=== PATIENT | male | born 1955 | race Caucasian/White ===

== ENCOUNTER → 2018-07-03 14:23 | Outpatient (REF) | payer BC, MEDICARE, SELFPAY | LOC: LAB 14:23 | PROVIDERS: Visit Provider Urology | DX: R39.89 Other symptoms and signs involving the genitourinary system (principal); R31.0 Gross hematuria | CPT/HCPCS: 87086; 87088; 87186 ==

== ENCOUNTER → 2018-08-22 08:28 | Outpatient (CLI) | payer BC, MEDICARE, SELFPAY ==
--- NOTE | 2018-08-22 08:30 | US_ITS ---
US kidney retroperitoneal comp HISTORY: Pain and burning with urination ITS.REASON: URINARY RETENTION, recent latter tumor removal ORDERING PHYSICIAN: Angelita Lugo PATIENT AGE: 63 years Comparison: None FINDINGS: The right kidney is 10 x 4 x 5 cm. No hydronephrosis. The cortex is well-preserved. There is increased echogenicity along the lower pole the right kidney which may represent a stone at approximately 8 mm. The left kidney is 10 x 5 x 6 cm. No hydronephrosis. Cortex is well-preserved. IMPRESSION: 1. Suspect right nephrolithiasis. 2. Otherwise negative renal ultrasound. No hydronephrosis evident
--- NOTE | 2018-08-22 08:30 | US_ITS ---
US urinary bladder CLINICAL INDICATION: Pain and burning with urination ITS.REASON: URINARY RETENTION, recent bladder tumor removal ORDERING PHYSICIAN: Angelita Lugo PATIENT AGE: 63 years Comparison: None FINDINGS: The prevoid volume of the urinary bladder is 148 mL's. The post void volume of the urinary bladder is 94 mL's. The prostate is markedly enlarged with heterogeneous echogenicity. The prostate measures approximately 7 x 6 x 6 cm. There appears to be bilateral cystoceles which contain small stones. There is some debris within the urinary bladder with some irregular increased echogenicity along the posterior aspect of the urinary bladder. Cannot exclude tumor involvement of the bladder based on these images. IMPRESSION: 1. There is moderate postvoid residual urine within the urinary bladder 2. Enlarged prostate. 3. Debris along the posterior aspect of the urinary bladder with bilateral cystoceles which contains stones. Posterior wall urinary bladder is not well delineated with some heterogeneous echogenicity. Tumor involvement is an additional consideration. Consider CT with contrast with delayed images for further evaluation
== END ==
PROVIDERS: Family Provider Family Medicine; PCP Family Medicine; Visit Provider Nurse Practitioner Family
DX: R33.9 Retention of urine, unspecified (principal)
CPT/HCPCS: 76770; 76857

== ENCOUNTER → 2018-11-06 13:34 | Outpatient (CLI) | payer BC, MEDICARE, SELFPAY | LOC: LAB 13:34 → LAB.DROPOF 13:36 | PROVIDERS: Visit Provider Urology | DX: N39.0 Urinary tract infection, site not specified (principal) | CPT/HCPCS: 87086; 87088; 87186 ==

== ENCOUNTER → 2019-02-05 14:39 | Outpatient (CLI) | payer BC, MEDICARE, SELFPAY | LOC: LAB 14:39 → LAB.DROPOF 02-06 09:41 | PROVIDERS: Visit Provider Urology | DX: N39.0 Urinary tract infection, site not specified (principal) | CPT/HCPCS: 87086; 87088; 87186 ==

== ENCOUNTER → 2019-08-06 14:25 | Outpatient (CLI) | payer BC, MEDICARE, SELFPAY | PROVIDERS: Visit Provider Urology | DX: N39.0 Urinary tract infection, site not specified (principal) | CPT/HCPCS: 87086 ==

== ENCOUNTER 2019-10-31 05:43 | Observation (INO) ==
--- NOTE | 2019-10-31 05:52 | Emergency Department Note ---
ED Disposition Clinical Impression: Unstable angina Disposition: Admitted as Observation Condition on Discharge: Fair Referrals: Provider,Referral, [Primary Care Provider] - - Critical Care Critical Care Time: No Attestation: On , the high probability of a clinically significant, sudden or life thr eatening deterioration of the following system(s) required my full and direct attention, intervention and personal management. The time I documented below is in addition to time spent performing reported procedures but includes the following listed in this critical care notation. Medical Decision Making - [place] Inquiry Pt receiving controlled substance: No Vital Signs: 10/31/19 05:45 10/31/19 06:15 10/31/19 06:30 Temperature 98.0 F Temperature Source Oral Pulse Rate [Right Brachial] 71 62 56 L Respiratory Rate 18 18 18 Blood Pressure [Right Arm] 138/89 133/77 128/69 Blood Pressure Mean [Right Arm] 105 95 88 Blood Pressure Source [Right Arm] Automatic Cuff Automatic Cuff Blood Pressure Position [Right Arm] Sitting Supine 02 Sat by Pulse Oximetry 96 96 96 Oxygen Delivery Method Room Air Room Air Room Air - Lab Data Lab Results 10/31/19 06:10: WBC 8.1, RBC 5.27, Hgb 15.9, Hct 49.6, MCV 94.0, MCH 30.2, MCHC 32.2, RDW 13.6, Plt Count 204, MPV 8.2, Neut % (Auto) 75.6, Lymph % (Auto) 14.3, [place] % (Auto) 6.1, Eos % (Auto) 3.2, Baso % (Auto) 0.7, Neut # (Auto) 6.2, Lymph # (Auto) 1.2, [place] # (Auto) 0.5, Eos # (Auto) 0.3, Baso # (Auto) 0.1 10/31/19 06:10: Sodium 140, Potassium 3.4 L, Chloride 100, Carbon Dioxide 31, Anion Gap 12.4, BUN 21 H, Creatinine 1.54 H, Estimated Creat Clear 44, Estimated GFR 45 L, Est GFR ( Amer) 55 L, Glucose 137 H, Calcium 9.7, Total Bilirubin 0.8, AST 24, ALT 29, Alkaline Phosphatase 75, Troponin I < 0.02, Total Protein 8.0, Albumin 3.4, Globulin 4.6 H, Albumin/Globulin Ratio 0.7 L Result diagrams: 12/07/19 06:10 10/31/19 06:10 Orders (Tests/Meds): ED MEDICATIONS Generic Name Dose Route Start Last Admin Trade Name Freq PRN Reason Stop Dose Admin Nitroglycerin 1 gm 10/31/19 06:15 10/31/19 06:19 Nitroglycerin 1 Inch Oint Udp TD 11/30/19 06:14 1 gm Q6H NOA Administration Discontinued Medications Generic Name Dose Route Start Last Admin Trade Name Freq PRN Reason Stop Dose Admin Aspirin 324 mg 10/31/19 06:09 10/31/19 06:10 Aspirin 81mg Chewable Tablet PO 10/31/19 06:10 324 mg ONCE ONE Administration Nitroglycerin 1 gm 10/31/19 06:11 10/31/19 06:12 Nitroglycerin 1 Inch Oint Udp TD 10/31/19 06:12 Not Given ONCE ONE ORDERS Category Date Time Status Chest XR 2 view (NOT portable) [XR chest 2V] Stat Exams 10/31/19 06:47 Ordered Troponin I Q3H Lab 10/31/19 09:15 Ordered Troponin I Q3H Lab 10/31/19 12:15 Ordered - Radiology Data #1 Image(s): Chest Image Reviewed: Yes I have reviewed radiologist's interpretation FINDINGS: The cardiomediastinal silhouette and pulmonary vascularity are within normal limits. Prior CABG COPD with chronic interstitial changes. Prominent left hilum is noted but may be related to the lordotic positioning and pulmonary artery. PA and lateral chest may confirm. No acute bony abnormalities. IMPRESSION: COPD. Prominent left hilum which may be related to positioning and pulmonary artery. Non lordotic film may confirm. Dictated by: Hao Scales MD 10/31/2019 06:29 Electronically signed by Hao Scales MD in [place] 10/31/2019 06:29 - ECG Data Tracing #1 EKG interpreted by Jose Moore MD: Rhythm: sinus Rate: 65 [place]: normal Ectopy: none Conduction: normal ST Segment Changes: none T Wave Changes: none Q Waves: none No evidence of acute ischemia or injury Normal electrocardiogram - Physician Consults Physician Consulted: Kassi Time: 06:57 Reason -: Admission Comment/Response: Agrees to admit the patient to the hospital. We discussed the patient's clinical information, including history, exam, laboratory and radiology results and ED course. Per hospital procedure, I will write temporary bridge inpatient orders on the patient. Specific orders requested by the adm itting physician: Serial cardiac enzymes. Continue Nitropaste. Morphine for pain. - Reevaluation(s) Time: 06:57 Reevaluation #1: Patient states that now he "feels great". General Adult HPI - General Stated complaint: CHEST PAIN Time Seen by Provider: 10/31/19 05:53 - History of Present Illness HPI narrative: Complains of intermittent chest pain since 11 PM. Numerous episodes lasting 2 to 3 minutes each that feel like a concrete truck sitting on his chest in the precordial and right parasternal area. Associated with shortness of breath and diaphoresis as well as an episode of nausea but no vomiting. Currently states he is not having chest pain. Chest pains feel like what he had before he had to have bypass surgery in 2012 at [facility]. He does not currently see a safety belt installer regularly. He is a former smoker. He does not have diabetes. He is treated for hypertension. He says he does not have hyperlipidemia. - Related Data Home Medications Medication Instructions Recorded Confirmed hydrochlorothiazide 25 mg tablet 25 mg PO DAILY 90 Days tab 07/03/18 10/31/19 metoprolol tartrate 25 mg tablet 25 mg PO BID 90 Days tab 07/03/18 10/31/19 tamsulosin 0.4 mg capsule 0.4 mg PO DAILY 30 Days #30 07/03/18 10/31/19 oxybutynin chloride 5 mg tablet 5 mg PO ONCE tab 07/24/18 10/31/19 Umeclidinium Brm/Vilanterol Tr 1 puff IH NEEDED PRN 01/19/19 10/31/19 [Anoro Ellipta 62.5-25 Mcg INH] Allergies Allergy/AdvReac Type Severity Reaction Status Date / Time penicillin G [PENICILLIN G] Allergy Intermediate Verified 10/31/19 05:52 iodine [IODINE] Allergy Unknown Verified 10/31/19 05:52 [facility] [place] History - Hepatitis A Screen Attestation statement:: This patient has been screened for Hepatitis A risk factors. I have reviewed the patient's past medical history: Yes Medical History: Reports:: Diabetes Mellitus Type 1, Hyperlipidemia, Hypertension, Myocardial Infarction Denies:: Diabetes Mellitus Type 2 Other Surgeries: Yes: No Previous Surgery, Cancer Surgery (bladder tumor), Other Amputation: No Fractures: No Comment: BLADDER TUMOR REMOVED - Social History Smoking Status: Former smoker Alcohol Intake: never Alcohol Intake Frequency:: other Substance Use Type: denies use Occupational Status: retired Housing: house Household Members: spouse Family Hx:: Cancer ROS Obtained: Yes All systems reviewed & no additional complaints - Cardiovascular Cardiovascular: Reports chest pain, Reports diaphoresis - Respiratory Respiratory: Yes dyspnea - Gastrointestinal Gastrointestingal: Reports: nausea. Denies: abdominal pain, vomiting Physical Exam - General General appearance: alert - Head Head exam: atraumatic, normocephalic - Eye Eye exam: Present: normal appearance, EOMI - ENT ENT exam: Present: mucous membranes moist - Neck Neck exam: Present: normal inspection, trachea midline - Chest Chest inspection: Present: normal inspection, symmetric chest wall rise, other (Sternotomy scar) - Respiratory Respiratory exam: Present: normal lung sounds bilaterally - Cardiovascular Cardiovascular exam: Present: regular rate, normal rhythm, normal heart sounds - Abdominal Exam Abdominal exam: Present: soft, normal bowel sounds. Absent: distention, tenderness - Extremities Exam Extremities exam: Present: pedal edema (Trace to 1+) - Neurological Exam Neurological exam: Present: alert, oriented X3 - Psychiatric Psychiatric exam: Present: anxious - Skin Skin exam: Present: warm, dry
[2019-10-31 06:19] LABS: Basophils # 0.1 K/mm3 (0-0.2); Basophils % 0.7 % (0.1-2.0); Eosinophils # 0.3 K/mm3 (0.0-0.4); Eosinophils % 3.2 % (0.1-12.0); Hematocrit 49.6 % (42.0-52.0); Hemoglobin 15.9 g/dL (14.1-18.0); Lymphocytes # 1.2 K/mm3 (0.7-4.5); Lymphocytes % 14.3 % (10-50); Mean Corpuscular HGB Conc 32.2 g/dL (31.8-35.4); Mean Platelet Volume 8.2 fl (7.4-10.4); Monocytes # 0.5 K/mm3 (0.1-1.0); Monocytes % 6.1 % (1.7-9.3); Neutrophils # 6.2 K/mm3 (1.8-7.8); Neutrophils % 75.6 % (37.0-80.0); Platelet Count 204 K/mm3 (142-424); Red Blood Count 5.27 M/mm3 (4.60-6.20); Red Cell Distribution Width 13.6 % (11.5-17.5); White Blood Count 8.1 K/mm3 (4.8-10.8)
[2019-10-31 06:33] LABS: Alanine Aminotransferase 29 U/L (12-78); Albumin Level 3.4 gm/dL (3.4-5.0); Albumin/Globulin Ratio 0.7 (1.1-1.8); Alkaline Phosphatase 75 U/L (46-116); Anion Gap 12.4 mEq/L (5-15); Aspartate Amino Transferase 24 U/L (15-37); Bilirubin,Total 0.8 mg/dL (0.2-1.0); Blood Urea Nitrogen 21 mg/dL (7-18); Calcium 9.7 mg/dL (8.5-10.1); Carbon Dioxide 31 mmol/L (21.0-32.0); Chloride 100 mmol/L (98-107); Globulin 4.6 gm/dl (1.3-3.2); Glucose 137 mg/dL (74-106); Sodium 140 mmol/L (136-145)
--- NOTE | 2019-10-31 09:04 | History & Physical Report ---
*Admission Date: 10/31/19 [facility] History Medical History: Reports:: Diabetes Mellitus Type 1, Hyperlipidemia, Hypertension, Myocardial Infarction Denies:: Diabetes Mellitus Type 2 *Have you ever received a pneumonia vaccine?: Yes *Have you received a flu vaccine this season?: No Other Surgeries: Yes: No Previous Surgery, Cancer Surgery (bladder tumor), Other Amputation: No Fractures: No - *Social History Educational Level: Completed High School Smoking Status: Former smoker Tobacco Type: cigarettes Smoking End Date: 6 years ago Alcohol Intake: never Alcohol Intake Frequency:: other Substance Use Type: denies use *Occupational Status:: retired Housing: house Household Members: spouse *Travel in the last 8 weeks: None Family Hx:: Cancer Meds Home Medications Medication Instructions Recorded Confirmed Type hydrochlorothiazide 25 mg tablet 25 mg PO DAILY 90 Days tab 07/03/18 10/31/19 History metoprolol tartrate 25 mg tablet 25 mg PO BID 90 Days tab 07/03/18 10/31/19 History tamsulosin 0.4 mg capsule 0.4 mg PO DAILY 30 Days #30 07/03/18 10/31/19 History oxybutynin chloride 5 mg tablet 10 mg PO ONCE tab 07/24/18 10/31/19 History Umeclidinium Brm/Vilanterol Tr 1 puff IH DAILY 01/19/19 10/31/19 History [Anoro Ellipta 62.5-25 Mcg INH] Allergies Allergy/AdvReac Type Severity Reaction Status Date / Time penicillin G [PENICILLIN G] Allergy Intermediate Verified 10/31/19 05:52 iodine [IODINE] Allergy Unknown Verified 10/31/19 05:52 Exam Vital signs and Labs for Last 24 Hours: Temp Pulse Resp BP Pulse Ox 97.6 F 56 L 18 144/53 H 93 L 10/31/19 07:45 10/31/19 07:45 10/31/19 07:45 10/31/19 07:45 10/31/19 07:45 Laboratory Results - last 24 hr 10/31/19 06:10: WBC 8.1, RBC 5.27, Hgb 15.9, Hct 49.6, MCV 94.0, MCH 30.2, MCHC 32.2, RDW 13.6, Plt Count 204, MPV 8.2, Neut % (Auto) 75.6, Lymph % (Auto) 14.3, [place] % (Auto) 6.1, Eos % (Auto) 3.2, Baso % (Auto) 0.7, Neut # (Auto) 6.2, Lymph # (Auto) 1.2, [place] # (Auto) 0.5, Eos # (Auto) 0.3, Baso # (Auto) 0.1 10/31/19 06:10: Sodium 140, Potassium 3.4 L, Chloride 100, Carbon Dioxide 31, Anion Gap 12.4, BUN 21 H, Creatinine 1.54 H, Estimated Creat Clear 44, Estimated GFR 45 L, Est GFR ( Amer) 55 L, Glucose 137 H, Calcium 9.7, Total Bilirubin 0.8, AST 24, ALT 29, Alkaline Phosphatase 75, Troponin I < 0.02, Total Protein 8.0, Albumin 3.4, Globulin 4.6 H, Albumin/Globulin Ratio 0.7 L I & O for Last 24 hours: Intake & Output 10/28/19 10/29/19 10/30/19 10/31/19 11:59 11:59 11:59 11:59 Weight 246 lb
--- NOTE | 2019-10-31 11:32 | Pharmacy Consult Notes ---
[facility] Pharmacy VTE Monitoring - Patient Demographics Admission date: 10/31/19 Report Date: 10/31/19 Time: 11:31 Allergies/Adverse Reactions: Patient Allergies penicillin G [PENICILLIN G] Allergy (Intermediate, Verified 10/31/19 05:52) iodine [IODINE] Allergy (Unknown, Verified 10/31/19 05:52) Height: 1.7 m Weight: 111.584 kg Patient Problems: Current Active Problems Unstable angina (Acute) - VTE Risk Labs: VTE Related Lab Results Hgb 15.9 g/dL (14.1-18.0) 10/31/19 06:10 Hct 49.6 % (42.0-52.0) 10/31/19 06:10 Plt Count 204 K/mm3 (142-424) 10/31/19 06:10 BUN 21 mg/dL (7-18) H 10/31/19 06:10 Creatinine 1.54 mg/dL (0.70-1.30) H 10/31/19 06:10 Estimated Creat Clear 44 mL/min (50-200) 10/31/19 06:10 - Prophylaxis VTE Prophylaxis Ordered?: Yes Types of VTE Prophylaxis: TEDS Knee High Location of Applied Device: Bilateral Lower Extremeties
--- NOTE | 2019-10-31 11:35 | H&P/Discharge Summary ---
General - General Admission date:: 10/31/19 Discharge date: 10/31/19 *Admission Date: 10/31/19 *Chief complaint: Chest pain *History of present illness: 64-year-old male with coronary artery disease status post two[place]vessel [place] [address] Chester presented to the emergency department this morning after having about 5 to 6 hours of chest pain described as if a concrete truck was sitting on his chest. Symptoms began abruptly around 11 PM the night before. Patient initially thought he was having indigestion so took extra Pepcid which he uses frequently to begin with. He was diaphoretic but denies shortness of breath or radiation of chest discomfort. He has not had any cardiac evaluation since his follow-up appointment with cardiology in 2013. He takes his medicines as prescribed. In the emergency department his chest pain resolved as he was pulling into the emergency department. Work-up progressed and an EKG was normal and troponin was normal. Nitroglycerin paste was applied to the patient alth ough he admits his chest pain had nearly resolved before any interventions were performed. Decision was made to admit the patient for serial enzymes. [facility] History I have reviewed the patient's past medical history: Yes Medical History: Reports:: Hypertension, Myocardial Infarction Denies:: Diabetes Mellitus Type 2 *Have you ever received a pneumonia vaccine?: Yes *Have you received a flu vaccine this season?: No Other Surgeries: Yes: No Previous Surgery, Cancer Surgery (bladder tumor), Other Amputation: No Fractures: No - *Social History Educational Level: Completed High School Smoking Status: Former smoker Tobacco Type: cigarettes Smoking End Date: 6 years ago Alcohol Intake: never Alcohol Intake Frequency:: other Substance Use Type: denies use *Occupational Status:: retired Housing: house Household Members: spouse *Travel in the last 8 weeks: None Family Hx:: Cancer Review of Systems - Review of Systems Review of systems:: pertinent systems reviewed and negative unless documented below Exam Vital signs and Labs for Last 24 Hours: Temp Pulse Resp BP Pulse Ox 97.6 F 56 L 18 144/53 H 93 L 10/31/19 07:45 10/31/19 07:45 10/31/19 07:45 10/31/19 07:45 10/31/19 07:45 Laboratory Results - last 24 hr 10/31/19 06:10: WBC 8.1, RBC 5.27, Hgb 15.9, Hct 49.6, MCV 94.0, MCH 30.2, MCHC 32.2, RDW 13.6, Plt Count 204, MPV 8.2, Neut % (Auto) 75.6, Lymph % (Auto) 14.3, [place] % (Auto) 6.1, Eos % (Auto) 3.2, Baso % (Auto) 0.7, Neut # (Auto) 6.2, Lymph # (Auto) 1.2, [place] # (Auto) 0.5, Eos # (Auto) 0.3, Baso # (Auto) 0.1 10/31/19 06:10: Sodium 140, Potassium 3.4 L, Chloride 100, Carbon Dioxide 31, Anion Gap 12.4, BUN 21 H, Creatinine 1.54 H, Estimated Creat Clear 44, Estimated GFR 45 L, Est GFR ( Amer) 55 L, Glucose 137 H, Calcium 9.7, Total Bilirubin 0.8, AST 24, ALT 29, Alkaline Phosphatase 75, Troponin I < 0.02, Total Protein 8.0, Albumin 3.4, Globulin 4.6 H, Albumin/Globulin Ratio 0.7 L 10/31/19 10:15: Troponin I < 0.02 I & O for Last 24 hours: Intake & Output 10/28/19 10/29/19 10/30/19 10/31/19 11:59 11:59 11:59 11:59 Weight 246 lb Narrative: Patient is awake and alert sitting up in bed. He is in no distress. Oropharynx is moist. Neck has no carotid bruits. Neck has no jugular venous distention. Lungs are clear to auscultation. Heart has a regular rate and rhythm. Abdomen is soft and obese without palpable masses. Bowel sounds are present. Extremities are warm to the touch. He has palpable posterior tibialis pulses in both feet and trace edema around the ankles Hospital Course Hospital Course: Patient was admitted. He was chest pain-free upon admission. Nitroglycerin paste was applied and maintained. Follow-up troponin was negative. Vital sign monitoring showed a normal blood pressure. Once patient ruled out for NH he was discharged home and will follow-up in my office on Saturday to arrange further testing. He has been given a prescription for as needed nitroglycerin to use should he have recurrence of chest pain Results Labs on day of discharge: Labs from last 24 hours 10/31/19 10/31/19 10/31/19 10:15 06:10 06:10 WBC 8.1 RBC 5.27 Hgb 15.9 Hct 49.6 MCV 94.0 MCH 30.2 MCHC 32.2 RDW 13.6 Plt Count 204 MPV 8.2 Neut % (Auto) 75.6 Lymph % (Auto) 14.3 [place] % (Auto) 6.1 Eos % (Auto) 3.2 Baso % (Auto) 0.7 Neut # (Auto) 6.2 Lymph # (Auto) 1.2 [place] # (Auto) 0.5 Eos # (Auto) 0.3 Baso # (Auto) 0.1 Sodium 140 Potassium 3.4 L Chloride 100 Carbon Dioxide 31 Anion Gap 12.4 BUN 21 H Creatinine 1.54 H Estimated Creat Clear 44 Estimated GFR 45 L Est GFR ( Amer) 55 L Glucose 137 H Calcium 9.7 Total Bilirubin 0.8 AST 24 ALT 29 Alkaline Phosphatase 75 Troponin I < 0.02 < 0.02 Total Protein 8.0 Albumin 3.4 Globulin 4.6 H Albumin/Globulin Ratio 0.7 L Discharge Plan - Patient Discharge Instructions ACTIVITY: Continue current activity DIET: continue same diet - Follow up Plan Follow up with: Christiano Prado MD [Primary Care Provider] - 11/02/19 10:00 am Disposition: Home, Self-Group Home Medications: Home Medications Medication Instructions Recorded Confirmed Type hydrochlorothiazide 25 mg tablet 25 mg PO DAILY 90 Days tab 07/03/18 10/31/19 History metoprolol tartrate 25 mg tablet 25 mg PO BID 90 Days tab 07/03/18 10/31/19 History tamsulosin 0.4 mg capsule 0.4 mg PO DAILY 30 Days #30 07/03/18 10/31/19 History oxybutynin chloride 5 mg tablet 10 mg PO DAILY tab 07/24/18 10/31/19 History Umeclidinium Brm/Vilanterol Tr 1 puff IH DAILY 01/19/19 10/31/19 History [Anoro Ellipta 62.5-25 Mcg INH] Aspirin [Aspir 81] 81 mg PO DAILY #30 tablet.dr 10/31/19 Rx Nitroglycerin 0.4 mg SL Q5MINP PRN #30 tab.subl 10/31/19 Rx Prescriptions/Medication Reconciliation: New Nitroglycerin 0.4 mg SL Q5MINP PRN #30 tab.subl PRN Reason: Chest Pain Aspirin [Aspir 81] 81 mg PO DAILY #30 tablet.dr Continued metoprolol tartrate 25 mg tablet 25 mg PO BID 90 Days tab hydrochlorothiazide 25 mg tablet 25 mg PO DAILY 90 Days tab oxybutynin chloride 5 mg tablet 10 mg PO DAILY tab tamsulosin 0.4 mg capsule 0.4 mg PO DAILY 30 Days #30 Umeclidinium Brm/Vilanterol Tr [Anoro Ellipta 62.5-25 Mcg INH] 1 puff IH DAILY - Problem Reconciliation Problems Reviewed?: Yes
--- NOTE | 2019-11-01 16:56 | Electrocardiograph Report ---
APPROVED REPORT Exam: Resting ECG HR:65 bpm ECG Measurements Heart Rate 65 AXES WA 164 P -15 QRSd 84 QRS 50 QT 410 T47 QTc 426 <Conclusion> Normal sinus rhythm Incomplete RBBB Otherwise a Normal ECG Electronically signed by : Kemal Bower, 11/01/2019 16:55:35
== END 2019-10-31 13:35 | disposition home or self-care (01) ==
LOC: ER 05:43 → 2ND 05:43
PROVIDERS: ADMIT Emergency Medicine; ATTEND Family Medicine
CPT/HCPCS: 36415; 71010; 71020; 71045; 71046; 80053; 84484; 85025; 93005; 99285; G0378

== ENCOUNTER → 2019-11-13 07:20 | Outpatient (CLI) | payer BC, SELFPAY ==
--- NOTE | 2019-11-13 | CA_ITS ---
APPROVED REPORT Exam: Exercise Treadmill Technologist: odalis jean baptiste, Ht: 5 ft 7 in Wt: 250 lbs BSA: 2.22 m2 HR: 50 bpm BP: 148/80 mmHg Indications: CP Medical History Medications: Metoprolol,,,,, Asa,,,,, HCTZ,,,,, TAMSULOSIN,,,,, Albuterol,,,,, Nitro,,,,, OxYbutyIN,,,,, ANora,,,,, Allergies: PCN, Iodine Cardiac Risk Factors: HTN, Smoking Stress Test Details Test: Manual Treadmill HR Resting HR: 62 bpm Max Heart Rate (APMHR): 154 bpm Max HR Achieved: 140 bpm Target HR (85% APMHR): 130 bpm % of APMHR: 90 Recovery HR: 63 bpm BP Resting BP: 148/80 mmHg Max BP: 160/84 mmHg Recovery BP: 160.0/73.0 mmHg ECG Resting ECG: Sinus Bhavesh Clinical Reason for Termination: Dyspnea, Fatigue Exercise duration: 04:25 min Highest Stage Achieved: Exercise capacity: 5.1 METs Stress ECG Conclusion Test stopped due to SOA and Fatigue. No CP. Frequent PVC's with rare Couplet. Less than 1.5mm horizontal t upsloping ST segment depression inferiorlaterally that resolved slowly in recovery. Positive stress test ( symptoms, EKG). Test Summary REST . . . . . . . Standing REST . . . . . . . Sitting REST 05:22 0.0 0.0 62 . 148/ 80 . . Stage 1 01:00 10.0 1.7 82 . . . . Stage 1 02:00 10.0 1.7 102 . . . . Stage 1 03:00 10.0 1.7 115 . 160/ 84 . . Stage 2 . . . . . . . Protocol changed to Manual Treadmill Stage 2 01:00 12.0 1.7 120 . . . . Stage 2 01:25 0.0 1.7 123 . . . Stop exercise at 04:25 RECOVERY 01:00 0.0 0.0 101 . . . . RECOVERY 02:00 0.0 0.0 78 . . . . RECOVERY 03:00 0.0 0.0 63 . . . . RECOVERY 04:00 0.0 0.0 62 . 160/ 73 . . RECOVERY 05:00 0.0 0.0 65 . 160/ 73 . . RECOVERY 06:00 0.0 0.0 63 . 160/ 73 . . RECOVERY 07:00 0.0 0.0 64 . 160/ 73 . . RECOVERY 08:00 0.0 0.0 68 . 155/ 71 . . RECOVERY 08:56 0.0 0.0 0 . 155/ 71 . . Electronically signed by : John Mariscal, 11/13/2019 12:53:39
--- NOTE | 2019-11-13 07:22 | NM_ITS ---
APPROVED REPORT Exam: Nuclear Stress Test Indication: Chest pain, SOB, HTN, CAD, CABG Patient Location: Outpatient Stress Tech: Paige Moe [place] Tech:Abril Brewster, ARRT, RT (R)(N) Ht: 5 ft 7 in Wt: 250 lbs HR: 50 bpm BP: 148/80 mmHg BSA: 2.22 m2 BMI: 39.1 History: Chest pain, SOB, HTN, CAD, CABG Procedure: Patient exercised on Jasmeet protocol 4:25 minutes and sec, resting heart rate 50 bpm, resting blood pressure 148/80 mmHg, with exercise maximum heart rate achived was 120 bpm which is Less than 85 % of the maximum predicted heart rate and blood pressure was 160/84 mmHg. Test was stopped due to SOA and fatigue. Patient denied any complaint of chest pain. Patient has Poor exercise capacity, achieved 5.1 METs of workload on treadmill, the blood pressure response to exercise was Adequate. Electrocardiogram Sinus rhythm, with exercise there is [address] segment depression noted from the baseline EKG. The EKG portion of the exercise Myoview is positive for ischemia. Cardiac Stress and Resting SPECT Images: Cardiac Stress and Resting SPECT images were obtained using technetium 99m Myoview 31.3 mCi stress and 10.84 mCi at rest. Gated SPECT for analysis of segmental wall motion and calculation of the ejection fraction also done. Cardiac stress and resting SPECT images show a partially reversible defect involving the inferolateral wall consistent with mixed ischemia and scar, computer derived ejection fraction is 65% with mild inferior lateral wall hypokinesis. Right ventricle is mildly enlarged with normal contractility. Conclusion: 1. The EKG portion of the exercise Myoview is positive for ischemia, patient has poor exercise capacity 5.1 mets of workload on treadmill, test was stopped due to shortness of breath. Blood pressure response to exercise was adequate. 2. Scintigraphic evidence of ischemia and scar involving the inferolateral wall as described above, right ventricle is mildly enlarged with normal contractility. 3. Abnormal exercise Myoview study. Electronically signed by : John Mariscal, 11/13/2019 12:57:00
--- NOTE | 2019-11-13 07:39 | HMH.ITSHM ---
Current Home Medications as stated by this patient Lj Estevez or registration representative. []METOPROLOL TAMSULOSIN HYDROCHLOROTHIAZIDE OXYBUTYNIN ASA ANORO ALBUTEROL
--- NOTE | 2019-11-13 10:05 | XR_ITS ---
PROCEDURE: XR FOOT RT MIN 3V CLINICAL INDICATION: RT FOOT PAIN COMPARISON: No exams were available for comparison FINDINGS: There is mild flexion of the toes. Mild osteoarthritic change 1st metatarsophalangeal joint. No fracture or dislocation. . IMPRESSION: Mild degenerative changes Dictated by: Hao Scales MD 11/13/2019 18:14 Electronically signed by Hao Scales MD in [place] 11/13/2019 18:14
== END ==
PROVIDERS: PCP Family Medicine; Visit Provider Family Medicine
DX: I20.0 Unstable angina (principal); I25.10 Atherosclerotic heart disease of native coronary artery without angina pectoris; M79.671 Pain in right foot; Z95.1 Presence of aortocoronary bypass graft
CPT/HCPCS: 73630; 78452; 93017; A9502

== ENCOUNTER 2019-12-09 08:50 | Outpatient (CLI) | payer BC, SELFPAY ==
--- NOTE | 2019-12-09 13:38 | PC.NURSE ---
CBC DONE ON 12/04/19 AND WAS NORMAL. WEIGHT 254 LBS. VITALS FOLLOWS: TEMP 97.5, PULSE 58, RESP RATE 18, BP 132/68. PRE-MEDICATED WITH TYLENOL 650MG PO AND BENADRYL 25MG PO AT 904. AT 924, INSERTED 200MG LIDOCAINE VIA UROJET INTO TIP OF PENIS, HOWEVER MOST OF LIDOCAINE CAME BACK OUT DUE TO STRICTURE AT END OF PENIS. AT 929, ATTEMPTED TO INSERT 14 FR COUDE F/C BUT WAS UNABLE DUE TO STRICTURE. ATTEMPTED INSERTION WITH 16 FR F/C, AGAIN WITH NO LUCK. [address]5 MADE PH[address] CALL TO DR WORKMAN. SEE PROVIDER NOTIFICATION INTERVENTION FOR MORE DETAILS.
== END 2019-12-09 10:40 | disposition home or self-care (01) ==
LOC: INF 08:57
PROVIDERS: Visit Provider Urology
DX: C67.9 Malignant neoplasm of bladder, unspecified (principal)
CPT/HCPCS: G0463

== ENCOUNTER 2019-12-14 12:06 | Outpatient (CLI) | payer BC, SELFPAY ==
[2019-12-14 10:30] VITALS: BP 118/68; PULSE 68; RESP 20; TEMP 36.9; O2SAT 95
--- NOTE | 2019-12-14 12:24 | PC.NURSE ---
Addendum entered by Charmaine Paulino RN 12/14/19 12:57: Original Note: PT CAME IN LAST WEEK AND NURSING STAFF WAS UNABLE TO GET TRIVEDI INSERTED DUE TO STRICTURE IN PENIS. SPOKE WITH MD AND IT WAS AGREED THAT HE WOULD COME THIS AM AND HE WOULD INSERT THE CATH. THE MD WAS PRESENT AND ATTEMPTED NUMEROUS TIMES TO INSTERT CATH. PT HE ATTEMPTED USING COUDE AND IT WAS NOT SUCCESSFUL. ALSO ATTEMPTED TO DIFFERENT TOOLS TO OPEN THE AREA UP. STILL NO SUCCESS. AFTER TRYING MULTIPLE TIMES HE DECIDED THAT THE BEST OPTION FOR THE PATIENT IS TO REPEAT CYSTO AND REEVALUATE THE THE TUMOR GROWTH AND PLAN TO GIVE MITOMYCIN IN THE OR IF DEEMED NECESSARY. PATIENT IS OK WITH THAT.
--- NOTE | 2019-12-14 13:04 | P.OP_ITS ---
Date of procedure: 12/14/19 Pre-op Diagnosis:: Difficult Easton placement Post-op Diagnosis:: Pendulous urethral stricture Procedure performed:: Urethral dilation Surgeon:: Kervin Dillard MD Anesthesia: local Estimated blood loss (mL): 5 Clinical Note:: 64-year-old white male with history of bladder cancer. He presented to infusion today for [facility] infusion. He had presented last week but nursing staff unable to place a Easton catheter. Operative findings:: Pendulous urethral stricture Operative note:: Patient was prepped and draped in standard surgical fashion and 2% lidocaine placed into the urethral meatus and clamped. After few minutes and was urethra was dilated with a 1618 and 20 Hong Konger straight dilator. Then attempted to pass a 16 Hong Konger Easton and it was able to pass into the bulbar urethra but did not pass in the bladder. Then used a 16 Hong Konger coud? catheter and it too would not pass into the bladder. Patient is known to have previous urethral stricture and a high bladder neck. Discussed findings with the patient and his and we will set him up for cystoscopy under general anesthetic in the next 2 to 3 weeks and will administer mitomycin at that time. Condition: stable Disposition: no change Specimens:: None Complications:: None
== END 2019-12-14 12:30 | disposition home or self-care (01) ==
LOC: INF 12:06
PROVIDERS: Visit Provider Urology
DX: C67.9 Malignant neoplasm of bladder, unspecified (principal)

== ENCOUNTER → 2020-06-10 10:59 | Outpatient (CLI) | payer BC, SELFPAY ==
[2020-06-10 14:38] LABS: Coronavirus 19 IgG Antibody Negative (Negative); Coronavirus 19 IgM Antibody Negative (Negative)
== END ==
PROVIDERS: Visit Provider Urology
DX: Z01.818 Encounter for other preprocedural examination (principal); C67.9 Malignant neoplasm of bladder, unspecified
CPT/HCPCS: 36415; 86328

== ENCOUNTER 2020-06-13 08:40 | Day surgery (SDC) | payer BC, MEDICARE, SELFPAY ==
[2020-05-04 10:42] VITALS: BMI 42.4
[2020-06-13 09:01] VITALS: BP 137/81; PULSE 57; RESP 18; TEMP 36.3; O2SAT 96
--- NOTE | 2020-06-13 09:48 | HMH.ANESCL ---
[facility] Anesthesia Checklist - Patient Identification Patient Identification: Arm Band - Structural Data Admitted From: Home Planned Operative Procedure/s: cystoscopy Consent for Planned Operative Procedure(s) Verified: Yes Verified Documents: Surgical Consent, History and Physical - NPO Status Verified Time NPO: 00:00 - Additional verifications Anesthesia Reactions: No Hx Blood Transfusions: No Blood Transfusion Reaction: No - Airway Assessment C-Spine Mobility Assessed: Yes (mp2) TMJ Mobility Assessed: Yes Dentition: Edentulous - Neurological Assessment Level of Consciousness: Awake, Alert - Anesthesia Plan Anesthesia Risk discussed: Yes Anesthesia Plan: Verified ASA Class: III Anesthesia Type: MAC [facility] History I have reviewed the patient's past medical history: Yes Medical History: Reports:: Arrhythmia, Cancer (BLADDER 2018), Chronic Obstructive Pulmonary Disease (COPD), Coronary Artery Disease, Hyperlipidemia, Hypertension, Myocardial Infarction Denies:: Diabetes Mellitus Type 1, Diabetes Mellitus Type 2, Internal Pacemaker, MRSA, Seizures *Have you ever received a pneumonia vaccine?: Yes *Have you received a flu vaccine this season?: No Other Medical History: Denies: Blood Transfusion Reaction Anesthesia experience/problems:: nac Other Surgeries: Yes: CABG, Cancer Surgery (bladder tumor), Colonoscopy, Hernia Repair, Open Heart Surgery, Other (VERTEBRAE SURGERY IN NECK). No: Pacemaker Amputation: No Fractures: No - *Social History Smoking Status: Former smoker Tobacco Type: cigarettes #Yrs smoked (if former smoker): 50 Alcohol Intake: never Alcohol Intake Frequency:: other Substance Use Type: denies use *Occupational Status:: retired Housing: house Household Members: spouse *Travel in the last 8 weeks: None Family Hx:: Cancer, Hyperlipidemia, Hypertension
[2020-06-13 11:55] VITALS: BP 98/54; PULSE 57; RESP 18; TEMP 36.9; O2SAT 93
[2020-06-13 12:10] VITALS: BP 104/52; PULSE 55; RESP 16; O2SAT 93
[2020-06-13 12:25] VITALS: BP 104/51; PULSE 54; RESP 18; O2SAT 93
[2020-06-13 12:35] VITALS: BP 111/64; PULSE 54; RESP 18; O2SAT 92
--- NOTE | 2020-06-13 14:07 | P.OP_ITS ---
Date of procedure: 06/13/20 Pre-op Diagnosis:: History of bladder cancer/history of urethral stricture Post-op Diagnosis:: Small papillary lesion noted at the bladder neck/recurrence of urethral stricture disease Procedure performed:: Cystoscopy with fulguration of small papillary bladder neck lesion/urethral dilation Surgeon:: Kervin Dillard MD EDITOR CONTINUITY AND SCRIPT:: Reggie Phillip Anesthesia: GETA Estimated blood loss (mL): 0 Clinical Note:: 65-year-old white male with history of bladder cancer and urethral stricture disease presents for surveillance cystoscopy. He denies any recurrent hematuria. His is performing daily urethral dilation with a urethral sound. Operative findings:: Small papillary bladder lesion noted at 6 left position on the bladder neck. No other mucosal abnormalities noted. Recurrence of urethral stricture disease was noted. Operative note:: Patient taken to the operating room after informed consent was obtained. Placed on the operating table in the supine position and general anesthesia administered. Preoperative antibiotics and sequential compression devices placed. Patient then placed into the dorsal lithotomy position and prepped and draped in standard surgical fashion. The 22 Luxembourger scope was unable to navigate the fossa navicularis and the urethra was dilated with a 22, 24 and 26 Luxembourger Randall sound. After dilation the 22 Luxembourger scope passed into the urethra without difficulty and into the bladder. Bladder was examined in a systematic fashion. The only abnormality was a small less than 1 mm papillary finding at 6:00 of the bladder neck. Decided to go ahead and fulgurate this lesion. Cystoscope removed and the 24 Luxembourger sheath passed into the urethra and into the bladder. The resectoscope was used to fulgurate the papillary bladder lesion at the bladder neck. No specimen was sent. Scope then removed. Patient tolerated procedure well no complications. Urojet placed into the urethra patient transported to recovery in stable condition. Condition: stable Disposition: same day Specimens:: None Complications:: None
[2020-06-13 14:55] VITALS: TEMP 43
== END 2020-06-13 12:35 | disposition home or self-care (01) ==
LOC: OR 08:43
PROVIDERS: PCP Family Medicine; Visit Provider Urology
PROC: 0TJB8ZZ Inspection of Bladder, Via Natural or Artificial Opening Endoscopic (ICD-10-PCS; CPT 52000; principal; 2020-06-13 10:15)
DX: D41.4 Neoplasm of uncertain behavior of bladder (principal); Z85.51 Personal history of malignant neoplasm of bladder; Z87.448 Personal history of other diseases of urinary system; I49.9 Cardiac arrhythmia, unspecified; J44.9 Chronic obstructive pulmonary disease, unspecified; I25.10 Atherosclerotic heart disease of native coronary artery without angina pectoris; I10 Essential (primary) hypertension; E78.5 Hyperlipidemia, unspecified; I25.2 Old myocardial infarction; Z95.1 Presence of aortocoronary bypass graft; Z87.891 Personal history of nicotine dependence; Z88.0 Allergy status to penicillin
CPT/HCPCS: 52214; 52341; 96374

== ENCOUNTER → 2020-11-09 10:26 | Outpatient (CLI) | payer BC, MEDICARE, SELFPAY ==
[2020-11-09 11:06] LABS: Basophils # 0.1 K/mm3 (0-0.2); Basophils % 1.4 % (0.1-2.0); Eosinophils # 0.4 K/mm3 (0.0-0.4); Eosinophils % 6.4 % (0.1-12.0); Hematocrit 49.6 % (42.0-52.0); Hemoglobin 16.8 g/dL (14.1-18.0); Lymphocytes # 1.5 K/mm3 (0.7-4.5); Lymphocytes % 24.2 % (10-50); Mean Corpuscular HGB Conc 33.9 g/dL (31.8-35.4); Mean Corpuscular Hemoglobin 32.2 pg (27.0-31.2); Mean Corpuscular Volume 94.8 fl (80-94); Mean Platelet Volume 8.7 fl (7.4-10.4); Monocytes # 0.4 K/mm3 (0.1-1.0); Monocytes % 7.1 % (1.7-9.3); Neutrophils # 3.8 K/mm3 (1.8-7.8); Neutrophils % 60.9 % (37.0-80.0); Platelet Count 204 K/mm3 (142-424); Red Blood Count 5.23 M/mm3 (4.60-6.20); Red Cell Distribution Width 14.1 % (11.5-17.5); White Blood Count 6.3 K/mm3 (4.8-10.8)
[2020-11-09 11:29] LABS: Chloride 102 mmol/L (98-107); Sodium 139 mmol/L (136-145)
[2020-11-09 11:30] LABS: Potassium 3.3 mmoL/L (3.5-5.1)
[2020-11-09 11:32] LABS: Blood Urea Nitrogen 24 mg/dl (9-20); Estimated Glomerular Filt Rate 60 ml/min (>60); GFR (African American) 73 ML/MIN (>60)
[2020-11-09 11:33] LABS: Anion Gap 13.3 mEq/L (5-15); Calcium 10.1 mg/dl (8.4-10.2); Carbon Dioxide 27 mmol/L (22.0-30.0); Glucose 120 mg/dl (74-100)
[2020-11-09 12:25] LABS: Coronavirus 19 IgG Antibody Negative (Negative); Coronavirus 19 IgM Antibody Negative (Negative)
== END ==
PROVIDERS: Visit Provider Urology
DX: Z01.818 Encounter for other preprocedural examination (principal); Z03.818 Encounter for observation for suspected exposure to other biological agents ruled out; C67.9 Malignant neoplasm of bladder, unspecified
CPT/HCPCS: 36415; 80048; 85025; 86328

== ENCOUNTER 2020-11-11 09:19 | Day surgery (SDC) | payer BC, SELFPAY ==
[2020-11-08 13:00] VITALS: BMI 43.5
[2020-11-11] VITALS (18 sets, daily range): BP systolic 103–143; BP diastolic 57–91; PULSE 41–68; RESP 12–18; TEMP 36.1–43; O2SAT 91–99
--- NOTE | 2020-11-11 11:07 | HMH.ANESCL ---
[facility] Anesthesia Checklist - Structural Data Admitted From: Home Planned Operative Procedure/s: cysto Consent for Planned Operative Procedure(s) Verified: Yes - Additional verifications Anesthesia Reactions: No Hx Blood Transfusions: No Blood Transfusion Reaction: No - Airway Assessment C-Spine Mobility Assessed: Yes TMJ Mobility Assessed: Yes Dentition: Edentulous - Anesthesia Plan Anesthesia Risk discussed: Yes Anesthesia Plan: Verified ASA Class: III Anesthesia Type: General [facility] History I have reviewed the patient's past medical history: Yes Medical History: Reports:: Arrhythmia, Cancer (bladder), Chronic Obstructive Pulmonary Disease (COPD), Coronary Artery Disease, Hyperlipidemia, Hypertension, Myocardial Infarction Denies:: Diabetes Mellitus Type 1, Diabetes Mellitus Type 2, Internal Pacemaker, MRSA, Seizures *Have you ever received a pneumonia vaccine?: Yes *Have you received a flu vaccine this season?: No Other Medical History: Denies: Blood Transfusion Reaction Anesthesia experience/problems:: none Other Surgeries: Yes: No Previous Surgery, CABG, Cancer Surgery (bladder tumor), Colonoscopy, Hernia Repair, Open Heart Surgery, Other (VERTEBRAE SURGERY IN NECK). No: Pacemaker Amputation: No Fractures: No - *Social History Last grade of school completed: High school graduate Smoking Status: Never smoker Tobacco Type: cigarettes #Yrs smoked (if former smoker): 50 Alcohol Intake: never Alcohol Intake Frequency:: other Substance Use Type: denies use *Occupational Status:: retired Housing: house Household Members: spouse *Travel in the last 8 weeks: None Family Hx:: Cancer, Hyperlipidemia, Hypertension
--- NOTE | 2020-11-11 11:52 | HMH.ANESI ---
[facility] Anesthesia Record Part I Intake, IV Amount: 1,000 Estimated blood loss (mL): 0 Urine output (mL): 0 Blood Pressure: 141/91 SaO2: 94 Pulse Rate: 55 Respiratory Rate: 12 Temperature: 97.5 F Patient is:: Awake, Stable Stable to PACU at:: 11:50
--- NOTE | 2020-11-11 12:25 | PC.NURSE ---
pt refuses any kind of pain medication, says he hates pain meds.
--- NOTE | 2020-11-11 12:29 | HMH.OPNOTE ---
Date of procedure: 11/11/20 Pre-op Diagnosis:: History of bladder cancer/history of urethral stricture Post-op Diagnosis:: Recurrent bladder cancer/recurrent urethral stricture disease Procedure performed:: Cystoscopy with urethral dilation, attempted TURBT but that tumor was too far from the resectoscope, fulguration of some prostate bleeding Surgeon:: Kervin Dillard MD ROLL EDGE STITCHER HAND:: Tomás Chase Anesthesia: GETA Estimated blood loss (mL): 0 Clinical Note:: 65-year-old white male with history of bladder cancer and urethral stricture disease presents for his 4-month cystoscopy today. He requires general anesthesia for cystoscopy. He has continued to catheterize on a daily basis for his distal urethral stricture disease. States his stream is good. Operative findings:: Patient with high bladder neck and a recurrent bladder tumor in the anterior portion of the bladder that could not reach with the cystoscope today. Operative note:: Patient taken to the operating room after informed consent was obtained. General anesthesia was administered and preoperative antibiotics administered. Compression devices placed and turned on. He was then placed into the dorsolithotomy position and prepped and draped in the standard surgical fashion. The urethra was dilated from 20-24 Greenlandic with some mild resistance. A 22 Greenlandic cystoscope then passed into the urethra and to the prostatic urethra which showed some moderate hyperplasia. Patient has a high bladder neck and the scope was manipulated into the bladder. The bladder was emptied and the bladder then examined in a systematic fashion with a 30 and 70 degree lenses. Patient's high bladder neck and urethral stricture make it difficult to observe the bladder. The scope passed to be torqued downwards to get a good vision of the anterior portion of the bladder. The bladder also has to be almost completely empty to reviewed the portions of the bladder. There was a recurrent bladder tumor that was about 2 cm in size in the upper aspect of the bladder near the dome. Lesion is too big to biopsy in the cystoscope removed and our 24 Greenlandic resectoscope sheath passed into the urethra and into the bladder. The resectoscope would not reach the bladder tumor very easily and upward pressure on the scope and downwards pressure on the bladder resulted in just getting to the tumor and it was felt little to risky to try to resect the tumor in case there was significant bleeding that occurred and cannot be reached. No other tumors were noted although there was a little cystitis cystica in the right side of the bladder and anteriorly on the right side. I have fulgurated the bladder neck and prostate were some bleeding was noted from the instrumentation. Scope then removed and a 20 Greenlandic two-way catheter passed into the bladder without difficulty. Clear urine was obtained. 10 cc placed in the balloon and will leave it indwelling in having him remove it tomorrow. We will need to see if we can locate some longer instruments to more safely resect this tumor. Condition: stable Disposition: PACU Specimens:: None Complications:: None
--- NOTE | 2020-11-11 13:54 | P.PN_ITS ---
[facility] Anesthesia Record Part II Discharge Time: 12:20 [facility] nurse assessment reviewed?: Yes Patient Condition:: Good Anesthesia Complications:: None Swallowing reflex intact?: Yes Cyanosis?: No Blood Pressure: 116/57 Pulse Rate: 45 Temperature: 97.0 F Mental Status: Alert & Oriented Pain level:: 7 Nausea and/or vomitting:: None Intake, IV Amount: 1,000
--- NOTE | 2020-11-11 14:04 | SUR.PHASEII ---
PT IS GETTING DRESSED, IV IS OUT. PT HAS EXPERIENCED EPISODES OF NAUSEA WITH DRY HEAVES AFTER RECEIVING DILAUDID AND MILD ITCHING. PT REFUSED B AND O SUPPOSITORY. CALLED DR. WORKMAN TO UPDATE ON STATUS, SAID HE WOULD COME OVER TO SEE PT BEFORE DISCHARGE.
--- NOTE | 2020-11-11 14:35 | SUR.PHASEII ---
DR WORKMAN IN TO SEE PT, ADVISED PT TO TAKE B AND O SUPPOSITORY AND GAVE PT SCRIPT FOR PHENERGAN 25MG FOR HOME. PT DOING BETTER, NO ITCHING, VSS, NAUSEA IMPROVING. AGREED TO SUPPOSITORY AND GAVE ORDERED. ABLE TO TAKE PT OUT TO CAR WITHOUT DIFFICULTY, PT APPRECIATIVE OF CARE RECEIVED BY ALL STAFF, PT CONTINUED TO TALK AND JOKE ON THE WAY OUT TO THE CAR.
== END 2020-11-11 14:45 | disposition home or self-care (01) ==
LOC: OR 09:20
PROVIDERS: PCP Family Medicine; Visit Provider Urology
PROC: (CPT 52000; principal; 2020-11-11 11:00)
DX: D49.4 Neoplasm of unspecified behavior of bladder (principal); Z85.51 Personal history of malignant neoplasm of bladder; Z87.448 Personal history of other diseases of urinary system; J44.9 Chronic obstructive pulmonary disease, unspecified; I25.10 Atherosclerotic heart disease of native coronary artery without angina pectoris; E78.5 Hyperlipidemia, unspecified; I10 Essential (primary) hypertension; I25.2 Old myocardial infarction; Z88.0 Allergy status to penicillin; Z79.899 Other long term (current) drug therapy
CPT/HCPCS: 52000; 96374; J2405

== ENCOUNTER → 2020-12-17 08:30 | Outpatient (CLI) | payer BC, SELFPAY ==
[2020-12-17 08:55] LABS: Basophils # 0.1 K/mm3 (0-0.2); Basophils % 1.1 % (0.1-2.0); Eosinophils # 0.2 K/mm3 (0.0-0.4); Eosinophils % 3.4 % (0.1-12.0); Hematocrit 53.4 % (42.0-52.0); Hemoglobin 17.7 g/dL (14.1-18.0); Lymphocytes # 1.5 K/mm3 (0.7-4.5); Lymphocytes % 23.8 % (10-50); Mean Corpuscular HGB Conc 33.1 g/dL (31.8-35.4); Mean Corpuscular Hemoglobin 31.5 pg (27.0-31.2); Mean Corpuscular Volume 95.1 fl (80-94); Mean Platelet Volume 8.8 fl (7.4-10.4); Monocytes # 0.5 K/mm3 (0.1-1.0); Monocytes % 8.9 % (1.7-9.3); Neutrophils # 3.8 K/mm3 (1.8-7.8); Neutrophils % 62.7 % (37.0-80.0); Platelet Count 175 K/mm3 (142-424); Red Blood Count 5.62 M/mm3 (4.60-6.20); Red Cell Distribution Width 14.4 % (11.5-17.5); White Blood Count 6.1 K/mm3 (4.8-10.8)
[2020-12-17 09:19] LABS: Anion Gap 14.2 mEq/L (5-15); Blood Urea Nitrogen 22 mg/dl (9-20); Calcium 9.7 mg/dl (8.4-10.2); Carbon Dioxide 23 mmol/L (22.0-30.0); Chloride 102 mmol/L (98-107); Estimated Glomerular Filt Rate 55 ml/min (>60); GFR (African American) 67 ML/MIN (>60); Glucose 123 mg/dl (74-100); Potassium 4.2 mmoL/L (3.5-5.1); Sodium 135 mmol/L (136-145)
[2020-12-17 09:40] LABS: Coronavirus 19 IgG Antibody Negative (Negative); Coronavirus 19 IgM Antibody Negative (Negative)
== END ==
PROVIDERS: Visit Provider Urology
DX: Z01.812 Encounter for preprocedural laboratory examination (principal); Z20.822 Contact with and (suspected) exposure to COVID-19; C67.9 Malignant neoplasm of bladder, unspecified
CPT/HCPCS: 36415; 80048; 85025; 86328

== ENCOUNTER 2020-12-19 08:23 | Day surgery (SDC) | payer BC, SELFPAY ==
[2020-12-13 11:52] VITALS: BMI 42.3
[2020-12-19] VITALS (15 sets, daily range): BP systolic 115–155; BP diastolic 51–81; PULSE 47–71; RESP 14–20; TEMP 36.1–36.3; O2SAT 92–97
--- NOTE | 2020-12-19 09:38 | HMH.ANESCL ---
[facility] Anesthesia Checklist - Patient Identification Patient Identification: Arm Band, Verbal (Name & ) - Structural Data Admitted From: Home Planned Operative Procedure/s: turbt Consent for Planned Operative Procedure(s) Verified: Yes Verified Documents: History and Physical - NPO Status Verified Time NPO: 00:00 - Chart Verification Results Verified: CBC, BMP - Additional verifications Patient : No Anesthesia Reactions: No Hx Blood Transfusions: No Blood Transfusion Reaction: No Cephalosporin Allergy: No Previous Colonoscopy: No - Cardiovascular Assessment Heart Sounds: S1 & S2 Pulse Strength: Baseline Pulse Rhythm: Regular Peripheral Edema: No - Airway Assessment C-Spine Mobility Assessed: Yes TMJ Mobility Assessed: Yes Dentition: Edentulous - Neurological Assessment Level of Consciousness: Awake, Alert, Appropriate Hx Seizures: No Numbness or tingling in extremities: No - Anesthesia Plan Anesthesia Risk discussed: Yes Anesthesia Plan: Verified ASA Class: III Anesthesia Type: MAC [facility] History I have reviewed the patient's past medical history: Yes Medical History: Reports:: Arrhythmia, Cancer (bladder), Chronic Obstructive Pulmonary Disease (COPD), Coronary Artery Disease, Hyperlipidemia, Hypertension, Myocardial Infarction Denies:: Diabetes Mellitus Type 1, Diabetes Mellitus Type 2, Internal Pacemaker, MRSA, Seizures *Have you ever received a pneumonia vaccine?: Yes *Have you received a flu vaccine this season?: No Other Medical History: Denies: Blood Transfusion Reaction Anesthesia experience/problems:: none Other Surgeries: Yes: No Previous Surgery, CABG, Cancer Surgery (bladder tumor), Colonoscopy, Hernia Repair, Open Heart Surgery, Other (VERTEBRAE SURGERY IN NECK). No: Pacemaker Amputation: No Fractures: No - *Social History Last grade of school completed: High school graduate Smoking Status: Never smoker Tobacco Type: cigarettes #Yrs smoked (if former smoker): 50 Alcohol Intake: never Alcohol Intake Frequency:: other Substance Use Type: denies use *Occupational Status:: retired Housing: house Household Members: spouse *Travel in the last 8 weeks: None Family Hx:: Cancer
--- NOTE | 2020-12-19 13:00 | P.OP_ITS ---
Date of procedure: 12/19/20 Pre-op Diagnosis:: Recurrent bladder tumor Post-op Diagnosis:: Bladder tumor recurrence and urethral stricture Procedure performed:: Dilation of distal urethral stricture with cystoscopy, transurethral resection of the 2 cm bladder tumor, Easton catheter placement with mitomycin instillation Surgeon:: Kervin Dillard MD HABILITATION TRAINING SPECIALIST:: Christiano Naranjo Anesthesia: GETA Estimated blood loss (mL): 0 Clinical Note:: 65-year-old white male with a history of bladder cancer noted to have a bladder tumor recurrence on recent cystoscopy. Patient was asleep for his previous cystoscopy and transurethral resection of the bladder tumor was attempted but the instruments were too short we could not reach the bladder tumor. Longer instruments are available today he presents for repeat attempt at resection. Operative findings:: 2 cm bladder tumor noted in the posterior anterior bladder at about the 2 o'clock position. There was also evidence of distal urethral stricture that was dilated. Operative note:: Patient taken to the operating room after informed consent was obtained. He was placed on the operating table in the supine position and general anesthesia administered. Preoperative antibiotics and sequential compression devices placed. He was then placed into the dorsal lithotomy position and prepped and draped in the standard surgical fashion. The urethral meatus was tight to the passage of the 22 scope so the urethra was dilated with the 22, 24, 26, 28 and 30 [place]ian [place] sounds. There was some bleeding evident from the distal portion of the urethra. The cystoscope then passed into the meatus and passed to the prostatic urethra which showed some coapting prostatic lobes. There was a very high bladder neck present and severe torquing of the scope has to be performed to get the scope into the bladder. The extra long instrument was helpful once we get into the bladder. The bladder was examined in a systematic fashion. Again of note was some trabeculation present in the 2 cm tumor noted anterior posterior wall. The cystoscope and removed and the 26 Cambodian resectoscope sheath with obturator passed into the urethral meatus and into the bladder without difficulty. The obturator removed and the resectoscope passed through the sheath. The tumor was still pretty far away and we had to compress the bladder downwards to bring it into our view. A 24 Cambodian loop was used to resect the bladder tumor in its entirety. It had a stalk at the base of it and it was not broad-based. Base of the tumor was fulgurated. No other tumor was present. The tumor fragments were then irrigated out with the Urovac. Hemostasis was achieved of some bladder mucosa, bladder neck and prostate lobes as they were traumatized a bit with the procedure. All tumor fragments were evacuated and the scope removed. A 22 Cambodian three-way catheter with coud? tip then passed into the bladder without difficulty. 10 cc were placed into the balloon and 40 mg of mitomycin were placed into the bladder and the catheter plugged. Patient tolerated the procedure well and there were no complications. He was discharged to the recovery room where he will remain for 2 hours so that the mitomycin can achieve its effect. I will plan on seeing him home with his Easton to make sure there is no bleeding from the prostatic or distal urethra due to the instrumentation. Condition: stable Disposition: PACU Specimens:: Bladder tumor Complications:: None
--- NOTE | 2020-12-19 13:06 | SUR.PHASEI ---
[id number] Tobias at bedside during PACU recovery r/t pt receiving Mytomycin Injection during procedure.
--- NOTE | 2020-12-19 13:27 | PC.NURSE ---
1145-pt taking sips of ice water w/out difficulty, denies nausea 1155-detailed report called to RajwinderRN 1159-pt transported to post op via stretcher w/june rails up per MANJIT Gandhi and AdolfoRN, pt remains in care of Manjit Mata and RajwinderRN with bed locked in lowest position, vss, pt stable
--- NOTE | 2020-12-21 08:19 | P.PN_ITS ---
[facility] Anesthesia Record Part II Discharge Time: 11:55 Destination: Surgical Day Care (OP Surgery) PACU nurse assessment reviewed?: Yes Patient Condition:: Good Anesthesia Complications:: None Swallowing reflex intact?: Yes Cyanosis?: No Blood Pressure: 136/81 Pulse Rate: 55 Temperature: 97.2 F Mental Status: Alert & Oriented Pain level:: 5 Nausea and/or vomitting:: None Intake, IV Amount: 0
[2020-12-21 08:20] VITALS: BP 136/81; PULSE 55; TEMP 36.2
== END 2020-12-19 13:30 | disposition home or self-care (01) ==
PROVIDERS: PCP Family Medicine; Visit Provider Urology
PROC: 0TBB8ZZ Excision of Bladder, Via Natural or Artificial Opening Endoscopic (ICD-10-PCS; CPT 52235; principal; 2020-12-19 09:45)
DX: C67.9 Malignant neoplasm of bladder, unspecified (principal); Z85.51 Personal history of malignant neoplasm of bladder; J44.9 Chronic obstructive pulmonary disease, unspecified; I25.10 Atherosclerotic heart disease of native coronary artery without angina pectoris; E78.5 Hyperlipidemia, unspecified; I10 Essential (primary) hypertension; I25.2 Old myocardial infarction; I49.9 Cardiac arrhythmia, unspecified; Z88.0 Allergy status to penicillin; Z88.6 Allergy status to analgesic agent; Z91.013 Allergy to seafood; Z79.899 Other long term (current) drug therapy
CPT/HCPCS: 52235; 96374; J1956; J2710; J9280

== ENCOUNTER → 2021-03-10 10:02 | Outpatient (CLI) | payer BC, SELFPAY | PROVIDERS: Visit Provider Urology | DX: R31.0 Gross hematuria (principal) | CPT/HCPCS: 87086 ==

== ENCOUNTER 2021-09-04 06:20 | Inpatient (IN) | payer BC, MEDICARE, SELFPAY ==
[2021-09-04] VITALS (18 sets, daily range): BP systolic 91–158; BP diastolic 51–91; PULSE 60–111; RESP 16–38; TEMP 36.6–38.4; O2SAT 85–94; BMI 39.1; BMI 33.7; BMI 33.9
--- NOTE | 2021-09-04 06:18 | ECG_ITS ---
APPROVED REPORT Exam: Resting ECG HR:112 bpm ECG Measurements Heart Rate 112 AXES MA 164 P 62 QRSd 72 QRS 69 QT 364 T 61 QTc 496 Conclusion Sinus tachycardia with premature atrial complexes with aberrant conduction Nonspecific ST and T wave abnormality Abnormal ECG Electronically signed by : Christiano Cruz MD 09/04/2021 21:19:53
--- NOTE | 2021-09-04 06:25 | XR_ITS ---
PROCEDURE: XR CHEST PORTABLE CLINICAL HISTORY: SOA Covid19 positive COMPARISON: CR CXR CHEST(2 VIEWS-NOT PORTABLE) from 02/28/2015 CR XR CHEST 2V from 10/31/2019 CR XR CHEST PORTABLE from 10/31/2019 FINDINGS: There has been a prior CABG. Normal heart size. Multifocal ground-glass opacities in the right upper and right lower lobe and left mid and lower lung zone suspicious for Covid19 pneumonia. No acute bony abnormalities. IMPRESSION: Bilateral ground-glass infiltrates in keeping with Covid19 pneumonia. Dictated by: Hao Scales MD 09/04/2021 09:14 Hao Scales MD in OV 09/04/2021 09:14
[2021-09-04 06:28] LABS: ABG Base Excess -4.6 mmol/L (-2.4-2.3); ABG HCO3 19.9 mmhg (22.0-26.0); ABG Oxygen Saturation 79 % (90-100); ABG PCO2 31.3 mmhg (35.0-45.0); ABG PH 7.42 mmol/L (7.35-7.45); ABG TCO2 20.9 mmhg (23-27)
[2021-09-04 06:29] LABS: Allen's Test Acceptable; Oxygen NRB %; Source Right Radial
[2021-09-04 06:31] LABS: ABG PO2 41.8 mmhg (80-100)
[2021-09-04 06:35] LABS: Influenza A, PCR Not Detected (NotDetected); Influenza B, PCR Not Detected (NotDetected)
--- NOTE | 2021-09-04 06:39 | HMH.EDSOB ---
ED Disposition Clinical Impression: Acute respiratory failure due to COVID-19, COVID-19 with pulmonary comorbidity, Hx of CABG, Obesity (BMI 30-39.9), Thrombocytopenia associated with COVID-19 COPD (chronic obstructive pulmonary disease) Qualifiers: COPD type: unspecified COPD Qualified Code(s): J44.9 - Chronic obstructive pulmonary disease, unspecified Disposition: Admitted As Inpatient Condition on Discharge: Serious Referrals: Christiano Prado MD [Primary Care Provider] - - Critical Care Critical Care Time: No Attestation: On 09/04/21, the high probability of a clinically significant, sudden or life threatening deterioration of the following system(s) required my full and direct attention, intervention and personal management. The time I documented below is in addition to time spent performing reported procedures but includes the following listed in this critical care notation. Medical Decision Making - Medical Records Medical records reviewed: Yes: I reviewed the patient's medical records. - [place] Inquiry Pt receiving controlled substance: No Vital Signs: 09/04/21 06:00 09/04/21 06:30 09/04/21 07:10 Temperature 101.2 F H Temperature Source Oral Pulse Rate 111 H Pulse Rate [Apical] 110 H Respiratory Rate 34 H 38 H Blood Pressure 110/65 Blood Pressure [Right Arm] 91/52 L Blood Pressure Mean [Right Arm] 65 Blood Pressure Source Automatic Cuff Blood Pressure Source [Right Arm] Automatic Cuff Blood Pressure Position Sitting Blood Pressure Position [Right Arm] Supine 02 Sat by Pulse Oximetry 86 L 85 L 85 L Oxygen Delivery Method Non-Rebreather Non-Rebreather Vapotherm Oxygen Flow Rate (LPM) 40 - Lab Data Lab results reviewed: Yes: I reviewed the patient's lab results. Lab Results 09/04/21 06:25: Specimen Source Right radial, O2 % Nrb, ABG pH 7.42, ABG pCO2 31.3 L, ABG pO2 41.8 L, ABG HCO3 19.9 L, ABG Total CO2 20.9 L, ABG O2 Saturation 79 L*, ABG Base Excess -4.6 L, Hao Test Acceptable 09/04/21 06:26: SARS-CoV-2 (PCR) Detected A, Influenza A Untype (PCR) Not detected, Influenza Type B (PCR) Not detected 09/04/21 06:37: WBC 4.2 L, RBC 5.26, Hgb 16.9, Hct 51.5, MCV 97.8 H, MCH 32.2 H, MCHC 32.9, RDW 14.7, Plt Count 127 L, MPV 10.2, Neut % (Auto) 81.3 H, Lymph % (Auto) 12.7, [place] % (Auto) 5.3, Eos % (Auto) 0.1, Baso % (Auto) 0.7, Neut # (Auto) 3.4, Lymph # (Auto) 0.5 L, [place] # (Auto) 0.2, Eos # (Auto) 0.0, Baso # (Auto) 0.0, ESR 12 09/04/21 06:37: Lactate 4.7 H Result diagrams: 09/04/21 06:37 Orders (Tests/Meds): ED MEDICATIONS Discontinued Medications Generic Name Dose Route Start Last Admin Trade Name Freq PRN Reason Stop Dose Admin Acetaminophen 1,000 mg 09/04/21 06:27 09/04/21 06:36 Acetaminophen 500mg Tab PO 09/04/21 06:28 1,000 mg ONCE ONE Administration Dexamethasone Sodium Phosphate 10 mg 09/04/21 06:44 09/04/21 06:44 Dexamethasone 4mg/Ml 5ml Mdv IV 09/04/21 06:45 10 mg ONCE ONE Administration Sodium Chloride 1,000 mls @ 999 mls/hr 09/04/21 06:30 09/04/21 06:44 Sod Chlor 0.9% 1000ml Bag IV 09/04/21 07:30 999 mls/hr .Q1H1M NOA Administration ORDERS Category Date Time Status XR chest portable Stat Exams 09/04/21 06:25 Taken BNP [Brain Natriuretic Peptide] Stat Lab 09/04/21 06:36 Received Basic Metabolic Panel Stat Lab 09/04/21 06:37 Received C-Reactive Protein Stat Lab 09/04/21 06:37 Received Liver Panel Stat Lab 09/04/21 06:37 Received Procalcitonin Stat Lab 09/04/21 06:37 Received Troponin I Q3H Lab 09/04/21 09:30 Ordered Troponin I Q3H Lab 09/04/21 12:30 Ordered Troponin I Stat Lab 09/04/21 06:37 Received Blood Culture Stat Micro 09/04/21 06:37 Received - Radiology Data #1 Image(s): Chest Image Reviewed: Yes I discussed the image results w/the radiologist Preliminary Findings: Abnormal - ECG Data Tracing #1 Arrhythmias present: sinus tach Ischemic changes: non-specific ST-T wa
[2021-09-04 06:53] LABS: Basophils % 0.7 % (0.1-2.0); Eosinophils % 0.1 % (0.1-12.0); Hematocrit 51.5 % (42.0-52.0); Hemoglobin 16.9 g/dL (14.1-18.0); Lymphocytes # 0.5 K/mm3 (0.7-4.5); Lymphocytes % 12.7 % (10-50); Mean Corpuscular HGB Conc 32.9 g/dL (31.8-35.4); Mean Corpuscular Hemoglobin 32.2 pg (27.0-31.2); Mean Corpuscular Volume 97.8 fl (80-94); Mean Platelet Volume 10.2 fl (7.4-10.4); Monocytes # 0.2 K/mm3 (0.1-1.0); Monocytes % 5.3 % (1.7-9.3); Neutrophils # 3.4 K/mm3 (1.8-7.8); Neutrophils % 81.3 % (37.0-80.0); Platelet Count 127 K/mm3 (142-424); Red Blood Count 5.26 M/mm3 (4.60-6.20); Red Cell Distribution Width 14.7 % (11.5-17.5); White Blood Count 4.2 K/mm3 (4.8-10.8)
[2021-09-04 07:01] LABS: Coronavirus 19, PCR Detected (NotDetected)
--- NOTE | 2021-09-04 07:10 | PC.NURSE ---
pt alert and oriented x 4 pt currently on non-rebreather. pt denies any c/o at present
[2021-09-04 07:14] LABS: Alanine Aminotransferase 78 U/L (12-78); Albumin Level 3.6 g/dl (3.5-5.0); Alkaline Phosphatase 90 U/L (38-126); Anion Gap 19.4 mEq/L (5-15); Aspartate Amino Transferase 150 U/L (17-59); Bilirubin,Direct 0.8 mg/dl (0.0-0.4); Bilirubin,Total 0.8 mg/dl (0.2-1.3); Blood Urea Nitrogen 46 mg/dl (9-20); Calcium 8.4 mg/dl (8.4-10.2); Carbon Dioxide 24 mmol/L (22.0-30.0); Chloride 97 mmol/L (98-107); Creatinine Clearance Estimated 39 mL/min (50-200); Estimated Glomerular Filt Rate 22 ml/min (>60); GFR (African American) 26 ML/MIN (>60); Glucose 173 mg/dl (74-100); Potassium 3.4 mmoL/L (3.5-5.1); Sodium 137 mmol/L (136-145); Total Protein,Serum 7.2 g/dl (6.3-8.2)
--- NOTE | 2021-09-04 07:15 | PC.NURSE ---
pt placed on vapotherm
[2021-09-04 07:24] LABS: Erythrocyte Sedimentation Rate 12 mm/hr (0-20)
[2021-09-04 07:25] LABS: C-Reactive Protein 98.8 mg/L (0-4)
[2021-09-04 07:33] LABS: Lactic Acid 4.7 mmol/L (0.7-2.1)
[2021-09-04 07:38] LABS: Procalcitonin 4.63 ng/mL (0.0-2.0)
[2021-09-04 07:39] LABS: NT Pro Brain Natriuretic Pep. 3250 pg/mL (0-125)
--- NOTE | 2021-09-04 08:05 | PC.NURSE ---
called lab regarding bmp results. stated that the qc's had to be ran on the analyzer and were unable to give time frame of when they would start running the bmp
--- NOTE | 2021-09-04 08:40 | HMH.ITSTN ---
waiting on labs
[2021-09-04 08:51] LABS: Troponin I 0.22 ng/ml (0.00-0.034)
--- NOTE | 2021-09-04 09:40 | PC.NURSE ---
resp placed pt on bi-pap
--- NOTE | 2021-09-04 09:45 | HMH.PHAINT ---
MEDICATION RECONCILIATION COMPLETE USING SURESCRIPTS AND PREVIOUS DISCHARGE PAPERWORK
[2021-09-04 10:43] LABS: Reflex Lactic Add Lactic Reflex
[2021-09-04 10:44] LABS: Troponin I 0.35 ng/ml (0.00-0.034)
--- NOTE | 2021-09-04 11:00 | PC.NURSE ---
dr carrillo office called and informed of trop. labs
[2021-09-04 11:18] LABS: ABG Base Excess -3.4 mmol/L (-2.4-2.3); ABG HCO3 21.8 mmhg (22.0-26.0); ABG Oxygen Saturation 93 % (90-100); ABG PCO2 37.7 mmhg (35.0-45.0); ABG PH 7.38 mmol/L (7.35-7.45); ABG PO2 66.9 mmhg (80-100); ABG TCO2 22.9 mmhg (23-27)
[2021-09-04 11:20] LABS: Allen's Test ACCEPTABLE; Oxygen 100 %; Source Right Radial; Vent Rate 18
[2021-09-04 11:48] LABS: Lactate Arterial 2.7 mmol/L (0.4-2.0)
--- NOTE | 2021-09-04 11:59 | CA_ITS ---
APPROVED REPORT EXAM: Comprehensive 2D, Doppler, and color-flow Echocardiogram Industrial Automation Engineer: Dorita Graham CRT Ht: 5 ft 7 in Wt: 250lbs BSA: 2.22 BP: 110/65 mmHg Indications: Covid,Murmur, Shortness of Breath, CAD, cabg pt flat on back and up in bed due to SOB from Covid and on bipap 2D Dimensions LVOT 1.72 cm (M/F) 1.5-2.5 M-Mode Dimensions RVDd 2.83 cm (0.9-2.6) LA Diam 2.91 cm (1.9-4.0) LVDd 5.31 cm (3.5-5.7) Ao Diam 4.92 cm (2.0-3.7) LVDs 3.41 cm (3.5-5.7) IVSd 1.08 cm (0.6-1.1) PWd 0.65 cm (0.6-1.1) EF (Teich) 64.80% FS 35.80% EDV (Teich) 135.90 mL ESV (Teich) 47.80 mL LV Diastology E Decel Time 110.00 (160-240 msec) E/A Ratio 0.91 MED E' 5.80 (< 7 cm/sec) MED A' 8.90 cm/s E'/MED E' Ratio 12.66 (>14) LAT E' 8.30 (<10 cm/sec) LAT A' 12.10 cm/s E/LAT E' Ratio 8.84 (>14) Aortic Valve AO Peak GR. 5.20 mmHg Mitral Valve MV E Max Torito. 73.00 (40-130 cm/s) MV A Velocity 81.00 (40-130 cm/s) E/A Ratio 0.91 MV Decel. Time 110.00 (160-240 ms) MV PHT 32.00 ms Pulmonary Valve PV Peak Velocity 92.00 (50-150 cm/s) Tricuspid Valve TR P. Velocity 248.00 cm/s RAP Estimate 10.00 mmHg RVSP 34.60 mmHg Left Ventricle Technically very difficult and poor study because of the patient and poor acoustic windows. Endocardial surfaces are poorly visualized. Left atrium is mildly enlarged, left ventricle is normal size, mild concentric left ventricular hypertrophy, visually estimated ejection fraction is probably 50%, no obvious regional wall motion abnormality in the visualized segments. Doppler evidence of impaired LV relaxation seen. Right Ventricle Right atrium and right ventricle mildly enlarged with normal contractility. Aortic Valve Aortic valve is minimally thickened and fibrosed, there is no aortic stenosis or aortic insufficiency. Mitral Valve Mitral valve grossly normal, there is mild mitral regurgitation. Tricuspid Valve Tricuspid valve is grossly normal, there is mild tricuspid regurgitation. Tricuspid regurgitation jet velocity is inadequate for calculation of the right ventricular systolic pressure. Pulmonic Valve Pulmonic valve is poorly visualized. Great Vessels Aortic root is normal size. Inferior vena cava is not visualized. Pericardium No significant pericardial effusion noted, there is anterior echo-free space seen. Conclusion 1. Technically difficult study because of the patient factors and poor acoustic windows. Endocardial surface a very poorly visualized. Normal left ventricular size, visually estimated ejection fraction 50% with no obvious regional wall motion abnormality in the obtained views, Doppler evidence of impaired LV relaxation seen. 2. Mildly enlarged right ventricle with normal contractility. 3. Mild mitral and tricuspid regurgitation. 4. No significant pericardial effusion noted, anterior echo-free space seen. Electronically signed by : John Mariscal MD 09/04/2021 21:42:39
--- NOTE | 2021-09-04 12:05 | PC.NURSE ---
received report from karie fregoso at [id number]
[2021-09-04 13:16] LABS: Troponin I 0.36 ng/ml (0.00-0.034)
--- NOTE | 2021-09-04 13:17 | PC.NURSE ---
received critical lab value from lab at 1316. Troponin of 0.36. pt name and lab result repeated back and verified. Dr carrillo notified at 1318, no new orders at this time.
--- NOTE | 2021-09-04 14:00 | PC.NURSE ---
upon arrival to unit, pt was asked for permission to speak to his about his care being received and his condition. pt agreed to allow information to be given to his during this admission.
--- NOTE | 2021-09-04 15:33 | PC.NURSE ---
Dr Prado was notified at 1440 that the pt triggered for sepsis. pt has documented covid pneumonia, RR of 30, temp of 101.2 and a new need for bipap r/t respiratory failure. order was given for sepsis bolus. md also notified that antibiotics were not ordered at this time. no orders other than the sepsis bolus.
--- NOTE | 2021-09-04 16:24 | HMH.PULMCON ---
*Admission Date: 09/04/21 *Reason for consult:: Acute hypoxic respiratory failure *History of present illness: Mr. Estevez a 66-year-old male greater than [id number] smoking prior smoker history of CAD presented to the hospital with progressively worsening respiratory distress and found to be COVID-19 positive and pulmonary was called for further management. [facility] History Medical History: Reports:: Arrhythmia, Cancer (bladder), Chronic Obstructive Pulmonary Disease (COPD), Coronary Artery Disease, Hyperlipidemia, Hypertension, Myocardial Infarction Denies:: Diabetes Mellitus Type 1, Diabetes Mellitus Type 2, Internal Pacemaker, MRSA, Seizures *Have you ever received a pneumonia vaccine?: No *Have you received a flu vaccine this season?: No Other Medical History: Denies: Blood Transfusion Reaction Other Surgeries: Yes: No Previous Surgery, CABG, Cancer Surgery, Cardiac Catheterization, Cardiac Surgery, Colonoscopy, Hernia Repair, Open Heart Surgery, Other (VERTEBRAE SURGERY IN NECK). No: Pacemaker Amputation: No Fractures: No - *Social History Smoking Status: Former smoker Tobacco Type: cigarettes # Packs/Day (cigarettes): 1 #Yrs smoked (if former smoker): 50 Alcohol Intake: never Alcohol Intake Frequency:: other Substance Use Type: denies use *Occupational Status:: retired Housing: house Household Members: spouse *Travel in the last 8 weeks: None Family Hx:: Cancer ROS - Cons Reports body ache(s), Reports chills - ENT Denies bleeding gums - Card Reports chest pain, Reports shortness of breath with activity - Resp Respiratory: Reports chest congestion, Reports non-productive cough, Reports dyspnea on exertion - GI Gastrointestingal: Denies: abdominal pain - Psych Reports abnormal sleep pattern Meds Home Medications Medication Instructions Recorded Confirmed Type hydrochlorothiazide 25 mg tablet 25 mg PO DAILY 90 Days tab 07/03/18 09/04/21 History metoprolol tartrate 25 mg tablet 25 mg PO BID 90 Days tab 07/03/18 09/04/21 History tamsulosin 0.4 mg capsule 0.4 mg PO DAILY 30 Days #30 07/03/18 09/04/21 History Umeclidinium Brm/Vilanterol Tr 1 puff IH DAILY 01/19/19 09/04/21 History [Anoro Ellipta 62.5-25 Mcg INH] cetirizine 10 mg tablet 5 mg PO DAILY PRN 11/30/19 09/04/21 History Albuterol Sulfate [Albuterol 8.5 gm IH Q4HP PRN 12/13/20 09/04/21 History Sulfate Hfa] Potassium Chloride [Klor-Con 10mEq 10 meq PO DAILY 12/13/20 09/04/21 History tab] Meloxicam 15 mg PO DAILY 09/04/21 09/04/21 History Oxybutynin Chloride [Oxybutynin 10 mg PO DAILY 09/04/21 09/04/21 History Chloride ER] Allergies Allergy/AdvReac Type Severity Reaction Status Date / Time penicillin G [PENICILLIN G] Allergy Intermediate Verified 12/19/20 08:39 shellfish derived Allergy Mild Nausea Verified 12/19/20 08:39 hydromorphone [From Dilaudid] Allergy Vomiting Verified 12/19/20 08:39 Exam - Constitutional Constitutional:: Absent: no acute distress, comfortable - HENMT Exam HENMT: Present: normocephalic, atraumatic - Eye Exam Eyes:: Present: normal appearance both eyes and related structures - Neck Exam Neck:: Present: normal visual inspection - Respiratory Exam Respiratory:: Present: respiratory distress, crackles. Absent: accessory muscle use, wheezing - Cardiovascular Exam Cardiac:: Present: S1, S2 - GI Exam GI:: Present: soft, obese - Skin Exam Skin: Present: warm - Neurological Exam Neurological: Present: alert, awake, normal cognition - Extremities Exam Extremities: Present: no cyanosis, no clubbing, edema Internal Medicine - CN: Reslt - Labs CBC & Chem 7: 09/04/21 06:37 09/04/21 06:37 Labs: Short CBC 09/04/21 Range/Units 06:37 WBC 4.2 L (4.8-10.8) K/mm3 Hgb 16.9 (14.1-18.0) g/dL Hct 51.5 (42.0-52.0) % Plt Count 127 L (142-424) K/mm3 [facility] 09/04/21 06:37 Sodium 137 Potassium 3.4 L Chloride 97 L Carbon Dioxide 24 BUN 46 H Creatinine 2
--- NOTE | 2021-09-04 16:28 | CA_ITS ---
APPROVED REPORT Bilateral Lower Extremity Venous Study for DVT. Electromagnet Crane Operator: MELANIE Indications Lower Extremity Pain: Bilateral Shortness of breath CAD Hypoxia, COVID pneumonia Risk Factors Obesity Current Smoker CAD Vein Imaging CFV (R): compressive, spontaneous, phasic, augmentation FEM (R): compressive, spontaneous, phasic, augmentation POP (R): compressive, spontaneous, phasic, augmentation PTV (R): Compressible GSV (R): compressive, spontaneous, phasic, augmentation Peroneals (R):Not Visualized GAS (R): Compressible CFV (L): compressive, spontaneous, phasic, augmentation FEM (L): compressive, spontaneous, phasic, augmentation POP (L): compressive, spontaneous, phasic, augmentation PTV (L): Compressible GSV (L): compressive, spontaneous, phasic, augmentation Peroneals (L):Not Visualized GAS (L): Compressible Findings No evidence of DVT or superficial thrombophlebitis in the veins scanned of the right lower extremity. No evidence of DVT or superficial thrombophlebitis in the veins scanned of the left lower extremity. Conclusion No evidence of DVT or superficial thrombophlebitis in the veins scanned of the right lower extremity. No evidence of DVT or superficial thrombophlebitis in the veins scanned of the left lower extremity. Critical Notification Critical Value: No Date: 09/04/2021 Time: 17:26 Physician Name: Nichole Montejo RN Electronically signed by : Hao Scales MD 09/05/2021 09:32:21
--- NOTE | 2021-09-04 16:44 | PC.NURSE ---
Addendum entered by Nichole Montejo RN 09/04/21 17:28: 3rd give at 1700 (910) Original Note: First liter of sepsis bolus started at 1440 (1000) 2nd at 1550 (1000)
--- NOTE | 2021-09-04 17:16 | HMH.HP ---
*Admission Date: 09/04/21 *Chief complaint: Shortness of breath *History of present illness: 66-year-old male presented to the emergency department with at least 2 weeks of illness and known Covid exposure. Patient has had some mild cough at home but progressively felt worse over the last 2 days. Work-up in the emergency department revealed bilateral pneumonia and positive SARS-CoV-2 testing. Patient had significant respiratory failure. Patient initially presented on nonrebreather but was transitioned to maximum settings high flow nasal cannula which kept his O2 sats in the high 80s and low 90s. Since admission patient has had pulmonology consultation with transition to BiPAP. Patient denies any chest heaviness or tightness. He has a history of coronary artery disease and elevated troponins on admission. [facility] History I have reviewed the patient's past medical history: Yes Medical History: Reports:: Arrhythmia, Cancer (bladder), Chronic Obstructive Pulmonary Disease (COPD), Coronary Artery Disease, Hyperlipidemia, Hypertension, Myocardial Infarction Denies:: Diabetes Mellitus Type 1, Diabetes Mellitus Type 2, Internal Pacemaker, MRSA, Seizures *Have you ever received a pneumonia vaccine?: No *Have you received a flu vaccine this season?: No Other Medical History: Denies: Blood Transfusion Reaction Other Surgeries: Yes: No Previous Surgery, CABG, Cancer Surgery, Cardiac Catheterization, Cardiac Surgery, Colonoscopy, Hernia Repair, Open Heart Surgery, Other (VERTEBRAE SURGERY IN NECK). No: Pacemaker Amputation: No Fractures: No - *Social History Smoking Status: Former smoker Tobacco Type: cigarettes # Packs/Day (cigarettes): 1 #Yrs smoked (if former smoker): 50 Alcohol Intake: never Alcohol Intake Frequency:: other Substance Use Type: denies use *Occupational Status:: retired Housing: house Household Members: spouse *Travel in the last 8 weeks: None Family Hx:: Cancer Review of Systems - Constitutional Reports lack of energy, Denies body ache(s), Denies chills - Eyes Denies blind spots, Denies change in vision - ENT Denies abnormal hearing, Denies difficulty swallowing - *Cardiovascular Denies chest pain, Denies chest pain at rest - *Respiratory Reports chest congestion, Reports cough, Reports shortness of breath, Reports shortness of breath with activity - *Gastrointestinal Denies abdominal pain, Denies belching - *Genitourinary Denies difficulty urinating, Denies painful urination, Denies blood in urine - *Musculoskeletal Denies joint pain - *Neurologic Denies abnormal hearing, Denies seizure-like activity Meds Home Medications Medication Instructions Recorded Confirmed Type hydrochlorothiazide 25 mg tablet 25 mg PO DAILY 90 Days tab 07/03/18 09/04/21 History metoprolol tartrate 25 mg tablet 25 mg PO BID 90 Days tab 07/03/18 09/04/21 History tamsulosin 0.4 mg capsule 0.4 mg PO DAILY 30 Days #30 07/03/18 09/04/21 History Umeclidinium Brm/Vilanterol Tr 1 puff IH DAILY 01/19/19 09/04/21 History [Anoro Ellipta 62.5-25 Mcg INH] cetirizine 10 mg tablet 5 mg PO DAILY PRN 11/30/19 09/04/21 History Albuterol Sulfate [Albuterol 8.5 gm IH Q4HP PRN 12/13/20 09/04/21 History Sulfate Hfa] Potassium Chloride [Klor-Con 10mEq 10 meq PO DAILY 12/13/20 09/04/21 History tab] Meloxicam 15 mg PO DAILY 09/04/21 09/04/21 History Oxybutynin Chloride [Oxybutynin 10 mg PO DAILY 09/04/21 09/04/21 History Chloride ER] Allergies Allergy/AdvReac Type Severity Reaction Status Date / Time penicillin G [PENICILLIN G] Allergy Intermediate Verified 12/19/20 08:39 shellfish derived Allergy Mild Nausea Verified 12/19/20 08:39 hydromorphone [From Dilaudid] Allergy Vomiting Verified 12/19/20 08:39 Exam Vital signs and Labs for Last 24 Hours: Temp Pulse Resp BP Pulse Ox 98.2 F 70 24 139/80 91 L 09/04/21 16:00 09/04/21 16:00 09/04/21 16:00 09/04/21 16:00 09/04/21 16:00 Laboratory Results - l
[2021-09-05] VITALS (12 sets, daily range): BP systolic 113–146; BP diastolic 59–81; PULSE 50–92; RESP 16–28; TEMP 36.2–37.2; O2SAT 85–92; BMI 43.5
[2021-09-05 00:43] LABS: Ferritin > 1000 ng/ml (17.9-464)
--- NOTE | 2021-09-05 04:45 | PC.NURSE ---
Patient has had an uneventful night this shift; has moved to sitting up in the chair and states he sleeps in a chair at home. He has been able to rest and sleep some this shift. No s/s of acute distress noted, call light within reach; will continue to monitor.
--- NOTE | 2021-09-05 06:52 | HMH.ACPN2 ---
Internal Medicine - PN: Subj *Date: 09/05/21 *Time: 06:52 Interval history: Patient has no complaints. He is remained stable on BiPAP. Patient was moved from his bed to a chair due to orthopnea which is chronic. Exam Vital signs and Labs for Last 24 Hours: Temp Pulse Resp BP Pulse Ox 98.2 F 63 20 114/74 91 L 09/05/21 04:00 09/05/21 04:00 09/05/21 04:00 09/05/21 04:00 09/05/21 04:00 Laboratory Results - last 24 hr 09/04/21 06:26: SARS-CoV-2 (PCR) Detected A, Influenza A Untype (PCR) Not detected, Influenza Type B (PCR) Not detected 09/04/21 06:36: NT-Pro-B Natriuret Pep 3250 H 09/04/21 06:37: WBC 4.2 L, RBC 5.26, Hgb 16.9, Hct 51.5, MCV 97.8 H, MCH 32.2 H, MCHC 32.9, RDW 14.7, Plt Count 127 L, MPV 10.2, Neut % (Auto) 81.3 H, Lymph % (Auto) 12.7, [place] % (Auto) 5.3, Eos % (Auto) 0.1, Baso % (Auto) 0.7, Neut # (Auto) 3.4, Lymph # (Auto) 0.5 L, Charles # (Auto) 0.2, Eos # (Auto) 0.0, Baso # (Auto) 0.0, ESR 12 09/04/21 06:37: Sodium 137, Potassium 3.4 L, Chloride 97 L, Carbon Dioxide 24, Anion Gap 19.4 H, BUN 46 H, Creatinine 2.90 H, Estimated Creat Clear 39, Estimated GFR 22 L, Est GFR ( Amer) 26 L, Glucose 173 H, Calcium 8.4, Total Bilirubin 0.8, Direct Bilirubin 0.8 H, Conjugated Bilirubin 0.0, Indirect Bilirubin 0.0, Unconjugated Bilirubin 0.0, AST 150 H, ALT 78, Alkaline Phosphatase 90, Troponin I 0.22 H, C-Reactive Protein 98.8 H, Total Protein 7.2, Albumin 3.6, Procalcitonin 4.63 H 09/04/21 06:37: Lactate 4.7 H 09/04/21 09:35: Troponin I 0.35 H 09/04/21 10:27: Specimen Source Right radial, O2 % 100, ABG pH 7.38, ABG pCO2 37.7, ABG pO2 66.9 L, ABG HCO3 21.8 L, ABG Total CO2 22.9 L, ABG O2 Saturation 93, ABG Base Excess -3.4 L, Hao Test Acceptable, Vent Rate 18, Tidal Volume Bipap 10/3009/04/21 10:47: ABG Lactate 2.7 H 09/04/21 12:10: Troponin I 0.36 H 09/04/21 16:50: D-Dimer 0.80 H 09/04/21 16:50: Ferritin > 1000 H I & O for Last 24 hours: Intake & Output 09/02/21 09/03/21 09/04/21 09/05/21 11:59 11:59 11:59 11:59 Intake Total 4266 / 4266 Output Total 1700 / 1700 Balance 2566 / 2566 Weight 215 lb 277 lb 9.6 oz Narrative: Patient is awake and alert. BiPAP is in place. Patient is able to communicate. Breath sounds are distant with scattered rales and rhonchi bilaterally both anteriorly and posteriorly. Heart has a regular rate and rhythm. Abdomen is obese. Lower extremities have 2+ edema. Echocardiogram showed EF of 50% Assessment and Plan (1) Acute respiratory failure due to COVID-19 Status: Acute Category: Medical Code(s): U07.1 - COVID-19; J96.00 - Acute respiratory failure, unspecified whether with hypoxia or hypercapnia (2) Acute kidney injury Status: Acute Category: Medical Code(s): N17.9 - Acute kidney failure, unspecified (3) COPD (chronic obstructive pulmonary disease) Status: Acute Qualifiers: COPD type: unspecified COPD Qualified Code(s): J44.9 - Chronic obstructive pulmonary disease, unspecified Category: Medical Code(s): J44.9 - Chronic obstructive pulmonary disease, unspecified (4) COVID-19 with pulmonary comorbidity Status: Acute Category: Medical Code(s): U07.1 - COVID-19; J98.4 - Other disorders of lung (5) Obesity (BMI 30-39.9) Status: Acute Category: Medical Code(s): E66.9 - Obesity, unspecified (6) Thrombocytopenia associated with COVID-19 Status: Acute Category: Medical Code(s): U07.1 - COVID-19; D69.59 - Other secondary thrombocytopenia (7) Hx of CABG Status: Chronic Category: Surgical Code(s): Z95.1 - Presence of aortocoronary bypass graft (8) CAD (coronary artery disease) Status: Chronic Qualifiers: Coronary Disease-Associated Artery/Lesion type: bypass graft [place] vs. transplanted heart: [place] heart Associated angina: with other forms of angina Qualified Code(s): I25.708 - Atherosclerosis of coronary artery bypass graft(s), unspecified, with other forms of angina pectoris
--- NOTE | 2021-09-05 07:00 | XR_ITS ---
PROCEDURE INFORMATION: Exam: XR Chest Exam date and time: 09/05/2021 7:00 AM Age: 66 years old Clinical indication: Shortness of breath; Patient HX: Covid; Additional info: SOB TECHNIQUE: Imaging protocol: XR of the chest. Views: 1 view. COMPARISON: CR XR CHEST PORTABLE 09/04/2021 6:39 AM FINDINGS: Lungs: COPD, interstitial disease, and basilar airspace disease. Pleural spaces: Questionable small pleural effusions. Heart/Mediastinum: Borderline cardiomegaly and prominent epicardial fat. Bones/joints: Osteopenia and degenerative change. Median sternotomy. IMPRESSION: COPD, interstitial disease, and basilar airspace disease.
--- NOTE | 2021-09-05 07:07 | HMH.PHAVTE ---
[facility] VTE Monitoring - Patient Demographics Admission date: 09/04/21 Report Date: 09/05/21 Time: 07:07 Allergies/Adverse Reactions: Patient Allergies penicillin G [PENICILLIN G] Allergy (Intermediate, Verified 12/19/20 08:39) shellfish derived Allergy (Mild, Verified 12/19/20 08:39) Nausea hydromorphone [From Dilaudid] Allergy (Verified 12/19/20 08:39) Vomiting Height: 1.7 m Weight: 125.917 kg Patient Problems: Current Active Problems Acute respiratory failure due to COVID-19 (Acute) COVID-19 with pulmonary comorbidity (Acute) Obesity (BMI 30-39.9) (Acute) Thrombocytopenia associated with COVID-19 (Acute) Acute kidney injury (Acute) COPD (chronic obstructive pulmonary disease) (Acute) CAD (coronary artery disease) (Chronic) Hx of CABG (Chronic) - VTE Risk Labs: VTE Related Lab Results Hgb 16.9 g/dL (14.1-18.0) 09/04/21 06:37 Hct 51.5 % (42.0-52.0) 09/04/21 06:37 Plt Count 127 K/mm3 (142-424) L 09/04/21 06:37 BUN 46 mg/dl (9-20) H 09/04/21 06:37 Creatinine 2.90 mg/dl (0.66-1.25) H 09/04/21 06:37 Estimated Creat Clear 39 mL/min (50-200) 09/04/21 06:37 Was VTE Risk Assessment Performed: Yes VTE Score: 4 VTE Risk Level: Low Risk Clinical Trial Participant: No - Prophylaxis VTE Prophylaxis Ordered?: Yes Types of VTE Prophylaxis: TEDS Knee High, Pharmacological Pharmacologic Type: Enoxaparin
[2021-09-05 07:08] LABS: Basophils % 0.3 % (0.1-2.0); Hematocrit 48.3 % (42.0-52.0); Hemoglobin 15.9 g/dL (14.1-18.0); Lymphocytes # 0.7 K/mm3 (0.7-4.5); Lymphocytes % 10.9 % (10-50); Mean Corpuscular HGB Conc 32.9 g/dL (31.8-35.4); Mean Corpuscular Hemoglobin 32.4 pg (27.0-31.2); Mean Corpuscular Volume 98.4 fl (80-94); Mean Platelet Volume 10.4 fl (7.4-10.4); Monocytes # 0.3 K/mm3 (0.1-1.0); Neutrophils # 5.3 K/mm3 (1.8-7.8); Neutrophils % 83.8 % (37.0-80.0); Platelet Count 117 K/mm3 (142-424); Red Blood Count 4.91 M/mm3 (4.60-6.20); Red Cell Distribution Width 14.8 % (11.5-17.5); White Blood Count 6.3 K/mm3 (4.8-10.8)
[2021-09-05 07:11] LABS: Alanine Aminotransferase 50 U/L (12-78); Albumin Level 3.1 g/dl (3.5-5.0); Alkaline Phosphatase 74 U/L (38-126); Aspartate Amino Transferase 107 U/L (17-59); Bilirubin,Total 0.5 mg/dl (0.2-1.3); Total Protein,Serum 6.5 g/dl (6.3-8.2)
[2021-09-05 07:13] LABS: Anion Gap 12.6 mEq/L (5-15); Blood Urea Nitrogen 46 mg/dl (9-20); Calcium 7.4 mg/dl (8.4-10.2); Carbon Dioxide 23 mmol/L (22.0-30.0); Chloride 107 mmol/L (98-107); Creatinine Clearance Estimated 32 mL/min (50-200); Estimated Glomerular Filt Rate 33 ml/min (>60); GFR (African American) 40 ML/MIN (>60); Glucose 146 mg/dl (74-100); Magnesium 1.8 mg/dl (1.6-2.3); Potassium 3.6 mmoL/L (3.5-5.1); Sodium 139 mmol/L (136-145)
[2021-09-05 07:27] LABS: Bilirubin,Direct 0.1 mg/dl (0.0-0.4); Bilirubin,Indirect 0.4 mg/dL (0.0-0.9); Bilirubin,Unconjugated 0.3 mg/dL (0.0-1.1)
--- NOTE | 2021-09-05 09:32 | HMH.PULMPN ---
Internal Medicine - PN: Subj *Date: 09/05/21 *Time: 14:21 Interval history: No acute respiratory events overnight. Exam - Constitutional Constitutional:: Present: comfortable - HENMT Exam HENMT: Present: normocephalic - Eye Exam Eyes:: Present: normal appearance both eyes and related structures - Neck Exam Neck:: Present: normal visual inspection - Respiratory Exam Respiratory:: Present: respiratory distress, crackles, rales - Cardiovascular Exam Cardiac:: Present: S1, S2 - GI Exam GI:: Present: soft, obese - Skin Exam Skin: Present: warm - Neurological Exam Neurological: Present: alert, awake, normal cognition - Extremities Exam Extremities: Present: no cyanosis, no clubbing, edema Assessment and Plan (1) Acute respiratory failure due to COVID-19 Status: Acute Category: Medical Code(s): U07.1 - COVID-19; J96.00 - Acute respiratory failure, unspecified whether with hypoxia or hypercapnia (2) Acute kidney injury Status: Acute Category: Medical Code(s): N17.9 - Acute kidney failure, unspecified (3) COPD (chronic obstructive pulmonary disease) Status: Acute Qualifiers: COPD type: unspecified COPD Qualified Code(s): J44.9 - Chronic obstructive pulmonary disease, unspecified Category: Medical Code(s): J44.9 - Chronic obstructive pulmonary disease, unspecified (4) COVID-19 with pulmonary comorbidity Status: Acute Category: Medical Code(s): U07.1 - COVID-19; J98.4 - Other disorders of lung (5) Obesity (BMI 30-39.9) Status: Acute Category: Medical Code(s): E66.9 - Obesity, unspecified (6) Thrombocytopenia associated with COVID-19 Status: Acute Category: Medical Code(s): U07.1 - COVID-19; D69.59 - Other secondary thrombocytopenia (7) Hx of CABG Status: Chronic Category: Surgical Code(s): Z95.1 - Presence of aortocoronary bypass graft (8) CAD (coronary artery disease) Status: Chronic Qualifiers: Coronary Disease-Associated Artery/Lesion type: bypass graft [place] vs. transplanted heart: [place] heart Associated angina: with other forms of angina Qualified Code(s): I25.708 - Atherosclerosis of coronary artery bypass graft(s), unspecified, with other forms of angina pectoris Category: Medical Code(s): I25.10 - Atherosclerotic heart disease of [place] coronary artery without angina pectoris - Assessment and plan all Dx Assessment and Plan for all problems:: #Acute chronic hypoxic respiratory failure: #COVID-19 pneumonia: Mr. Estevez is 66-year-old male greater than [id number] smoking history, last smoked 16 years ago used to smoke 3 to 4 packs a day, history of CAD, COPD presented to the hospital with worsening respiratory failure not associated with any productive phlegm. Patient on admission found to be COVID-19 positive and pulmonary was called for further management. Patient had a prior history of recurrent UTIs with Enterococcus faecalis levofloxacin sensitive on staph.epi. Chest x-ray showed bilateral pulmonary infiltrates left greater than right. ABG reviewed, improving oxygenation after BiPAP therapy Leukopenia with lymphopenia noted. Patient also noted to have MONA on CKD on this admission, improving creatinine on today's labs.. Also noted to have elevated troponin with significant delta rise and BNP. Bilateral lower extremity 2+ edema. I have extensively discussed with patient regarding CODE STATUS today, benefits and risks and associated morbidity and mortality and patient stresses complete understanding and would like his CODE STATUS to be DNR/DNI. Interval update: D-dimer elevated at 0.80. No evidence of DVT on bilateral lower extremity Doppler. No acute respiratory events overnight. Patient respiratory status remained relatively stable from yesterday. He this morning on high flow nasal and nonrebreather saturations maintained at 88% on above. We will transition to BiPAP. Overall patient respiratory status remained critical needin
[2021-09-06] VITALS (10 sets, daily range): BP systolic 135–162; BP diastolic 78–90; PULSE 50–89; RESP 16–32; TEMP 36.7–37.1; O2SAT 88–97; BMI 43.7
--- NOTE | 2021-09-06 04:38 | PC.NURSE ---
no acute changes overnight. Pt has been on bipap throughout the night, sats in the hgih 80s to low 90s for a majority of the night. Pt desats to the 70s upon exertion, takes approx 10 mins to recover. Pt has slept in the chair this shift. VSS, call light in reach.
--- NOTE | 2021-09-06 07:06 | HMH.ACPN2 ---
Internal Medicine - PN: Subj *Date: 09/06/21 *Time: 07:06 Interval history: Patient is remained stable over the last 24 hours without acute events. O2 sats will decrease into the 80s with minor movement. Patient was placed on a combination of high flow nasal cannula and a nonrebreather yesterday to allow for eating and drinking. Patient's O2 sats dropped to the mid 80s and he was placed back on BiPAP with FiO2 of 100%. Exam Vital signs and Labs for Last 24 Hours: Temp Pulse Resp BP Pulse Ox 98.4 F 57 L 32 H 149/84 H 93 L 09/06/21 04:00 09/06/21 04:00 09/06/21 04:00 09/06/21 04:00 09/06/21 04:00 Laboratory Results - last 24 hr 09/05/21 05:30: WBC 6.3 D, RBC 4.91, Hgb 15.9, Hct 48.3, MCV 98.4 H, MCH 32.4 H, MCHC 32.9, RDW 14.8, Plt Count 117 L, MPV 10.4, Neut % (Auto) 83.8 H, Lymph % (Auto) 10.9, [place] % (Auto) 5.0, Eos % (Auto) 0.0 L, Baso % (Auto) 0.3, Neut # (Auto) 5.3, Lymph # (Auto) 0.7, [place] # (Auto) 0.3, Eos # (Auto) 0.0, Baso # (Auto) 0.0 09/05/21 05:30: Sodium 139, Potassium 3.6, Chloride 107, Carbon Dioxide 23, Anion Gap 12.6, BUN 46 H, Creatinine 2.00 H D, Estimated Creat Clear 32, Estimated GFR 33 L, Est GFR ( Amer) 40 L D, Glucose 146 H, Calcium 7.4 L, Magnesium 1.8 09/05/21 05:30: Total Bilirubin 0.5, Direct Bilirubin 0.1, Conjugated Bilirubin 0.0, Indirect Bilirubin 0.4, Unconjugated Bilirubin 0.3, AST 107 H D, ALT 50 D, Alkaline Phosphatase 74, Total Protein 6.5, Albumin 3.1 L D I & O for Last 24 hours: Intake & Output 09/03/21 09/04/21 09/05/2121 11:59 11:59 11:59 11:59 Intake Total 4266 / 4266 480 / 480 Output Total 1700 / 1700 850 / 850 Balance 2566 / 2566 -370 / -370 Weight 215 lb 277 lb 9.6 oz 278 lb 7.101 oz Microbiology Reports for the Last 24 Hours: Microbiology 09/04/21 06:37 Blood Blood Culture - Preliminary NO GROWTH AFTER 48 HOURS 09/04/21 06:37 Blood Blood Culture - Preliminary NO GROWTH AFTER 48 HOURS Narrative: Patient is sitting up in recliner awake and alert. With conversation O2 sats dropped to 86 and 87%. Lungs have distant breath sounds with rales. Heart has a regular rate and rhythm Assessment and Plan (1) Acute respiratory failure due to COVID-19 Status: Acute Category: Medical Code(s): U07.1 - COVID-19; J96.00 - Acute respiratory failure, unspecified whether with hypoxia or hypercapnia (2) Acute kidney injury Status: Acute Category: Medical Code(s): N17.9 - Acute kidney failure, unspecified (3) COPD (chronic obstructive pulmonary disease) Status: Acute Qualifiers: COPD type: unspecified COPD Qualified Code(s): J44.9 - Chronic obstructive pulmonary disease, unspecified Category: Medical Code(s): J44.9 - Chronic obstructive pulmonary disease, unspecified (4) COVID-19 with pulmonary comorbidity Status: Acute Category: Medical Code(s): U07.1 - COVID-19; J98.4 - Other disorders of lung (5) Obesity (BMI 30-39.9) Status: Acute Category: Medical Code(s): E66.9 - Obesity, unspecified (6) Thrombocytopenia associated with COVID-19 Status: Acute Category: Medical Code(s): U07.1 - COVID-19; D69.59 - Other secondary thrombocytopenia (7) Hx of CABG Status: Chronic Category: Surgical Code(s): Z95.1 - Presence of aortocoronary bypass graft (8) CAD (coronary artery disease) Status: Chronic Qualifiers: Coronary Disease-Associated Artery/Lesion type: bypass graft [place] vs. transplanted heart: [place] heart Associated angina: with other forms of angina Qualified Code(s): I25.708 - Atherosclerosis of coronary artery bypass graft(s), unspecified, with other forms of angina pectoris Category: Medical Code(s): I25.10 - Atherosclerotic heart disease of [place] coronary artery without angina pectoris - Assessment and plan all Dx Assessment and Plan for all problems:: Patient remained stable. If renal function
[2021-09-06 07:30] LABS: Chloride 108 mmol/L (98-107); Sodium 140 mmol/L (136-145)
[2021-09-06 07:31] LABS: Potassium 3.6 mmoL/L (3.5-5.1)
[2021-09-06 07:33] LABS: Alanine Aminotransferase 42 U/L (12-78); Albumin/Globulin Ratio 0.9 (1.1-1.8); Alkaline Phosphatase 85 U/L (38-126); Anion Gap 9.6 mEq/L (5-15); Aspartate Amino Transferase 80 U/L (17-59); Bilirubin,Total 0.6 mg/dl (0.2-1.3); Blood Urea Nitrogen 43 mg/dl (9-20); Carbon Dioxide 26 mmol/L (22.0-30.0); Creatinine Clearance Estimated 49 mL/min (50-200); Estimated Glomerular Filt Rate 55 ml/min (>60); GFR (African American) 66 ML/MIN (>60); Globulin 3.4 g/dL (1.3-3.2); Total Protein,Serum 6.4 g/dl (6.3-8.2)
[2021-09-06 07:34] LABS: Calcium 7.7 mg/dl (8.4-10.2); Glucose 188 mg/dl (74-100)
--- NOTE | 2021-09-06 14:57 | DIET.NUTRFU ---
Addendum entered by Kaylyn Jenkins RD, LD 10/12/21 14:08: PO intakes continue to be minimal, he is drinking glucerna TID. AST/ALT remain elevated but slightly improved. BG moderate-high avg. 182. Weight documented to up 12# past 48h. Addendum entered by Kaylyn Jenkins RD, LD 10/11/21 09:18: PO intakes 0-50%, refusing most meals. He did request glucerna all meals as this is easier for him to tolerate dt SOA with eating. TID protein supplements altered to glucerna from protein fortified foods. Pt with new fatty liver dx, elevated AST/ALT. Low fat added to diet order. Glucerna provides 9g fat per shake, appropriate as pt's intakes are minimal. Will monitor to alter as indicated. He continues without a BM, MD aware, recommend bowel regimen. Weight documented to be up 8# past 24h, he did receive a liter of fluids yesterday. BG moderate-high avg. 175. Addendum entered by Kaylyn Jenkins 10/09/21 10:08: PO intakes 25%, pt did refuse all meals yesterday but ate 50% of breakfast this morning. He is struggling with SOA while eating. BG moderate avg. 154- greatly improved lantus to be dc'd, weight stable, no BM since 09/27 Addendum entered by Kaylyn Jenkins 10/06/21 12:49: PO intakes 75%. Pt did have N/V yesterday and refused 2 meals but ate 50% of his breakfast this morning. he has diuresed 10#, BG moderate-high avg. 182. He has 2 stage II PA, protein fortification TID added to order. Addendum entered by Kaylyn Jenkins 10/04/21 10:33: PO intakes 75%, BG high avg. 288, weight up 2#- receiving lasix. Addendum entered by Kaylyn Jenkins 10/02/21 11:33: po intakes 75%, BG high avg. 278, no BM 5d, weight up 10#. Pt to receive lasix today. Addendum entered by Kaylyn Jenkins 09/29/21 10:27: PO intakes 75%, continues with severe hyperglycemia >300, weight stable. Supplements removed from diet order at this time, will monitor intakes/BG to alter as indicated. Addendum entered by Kaylyn Jenkins 09/27/21 13:38: PO intakes 75%, increase in hyperglycemia with avg. 308. Weight down 8#. BID diabetic supplements of pt's preference on order. Addendum entered by Kaylyn Jenkins 09/25/21 09:47: PO intakes 75%, weight down 2#. Continues with hyperglycemia avg. BG 179. Addendum entered by Kaylyn Jenkins 09/22/21 14:01: Continues to improve, PO intakes 75%. Weight stable. Bowels moving. Pt with steroid induced hyperglycemia, ADA diet given. Supplements decreased to once per day. Addendum entered by Kaylyn Jenkins 09/20/21 09:31: Pt continues to improve nutritionally, PO intakes 50% + TID supplements. Weight stable. Pt has first BM t/o stay yesterday. Addendum entered by Kaylyn Jenkins 09/18/21 13:25: Pt has had some minimal intake since yesterday and ate 50% of his breakfast this morning. Please continue efforts encouragement/cueing. Weight stable. Addendum entered by Kaylyn Jenkins 09/15/21 15:58: Pt has continued to refuse all nourishment other than steve mist and is now on continuous BiPAP further preventing PO intake. He is to be weaned to NC as tolerated to be able to eat. Please continue efforts to encourage/cue. Weight is documented to be unchanged, though suspect error. Addendum entered by Kaylyn Jenkins 09/13/21 17:20: Pt continues to refuse all meals. He is drinking multiple steve mists providing minimal calories. Please continue to encourage/cue, offer supplements/snacks t/o day. Weight not documented past 48h. Addendum entered by Kaylyn Jenkins 09/11/21 16:27: Pt with 1 week minimal intakes, continuing to refuse most meals. Please continue to encourage/cue supplements, pt may have any additional snacks/supplements desired t/o the day. Weight stable. Addendum entered by Kaylyn Jenkins 09/08/21 15:37: Pt continues to refuse most nourishment. TID supplements on order, please encourage/cue at mealtimes prioritizing these. Weight down 4# Original Note: Pt unable to eat yesterday dt BiPAP, was switched to NC today
[2021-09-07] VITALS (18 sets, daily range): BP systolic 131–156; BP diastolic 78–92; PULSE 40–100; RESP 18–25; TEMP 36.4–37.1; O2SAT 87–93; BMI 43.9
--- NOTE | 2021-09-07 00:24 | PC.NURSE ---
He has slept in the chair per his request. He did not want to wear the bipap at night. He continues on the vapotherm @ 40LPM 100% FiO2 with the non-rebreather over it. Sinus wing-NSR on telemetry. Preliminary blood cultures positive PCR showing staphylococcus MECA gene not detected.
--- NOTE | 2021-09-07 01:57 | PC.NURSE ---
Respiratory removed his non-rebreather.
--- NOTE | 2021-09-07 02:40 | PC.NURSE ---
Non-rebreather placed back on pt by respiratory.
[2021-09-07 05:22] LABS: Chloride 108 mmol/L (98-107); Potassium 3.9 mmoL/L (3.5-5.1); Sodium 144 mmol/L (136-145)
[2021-09-07 05:25] LABS: Alanine Aminotransferase 41 U/L (12-78); Albumin Level 3.2 g/dl (3.5-5.0); Alkaline Phosphatase 85 U/L (38-126); Anion Gap 12.9 mEq/L (5-15); Aspartate Amino Transferase 64 U/L (17-59); Bilirubin,Total 0.8 mg/dl (0.2-1.3); Blood Urea Nitrogen 40 mg/dl (9-20); Carbon Dioxide 27 mmol/L (22.0-30.0); Creatinine Clearance Estimated 49 mL/min (50-200); Estimated Glomerular Filt Rate 55 ml/min (>60); GFR (African American) 66 ML/MIN (>60); Globulin 3.3 g/dL (1.3-3.2); Total Protein,Serum 6.5 g/dl (6.3-8.2)
[2021-09-07 05:26] LABS: Calcium 7.9 mg/dl (8.4-10.2); Glucose 170 mg/dl (74-100)
--- NOTE | 2021-09-07 07:33 | HMH.ACPN2 ---
Internal Medicine - PN: Subj *Date: 09/07/21 *Time: 07:33 Interval history: Patient was transitioned to combination of high flow nasal cannula and nonrebreather yesterday. O2 sats have remained in the low to mid 90s. Patient is eager to be discharged. Exam Vital signs and Labs for Last 24 Hours: Temp Pulse Resp BP Pulse Ox 97.8 F 60 20 131/86 88 L 09/07/21 03:54 09/07/21 07:06 09/07/21 00:00 09/07/21 03:54 09/07/21 07:06 Laboratory Results - last 24 hr 09/06/21 06:15: Sodium 140, Potassium 3.6, Chloride 108 H, Carbon Dioxide 26, Anion Gap 9.6, BUN 43 H, Creatinine 1.30 H D, Estimated Creat Clear 49, Estimated GFR 55 L, Est GFR ( Amer) 66 D, Glucose 188 H, Calcium 7.7 L, Total Bilirubin 0.6, AST 80 H D, ALT 42, Alkaline Phosphatase 85, Total Protein 6.4, Albumin 3.0 L, Globulin 3.4 H, Albumin/Globulin Ratio 0.9 L 09/07/21 04:53: Sodium 144, Potassium 3.9, Chloride 108 H, Carbon Dioxide 27, Anion Gap 12.9, BUN 40 H, Creatinine 1.30 H, Estimated Creat Clear 49, Estimated GFR 55 L, Est GFR ( Amer) 66, Glucose 170 H, Calcium 7.9 L, Total Bilirubin 0.8, AST 64 H, ALT 41, Alkaline Phosphatase 85, Total Protein 6.5, Albumin 3.2 L, Globulin 3.3 H, Albumin/Globulin Ratio 1.0 L I & O for Last 24 hours: Intake & Output 09/04/21 09/05/21 09/06/21 09/07/21 11:59 11:59 11:59 11:59 Intake Total 4266 / 4266 600 / 600 380 / 380 Output Total 1700 / 1700 850 / 850 500 / 500 Balance 2566 / 2566 -250 / -250 -120 / -120 Weight 215 lb 277 lb 9.6 oz 278 lb 7.101 oz 280 lb Microbiology Reports for the Last 24 Hours: Microbiology 09/04/21 06:37 Blood Blood Culture - Preliminary 09/04/21 06:37 Blood Blood Culture - Preliminary NO GROWTH AFTER 48 HOURS - Constitutional no acute distress - *Routine Respiratory Exam Present: rales, rhonchi - *Routine Cardiovascular Exam Present: RRR - *Routine Abdominal Exam Present: soft, normoactive bowel sounds. Absent: tenderness Assessment and Plan (1) Acute respiratory failure due to COVID-19 Status: Acute Category: Medical Code(s): U07.1 - COVID-19; J96.00 - Acute respiratory failure, unspecified whether with hypoxia or hypercapnia (2) Acute kidney injury Status: Acute Category: Medical Code(s): N17.9 - Acute kidney failure, unspecified (3) COPD (chronic obstructive pulmonary disease) Status: Acute Qualifiers: COPD type: unspecified COPD Qualified Code(s): J44.9 - Chronic obstructive pulmonary disease, unspecified Category: Medical Code(s): J44.9 - Chronic obstructive pulmonary disease, unspecified (4) COVID-19 with pulmonary comorbidity Status: Acute Category: Medical Code(s): U07.1 - COVID-19; J98.4 - Other disorders of lung (5) Obesity (BMI 30-39.9) Status: Acute Category: Medical Code(s): E66.9 - Obesity, unspecified (6) Thrombocytopenia associated with COVID-19 Status: Acute Category: Medical Code(s): U07.1 - COVID-19; D69.59 - Other secondary thrombocytopenia (7) Hx of CABG Status: Chronic Category: Surgical Code(s): Z95.1 - Presence of aortocoronary bypass graft (8) CAD (coronary artery disease) Status: Chronic Qualifiers: Coronary Disease-Associated Artery/Lesion type: bypass graft [place] vs. transplanted heart: [place] heart Associated angina: with other forms of angina Qualified Code(s): I25.708 - Atherosclerosis of coronary artery bypass graft(s), unspecified, with other forms of angina pectoris Category: Medical Code(s): I25.10 - Atherosclerotic heart disease of [place] coronary artery without angina pectoris - Assessment and plan all Dx Assessment and Plan for all problems:: 1. Continue Remdesivir, dexamethasone, baricitinib and high flow nasal cannula for patient's respiratory failure from COVID-19 pneumonia 2. Patient remained stable and I have explained to him that his hospitalization will be quite long due to the edward
--- NOTE | 2021-09-07 08:49 | HMH.ACPN ---
Internal Medicine - PN: Subj *Date: 09/07/21 *Time: 08:49 Exam Vital signs and Labs for Last 24 Hours: Temp Pulse Resp BP Pulse Ox 98.0 F 61 25 H 146/80 H 90 L 09/07/21 07:47 09/07/21 07:47 09/07/21 07:47 09/07/21 07:47 09/07/21 07:47 Laboratory Results - last 24 hr 09/07/21 04:53: Sodium 144, Potassium 3.9, Chloride 108 H, Carbon Dioxide 27, Anion Gap 12.9, BUN 40 H, Creatinine 1.30 H, Estimated Creat Clear 49, Estimated GFR 55 L, Est GFR ( Amer) 66, Glucose 170 H, Calcium 7.9 L, Total Bilirubin 0.8, AST 64 H, ALT 41, Alkaline Phosphatase 85, Total Protein 6.5, Albumin 3.2 L, Globulin 3.3 H, Albumin/Globulin Ratio 1.0 L I & O for Last 24 hours: Intake & Output 09/04/21 09/05/21 09/06/21 09/07/21 23:59 23:59 23:59 23:59 Intake Total 2086 / 3666 2540 / 2540 600 / 600 140 / 140 Output Total 300 / 1200 1950 / 1950 300 / 300 500 / 500 Balance 1786 / 2466 590 / 590 300 / 300 -360 / -360 Weight 98 kg 125.917 kg 126.3 kg 127.006 kg Microbiology Reports for the Last 24 Hours: Microbiology 09/04/21 06:37 Blood Blood Culture - Preliminary 09/04/21 06:37 Blood Blood Culture - Preliminary NO GROWTH AFTER 48 HOURS Assessment and Plan (1) Acute respiratory failure due to COVID-19 Status: Acute Category: Medical Code(s): U07.1 - COVID-19; J96.00 - Acute respiratory failure, unspecified whether with hypoxia or hypercapnia (2) Acute kidney injury Status: Acute Category: Medical Code(s): N17.9 - Acute kidney failure, unspecified (3) COPD (chronic obstructive pulmonary disease) Status: Acute Qualifiers: COPD type: unspecified COPD Qualified Code(s): J44.9 - Chronic obstructive pulmonary disease, unspecified Category: Medical Code(s): J44.9 - Chronic obstructive pulmonary disease, unspecified (4) COVID-19 with pulmonary comorbidity Status: Acute Category: Medical Code(s): U07.1 - COVID-19; J98.4 - Other disorders of lung (5) Obesity (BMI 30-39.9) Status: Acute Category: Medical Code(s): E66.9 - Obesity, unspecified (6) Thrombocytopenia associated with COVID-19 Status: Acute Category: Medical Code(s): U07.1 - COVID-19; D69.59 - Other secondary thrombocytopenia (7) Hx of CABG Status: Chronic Category: Surgical Code(s): Z95.1 - Presence of aortocoronary bypass graft (8) CAD (coronary artery disease) Status: Chronic Qualifiers: Coronary Disease-Associated Artery/Lesion type: bypass graft [place] vs. transplanted heart: [place] heart Associated angina: with other forms of angina Qualified Code(s): I25.708 - Atherosclerosis of coronary artery bypass graft(s), unspecified, with other forms of angina pectoris Category: Medical Code(s): I25.10 - Atherosclerotic heart disease of [place] coronary artery without angina pectoris The patient's infection will respond to the chosen ABx?: Yes Is the patient receiving the right drug, dose, and route?: Yes Could a more targeted ABx be ordered?: No
--- NOTE | 2021-09-07 13:47 | PC.NURSE ---
Pt is alert and oriented x4. Lungs are diminished throughout. He remains on vapotherm 40L/100% with a NRB over top of it. His O2 sats have been around 88-92%. It drops into the low 80's when he removes the NRB but he recovers quickly. He has +2 edema to BLE. Phenergan administered x1 (as of yet) for nausea with relief noted on reassessment. Appetite has been very poor with pt eating very little of meals. He has utilized a urinal at bed.
[2021-09-08] VITALS (14 sets, daily range): BP systolic 131–145; BP diastolic 71–83; PULSE 55–94; RESP 13–22; TEMP 36.6–37.1; O2SAT 89–97; BMI 43.1
--- NOTE | 2021-09-08 03:16 | PC.NURSE ---
He continues to sit in the chair. He wore the bipap at night. Received PRN medication for nausea. No vomiting. He has been voiding per the urinal. Previous shift reported that he refused all meals. He requested watermelon tonight but it is not available.
[2021-09-08 05:33] LABS: Chloride 107 mmol/L (98-107); Potassium 3.8 mmoL/L (3.5-5.1); Sodium 147 mmol/L (136-145)
[2021-09-08 05:35] LABS: Blood Urea Nitrogen 41 mg/dl (9-20); Creatinine Clearance Estimated 49 mL/min (50-200); Estimated Glomerular Filt Rate 55 ml/min (>60); GFR (African American) 66 ML/MIN (>60)
[2021-09-08 05:36] LABS: Alanine Aminotransferase 46 U/L (12-78); Albumin Level 3.4 g/dl (3.5-5.0); Alkaline Phosphatase 92 U/L (38-126); Anion Gap 14.8 mEq/L (5-15); Aspartate Amino Transferase 64 U/L (17-59); Calcium 8.4 mg/dl (8.4-10.2); Carbon Dioxide 29 mmol/L (22.0-30.0); Globulin 3.5 g/dL (1.3-3.2); Glucose 180 mg/dl (74-100); Total Protein,Serum 6.9 g/dl (6.3-8.2)
--- NOTE | 2021-09-08 07:36 | HMH.ACPN2 ---
Internal Medicine - PN: Subj *Date: 09/08/21 *Time: 07:36 Interval history: No acute events over the last 24 hours. Patient used BiPAP overnight. O2 sats remained in the low to mid 90s. Patient's only complaint is a dry mouth Exam Vital signs and Labs for Last 24 Hours: Temp Pulse Resp BP Pulse Ox 97.8 F 79 22 145/78 H 92 L 09/08/21 03:56 09/08/21 06:55 09/08/21 03:56 09/08/21 03:56 09/08/21 06:55 Laboratory Results - last 24 hr 09/08/21 04:15: Sodium 147 H, Potassium 3.8, Chloride 107, Carbon Dioxide 29, Anion Gap 14.8, BUN 41 H, Creatinine 1.30 H, Estimated Creat Clear 49, Estimated GFR 55 L, Est GFR ( Amer) 66, Glucose 180 H, Calcium 8.4, Total Bilirubin 1.0, AST 64 H, ALT 46, Alkaline Phosphatase 92, Total Protein 6.9, Albumin 3.4 L, Globulin 3.5 H, Albumin/Globulin Ratio 1.0 L I & O for Last 24 hours: Intake & Output 09/05/21 09/06/21 09/07/21 09/08/21 11:59 11:59 11:59 11:59 Intake Total 4266 / 4266 600 / 600 500 / 500 370 / 370 Output Total 1700 / 1700 850 / 850 750 / 750 800 / 800 Balance 2566 / 2566 -250 / -250 -250 / -250 -430 / -430 Weight 277 lb 9.6 oz 278 lb 7.101 oz 280 lb 275 lb Microbiology Reports for the Last 24 Hours: Microbiology 09/04/21 06:37 Blood Blood Culture - Preliminary Gram Positive Cocci Narrative: Patient looks comfortable with no increased work of breathing. He has rales posteriorly in the mid lungs and at the bases. Heart has a regular rate and rhythm. Assessment and Plan (1) Acute respiratory failure due to COVID-19 Status: Acute Category: Medical Code(s): U07.1 - COVID-19; J96.00 - Acute respiratory failure, unspecified whether with hypoxia or hypercapnia (2) Acute kidney injury Status: Acute Category: Medical Code(s): N17.9 - Acute kidney failure, unspecified (3) COPD (chronic obstructive pulmonary disease) Status: Acute Qualifiers: COPD type: unspecified COPD Qualified Code(s): J44.9 - Chronic obstructive pulmonary disease, unspecified Category: Medical Code(s): J44.9 - Chronic obstructive pulmonary disease, unspecified (4) COVID-19 with pulmonary comorbidity Status: Acute Category: Medical Code(s): U07.1 - COVID-19; J98.4 - Other disorders of lung (5) Obesity (BMI 30-39.9) Status: Acute Category: Medical Code(s): E66.9 - Obesity, unspecified (6) Thrombocytopenia associated with COVID-19 Status: Acute Category: Medical Code(s): U07.1 - COVID-19; D69.59 - Other secondary thrombocytopenia (7) Hx of CABG Status: Chronic Category: Surgical Code(s): Z95.1 - Presence of aortocoronary bypass graft (8) CAD (coronary artery disease) Status: Chronic Qualifiers: Coronary Disease-Associated Artery/Lesion type: bypass graft [place] vs. transplanted heart: [place] heart Associated angina: with other forms of angina Qualified Code(s): I25.708 - Atherosclerosis of coronary artery bypass graft(s), unspecified, with other forms of angina pectoris Category: Medical Code(s): I25.10 - Atherosclerotic heart disease of [place] coronary artery without angina pectoris - Assessment and plan all Dx Assessment and Plan for all problems:: No change in plan of care. Continue Remdesivir, baricitinib, dexamethasone for COVID-19 pneumonia with respiratory failure. Patient will use BiPAP at night due to his home use of CPAP. He can be transition to HFNC plus or minus nonrebreather during the day to keep sats above 90%
--- NOTE | 2021-09-08 18:09 | PC.NURSE ---
Pt is alert and oriented x4. His lungs are diminished throughout. He remains on vapotherm 40L/100% with O2 sats running 86-92%. He has been NSR/SB on telemetry. Appetite has been poor. He ate a few bites of a rice Krispy treat and a few bites of watermelon that he was able to keep down. He has had several Lili Mists as well. No complaints of nausea. has called and been updated on plan of care and pt's condition.
[2021-09-09] VITALS (12 sets, daily range): BP systolic 146–157; BP diastolic 80–92; PULSE 50–80; RESP 16–28; TEMP 36.7–36.9; O2SAT 87–95; BMI 43.1
--- NOTE | 2021-09-09 05:04 | PC.NURSE ---
pt is a&ox4. he has been awake in his recliner throughout the night. pts O2 has been stable in the mid 90s on bipap. drops to low 80s when removed but recovers quickly when replaced. lung sounds diminished throughout. NSR on tele. c/o nausea earlier this shift. Zofran given per order. noted to be effective. pt continues to void using urinal.
[2021-09-09 05:47] LABS: Microscopic, Urine URINE MICROSCOPIC (MICROSCOPIC)
[2021-09-09 05:49] LABS: Appearance,Urine SL CLOUDY (Clear); Bilirubin,Urine Negative (Negative); Blood, Urine 3+ (Negative); Color,Urine DK YELLOW (Yellow); Glucose,Urine (UA) Negative (Negative); Ketones,Urine Negative (Negative); Leukocyte Esterase,Urine Negative (Negative); Nitrate,Urine Negative (Negative); PH,Urine 6.5 (5.0-8.5); Protein,Urine 1+ (Negative); Specific Gravity, Urine 1.025 (1.005-1.030)
[2021-09-09 06:14] LABS: Amorphous Sediment,Urine 1+ /lpf; RBC,Urine 50-100 #/hpf (0-3); Squamous Epithelial Cell,Urine Occasional #/hpf (0-5)
[2021-09-09 06:16] LABS: Chloride 105 mmol/L (98-107); Potassium 3.6 mmoL/L (3.5-5.1); Sodium 143 mmol/L (136-145)
[2021-09-09 06:19] LABS: Alanine Aminotransferase 47 U/L (12-78); Albumin Level 3.4 g/dl (3.5-5.0); Albumin/Globulin Ratio 1.1 (1.1-1.8); Alkaline Phosphatase 104 U/L (38-126); Anion Gap 12.6 mEq/L (5-15); Aspartate Amino Transferase 61 U/L (17-59); Bilirubin,Total 0.9 mg/dl (0.2-1.3); Blood Urea Nitrogen 32 mg/dl (9-20); Calcium 8.4 mg/dl (8.4-10.2); Carbon Dioxide 29 mmol/L (22.0-30.0); Creatinine Clearance Estimated 58 mL/min (50-200); Estimated Glomerular Filt Rate 67 ml/min (>60); GFR (African American) 81 ML/MIN (>60); Globulin 3.2 g/dL (1.3-3.2); Glucose 181 mg/dl (74-100); Total Protein,Serum 6.6 g/dl (6.3-8.2)
--- NOTE | 2021-09-09 08:47 | HMH.ACPN2 ---
Internal Medicine - PN: Subj *Date: 09/09/21 *Time: 08:47 Interval history: This morning patient is dealing with nausea that he claims is from the water. He has been able to drink soft drinks without incident. He remains frustrated from his inability to move due to need for high flow nasal cannula. The HFNC also makes it difficult to hear Exam Vital signs and Labs for Last 24 Hours: Temp Pulse Resp BP Pulse Ox 98.0 F 71 25 H 153/81 H 95 09/09/21 04:00 09/09/21 07:31 09/09/21 07:31 09/09/21 07:31 09/09/21 08:00 Laboratory Results - last 24 hr 09/09/21 05:16: Urine Color Dk yellow, Urine Appearance Sl cloudy, Urine pH 6.5, Ur Specific [place] 1.025, Urine Protein 1+, Urine Glucose (UA) Negative, Urine Ketones Negative, Urine Blood 3+, Urine Nitrate Negative, Urine Bilirubin Negative, Urine Urobilinogen 1.0, Ur Leukocyte Esterase Negative, Urine RBC 50-100, Urine WBC None, Ur Squamous Epith Cells Occasional, Amorphous Sediment 1+, Urine Bacteria None 09/09/21 05:25: Sodium 143, Potassium 3.6, Chloride 105, Carbon Dioxide 29, Anion Gap 12.6, BUN 32 H, Creatinine 1.10, Estimated Creat Clear 58, Estimated GFR 67, Est GFR ( Amer) 81 D, Glucose 181 H, Calcium 8.4, Total Bilirubin 0.9, AST 61 H, ALT 47, Alkaline Phosphatase 104, Total Protein 6.6, Albumin 3.4 L, Globulin 3.2, Albumin/Globulin Ratio 1.1 I & O for Last 24 hours: Intake & Output 09/06/21 09/07/21 09/08/21 09/09/21 11:59 11:59 11:59 11:59 Intake Total 600 / 600 500 / 500 490 / 490 1603 / 1603 Output Total 850 / 850 750 / 750 800 / 800 830 / 830 Balance -250 / -250 -250 / -250 -310 / -310 773 / 773 Weight 278 lb 7.101 oz 280 lb 275 lb 275 lb Microbiology Reports for the Last 24 Hours: Microbiology 09/04/21 06:37 Blood Blood Culture - Preliminary Staphylococcus epidermidis 09/04/21 06:37 Blood Blood Culture - Final NO GROWTH AFTER 5 DAYS Narrative: Patient shows no increased work of breathing. Lungs have rhonchi and rales bilaterally. Heart has a regular rate and rhythm. Abdomen is obese. Assessment and Plan (1) Acute respiratory failure due to COVID-19 Status: Acute Category: Medical Code(s): U07.1 - COVID-19; J96.00 - Acute respiratory failure, unspecified whether with hypoxia or hypercapnia (2) Acute kidney injury Status: Acute Category: Medical Code(s): N17.9 - Acute kidney failure, unspecified (3) COPD (chronic obstructive pulmonary disease) Status: Acute Qualifiers: COPD type: unspecified COPD Qualified Code(s): J44.9 - Chronic obstructive pulmonary disease, unspecified Category: Medical Code(s): J44.9 - Chronic obstructive pulmonary disease, unspecified (4) COVID-19 with pulmonary comorbidity Status: Acute Category: Medical Code(s): U07.1 - COVID-19; J98.4 - Other disorders of lung (5) Obesity (BMI 30-39.9) Status: Acute Category: Medical Code(s): E66.9 - Obesity, unspecified (6) Thrombocytopenia associated with COVID-19 Status: Acute Category: Medical Code(s): U07.1 - COVID-19; D69.59 - Other secondary thrombocytopenia (7) Hx of CABG Status: Chronic Category: Surgical Code(s): Z95.1 - Presence of aortocoronary bypass graft (8) CAD (coronary artery disease) Status: Chronic Qualifiers: Coronary Disease-Associated Artery/Lesion type: bypass graft [place] vs. transplanted heart: [place] heart Associated angina: with other forms of angina Qualified Code(s): I25.708 - Atherosclerosis of coronary artery bypass graft(s), unspecified, with other forms of angina pectoris Category: Medical Code(s): I25.10 - Atherosclerotic heart disease of [place] coronary artery without angina pectoris - Assessment and plan all Dx Assessment and Plan for all problems:: 1. Continue BiPAP at night and HFNC with a nonrebreather during the day. 2. Continue Remdesivir, baricitinib, dexamethasone 3. P
[2021-09-09 09:31] LABS: Platelet Count 192 K/mm3 (142-424)
--- NOTE | 2021-09-09 16:41 | PC.NURSE ---
Addendum entered by Melissa Dailey RN 09/09/21 17:41: He did attempt to eat some watermelon on his dinner tray this afternoon, but soon after began dry heaving. PRN hayesfran admin per JAN. Original Note: No acute changes. Pt did have episode of nausea this AM, zofran given w/ voiced relief. Pt contributes his nausea to drinking water, steve mist brought up for pt to drink, no more c/o nausea. Appetite extremely poor, have offered to get pt something that he may like, but he states he does not feel like eating. Remains on vapotherm w/ non-rebreather, sat when he is resting mid 90's. When he awake and fidgeting w/ mask sat typically 89-90%. Encouraged pt to lie in bed in prone position, refuses @ this time. He has been up in chair since receiving report this AM. He does requires assistance when using urinal, has had about 1500 cc out this shift. No BM this shift, pt states he has not had one since being admitted. Pt's has called twice today, updated on plan of care.
[2021-09-10] VITALS (12 sets, daily range): BP systolic 121–158; BP diastolic 73–87; PULSE 60–90; RESP 14–24; TEMP 36.7–37.4; O2SAT 88–98; BMI 43.9
--- NOTE | 2021-09-10 04:40 | PC.NURSE ---
no acute changes this shift. a&ox4. pt was awake in his chair most of the night frequently requesting steve mist r/t c/o dry mouth. pt c/o nausea and headache. PRN Zofran and Tylenol given per order. Noted to be effective. Lung sounds diminished. O2 stable in the mid 90s on bipap. pt does not tolerate exacerbation well. uses urinal with assistance. pt reports no bm since admission.
[2021-09-10 05:54] LABS: Platelet Count 235 K/mm3 (142-424)
[2021-09-10 06:03] LABS: Alanine Aminotransferase 51 U/L (12-78); Albumin Level 3.4 g/dl (3.5-5.0); Alkaline Phosphatase 103 U/L (38-126); Anion Gap 13.5 mEq/L (5-15); Aspartate Amino Transferase 67 U/L (17-59); Bilirubin,Total 1.1 mg/dl (0.2-1.3); Blood Urea Nitrogen 30 mg/dl (9-20); Calcium 8.5 mg/dl (8.4-10.2); Carbon Dioxide 30 mmol/L (22.0-30.0); Chloride 101 mmol/L (98-107); Creatinine Clearance Estimated 53 mL/min (50-200); Estimated Glomerular Filt Rate 60 ml/min (>60); GFR (African American) 73 ML/MIN (>60); Globulin 3.3 g/dL (1.3-3.2); Glucose 170 mg/dl (74-100); Potassium 3.5 mmoL/L (3.5-5.1); Sodium 141 mmol/L (136-145); Total Protein,Serum 6.7 g/dl (6.3-8.2)
--- NOTE | 2021-09-10 09:05 | HMH.ACPN2 ---
Internal Medicine - PN: Subj *Date: 09/10/21 *Time: 09:05 Interval history: Patient remained stable. Nausea persists. He denies change in shortness of breath Exam Vital signs and Labs for Last 24 Hours: Temp Pulse Resp BP Pulse Ox 98.2 F 62 14 121/74 95 09/10/21 08:00 09/10/21 08:00 09/10/21 08:00 09/10/21 08:00 09/10/21 08:00 Laboratory Results - last 24 hr 09/09/21 09:20: Plt Count 192 09/10/21 05:25: Sodium 141, Potassium 3.5, Chloride 101, Carbon Dioxide 30, Anion Gap 13.5, BUN 30 H, Creatinine 1.20, Estimated Creat Clear 53, Estimated GFR 60, Est GFR ( Amer) 73, Glucose 170 H, Calcium 8.5, Total Bilirubin 1.1, AST 67 H, ALT 51, Alkaline Phosphatase 103, Total Protein 6.7, Albumin 3.4 L, Globulin 3.3 H, Albumin/Globulin Ratio 1.0 L 09/10/21 05:25: Plt Count 235 I & O for Last 24 hours: Intake & Output 09/07/21 09/08/21 09/09/21 09/10/21 11:59 11:59 11:59 11:59 Intake Total 500 / 500 490 / 490 1603 / 1603 820 / 820 Output Total 750 / 750 800 / 800 830 / 830 2024 Balance -250 / -250 -310 / -310 773 / 773 -1205 / -1205 Weight 280 lb 275 lb 275 lb 280 lb Microbiology Reports for the Last 24 Hours: Microbiology 09/04/21 06:37 Blood Blood Culture - Preliminary Staphylococcus epidermidis 09/04/21 06:37 Blood Blood Culture - Final NO GROWTH AFTER 5 DAYS Narrative: Patient shows no increased work of breathing. He has basilar rales. Heart has a regular rate and rhythm. Abdomen is obese. Assessment and Plan (1) Acute respiratory failure due to COVID-19 Status: Acute Category: Medical Code(s): U07.1 - COVID-19; J96.00 - Acute respiratory failure, unspecified whether with hypoxia or hypercapnia (2) Acute kidney injury Status: Acute Category: Medical Code(s): N17.9 - Acute kidney failure, unspecified (3) COPD (chronic obstructive pulmonary disease) Status: Acute Qualifiers: COPD type: unspecified COPD Qualified Code(s): J44.9 - Chronic obstructive pulmonary disease, unspecified Category: Medical Code(s): J44.9 - Chronic obstructive pulmonary disease, unspecified (4) COVID-19 with pulmonary comorbidity Status: Acute Category: Medical Code(s): U07.1 - COVID-19; J98.4 - Other disorders of lung (5) Obesity (BMI 30-39.9) Status: Acute Category: Medical Code(s): E66.9 - Obesity, unspecified (6) Thrombocytopenia associated with COVID-19 Status: Acute Category: Medical Code(s): U07.1 - COVID-19; D69.59 - Other secondary thrombocytopenia (7) Hx of CABG Status: Chronic Category: Surgical Code(s): Z95.1 - Presence of aortocoronary bypass graft (8) CAD (coronary artery disease) Status: Chronic Qualifiers: Coronary Disease-Associated Artery/Lesion type: bypass graft [place] vs. transplanted heart: [place] heart Associated angina: with other forms of angina Qualified Code(s): I25.708 - Atherosclerosis of coronary artery bypass graft(s), unspecified, with other forms of angina pectoris Category: Medical Code(s): I25.10 - Atherosclerotic heart disease of [place] coronary artery without angina pectoris - Assessment and plan all Dx Assessment and Plan for all problems:: 1. Continue Remdesivir, baricitinib, dexamethasone 2. Liberalize diet 3. Patient be given 500 mL NS bolus due to slight increase in his creatinine along with darkening of his urine
--- NOTE | 2021-09-10 10:05 | PC.NURSE ---
Pt has been on vapotherm only for about an hour, SPO2 88-93% while resting in chair.
--- NOTE | 2021-09-10 17:14 | PC.NURSE ---
Around 1500 pt had to have Non-rebreather placed back on over vapotherm d/t desatting after coughing spell . SPO2 89-92%. He continues to refuse to lie in bed and unable to reposition to offset weight to bottom. Pt educated on risk of breakdown from continued pressure of sitting up in chair. He is A&Ox4. Treated this AM w/ phenergan IV for nausea, no complaints since that time. Appetite remains poor, he has drank a few cans of steve miss, but refuses to attempt to eat any meals. Requires assistance when urinating. Urine is tea colored, aware. No BM this shift. has called twice thus far, updated on plan of care.
[2021-09-11] VITALS (15 sets, daily range): BP systolic 117–155; BP diastolic 62–88; PULSE 70–96; RESP 16–24; TEMP 36.1–37.8; O2SAT 87–96; BMI 43.5
--- NOTE | 2021-09-11 04:32 | PC.NURSE ---
pt has had an uneventful night with no acute changes. remains a&ox4. rested on & off in his recliner. O2 in the low to mid 90s on bipap. NSR on telemetry. c/o nausea & headache earlier this shift. PRN phenergan and tylenol given as ordered. frequently requests steve mist. voids using urinal. urine noted to be tea colored.
[2021-09-11 06:04] LABS: Basophils % 0.1 % (0.1-2.0); Eosinophils % 0.4 % (0.1-12.0); Hematocrit 50.5 % (42.0-52.0); Hemoglobin 16.2 g/dL (14.1-18.0); Lymphocytes # 0.5 K/mm3 (0.7-4.5); Lymphocytes % 4.3 % (10-50); Mean Corpuscular HGB Conc 32.1 g/dL (31.8-35.4); Mean Corpuscular Hemoglobin 31.7 pg (27.0-31.2); Mean Corpuscular Volume 98.9 fl (80-94); Mean Platelet Volume 9.9 fl (7.4-10.4); Monocytes # 0.7 K/mm3 (0.1-1.0); Monocytes % 6.2 % (1.7-9.3); Neutrophils # 9.3 K/mm3 (1.8-7.8); Platelet Count 211 K/mm3 (142-424); Red Blood Count 5.11 M/mm3 (4.60-6.20); Red Cell Distribution Width 14.4 % (11.5-17.5); White Blood Count 10.4 K/mm3 (4.8-10.8)
[2021-09-11 06:22] LABS: MANUAL DIFFERENTIAL MANUAL DIFFERENTIAL (MANUAL DIFF)
[2021-09-11 06:43] LABS: Lymphocytes % 7 % (10-50); Neutrophils % 88 % (42-76); Platelet Estimate Normal; RBC Morphology Normal; Total Cells Counted 100
--- NOTE | 2021-09-11 07:08 | HMH.ACPN2 ---
Internal Medicine - PN: Subj *Date: 09/11/21 *Time: 07:08 Interval history: No acute events over the last 24 hours. Patient continues to gomez nausea. Nurse reports patient had increased sputum production overnight and a new sputum sample has been collected. Patient is adamant he cannot prone but is willing to try laying on his sides today Exam Vital signs and Labs for Last 24 Hours: Temp Pulse Resp BP Pulse Ox 98.8 F 74 20 117/62 94 L 09/11/21 03:56 09/11/21 06:20 09/11/21 03:56 09/11/21 03:56 09/11/21 03:56 Laboratory Results - last 24 hr 09/11/21 05:48: WBC 10.4, RBC 5.11, Hgb 16.2, Hct 50.5, MCV 98.9 H, MCH 31.7 H, MCHC 32.1, RDW 14.4, Plt Count 211, MPV 9.9, Neut % (Auto) 89.0 H, Lymph % (Auto) 4.3 L, [place] % (Auto) 6.2, Eos % (Auto) 0.4, Baso % (Auto) 0.1, Neut # (Auto) 9.3 H, Lymph # (Auto) 0.5 L, [place] # (Auto) 0.7, Eos # (Auto) 0.0, Baso # (Auto) 0.0, Total Counted 100, Neutrophils % (Manual) 88 H, Band Neutrophils % 5.0, Lymphocytes % (Manual) 7 L, Platelet Estimate Normal, RBC Morphology Normal I & O for Last 24 hours: Intake & Output 09/08/21 09/09/21 09/10/21 09/11/21 11:59 11:59 11:59 11:59 Intake Total 490 / 490 1603 / 1603 820 / 820 1785 / 1785 Output Total 800 / 800 830 / 830 2024 / 2024 725 / 725 Balance -310 / -310 773 / 773 -1205 / -1205 1060 / 1060 Weight 275 lb 275 lb 280 lb Microbiology Reports for the Last 24 Hours: Microbiology 09/10/21 22:30 Sputum - Expectorated Sputum Gram Stain - Final Narrative: Patient is sitting up in chair with both HFNC and nonrebreather in place. Lungs have less rhonchi today but remain distant. Heart has a regular rate and rhythm. Abdomen is obese. Lower extremities are warm to the touch and tender Assessment and Plan (1) Acute respiratory failure due to COVID-19 Status: Acute Category: Medical Code(s): U07.1 - COVID-19; J96.00 - Acute respiratory failure, unspecified whether with hypoxia or hypercapnia (2) Acute kidney injury Status: Acute Category: Medical Code(s): N17.9 - Acute kidney failure, unspecified (3) COPD (chronic obstructive pulmonary disease) Status: Acute Qualifiers: COPD type: unspecified COPD Qualified Code(s): J44.9 - Chronic obstructive pulmonary disease, unspecified Category: Medical Code(s): J44.9 - Chronic obstructive pulmonary disease, unspecified (4) COVID-19 with pulmonary comorbidity Status: Acute Category: Medical Code(s): U07.1 - COVID-19; J98.4 - Other disorders of lung (5) Obesity (BMI 30-39.9) Status: Acute Category: Medical Code(s): E66.9 - Obesity, unspecified (6) Thrombocytopenia associated with COVID-19 Status: Acute Category: Medical Code(s): U07.1 - COVID-19; D69.59 - Other secondary thrombocytopenia (7) Hx of CABG Status: Chronic Category: Surgical Code(s): Z95.1 - Presence of aortocoronary bypass graft (8) CAD (coronary artery disease) Status: Chronic Qualifiers: Coronary Disease-Associated Artery/Lesion type: bypass graft [place] vs. transplanted heart: [place] heart Associated angina: with other forms of angina Qualified Code(s): I25.708 - Atherosclerosis of coronary artery bypass graft(s), unspecified, with other forms of angina pectoris Category: Medical Code(s): I25.10 - Atherosclerotic heart disease of [place] coronary artery without angina pectoris - Assessment and plan all Dx Assessment and Plan for all problems:: 1. Patient will try to lay on his sides today due to inability to prone 2. Continue HFNC and nonrebreather to maintain O2 sats above 90% 3. Continue Remdesivir, dexamethasone, baricitinib
[2021-09-11 07:14] LABS: Chloride 100 mmol/L (98-107); Potassium 3.7 mmoL/L (3.5-5.1); Sodium 139 mmol/L (136-145)
[2021-09-11 07:17] LABS: Alanine Aminotransferase 43 U/L (12-78); Albumin Level 2.9 g/dl (3.5-5.0); Albumin/Globulin Ratio 0.9 (1.1-1.8); Alkaline Phosphatase 117 U/L (38-126); Anion Gap 10.7 mEq/L (5-15); Aspartate Amino Transferase 60 U/L (17-59); Bilirubin,Total 1.7 mg/dl (0.2-1.3); Blood Urea Nitrogen 27 mg/dl (9-20); Carbon Dioxide 32 mmol/L (22.0-30.0); Creatinine Clearance Estimated 58 mL/min (50-200); Estimated Glomerular Filt Rate 67 ml/min (>60); GFR (African American) 81 ML/MIN (>60); Globulin 3.3 g/dL (1.3-3.2); Total Protein,Serum 6.2 g/dl (6.3-8.2)
[2021-09-11 07:18] LABS: Calcium 8.1 mg/dl (8.4-10.2); Glucose 129 mg/dl (74-100)
--- NOTE | 2021-09-11 09:42 | XR_ITS ---
PROCEDURE: XR CHEST PORTABLE CLINICAL HISTORY: PNM Shortness of air COMPARISON: CT [id number] CT abdomen pelvis w con from 01/19/2019 CR XR CHEST 2V from 10/31/2019 CR XR CHEST PORTABLE from 10/31/2019 CR XR CHEST PORTABLE from 09/04/2021 CR XR CHEST PORTABLE from 09/05/2021 FINDINGS: Prior CABG. There is cardiomegaly. There is diffuse bilateral interstitial thickening as well as bilateral airspace disease. Congestive heart failure with edema is a consideration. Pulmonary vessels are somewhat obscured. Diffuse interstitial lung disease once again noted with increasing density in both upper and lower lobes consistent with superimposed bilateral pneumonia. No acute bony abnormalities. IMPRESSION: Diffuse interstitial lung disease with superimposed bilateral pneumonia which appears worse. Congestive heart failure is considered as well. Dictated by: Hao Scales MD 09/11/2021 11:13 Hao Scales MD in [facility] 09/11/2021 11:13
--- NOTE | 2021-09-11 11:00 | HMH.ITSTN ---
xray not done within 30 min due to staffing, phlebotomy technologist did when she got a break in her schedule
--- NOTE | 2021-09-11 12:35 | PC.NURSE ---
RESP CARE NOTE: Pt placed on BIPAP and re positioned to the left side.
--- NOTE | 2021-09-11 14:13 | HMH.PULMPN ---
Internal Medicine - PN: Subj *Date: 09/11/21 *Time: 14:13 Interval history: No acute respirations overnight. Patient denies any improvement or worsening symptoms since prior Exam - Constitutional Constitutional:: Absent: no acute distress, comfortable - HENMT Exam HENMT: Present: normocephalic, atraumatic - Eye Exam Eyes:: Present: normal appearance both eyes and related structures - Neck Exam Neck:: Present: normal visual inspection - Respiratory Exam Respiratory:: Present: respiratory distress, crackles, rales - Cardiovascular Exam Cardiac:: Present: S1, S2 - GI Exam GI:: Present: soft - Skin Exam Skin: Present: warm, no rash - Neurological Exam Neurological: Present: alert, awake - Extremities Exam Extremities: Present: no cyanosis, no clubbing, edema - Psychiatric Exam Psychiatric: Present: agitated, anxious Assessment and Plan (1) Acute respiratory failure due to COVID-19 Status: Acute Category: Medical Code(s): U07.1 - COVID-19; J96.00 - Acute respiratory failure, unspecified whether with hypoxia or hypercapnia (2) Acute kidney injury Status: Acute Category: Medical Code(s): N17.9 - Acute kidney failure, unspecified (3) COPD (chronic obstructive pulmonary disease) Status: Acute Qualifiers: COPD type: unspecified COPD Qualified Code(s): J44.9 - Chronic obstructive pulmonary disease, unspecified Category: Medical Code(s): J44.9 - Chronic obstructive pulmonary disease, unspecified (4) COVID-19 with pulmonary comorbidity Status: Acute Category: Medical Code(s): U07.1 - COVID-19; J98.4 - Other disorders of lung (5) Obesity (BMI 30-39.9) Status: Acute Category: Medical Code(s): E66.9 - Obesity, unspecified (6) Thrombocytopenia associated with COVID-19 Status: Acute Category: Medical Code(s): U07.1 - COVID-19; D69.59 - Other secondary thrombocytopenia (7) Hx of CABG Status: Chronic Category: Surgical Code(s): Z95.1 - Presence of aortocoronary bypass graft (8) CAD (coronary artery disease) Status: Chronic Qualifiers: Coronary Disease-Associated Artery/Lesion type: bypass graft [place] vs. transplanted heart: [place] heart Associated angina: with other forms of angina Qualified Code(s): I25.708 - Atherosclerosis of coronary artery bypass graft(s), unspecified, with other forms of angina pectoris Category: Medical Code(s): I25.10 - Atherosclerotic heart disease of [place] coronary artery without angina pectoris - Assessment and plan all Dx Assessment and Plan for all problems:: #Acute chronic hypoxic respiratory failure: #COVID-19 pneumonia: Mr. Estevez is 66-year-old male greater than [id number] smoking history, last smoked 16 years ago used to smoke 3 to 4 packs a day, history of CAD, COPD presented to the hospital with worsening respiratory failure not associated with any productive phlegm.Patient on admission found to be COVID-19 positive and pulmonary was called for further management. Patient had a prior history of recurrent UTIs with Enterococcus faecalis levofloxacin sensitive on staph.epi. Patient chest x-ray admission bilateral pulmonary infiltrates left greater than right. Patient also noted to have MONA on CKD along with evidence of volume overload bilateral lower extremity edema and elevated BNP at admission troponins were also elevated on admission D-dimer elevated at 0.80. No evidence of DVT on bilateral lower extremity Doppler. Interval update: Patient respiratory status has been relatively stable with no improvement for the last 5 days. Remained on high flow nasal cannula with intermittent nonrebreather/BiPAP to maintain his saturations at desired level. Repeat chest x-ray today showed bilateral worsening lower lobe pulmonary infiltrates along with evidence of volume overload. He is not following awake proning protocol. Plan: -Incentive spirometry -Lasix 60 mg IV once. -Continue to encourage awake proning protocol
[2021-09-11 14:54] LABS: C-Reactive Protein 77.4 mg/L (0-4)
[2021-09-11 14:57] LABS: NT Pro Brain Natriuretic Pep. 246 pg/mL (0-125)
[2021-09-12] VITALS (15 sets, daily range): BP systolic 123–152; BP diastolic 51–92; PULSE 74–102; RESP 16–25; TEMP 37–37.3; O2SAT 86–94; BMI 43.6
--- NOTE | 2021-09-12 01:29 | PC.NURSE ---
No reports of nausea tonight. He has reported a headache that he described as pressure. He refused acetaminophen. He laid on his right side for a couple of hours tonight but later wanted to sit on the side of the bed. He has been on the bipap all night. NSR on telemetry with occasional PACs. Frequent urination at the beginning of the shift.
[2021-09-12 05:54] LABS: Chloride 100 mmol/L (98-107); Sodium 142 mmol/L (136-145)
[2021-09-12 05:55] LABS: Potassium 3.5 mmoL/L (3.5-5.1)
[2021-09-12 05:57] LABS: Alanine Aminotransferase 32 U/L (12-78); Alkaline Phosphatase 144 U/L (38-126); Aspartate Amino Transferase 49 U/L (17-59); Bilirubin,Total 1.6 mg/dl (0.2-1.3); Blood Urea Nitrogen 23 mg/dl (9-20); Creatinine Clearance Estimated 53 mL/min (50-200); Estimated Glomerular Filt Rate 60 ml/min (>60); GFR (African American) 73 ML/MIN (>60)
[2021-09-12 05:58] LABS: Albumin Level 2.8 g/dl (3.5-5.0); Albumin/Globulin Ratio 0.9 (1.1-1.8); Anion Gap 10.5 mEq/L (5-15); Calcium 7.9 mg/dl (8.4-10.2); Carbon Dioxide 35 mmol/L (22.0-30.0); Globulin 3.1 g/dL (1.3-3.2); Glucose 145 mg/dl (74-100); Total Protein,Serum 5.9 g/dl (6.3-8.2)
--- NOTE | 2021-09-12 07:03 | HMH.ACPN2 ---
Internal Medicine - PN: Subj *Date: 09/12/21 *Time: 07:03 Interval history: No acute events over the last 24 hours. Patient has been able to lay in bed on his side but remains unable to prone. O2 sats have been in the low 90s to high 80s overnight. Patient is currently on BiPAP Exam Vital signs and Labs for Last 24 Hours: Temp Pulse Resp BP Pulse Ox 99.1 F 86 20 150/80 H 94 L 09/12/21 03:54 09/12/21 05:50 09/12/21 03:54 09/12/21 03:54 09/12/21 03:54 Laboratory Results - last 24 hr 09/11/21 05:48: Sodium 139, Potassium 3.7, Chloride 100, Carbon Dioxide 32 H, Anion Gap 10.7, BUN 27 H, Creatinine 1.10, Estimated Creat Clear 58, Estimated GFR 67, Est GFR ( Amer) 81, Glucose 129 H, Calcium 8.1 L, Total Bilirubin 1.7 H, AST 60 H, ALT 43, Alkaline Phosphatase 117, Total Protein 6.2 L, Albumin 2.9 L D, Globulin 3.3 H, Albumin/Globulin Ratio 0.9 L 09/11/21 05:48: C-Reactive Protein 77.4 H, NT-Pro-B Natriuret Pep 246 H 09/12/21 04:50: Sodium 142, Potassium 3.5, Chloride 100, Carbon Dioxide 35 H, Anion Gap 10.5, BUN 23 H, Creatinine 1.20, Estimated Creat Clear 53, Estimated GFR 60, Est GFR ( Amer) 73, Glucose 145 H, Calcium 7.9 L, Total Bilirubin 1.6 H, AST 49, ALT 32 D, Alkaline Phosphatase 144 H, Total Protein 5.9 L, Albumin 2.8 L, Globulin 3.1, Albumin/Globulin Ratio 0.9 L I & O for Last 24 hours: Intake & Output 09/09/21 09/10/21 09/11/21 09/12/21 11:59 11:59 11:59 11:59 Intake Total 1603 / 1603 820 / 820 1785 / 1785 610 / 610 Output Total 830 / 830 2024 / 2024 725 / 725 1600 / 1600 Balance 773 / 773 -1205 / -1205 1060 / 1060 -990 / -990 Weight 275 lb 280 lb 278 lb 278 lb Narrative: He appears comfortable in bed. Lungs have distant breath sounds. Heart has a regular rate and rhythm. Abdomen is obese. Assessment and Plan (1) Acute respiratory failure due to COVID-19 Status: Acute Category: Medical Code(s): U07.1 - COVID-19; J96.00 - Acute respiratory failure, unspecified whether with hypoxia or hypercapnia (2) Acute kidney injury Status: Resolved Category: Medical Code(s): N17.9 - Acute kidney failure, unspecified (3) COPD (chronic obstructive pulmonary disease) Status: Acute Qualifiers: COPD type: unspecified COPD Qualified Code(s): J44.9 - Chronic obstructive pulmonary disease, unspecified Category: Medical Code(s): J44.9 - Chronic obstructive pulmonary disease, unspecified (4) COVID-19 with pulmonary comorbidity Status: Acute Category: Medical Code(s): U07.1 - COVID-19; J98.4 - Other disorders of lung (5) Obesity (BMI 30-39.9) Status: Acute Category: Medical Code(s): E66.9 - Obesity, unspecified (6) Thrombocytopenia associated with COVID-19 Status: Acute Category: Medical Code(s): U07.1 - COVID-19; D69.59 - Other secondary thrombocytopenia (7) Hx of CABG Status: Chronic Category: Surgical Code(s): Z95.1 - Presence of aortocoronary bypass graft (8) CAD (coronary artery disease) Status: Chronic Qualifiers: Coronary Disease-Associated Artery/Lesion type: bypass graft [place] vs. transplanted heart: [place] heart Associated angina: with other forms of angina Qualified Code(s): I25.708 - Atherosclerosis of coronary artery bypass graft(s), unspecified, with other forms of angina pectoris Category: Medical Code(s): I25.10 - Atherosclerotic heart disease of [place] coronary artery without angina pectoris - Assessment and plan all Dx Assessment and Plan for all problems:: Patient is stable. Continue current medical regimen along with BiPAP at night and HFNC plus or minus nonrebreather during the day. Patient will continue to transition between laying in his sides while in bed to sitting up in a chair.
--- NOTE | 2021-09-12 11:57 | PC.NURSE ---
pt not voiding in urinal. Has hx of urethral stricture and is a pt of Dr. Dillard. Bladder scan reveals >250mL urine in bladder. Called Dr. Dillard's office and updated Alia. She will update Dr. Dillard and call me back with new orders.
--- NOTE | 2021-09-12 12:15 | PC.NURSE ---
received call back from Alia in Dr. Dillard's office. She reports that Dr. Dillard wants a catheter inserted. Order read back and verbalized.
--- NOTE | 2021-09-12 12:34 | PC.NURSE ---
inserted 16fr ashton catheter. UOP 330mL concentrated. Carlos Eduardo hematuria noted. Specimen collected and sent to lab for UA.
[2021-09-12 12:50] LABS: Microscopic, Urine URINE MICROSCOPIC (MICROSCOPIC)
[2021-09-12 14:21] LABS: Appearance,Urine CLEAR (Clear); Blood, Urine 3+ (Negative); Color,Urine YELLOW (Yellow); Glucose,Urine (UA) Negative (Negative); Ketones,Urine 1+ (Negative); Leukocyte Esterase,Urine TRACE (Negative); Nitrate,Urine Negative (Negative); Protein,Urine 1+ (Negative); Specific Gravity, Urine 1.025 (1.005-1.030)
--- NOTE | 2021-09-12 14:22 | HMH.PULMPN ---
Internal Medicine - PN: Subj *Date: 09/12/21 *Time: 14:22 Interval history: No acute respiratory events overnight. Patient admits difficulty urination. He also admits history of ureteral strictures with self-catheterization Exam - Constitutional Constitutional:: Present: no acute distress, comfortable - HENMT Exam HENMT: Present: normocephalic, atraumatic - Eye Exam Eyes:: Present: normal appearance both eyes and related structures - Neck Exam Neck:: Present: normal visual inspection - Respiratory Exam Respiratory:: Present: able to speak in complete sentences, respiratory distress, crackles, rales - Cardiovascular Exam Cardiac:: Present: S1, S2 - GI Exam GI:: Present: soft - Skin Exam Skin: Present: warm, no rash - Neurological Exam Neurological: Present: alert, awake, normal cognition - Extremities Exam Extremities: Present: no cyanosis, no clubbing, edema Assessment and Plan (1) Acute respiratory failure due to COVID-19 Status: Acute Category: Medical Code(s): U07.1 - COVID-19; J96.00 - Acute respiratory failure, unspecified whether with hypoxia or hypercapnia (2) Acute kidney injury Status: Resolved Category: Medical Code(s): N17.9 - Acute kidney failure, unspecified (3) COPD (chronic obstructive pulmonary disease) Status: Acute Qualifiers: COPD type: unspecified COPD Qualified Code(s): J44.9 - Chronic obstructive pulmonary disease, unspecified Category: Medical Code(s): J44.9 - Chronic obstructive pulmonary disease, unspecified (4) COVID-19 with pulmonary comorbidity Status: Acute Category: Medical Code(s): U07.1 - COVID-19; J98.4 - Other disorders of lung (5) Obesity (BMI 30-39.9) Status: Acute Category: Medical Code(s): E66.9 - Obesity, unspecified (6) Thrombocytopenia associated with COVID-19 Status: Acute Category: Medical Code(s): U07.1 - COVID-19; D69.59 - Other secondary thrombocytopenia (7) Hx of CABG Status: Chronic Category: Surgical Code(s): Z95.1 - Presence of aortocoronary bypass graft (8) CAD (coronary artery disease) Status: Chronic Qualifiers: Coronary Disease-Associated Artery/Lesion type: bypass graft [place] vs. transplanted heart: [place] heart Associated angina: with other forms of angina Qualified Code(s): I25.708 - Atherosclerosis of coronary artery bypass graft(s), unspecified, with other forms of angina pectoris Category: Medical Code(s): I25.10 - Atherosclerotic heart disease of [place] coronary artery without angina pectoris - Assessment and plan all Dx Assessment and Plan for all problems:: #Acute chronic hypoxic respiratory failure: #COVID-19 pneumonia: Mr. Estevez is 66-year-old male greater than 70-qfxg-vrbg smoking history, last smoked 16 years ago used to smoke 3 to 4 packs a day, history of CAD, COPD presented to the hospital with worsening respiratory failure not associated with any productive phlegm.Patient on admission found to be COVID-19 positive and pulmonary was called for further management. Patient had a prior history of recurrent UTIs with Enterococcus faecalis levofloxacin sensitive on staph.epi. Patient chest x-ray admission bilateral pulmonary infiltrates left greater than right. Patient also noted to have MONA on CKD along with evidence of volume overload bilateral lower extremity edema and elevated BNP at admission troponins were also elevated on admission D-dimer elevated at 0.80. No evidence of DVT on bilateral lower extremity Doppler. Interval update: Patient respiratory status has been relatively stable with no improvement for the last 5 days. Remained on high flow nasal cannula with intermittent nonrebreather/BiPAP to maintain his saturations at desired level. Repeat chest x-ray today showed bilateral worsening lower lobe pulmonary infiltrates along with evidence of volume overload. He is not following awake proning protocol. Plan: -CT PE -Bladder scan and Easton catheter if n
--- NOTE | 2021-09-12 14:23 | CT_ITS ---
PROCEDURE: CT ANGIO CHEST PE PROTOCOL CLINCIAL INDICATION: Hypoxia Covid19 pneumonia COMPARISON: CR CXR CHEST(2 VIEWS-NOT PORTABLE) from 02/28/2015 CR XR CHEST PORTABLE from 09/11/2021 TECHNIQUE: IV Contrast: 70ML Isovue 370 Axial images obtained with sagittal and coronal reformats. All CT scans at the facility use one or more dose reduction, viz: automated exposure control, ma/kV adjustment per patient size (including targeted exams where dose is matched to indication, i.e. head), or iterative reconstruction technique. FINDINGS: There is extensive respiratory motion artifact especially obscuring fine detail in the lower lobes. No large pulmonary embolus is evident. No proximal branch embolus apparent. However, the mid and distal main branches of the pulmonary arteries are not adequately evaluated secondary to the motion artifact. Consider repeating exam on the [address] if clinically desired. There is a questionable small filling defect in the distal aspect of the descending branch of the right pulmonary artery and in the posterior basilar segmental branch of the left lower lobe. This however is inconclusive. There are few small mediastinal lymph nodes. Fibrocalcific plaque is present within the aortic arch laterally. Mosaic attenuation involves the upper lobes with consolidation in the right lower lobe posteriorly and laterally and within the left lower lobe posteriorly. No significant effusion. No evidence of pneumothorax. Paraseptal emphysematous changes are present in the lung apices. Upper abdominal images show cholelithiasis and fatty liver. There is straightening of the thoracic kyphosis. No acute bony anomalies. There has been a prior CABG. IMPRESSION: Excessive motion artifact obscures fine detail of the mid distal pulmonary arteries. Questionable filling defects present in the descending branch of the right lower lobe and the posterior basilar branch of the left lower lobe. This however is not conclusive. No central pulmonary embolus or proximal main branch embolus evident. Diffuse mosaic attenuation in the upper and lower lobes consistent with Covid19 pneumonia superimposed upon COPD changes. There is consolidation in the lung bases consistent with Covid19 pneumonia. Dictated by: Hao Scales MD 09/12/2021 16:24 Hao Scales MD in [facility] 09/12/2021 16:24
[2021-09-12 14:25] LABS: Bilirubin,Urine 1+ (Negative)
[2021-09-12 15:13] LABS: Bacteria,Urine 1+ /lpf; RBC,Urine TNTC #/hpf (0-3); Squamous Epithelial Cell,Urine Occasional #/hpf (0-5)
--- NOTE | 2021-09-12 16:47 | PC.NURSE ---
O2 sats mid 70s on Vapotherm 40L/100% and NRB mask. He is sitting up in the chair and refuses to get back in bed. Is agreeable to Bipap. Called RT (Paige) and updated her. Pt now on Bipap with O2 sat 88%.
--- NOTE | 2021-09-12 18:42 | PC.NURSE ---
shift summary: Pt refuses to prone. Has been sitting in chair for last several hours. Continues on 100% Bipap. O2 sats have remained in the mid to upper 80s the entire shift. NSR with PACs and PVCs on tele. Normotensive. BLE reddened, warm, edematous, and tender (L>R). Pt and (by phone) reports that this is normal/baseline for him. Had CTA per Dr. Rod. Refuses to eat but will drink steve mist. Easton catheter in place with hematuria. NO BM. Family updated by phone today.
[2021-09-13] VITALS (16 sets, daily range): BP systolic 132–149; BP diastolic 67–93; PULSE 88–121; RESP 17–36; TEMP 36.6–37.1; O2SAT 86–93; BMI 43.6
[2021-09-13 05:22] LABS: Basophils % 0.1 % (0.1-2.0); Eosinophils # 0.1 K/mm3 (0.0-0.4); Hematocrit 48.1 % (42.0-52.0); Hemoglobin 15.2 g/dL (14.1-18.0); Lymphocytes # 0.5 K/mm3 (0.7-4.5); Lymphocytes % 4.8 % (10-50); Mean Corpuscular HGB Conc 31.5 g/dL (31.8-35.4); Mean Corpuscular Hemoglobin 31.5 pg (27.0-31.2); Mean Corpuscular Volume 99.9 fl (80-94); Mean Platelet Volume 10.2 fl (7.4-10.4); Monocytes # 0.7 K/mm3 (0.1-1.0); Monocytes % 6.8 % (1.7-9.3); Neutrophils # 8.9 K/mm3 (1.8-7.8); Neutrophils % 87.4 % (37.0-80.0); Platelet Count 213 K/mm3 (142-424); Red Blood Count 4.81 M/mm3 (4.60-6.20); Red Cell Distribution Width 14.4 % (11.5-17.5); White Blood Count 10.2 K/mm3 (4.8-10.8)
--- NOTE | 2021-09-13 05:23 | PC.NURSE ---
pt has been pleasant and cooperative this shift. Bipap worn through the night, sats in the mid 90s. No c/o pain. still no BM this shift, pt reports no BM since admission. ashton is in place, urine is dark and bloody, UOP 650ml this shfit. LE are reddened and warm to the touch. pt has had good PO intake of fluids but has no appetite. VSS, call light in reach, no concerns at this time.
[2021-09-13 05:32] LABS: Alanine Aminotransferase 32 U/L (12-78); Albumin/Globulin Ratio 0.9 (1.1-1.8); Alkaline Phosphatase 190 U/L (38-126); Anion Gap 9.4 mEq/L (5-15); Aspartate Amino Transferase 48 U/L (17-59); Bilirubin,Total 1.6 mg/dl (0.2-1.3); Blood Urea Nitrogen 21 mg/dl (9-20); Calcium 8.5 mg/dl (8.4-10.2); Carbon Dioxide 34 mmol/L (22.0-30.0); Chloride 99 mmol/L (98-107); Creatinine Clearance Estimated 64 mL/min (50-200); Estimated Glomerular Filt Rate 84 ml/min (>60); GFR (African American) 102 ML/MIN (>60); Globulin 3.3 g/dL (1.3-3.2); Glucose 159 mg/dl (74-100); Potassium 3.4 mmoL/L (3.5-5.1); Sodium 139 mmol/L (136-145); Total Protein,Serum 6.3 g/dl (6.3-8.2)
[2021-09-13 05:35] LABS: MANUAL DIFFERENTIAL MANUAL DIFFERENTIAL (MANUAL DIFF)
[2021-09-13 06:41] LABS: Lymphocytes % 5 % (10-50); Neutrophils % 95 % (42-76); Platelet Estimate Normal; RBC Morphology Normal; Total Cells Counted 100
--- NOTE | 2021-09-13 07:22 | HMH.ACPN2 ---
Internal Medicine - PN: Subj *Date: 09/13/21 *Time: 07:22 Interval history: No acute events over the last 24 hours. Patient has no complaints. He is remained on BiPAP overnight. O2 sats are in the high 80s and pulse rate is in the low 100s. Exam Vital signs and Labs for Last 24 Hours: Temp Pulse Resp BP Pulse Ox 98 F 112 H 24 139/92 H 90 L 09/13/21 06:00 09/13/21 06:15 09/13/21 06:00 09/13/21 06:00 09/13/21 06:00 Laboratory Results - last 24 hr 09/12/21 12:33: Urine Color Yellow, Urine Appearance Clear, Urine pH 6.0, Ur Specific [place] 1.025, Urine Protein 1+, Urine Glucose (UA) Negative, Urine Ketones 1+, Urine Blood 3+, Urine Nitrate Negative, Urine Bilirubin 1+ A, Urine Urobilinogen 2.0, Ur Leukocyte Esterase Trace, Urine RBC Tntc, Urine WBC 3-5, Ur Squamous Epith Cells Occasional, Urine Bacteria 1+ 09/13/21 05:04: WBC 10.2, RBC 4.81, Hgb 15.2, Hct 48.1, MCV 99.9 H, MCH 31.5 H, MCHC 31.5 L, RDW 14.4, Plt Count 213, MPV 10.2, Neut % (Auto) 87.4 H, Lymph % (Auto) 4.8 L, [place] % (Auto) 6.8, Eos % (Auto) 1.0, Baso % (Auto) 0.1, Neut # (Auto) 8.9 H, Lymph # (Auto) 0.5 L, [place] # (Auto) 0.7, Eos # (Auto) 0.1, Baso # (Auto) 0.0, Total Counted 100, Neutrophils % (Manual) 95 H, Lymphocytes % (Manual) 5 L, Platelet Estimate Normal, RBC Morphology Normal 09/13/21 05:04: Sodium 139, Potassium 3.4 L, Chloride 99, Carbon Dioxide 34 H, Anion Gap 9.4, BUN 21 H, Creatinine 0.90 D, Estimated Creat Clear 64, Estimated GFR 84, Est GFR ( Amer) 102 D, Glucose 159 H, Calcium 8.5, Total Bilirubin 1.6 H, AST 48, ALT 32, Alkaline Phosphatase 190 H, Total Protein 6.3, Albumin 3.0 L, Globulin 3.3 H, Albumin/Globulin Ratio 0.9 L I & O for Last 24 hours: Intake & Output 09/10/21 09/11/21 09/12/21 09/13/21 11:59 11:59 11:59 11:59 Intake Total 820 / 820 1785 / 1785 610 / 610 280 / 280 Output Total 2024 / 2024 725 / 725 1700 / 2030 980 / 980 Balance -1205 / -1205 1060 / 1060 -1090 / -1420 -700 / -700 Weight 280 lb 278 lb 278 lb 278 lb Microbiology Reports for the Last 24 Hours: Microbiology 09/10/21 22:30 Sputum - Expectorated Sputum Gram Stain - Final 09/10/21 22:30 Sputum - Expectorated Sputum Sputum Culture - Preliminary - Constitutional no acute distress - *Routine Respiratory Exam Present: rales - *Routine Cardiovascular Exam Present: tachycardia - *Routine Abdominal Exam Present: soft, normoactive bowel sounds, obese - *Routine Extremities Exam Present: edema Assessment and Plan (1) Acute respiratory failure due to COVID-19 Status: Acute Category: Medical Code(s): U07.1 - COVID-19; J96.00 - Acute respiratory failure, unspecified whether with hypoxia or hypercapnia (2) Acute kidney injury Status: Resolved Category: Medical Code(s): N17.9 - Acute kidney failure, unspecified (3) COPD (chronic obstructive pulmonary disease) Status: Acute Qualifiers: COPD type: unspecified COPD Qualified Code(s): J44.9 - Chronic obstructive pulmonary disease, unspecified Category: Medical Code(s): J44.9 - Chronic obstructive pulmonary disease, unspecified (4) COVID-19 with pulmonary comorbidity Status: Acute Category: Medical Code(s): U07.1 - COVID-19; J98.4 - Other disorders of lung (5) Obesity (BMI 30-39.9) Status: Acute Category: Medical Code(s): E66.9 - Obesity, unspecified (6) Thrombocytopenia associated with COVID-19 Status: Acute Category: Medical Code(s): U07.1 - COVID-19; D69.59 - Other secondary thrombocytopenia (7) Hx of CABG Status: Chronic Category: Surgical Code(s): Z95.1 - Presence of aortocoronary bypass graft (8) CAD (coronary artery disease) Status: Chronic Qualifiers: Coronary Disease-Associated Artery/Lesion type: bypass graft [place] vs. transplanted heart: [place] heart Associated angina: with other forms of angina Qualified Code(s): I25.708 - Atherosclerosis of coronary artery bypass graft(s), unspecified, with other
--- NOTE | 2021-09-13 10:37 | HMH.ACPN ---
Internal Medicine - PN: Subj *Date: 09/13/21 *Time: 10:37 Exam Vital signs and Labs for Last 24 Hours: Temp Pulse Resp BP Pulse Ox 98.7 F 105 H 26 H 139/80 89 L 09/13/21 08:00 09/13/21 08:00 09/13/21 08:00 09/13/21 08:00 09/13/21 08:00 Laboratory Results - last 24 hr 09/12/21 12:33: Urine Color Yellow, Urine Appearance Clear, Urine pH 6.0, Ur Specific [place] 1.025, Urine Protein 1+, Urine Glucose (UA) Negative, Urine Ketones 1+, Urine Blood 3+, Urine Nitrate Negative, Urine Bilirubin 1+ A, Urine Urobilinogen 2.0, Ur Leukocyte Esterase Trace, Urine RBC Tntc, Urine WBC 3-5, Ur Squamous Epith Cells Occasional, Urine Bacteria 1+ 09/13/21 05:04: WBC 10.2, RBC 4.81, Hgb 15.2, Hct 48.1, MCV 99.9 H, MCH 31.5 H, MCHC 31.5 L, RDW 14.4, Plt Count 213, MPV 10.2, Neut % (Auto) 87.4 H, Lymph % (Auto) 4.8 L, [place] % (Auto) 6.8, Eos % (Auto) 1.0, Baso % (Auto) 0.1, Neut # (Auto) 8.9 H, Lymph # (Auto) 0.5 L, [place] # (Auto) 0.7, Eos # (Auto) 0.1, Baso # (Auto) 0.0, Total Counted 100, Neutrophils % (Manual) 95 H, Lymphocytes % (Manual) 5 L, Platelet Estimate Normal, RBC Morphology Normal 09/13/21 05:04: Sodium 139, Potassium 3.4 L, Chloride 99, Carbon Dioxide 34 H, Anion Gap 9.4, BUN 21 H, Creatinine 0.90 D, Estimated Creat Clear 64, Estimated GFR 84, Est GFR ( Amer) 102 D, Glucose 159 H, Calcium 8.5, Total Bilirubin 1.6 H, AST 48, ALT 32, Alkaline Phosphatase 190 H, Total Protein 6.3, Albumin 3.0 L, Globulin 3.3 H, Albumin/Globulin Ratio 0.9 L I & O for Last 24 hours: Intake & Output 09/10/21 09/11/21 09/12/21 09/13/21 23:59 23:59 23:59 23:59 Intake Total 1560 / 2025 1065 / 1065 290 / 290 120 / 120 Output Total 800 / 1100 1750 / 1750 830 / 930 400 / 400 Balance 760 / 925 -685 / -685 -540 / -640 -280 / -280 Weight 127.006 kg 126.099 kg 126.099 kg 126.099 kg Microbiology Reports for the Last 24 Hours: Microbiology 09/10/21 22:30 Sputum - Expectorated Sputum Gram Stain - Final 09/10/21 22:30 Sputum - Expectorated Sputum Sputum Culture - Preliminary Assessment and Plan (1) Acute respiratory failure due to COVID-19 Status: Acute Category: Medical Code(s): U07.1 - COVID-19; J96.00 - Acute respiratory failure, unspecified whether with hypoxia or hypercapnia (2) Acute kidney injury Status: Resolved Category: Medical Code(s): N17.9 - Acute kidney failure, unspecified (3) COPD (chronic obstructive pulmonary disease) Status: Acute Qualifiers: COPD type: unspecified COPD Qualified Code(s): J44.9 - Chronic obstructive pulmonary disease, unspecified Category: Medical Code(s): J44.9 - Chronic obstructive pulmonary disease, unspecified (4) COVID-19 with pulmonary comorbidity Status: Acute Category: Medical Code(s): U07.1 - COVID-19; J98.4 - Other disorders of lung (5) Obesity (BMI 30-39.9) Status: Acute Category: Medical Code(s): E66.9 - Obesity, unspecified (6) Thrombocytopenia associated with COVID-19 Status: Acute Category: Medical Code(s): U07.1 - COVID-19; D69.59 - Other secondary thrombocytopenia (7) Hx of CABG Status: Chronic Category: Surgical Code(s): Z95.1 - Presence of aortocoronary bypass graft (8) CAD (coronary artery disease) Status: Chronic Qualifiers: Coronary Disease-Associated Artery/Lesion type: bypass graft [place] vs. transplanted heart: [place] heart Associated angina: with other forms of angina Qualified Code(s): I25.708 - Atherosclerosis of coronary artery bypass graft(s), unspecified, with other forms of angina pectoris Category: Medical Code(s): I25.10 - Atherosclerotic heart disease of [place] coronary artery without angina pectoris The patient's infection will respond to the chosen ABx?: Yes Is the patient receiving the right drug, dose, and route?: Yes Could a more targeted ABx be ordered?: No (WBC WNL, COVID PNA, AFEBRILE)
--- NOTE | 2021-09-13 10:38 | HMH.PULMPN ---
Internal Medicine - PN: Subj *Date: 09/13/21 *Time: 10:38 Interval history: No acute respite events overnight. Denies any new respiratory complaints. Exam - Constitutional Constitutional:: Present: no acute distress, comfortable - HENMT Exam HENMT: Present: normocephalic, atraumatic - Eye Exam Eyes:: Present: normal appearance both eyes and related structures - Neck Exam Neck:: Present: normal visual inspection - Respiratory Exam Respiratory:: Present: respiratory distress, decreased breath sounds, crackles, rales - Cardiovascular Exam Cardiac:: Present: S1, S2 - GI Exam GI:: Present: soft - Skin Exam Skin: Present: warm, rash - Neurological Exam Neurological: Present: alert, awake, normal cognition - Extremities Exam Extremities: Present: no cyanosis, no clubbing, edema Assessment and Plan (1) Acute respiratory failure due to COVID-19 Status: Acute Category: Medical Code(s): U07.1 - COVID-19; J96.00 - Acute respiratory failure, unspecified whether with hypoxia or hypercapnia (2) Acute kidney injury Status: Resolved Category: Medical Code(s): N17.9 - Acute kidney failure, unspecified (3) COPD (chronic obstructive pulmonary disease) Status: Acute Qualifiers: Qualified Code(s): J44.9 - Chronic obstructive pulmonary disease, unspecified Category: Medical Code(s): J44.9 - Chronic obstructive pulmonary disease, unspecified (4) COVID-19 with pulmonary comorbidity Status: Acute Category: Medical Code(s): U07.1 - COVID-19; J98.4 - Other disorders of lung (5) Obesity (BMI 30-39.9) Status: Acute Category: Medical Code(s): E66.9 - Obesity, unspecified (6) Thrombocytopenia associated with COVID-19 Status: Acute Category: Medical Code(s): U07.1 - COVID-19; D69.59 - Other secondary thrombocytopenia (7) Hx of CABG Status: Chronic Category: Surgical Code(s): Z95.1 - Presence of aortocoronary bypass graft (8) CAD (coronary artery disease) Status: Chronic Qualifiers: Qualified Code(s): I25.708 - Atherosclerosis of coronary artery bypass graft(s), unspecified, with other forms of angina pectoris Category: Medical Code(s): I25.10 - Atherosclerotic heart disease of [place] coronary artery without angina pectoris - Assessment and plan all Dx Assessment and Plan for all problems:: #Acute chronic hypoxic respiratory failure: #COVID-19 pneumonia: Mr. Estevez is 66-year-old male greater than 30-jtwx-pwps smoking history, last smoked 16 years ago used to smoke 3 to 4 packs a day, history of CAD, COPD presented to the hospital with worsening respiratory failure not associated with any productive phlegm.Patient on admission found to be COVID-19 positive and pulmonary was called for further management. Patient had a prior history of recurrent UTIs with Enterococcus faecalis levofloxacin sensitive on staph.epi. Patient chest x-ray admission bilateral pulmonary infiltrates left greater than right. Patient also noted to have MONA on CKD along with evidence of volume overload bilateral lower extremity edema and elevated BNP at admission troponins were also elevated on admission D-dimer elevated at 0.80. No evidence of DVT on bilateral lower extremity Doppler. Interval update: Respiratory status remained stable with no improvement. He was given 40 mg of IV Lasix by Dr. Prado this morning. Will give additional 60 mg of IV Lasix today. Creatinine remained stable. CTA performed, significant motion artifact noted with questionable right lower lobe pulmonary embolism. We will closely monitor. We will hold off on initiating anticoagulation at this point of time. We will continue diuresis. Plan: -Continue oxygen supplementation via high flow nasal cannula and BiPAP intermittent to maintain a saturation at 88% and above. -60 mg IV Lasix. -Incentive spirometry -Continue to encourage awake proning protocol, patient has not been compliant with proning protocol and have discussed wit
--- NOTE | 2021-09-13 15:43 | PC.NURSE ---
Pt placed on vapotherm and non-rebreather @ 1445, sat noted to be mid 80's after being placed on this. Gave patient about 10-15 minutes to recover, pt continued to desat to 80-81%. Pt placed back on BIPAP (FIO2 100%), SPO2 currently 90-93%. Pt resting in chair. Pt was offered to be assisted to the bed to rest, pt refused. Lungs diminished throughout. HR regular, pt was tachy this AM but rate bettere controlled 80-90's. Abdomen round, non-tender w/ hypoactive BS. NO BM this shift. [place] cath to drain @ bedside w/ demetrius urine. Urine less tea colored than this AM. UOP > 2 L since receiving IV Lasix. Continues to have poor-no appetite, refuses meals. Has drank multiple cans of steve mist. His has called twice this shift to check on pt, updated on current plan of care. No complaints voiced.
[2021-09-14] VITALS (16 sets, daily range): BP systolic 124–149; BP diastolic 64–94; PULSE 80–944; RESP 12–39; TEMP 36.1–38.3; O2SAT 88–94; BMI 43.8
--- NOTE | 2021-09-14 01:12 | PC.NURSE ---
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 Pt also had decreased saturations with the anxiety. Order given for Ativan 0.5mg IVP Q6H PRN for anxiety and/or air hunger. Order repeated, verified, and faxed to pharmacy.
--- NOTE | 2021-09-14 04:08 | PC.NURSE ---
pt spiked temp of 101, prn tylenol given, will continue to monitor
[2021-09-14 04:19] LABS: POC Glucose,Bedside 122 (70-110)
--- NOTE | 2021-09-14 05:33 | PC.NURSE ---
pt rested in bed this shift with bipap on at 100%FIO2, RT Omar adjusted bipap settings once this shift due to anxiety, pt with tachycardia most of shift once HR greatly increased and pt experienced extreme anxiety with sats decreasing to low 80's MD ordered prn ativan, pt tolerated well/anxiety manageable and HR decreased and oxygen saturations increased, pt thirsty but desats whenever removed bipap mask so had to quickly give drinks and meds throughout shift, updated pt's once this shift via telephone of pt's status, will continue to monitor
[2021-09-14 06:15] LABS: Basophils % 0.1 % (0.1-2.0); Chloride 93 mmol/L (98-107); Eosinophils # 0.1 K/mm3 (0.0-0.4); Eosinophils % 0.7 % (0.1-12.0); Hematocrit 47.3 % (42.0-52.0); Lymphocytes # 0.5 K/mm3 (0.7-4.5); Lymphocytes % 4.4 % (10-50); Mean Corpuscular HGB Conc 31.6 g/dL (31.8-35.4); Mean Corpuscular Hemoglobin 31.6 pg (27.0-31.2); Mean Corpuscular Volume 99.9 fl (80-94); Mean Platelet Volume 10.8 fl (7.4-10.4); Monocytes # 0.5 K/mm3 (0.1-1.0); Monocytes % 4.4 % (1.7-9.3); Neutrophils # 10.7 K/mm3 (1.8-7.8); Neutrophils % 90.4 % (37.0-80.0); Platelet Count 231 K/mm3 (142-424); Red Blood Count 4.74 M/mm3 (4.60-6.20); Red Cell Distribution Width 14.2 % (11.5-17.5); White Blood Count 11.8 K/mm3 (4.8-10.8)
[2021-09-14 06:16] LABS: Potassium 3.1 mmoL/L (3.5-5.1); Sodium 138 mmol/L (136-145)
[2021-09-14 06:18] LABS: Alanine Aminotransferase 29 U/L (12-78); Albumin/Globulin Ratio 0.9 (1.1-1.8); Alkaline Phosphatase 167 U/L (38-126); Anion Gap 11.1 mEq/L (5-15); Aspartate Amino Transferase 51 U/L (17-59); Bilirubin,Total 1.7 mg/dl (0.2-1.3); Blood Urea Nitrogen 22 mg/dl (9-20); Carbon Dioxide 37 mmol/L (22.0-30.0); Creatinine Clearance Estimated 64 mL/min (50-200); Estimated Glomerular Filt Rate 74 ml/min (>60); GFR (African American) 90 ML/MIN (>60); Globulin 3.3 g/dL (1.3-3.2); Total Protein,Serum 6.3 g/dl (6.3-8.2)
[2021-09-14 06:19] LABS: Calcium 8.4 mg/dl (8.4-10.2); Glucose 152 mg/dl (74-100)
[2021-09-14 06:23] LABS: MANUAL DIFFERENTIAL MANUAL DIFFERENTIAL (MANUAL DIFF)
[2021-09-14 07:41] LABS: Lymphocytes % 3 % (10-50); Monocytes % 5 % (2-9); Neutrophils % 92 % (42-76); Platelet Estimate Normal; Total Cells Counted 100
--- NOTE | 2021-09-14 07:41 | HMH.ACPN2 ---
Internal Medicine - PN: Subj *Date: 09/14/21 *Time: 07:41 Interval history: No new events. Patient remains on BiPAP. This morning after transitioning from bed to chair O2 sats are in the high 80s (86 to 89%). Patient is slowly becoming more tachycardic. Patient was in a negative fluid balance over the last 24 hours. Exam Vital signs and Labs for Last 24 Hours: Temp Pulse Resp BP Pulse Ox 101 F H 111 H 29 H 130/86 92 L 09/14/21 04:00 09/14/21 06:29 09/14/21 04:00 09/14/21 04:00 09/14/21 06:29 Laboratory Results - last 24 hr 09/13/21 11:01: POC Glucose 122 H 09/14/21 05:19: WBC 11.8 H, RBC 4.74, Hgb 15.0, Hct 47.3, MCV 99.9 H, MCH 31.6 H, MCHC 31.6 L, RDW 14.2, Plt Count 231, MPV 10.8 H, Neut % (Auto) 90.4 H, Lymph % (Auto) 4.4 L, [place] % (Auto) 4.4, Eos % (Auto) 0.7, Baso % (Auto) 0.1, Neut # (Auto) 10.7 H, Lymph # (Auto) 0.5 L, [place] # (Auto) 0.5, Eos # (Auto) 0.1, Baso # (Auto) 0.0 09/14/21 05:19: Sodium 138, Potassium 3.1 L, Chloride 93 L, Carbon Dioxide 37 H, Anion Gap 11.1, BUN 22 H, Creatinine 1.00, Estimated Creat Clear 64, Estimated GFR 74, Est GFR ( Amer) 90, Glucose 152 H, Calcium 8.4, Total Bilirubin 1.7 H, AST 51, ALT 29, Alkaline Phosphatase 167 H, Total Protein 6.3, Albumin 3.0 L, Globulin 3.3 H, Albumin/Globulin Ratio 0.9 L I & O for Last 24 hours: Intake & Output 09/11/21 09/12/21 09/13/21 09/14/21 11:59 11:59 11:59 11:59 Intake Total 1785 / 1785 610 / 610 400 / 400 1880 / 1880 Output Total 725 / 725 1700 / 2030 980 / 980 3500 / 3500 Balance 1060 / 1060 -1090 / -1420 -580 / -580 -1620 / -1620 Weight 278 lb 278 lb 278 lb 279 lb 12.266 oz Microbiology Reports for the Last 24 Hours: Microbiology 09/10/21 22:30 Sputum - Expectorated Sputum Gram Stain - Final 09/10/21 22:30 Sputum - Expectorated Sputum Sputum Culture - Preliminary Narrative: Patient appears comfortable sitting in the chair with BiPAP on. Breath sounds are diminished with some rales at the bases. Heart is tachycardic. Abdomen is obese and soft. Lower extremities have edema beginning above the ankle but seems improved from yesterday Assessment and Plan (1) Acute respiratory failure due to COVID-19 Status: Acute Category: Medical Code(s): U07.1 - COVID-19; J96.00 - Acute respiratory failure, unspecified whether with hypoxia or hypercapnia (2) Acute kidney injury Status: Resolved Category: Medical Code(s): N17.9 - Acute kidney failure, unspecified (3) COPD (chronic obstructive pulmonary disease) Status: Acute Qualifiers: COPD type: unspecified COPD Qualified Code(s): J44.9 - Chronic obstructive pulmonary disease, unspecified Category: Medical Code(s): J44.9 - Chronic obstructive pulmonary disease, unspecified (4) COVID-19 with pulmonary comorbidity Status: Acute Category: Medical Code(s): U07.1 - COVID-19; J98.4 - Other disorders of lung (5) Obesity (BMI 30-39.9) Status: Acute Category: Medical Code(s): E66.9 - Obesity, unspecified (6) Thrombocytopenia associated with COVID-19 Status: Acute Category: Medical Code(s): U07.1 - COVID-19; D69.59 - Other secondary thrombocytopenia (7) Hx of CABG Status: Chronic Category: Surgical Code(s): Z95.1 - Presence of aortocoronary bypass graft (8) CAD (coronary artery disease) Status: Chronic Qualifiers: Coronary Disease-Associated Artery/Lesion type: bypass graft [place] vs. transplanted heart: [place] heart Associated angina: with other forms of angina Qualified Code(s): I25.708 - Atherosclerosis of coronary artery bypass graft(s), unspecified, with other forms of angina pectoris Category: Medical Code(s): I25.10 - Atherosclerotic heart disease of [place] coronary artery without angina pectoris - Assessment and plan all Dx Assessment and Plan for all problems:: 1. Continue BiPAP for respiratory support. 2. Patient will complete a course of Remdesivir and dexamethasone as well as
[2021-09-14 07:42] LABS: Stomatocytes 1+
--- NOTE | 2021-09-14 09:26 | HMH.PULMPN ---
Internal Medicine - PN: Subj *Date: 09/14/21 *Time: 13:23 Interval history: Patient denies any new respiratory complaints. Exam - Constitutional Constitutional:: Present: no acute distress, comfortable - HENMT Exam HENMT: Present: normocephalic, moist mucous membranes - Eye Exam Eyes:: Present: normal appearance both eyes and related structures - Neck Exam Neck:: Present: normal visual inspection - Respiratory Exam Respiratory:: Present: able to speak in complete sentences, respiratory distress, crackles - Cardiovascular Exam Cardiac:: Present: S1, S2 - GI Exam GI:: Present: soft, no hepatosplenomegaly - Skin Exam Skin: Present: warm - Neurological Exam Neurological: Present: alert, awake, normal cognition - Extremities Exam Extremities: Present: no cyanosis, no clubbing, edema Assessment and Plan (1) Acute respiratory failure due to COVID-19 Status: Acute Category: Medical Code(s): U07.1 - COVID-19; J96.00 - Acute respiratory failure, unspecified whether with hypoxia or hypercapnia (2) Acute kidney injury Status: Resolved Category: Medical Code(s): N17.9 - Acute kidney failure, unspecified (3) COPD (chronic obstructive pulmonary disease) Status: Acute Qualifiers: COPD type: unspecified COPD Qualified Code(s): J44.9 - Chronic obstructive pulmonary disease, unspecified Category: Medical Code(s): J44.9 - Chronic obstructive pulmonary disease, unspecified (4) COVID-19 with pulmonary comorbidity Status: Acute Category: Medical Code(s): U07.1 - COVID-19; J98.4 - Other disorders of lung (5) Obesity (BMI 30-39.9) Status: Acute Category: Medical Code(s): E66.9 - Obesity, unspecified (6) Thrombocytopenia associated with COVID-19 Status: Acute Category: Medical Code(s): U07.1 - COVID-19; D69.59 - Other secondary thrombocytopenia (7) Hx of CABG Status: Chronic Category: Surgical Code(s): Z95.1 - Presence of aortocoronary bypass graft (8) CAD (coronary artery disease) Status: Chronic Qualifiers: Coronary Disease-Associated Artery/Lesion type: bypass graft [place] vs. transplanted heart: [place] heart Associated angina: with other forms of angina Qualified Code(s): I25.708 - Atherosclerosis of coronary artery bypass graft(s), unspecified, with other forms of angina pectoris Category: Medical Code(s): I25.10 - Atherosclerotic heart disease of [place] coronary artery without angina pectoris - Assessment and plan all Dx Assessment and Plan for all problems:: #Acute chronic hypoxic respiratory failure: #COVID-19 pneumonia: Mr. Estevez is 66-year-old male greater than [id number] smoking history, last smoked 16 years ago used to smoke 3 to 4 packs a day, history of CAD, COPD presented to the hospital with worsening respiratory failure not associated with any productive phlegm.Patient on admission found to be COVID-19 positive and pulmonary was called for further management. Patient had a prior history of recurrent UTIs with Enterococcus faecalis levofloxacin sensitive on staph.epi. Patient chest x-ray admission bilateral pulmonary infiltrates left greater than right. Patient also noted to have MONA on CKD along with evidence of volume overload bilateral lower extremity edema and elevated BNP at admission troponins were also elevated on admission D-dimer elevated at 0.80. No evidence of DVT on bilateral lower extremity Doppler. CTA performed, significant motion artifact noted with questionable right lower lobe pulmonary embolism. We will closely monitor. We will hold off on initiating anticoagulation at this point of time. Interval update: Noted to have low-grade fevers. Slight worsening leukocytosis. 100 mg IV Lasix yesterday net -2.3 L. Oxygen requirements improved, FiO2 decreased to 80% this morning. Plan: -Continue oxygen supplementation via high flow nasal cannula and BiPAP intermittent to maintain a saturation at 88% and above, continue to wea
--- NOTE | 2021-09-14 16:18 | PC.NURSE ---
pt is difficult to inspire activity in. he does not have the strength or stamina to walk in room. pt is unable to use IS. lungs are extremely diminished with minimal air mvmt noted. bowel sounds are hypo active. pt has had extremely poor appetite since admission. pt does not seem interested in talking on phone with familyh either.
[2021-09-15] VITALS (27 sets, daily range): BP systolic 109–132; BP diastolic 44–77; PULSE 66–160; RESP 12–35; TEMP 36.6–37.3; O2SAT 87–93
--- NOTE | 2021-09-15 00:39 | PC.NURSE ---
pt's HR spiked to 160 sustained for approximately 20minutes, other vss, pt in no discomfort or distress, when asked pt if anxious pt answered no ; notified MD Thony li and instructed to monitor HR for 90 minutes and if still elevated after 90 minutes give 5mg IV metoprolol once, will do so and continue to monitor
--- NOTE | 2021-09-15 01:30 | ECG_ITS ---
APPROVED REPORT Exam: Resting ECG HR:140 bpm ECG Measurements Heart Rate 140 AXES QRSd 70 QRS 84 QT 332 T 268 QTc 506 Conclusion Atrial fibrillation with rapid ventricular response Nonspecific ST and T wave abnormality, probably digitalis effect Abnormal ECG Electronically signed by : Christiano Cruz MD 09/16/2021 09:13:14
--- NOTE | 2021-09-15 01:52 | PC.NURSE ---
stat 12 lead ekg obtained due to HR sustained above 150's, rhythm changes noted on ekg, per stat ekg protocol ekg read by ER physician MD Kira verified uncontrolled afib with rvr, orders obtained at this time, 2 doses of 5mg IV metoprolol may be given if HR perists above 120, will send stat order to pharmacy and continue to monitor
--- NOTE | 2021-09-15 02:03 | PC.NURSE ---
pt's HR back within normal limits, HR 93 currently,cardiac rhythm on tele monitor back to NSR from afib with rvr, will continue to monitor
--- NOTE | 2021-09-15 07:09 | HMH.ACPN2 ---
Internal Medicine - PN: Subj *Date: 09/15/21 *Time: 07:09 Interval history: Patient feels good . Overnight he developed tachycardia to the 160s which was thought to be sinus originally. Patient was given IV metoprolol with reduction in heart rate to the 140s with EKG showing atrial fibrillation. Patient then converted back to sinus rhythm and pulse at rest has been in the 80s and 90s. O2 sats remain in the high 80s to low 90s. Exam Vital signs and Labs for Last 24 Hours: Temp Pulse Resp BP Pulse Ox 99.1 F 89 21 128/76 90 L 09/15/21 00:00 09/15/21 06:20 09/15/21 04:00 09/15/21 04:00 09/15/21 04:00 Laboratory Results - last 24 hr 09/14/21 05:19: Total Counted 100, Neutrophils % (Manual) 92 H, Lymphocytes % (Manual) 3 L, Monocytes % (Manual) 5, Platelet Estimate Normal, Stomatocytes 1+ I & O for Last 24 hours: Intake & Output 09/12/21 09/13/21 09/14/21 09/15/21 11:59 11:59 11:59 11:59 Intake Total 610 / 610 400 / 400 1880 / 1880 360 / 360 Output Total 1700 / 2030 980 / 980 3500 / 3500 2475 / 2475 Balance -1090 / -1420 -580 / -580 -1620 / -1620 -2115 / -2115 Weight 278 lb 278 lb 279 lb 12.266 oz Microbiology Reports for the Last 24 Hours: Microbiology 09/10/21 22:30 Sputum - Expectorated Sputum Gram Stain - Final 09/10/21 22:30 Sputum - Expectorated Sputum Sputum Culture - Preliminary Yeast Narrative: Patient appears comfortable. Heart has a regular rate and rhythm. Lungs are distant with some faint rales posteriorly. Lower extremity edema has continued to improve after additional Lasix yesterday Assessment and Plan (1) Acute respiratory failure due to COVID-19 Status: Acute Category: Medical Code(s): U07.1 - COVID-19; J96.00 - Acute respiratory failure, unspecified whether with hypoxia or hypercapnia (2) Acute kidney injury Status: Resolved Category: Medical Code(s): N17.9 - Acute kidney failure, unspecified (3) COPD (chronic obstructive pulmonary disease) Status: Acute Qualifiers: COPD type: unspecified COPD Qualified Code(s): J44.9 - Chronic obstructive pulmonary disease, unspecified Category: Medical Code(s): J44.9 - Chronic obstructive pulmonary disease, unspecified (4) COVID-19 with pulmonary comorbidity Status: Acute Category: Medical Code(s): U07.1 - COVID-19; J98.4 - Other disorders of lung (5) Obesity (BMI 30-39.9) Status: Acute Category: Medical Code(s): E66.9 - Obesity, unspecified (6) Thrombocytopenia associated with COVID-19 Status: Resolved Category: Medical Code(s): U07.1 - COVID-19; D69.59 - Other secondary thrombocytopenia (7) Hx of CABG Status: Chronic Category: Surgical Code(s): Z95.1 - Presence of aortocoronary bypass graft (8) CAD (coronary artery disease) Status: Chronic Qualifiers: Coronary Disease-Associated Artery/Lesion type: bypass graft [place] vs. transplanted heart: [place] heart Associated angina: with other forms of angina Qualified Code(s): I25.708 - Atherosclerosis of coronary artery bypass graft(s), unspecified, with other forms of angina pectoris Category: Medical Code(s): I25.10 - Atherosclerotic heart disease of [place] coronary artery without angina pectoris (9) Atrial fibrillation Status: Acute Qualifiers: Atrial fibrillation type: paroxysmal Qualified Code(s): I48.0 - Paroxysmal atrial fibrillation Category: Medical Code(s): I48.91 - Unspecified atrial fibrillation - Assessment and plan all Dx Assessment and Plan for all problems:: 1. Patient has completed a course of Remdesivir, dexamethasone, and Levaquin 2. Continue BiPAP with repeated attempts to transition to high flow nasal cannula to allow patient to eat 3. Continue prone positioning as tolerated 4. Begin Xarelto 20 mg daily for atrial fibrillation. Consult cardiology
[2021-09-15 09:34] LABS: Basophils % 0.1 % (0.1-2.0); Eosinophils # 0.1 K/mm3 (0.0-0.4); Eosinophils % 0.9 % (0.1-12.0); Hematocrit 46.4 % (42.0-52.0); Lymphocytes # 0.8 K/mm3 (0.7-4.5); Lymphocytes % 6.3 % (10-50); Mean Corpuscular HGB Conc 32.4 g/dL (31.8-35.4); Mean Corpuscular Hemoglobin 32.2 pg (27.0-31.2); Mean Corpuscular Volume 99.5 fl (80-94); Mean Platelet Volume 10.4 fl (7.4-10.4); Monocytes # 0.7 K/mm3 (0.1-1.0); Monocytes % 5.9 % (1.7-9.3); Neutrophils # 10.9 K/mm3 (1.8-7.8); Neutrophils % 86.9 % (37.0-80.0); Platelet Count 226 K/mm3 (142-424); Red Blood Count 4.66 M/mm3 (4.60-6.20); Red Cell Distribution Width 13.9 % (11.5-17.5); White Blood Count 12.6 K/mm3 (4.8-10.8)
[2021-09-15 09:37] LABS: Chloride 85 mmol/L (98-107); Sodium 134 mmol/L (136-145)
[2021-09-15 09:38] LABS: MANUAL DIFFERENTIAL MANUAL DIFFERENTIAL (MANUAL DIFF); Potassium 3.1 mmoL/L (3.5-5.1)
[2021-09-15 09:40] LABS: Blood Urea Nitrogen 22 mg/dl (9-20); Creatinine Clearance Estimated 60 mL/min (50-200); Estimated Glomerular Filt Rate 67 ml/min (>60); GFR (African American) 81 ML/MIN (>60)
[2021-09-15 09:41] LABS: Calcium 8.4 mg/dl (8.4-10.2); Glucose 157 mg/dl (74-100)
[2021-09-15 09:48] LABS: Anion Gap 14.1 mEq/L (5-15); Carbon Dioxide 38 mmol/L (22.0-30.0)
[2021-09-15 10:47] LABS: Lymphocytes % 10 % (10-50); Monocytes % 2 % (2-9); Neutrophils % 88 % (42-76); Platelet Estimate Normal; RBC Morphology Normal; Total Cells Counted 100
--- NOTE | 2021-09-15 11:12 | HMH.PULMPN ---
Internal Medicine - PN: Subj *Date: 09/15/21 *Time: 11:12 Interval history: No acute respiratory vents overnight. He denies any new respiratory complaints. FiO2 increased 100%. Exam - Constitutional Constitutional:: Present: no acute distress, comfortable - HENMT Exam HENMT: Present: normocephalic, atraumatic - Eye Exam Eyes:: Present: normal appearance both eyes and related structures - Neck Exam Neck:: Present: normal visual inspection - Respiratory Exam Respiratory:: Present: able to speak in complete sentences, respiratory distress, crackles, rales - Cardiovascular Exam Cardiac:: Present: S1, S2 - GI Exam GI:: Present: soft - Skin Exam Skin: Present: warm, rash - Neurological Exam Neurological: Present: alert, awake, normal cognition - Extremities Exam Extremities: Present: no cyanosis, no clubbing, edema Assessment and Plan (1) Acute respiratory failure due to COVID-19 Status: Acute Category: Medical Code(s): U07.1 - COVID-19; J96.00 - Acute respiratory failure, unspecified whether with hypoxia or hypercapnia (2) Acute kidney injury Status: Resolved Category: Medical Code(s): N17.9 - Acute kidney failure, unspecified (3) COPD (chronic obstructive pulmonary disease) Status: Acute Qualifiers: COPD type: unspecified COPD Qualified Code(s): J44.9 - Chronic obstructive pulmonary disease, unspecified Category: Medical Code(s): J44.9 - Chronic obstructive pulmonary disease, unspecified (4) COVID-19 with pulmonary comorbidity Status: Acute Category: Medical Code(s): U07.1 - COVID-19; J98.4 - Other disorders of lung (5) Obesity (BMI 30-39.9) Status: Acute Category: Medical Code(s): E66.9 - Obesity, unspecified (6) Thrombocytopenia associated with COVID-19 Status: Resolved Category: Medical Code(s): U07.1 - COVID-19; D69.59 - Other secondary thrombocytopenia (7) Hx of CABG Status: Chronic Category: Surgical Code(s): Z95.1 - Presence of aortocoronary bypass graft (8) CAD (coronary artery disease) Status: Chronic Qualifiers: Coronary Disease-Associated Artery/Lesion type: bypass graft [place] vs. transplanted heart: [place] heart Associated angina: with other forms of angina Qualified Code(s): I25.708 - Atherosclerosis of coronary artery bypass graft(s), unspecified, with other forms of angina pectoris Category: Medical Code(s): I25.10 - Atherosclerotic heart disease of [place] coronary artery without angina pectoris (9) Atrial fibrillation Status: Acute Qualifiers: Atrial fibrillation type: paroxysmal Qualified Code(s): I48.0 - Paroxysmal atrial fibrillation Category: Medical Code(s): I48.91 - Unspecified atrial fibrillation - Assessment and plan all Dx Assessment and Plan for all problems:: #Acute chronic hypoxic respiratory failure: #COVID-19 pneumonia: Mr. Estevez is 66-year-old male greater than 46-vrmq-anmb smoking history, last smoked 16 years ago used to smoke 3 to 4 packs a day, history of CAD, COPD presented to the hospital with worsening respiratory failure not associated with any productive phlegm.Patient on admission found to be COVID-19 positive and pulmonary was called for further management. Patient had a prior history of recurrent UTIs with Enterococcus faecalis levofloxacin sensitive on staph.epi. Patient chest x-ray admission bilateral pulmonary infiltrates left greater than right. Patient also noted to have MONA on CKD along with evidence of volume overload bilateral lower extremity edema and elevated BNP at admission troponins were also elevated on admission D-dimer elevated at 0.80. No evidence of DVT on bilateral lower extremity Doppler. CTA performed, significant motion artifact noted with questionable right lower lobe pulmonary embolism. We will closely monitor. We will hold off on initiating anticoagulation at this point of time. Completed 7 days of levofloxacin. Completed 10-day course of remdes
--- NOTE | 2021-09-15 14:16 | PC.NURSE ---
Report given to Lj Gerardo RN
--- NOTE | 2021-09-15 18:24 | PC.NURSE ---
aox4, continues on bipap 100%. o2 sats wnl. vss. [place] in place.
[2021-09-16] VITALS (12 sets, daily range): BP systolic 109–130; BP diastolic 52–77; PULSE 64–97; RESP 6–22; TEMP 36.4–37.1; O2SAT 86–94; BMI 41.5
[2021-09-16 06:03] LABS: Chloride 88 mmol/L (98-107); Potassium 3.7 mmoL/L (3.5-5.1); Sodium 134 mmol/L (136-145)
[2021-09-16 06:06] LABS: Anion Gap 12.7 mEq/L (5-15); Blood Urea Nitrogen 28 mg/dl (9-20); Carbon Dioxide 37 mmol/L (22.0-30.0); Creatinine Clearance Estimated 64 mL/min (50-200); Estimated Glomerular Filt Rate 84 ml/min (>60); GFR (African American) 102 ML/MIN (>60)
[2021-09-16 06:07] LABS: Calcium 8.3 mg/dl (8.4-10.2); Glucose 171 mg/dl (74-100)
[2021-09-16 06:15] LABS: Basophils % 0.3 % (0.1-2.0); Eosinophils % 0.1 % (0.1-12.0); Hematocrit 45.2 % (42.0-52.0); Hemoglobin 14.6 g/dL (14.1-18.0); Lymphocytes # 0.5 K/mm3 (0.7-4.5); Mean Corpuscular HGB Conc 32.3 g/dL (31.8-35.4); Mean Corpuscular Hemoglobin 31.6 pg (27.0-31.2); Mean Corpuscular Volume 98.1 fl (80-94); Mean Platelet Volume 11.7 fl (7.4-10.4); Monocytes # 0.2 K/mm3 (0.1-1.0); Neutrophils # 6.7 K/mm3 (1.8-7.8); Neutrophils % 90.5 % (37.0-80.0); Platelet Count 220 K/mm3 (142-424); Red Blood Count 4.61 M/mm3 (4.60-6.20); Red Cell Distribution Width 14.7 % (11.5-17.5); White Blood Count 7.4 K/mm3 (4.8-10.8)
[2021-09-16 06:21] LABS: MANUAL DIFFERENTIAL MANUAL DIFFERENTIAL (MANUAL DIFF)
[2021-09-16 06:39] LABS: Lymphocytes % 5 % (10-50); Monocytes % 1 % (2-9); Neutrophils % 92 % (42-76); Platelet Estimate Normal; RBC Morphology Normal; Total Cells Counted 100
--- NOTE | 2021-09-16 08:54 | HMH.ACPN2 ---
Internal Medicine - PN: Subj *Date: 09/16/21 *Time: 08:54 Interval history: No acute events over the last 24 hours. Patient would really like to eat Exam Vital signs and Labs for Last 24 Hours: Temp Pulse Resp BP Pulse Ox 98.5 F 77 20 125/70 89 L 09/16/21 04:00 09/16/21 04:00 09/16/21 04:00 09/16/21 04:00 09/16/21 06:25 Laboratory Results - last 24 hr 09/15/21 09:17: WBC 12.6 H, RBC 4.66, Hgb 15.0, Hct 46.4, MCV 99.5 H, MCH 32.2 H, MCHC 32.4, RDW 13.9, Plt Count 226, MPV 10.4, Neut % (Auto) 86.9 H, Lymph % (Auto) 6.3 L, [place] % (Auto) 5.9, Eos % (Auto) 0.9, Baso % (Auto) 0.1, Neut # (Auto) 10.9 H, Lymph # (Auto) 0.8, [place] # (Auto) 0.7, Eos # (Auto) 0.1, Baso # (Auto) 0.0, Total Counted 100, Neutrophils % (Manual) 88 H, Lymphocytes % (Manual) 10, Monocytes % (Manual) 2, Platelet Estimate Normal, RBC Morphology Normal 09/15/21 09:17: Sodium 134 L, Potassium 3.1 L, Chloride 85 L, Carbon Dioxide 38 H, Anion Gap 14.1, BUN 22 H, Creatinine 1.10, Estimated Creat Clear 60, Estimated GFR 67, Est GFR ( Amer) 81, Glucose 157 H, Calcium 8.4 09/16/21 05:10: WBC 7.4 D, RBC 4.61, Hgb 14.6, Hct 45.2, MCV 98.1 H, MCH 31.6 H, MCHC 32.3, RDW 14.7, Plt Count 220, MPV 11.7 H, Neut % (Auto) 90.5 H, Lymph % (Auto) 6.0 L, [place] % (Auto) 3.0, Eos % (Auto) 0.1, Baso % (Auto) 0.3, Neut # (Auto) 6.7, Lymph # (Auto) 0.5 L, [place] # (Auto) 0.2, Eos # (Auto) 0.0, Baso # (Auto) 0.0, Total Counted 100, Neutrophils % (Manual) 92 H, Band Neutrophils % 2.0, Lymphocytes % (Manual) 5 L, Monocytes % (Manual) 1 L, Platelet Estimate Normal, RBC Morphology Normal 09/16/21 05:10: Sodium 134 L, Potassium 3.7, Chloride 88 L, Carbon Dioxide 37 H, Anion Gap 12.7, BUN 28 H D, Creatinine 0.90, Estimated Creat Clear 64, Estimated GFR 84, Est GFR ( Amer) 102 D, Glucose 171 H, Calcium 8.3 L I & O for Last 24 hours: Intake & Output 09/13/21 09/14/21 09/15/21 09/16/21 11:59 11:59 11:59 11:59 Intake Total 400 / 400 1880 / 1880 480 / 480 180 / 180 Output Total 980 / 980 3500 / 3500 3575 / 3575 925 / 925 Balance -580 / -580 -1620 / -1620 -3095 / -3095 -745 / -745 Weight 278 lb 279 lb 12.266 oz 265 lb Narrative: Patient appears comfortable on BiPAP with FiO2 of 100%. No increased work of breathing. Lungs have distant breath sounds throughout with rales posteriorly. Heart has a regular rate and rhythm. Abdomen is obese. Lower extremities have improved edema Assessment and Plan (1) Acute respiratory failure due to COVID-19 Status: Acute Category: Medical Code(s): U07.1 - COVID-19; J96.00 - Acute respiratory failure, unspecified whether with hypoxia or hypercapnia (2) Acute kidney injury Status: Resolved Category: Medical Code(s): N17.9 - Acute kidney failure, unspecified (3) COPD (chronic obstructive pulmonary disease) Status: Acute Qualifiers: COPD type: unspecified COPD Qualified Code(s): J44.9 - Chronic obstructive pulmonary disease, unspecified Category: Medical Code(s): J44.9 - Chronic obstructive pulmonary disease, unspecified (4) COVID-19 with pulmonary comorbidity Status: Acute Category: Medical Code(s): U07.1 - COVID-19; J98.4 - Other disorders of lung (5) Obesity (BMI 30-39.9) Status: Acute Category: Medical Code(s): E66.9 - Obesity, unspecified (6) Thrombocytopenia associated with COVID-19 Status: Resolved Category: Medical Code(s): U07.1 - COVID-19; D69.59 - Other secondary thrombocytopenia (7) Hx of CABG Status: Chronic Category: Surgical Code(s): Z95.1 - Presence of aortocoronary bypass graft (8) CAD (coronary artery disease) Status: Chronic Qualifiers: Coronary Disease-Associated Artery/Lesion type: bypass graft [place] vs. transplanted heart: [place] heart Associated angina: with other forms of angina Qualified Code(s): I25.708 - Atherosclerosis of coronary artery bypass graft(s), unspecified, with other forms of angina pectoris Category: Medical Code(s)
[2021-09-17] VITALS (7 sets, daily range): BP systolic 118–135; BP diastolic 68–90; PULSE 56–92; RESP 12–22; TEMP 36.3–37.1; O2SAT 85–93; BMI 41.5
[2021-09-17 06:30] LABS: Chloride 90 mmol/L (98-107); Sodium 136 mmol/L (136-145)
[2021-09-17 06:33] LABS: Basophils % 0.2 % (0.1-2.0); Hematocrit 49.3 % (42.0-52.0); Hemoglobin 15.2 g/dL (14.1-18.0); Lymphocytes # 0.6 K/mm3 (0.7-4.5); Lymphocytes % 4.1 % (10-50); Mean Corpuscular HGB Conc 30.8 g/dL (31.8-35.4); Mean Corpuscular Volume 100.8 fl (80-94); Mean Platelet Volume 11.3 fl (7.4-10.4); Monocytes # 0.6 K/mm3 (0.1-1.0); Monocytes % 4.6 % (1.7-9.3); Neutrophils # 12.4 K/mm3 (1.8-7.8); Neutrophils % 91.1 % (37.0-80.0); Platelet Count 285 K/mm3 (142-424); Red Cell Distribution Width 14.3 % (11.5-17.5); White Blood Count 13.7 K/mm3 (4.8-10.8)
[2021-09-17 06:34] LABS: Blood Urea Nitrogen 36 mg/dl (9-20); Calcium 9.2 mg/dl (8.4-10.2); Carbon Dioxide 36 mmol/L (22.0-30.0); Creatinine Clearance Estimated 64 mL/min (50-200); Estimated Glomerular Filt Rate 74 ml/min (>60); GFR (African American) 90 ML/MIN (>60); Glucose 188 mg/dl (74-100)
[2021-09-17 06:45] LABS: MANUAL DIFFERENTIAL MANUAL DIFFERENTIAL (MANUAL DIFF)
[2021-09-17 07:02] LABS: Lymphocytes % 6 % (10-50); Monocytes % 3 % (2-9); Neutrophils % 91 % (42-76); Platelet Estimate Normal; RBC Morphology Normal; Total Cells Counted 100
--- NOTE | 2021-09-17 07:55 | HMH.ACPN2 ---
Internal Medicine - PN: Subj *Date: 09/17/21 *Time: 07:55 Interval history: No acute events over the last 24 hours. Patient has been able to eat small amounts of food. During meals BiPAP is transition to HFNC temporarily with decline in O2 sats to approximately the low 80s with patient recovering after reapplication of BiPAP. Exam Vital signs and Labs for Last 24 Hours: Temp Pulse Resp BP Pulse Ox 97.8 F 75 18 130/68 90 L 09/17/21 04:00 09/17/21 04:00 09/17/21 04:00 09/17/21 04:00 09/17/21 04:00 Laboratory Results - last 24 hr 09/17/21 05:52: WBC 13.7 H D, RBC 4.90, Hgb 15.2, Hct 49.3, MCV 100.8 H, MCH 31.0, MCHC 30.8 L, RDW 14.3, Plt Count 285 D, MPV 11.3 H, Neut % (Auto) 91.1 H, Lymph % (Auto) 4.1 L, [place] % (Auto) 4.6, Eos % (Auto) 0.0 L, Baso % (Auto) 0.2, Neut # (Auto) 12.4 H, Lymph # (Auto) 0.6 L, [place] # (Auto) 0.6, Eos # (Auto) 0.0, Baso # (Auto) 0.0, Total Counted 100, Neutrophils % (Manual) 91 H, Lymphocytes % (Manual) 6 L, Monocytes % (Manual) 3, Platelet Estimate Normal, RBC Morphology Normal 09/17/21 05:52: Sodium 136, Potassium 4.0, Chloride 90 L, Carbon Dioxide 36 H, Anion Gap 14.0, BUN 36 H D, Creatinine 1.00, Estimated Creat Clear 64, Estimated GFR 74, Est GFR ( Amer) 90, Glucose 188 H, Calcium 9.2 I & O for Last 24 hours: Intake & Output 09/14/21 09/15/21 09/16/21 09/17/21 11:59 11:59 11:59 11:59 Intake Total 1880 / 1880 480 / 480 420 / 420 240 / 240 Output Total 3500 / 3500 3575 / 3575 925 / 925 700 / 700 Balance -1620 / -1620 -3095 / -3095 -505 / -505 -460 / -460 Weight 279 lb 12.266 oz 265 lb 265 lb Narrative: Patient is sleeping when I enter the room but awakened easily. BiPAP is in place. Heart has a regular rate and rhythm. Lungs have distant breath sounds throughout. Abdomen is obese. Lower extremities have 1+ edema from mid [place] to ankle. Assessment and Plan (1) Acute respiratory failure due to COVID-19 Status: Acute Category: Medical Code(s): U07.1 - COVID-19; J96.00 - Acute respiratory failure, unspecified whether with hypoxia or hypercapnia (2) Acute kidney injury Status: Resolved Category: Medical Code(s): N17.9 - Acute kidney failure, unspecified (3) COPD (chronic obstructive pulmonary disease) Status: Acute Qualifiers: COPD type: unspecified COPD Qualified Code(s): J44.9 - Chronic obstructive pulmonary disease, unspecified Category: Medical Code(s): J44.9 - Chronic obstructive pulmonary disease, unspecified (4) COVID-19 with pulmonary comorbidity Status: Acute Category: Medical Code(s): U07.1 - COVID-19; J98.4 - Other disorders of lung (5) Obesity (BMI 30-39.9) Status: Acute Category: Medical Code(s): E66.9 - Obesity, unspecified (6) Thrombocytopenia associated with COVID-19 Status: Resolved Category: Medical Code(s): U07.1 - COVID-19; D69.59 - Other secondary thrombocytopenia (7) Hx of CABG Status: Chronic Category: Surgical Code(s): Z95.1 - Presence of aortocoronary bypass graft (8) CAD (coronary artery disease) Status: Chronic Qualifiers: Coronary Disease-Associated Artery/Lesion type: bypass graft [place] vs. transplanted heart: [place] heart Associated angina: with other forms of angina Qualified Code(s): I25.708 - Atherosclerosis of coronary artery bypass graft(s), unspecified, with other forms of angina pectoris Category: Medical Code(s): I25.10 - Atherosclerotic heart disease of [place] coronary artery without angina pectoris (9) Atrial fibrillation Status: Acute Qualifiers: Atrial fibrillation type: paroxysmal Qualified Code(s): I48.0 - Paroxysmal atrial fibrillation Category: Medical Code(s): I48.91 - Unspecified atrial fibrillation - Assessment and plan all Dx Assessment and Plan for all problems:: 1. Continue BiPAP with transitioning to HFNC for meals and attempts to wean 2. Continue baricitinib and Solu-Medrol 3. Patient be given a dose of Lasix tod
[2021-09-18] VITALS (10 sets, daily range): BP systolic 126–139; BP diastolic 61–88; PULSE 63–78; RESP 12–22; TEMP 36.2–36.9; O2SAT 83–97; BMI 41.5
[2021-09-18 06:38] LABS: Basophils % 0.3 % (0.1-2.0); Eosinophils % 0.1 % (0.1-12.0); Hematocrit 44.8 % (42.0-52.0); Hemoglobin 14.7 g/dL (14.1-18.0); Lymphocytes # 0.4 K/mm3 (0.7-4.5); Lymphocytes % 3.2 % (10-50); Mean Corpuscular HGB Conc 32.8 g/dL (31.8-35.4); Mean Corpuscular Hemoglobin 31.7 pg (27.0-31.2); Mean Corpuscular Volume 96.7 fl (80-94); Mean Platelet Volume 11.2 fl (7.4-10.4); Monocytes # 0.7 K/mm3 (0.1-1.0); Monocytes % 5.9 % (1.7-9.3); Neutrophils # 9.9 K/mm3 (1.8-7.8); Neutrophils % 90.5 % (37.0-80.0); Platelet Count 265 K/mm3 (142-424); Red Blood Count 4.63 M/mm3 (4.60-6.20); Red Cell Distribution Width 14.2 % (11.5-17.5)
[2021-09-18 06:46] LABS: MANUAL DIFFERENTIAL MANUAL DIFFERENTIAL (MANUAL DIFF)
[2021-09-18 06:47] LABS: Chloride 89 mmol/L (98-107); Potassium 3.8 mmoL/L (3.5-5.1); Sodium 134 mmol/L (136-145)
[2021-09-18 06:50] LABS: Anion Gap 12.8 mEq/L (5-15); Blood Urea Nitrogen 46 mg/dl (9-20); Calcium 8.9 mg/dl (8.4-10.2); Carbon Dioxide 36 mmol/L (22.0-30.0); Creatinine Clearance Estimated 58 mL/min (50-200); Estimated Glomerular Filt Rate 67 ml/min (>60); GFR (African American) 81 ML/MIN (>60); Glucose 206 mg/dl (74-100)
--- NOTE | 2021-09-18 07:02 | HMH.ACPN2 ---
Internal Medicine - PN: Subj *Date: 09/18/21 *Time: 07:02 Interval history: Patient has no complaints this morning and states he is feeling better and denies shortness of breath.. He remains on BiPAP with FiO2 of 100%. He spent time out of bed in the chair yesterday. Exam Vital signs and Labs for Last 24 Hours: Temp Pulse Resp BP Pulse Ox 97.8 F 78 20 136/82 93 L 09/18/21 04:00 09/18/21 06:28 09/18/21 04:00 09/18/21 04:00 09/18/21 04:00 Laboratory Results - last 24 hr 09/17/21 05:52: Total Counted 100, Neutrophils % (Manual) 91 H, Lymphocytes % (Manual) 6 L, Monocytes % (Manual) 3, Platelet Estimate Normal, RBC Morphology Normal 09/18/21 06:10: WBC 11.0 H, RBC 4.63, Hgb 14.7, Hct 44.8, MCV 96.7 H, MCH 31.7 H, MCHC 32.8, RDW 14.2, Plt Count 265, MPV 11.2 H, Neut % (Auto) 90.5 H, Lymph % (Auto) 3.2 L, [place] % (Auto) 5.9, Eos % (Auto) 0.1, Baso % (Auto) 0.3, Neut # (Auto) 9.9 H, Lymph # (Auto) 0.4 L, [place] # (Auto) 0.7, Eos # (Auto) 0.0, Baso # (Auto) 0.0 09/18/21 06:10: Sodium 134 L, Potassium 3.8, Chloride 89 L, Carbon Dioxide 36 H, Anion Gap 12.8, BUN 46 H D, Creatinine 1.10, Estimated Creat Clear 58, Estimated GFR 67, Est GFR ( Amer) 81, Glucose 206 H, Calcium 8.9 I & O for Last 24 hours: Intake & Output 09/15/21 09/16/21 09/17/21 09/18/21 11:59 11:59 11:59 11:59 Intake Total 480 / 480 420 / 420 480 / 480 120 / 120 Output Total 3575 / 3575 925 / 925 700 / 700 2140 / 2140 Balance -3095 / -3095 -505 / -505 -220 / -220 -2019 / -2019 Weight 265 lb 265 lb 264 lb 5 oz Narrative: Patient is in good spirits and appears comfortable. Lungs have distant breath sounds. Heart has a regular rate and rhythm. Abdomen is obese. Lower extremities are warm to the touch. He has trace lower extremity edema about the ankles. Patient has been in negative fluid balance over the last 24 hours after the administration of Lasix yesterday CBC is essentially unchanged BMP shows rising BUN Assessment and Plan (1) Acute respiratory failure due to COVID-19 Status: Acute Category: Medical Code(s): U07.1 - COVID-19; J96.00 - Acute respiratory failure, unspecified whether with hypoxia or hypercapnia (2) Acute kidney injury Status: Resolved Category: Medical Code(s): N17.9 - Acute kidney failure, unspecified (3) COPD (chronic obstructive pulmonary disease) Status: Acute Qualifiers: COPD type: unspecified COPD Qualified Code(s): J44.9 - Chronic obstructive pulmonary disease, unspecified Category: Medical Code(s): J44.9 - Chronic obstructive pulmonary disease, unspecified (4) COVID-19 with pulmonary comorbidity Status: Acute Category: Medical Code(s): U07.1 - COVID-19; J98.4 - Other disorders of lung (5) Obesity (BMI 30-39.9) Status: Acute Category: Medical Code(s): E66.9 - Obesity, unspecified (6) Thrombocytopenia associated with COVID-19 Status: Resolved Category: Medical Code(s): U07.1 - COVID-19; D69.59 - Other secondary thrombocytopenia (7) Hx of CABG Status: Chronic Category: Surgical Code(s): Z95.1 - Presence of aortocoronary bypass graft (8) CAD (coronary artery disease) Status: Chronic Qualifiers: Coronary Disease-Associated Artery/Lesion type: bypass graft [place] vs. transplanted heart: [place] heart Associated angina: with other forms of angina Qualified Code(s): I25.708 - Atherosclerosis of coronary artery bypass graft(s), unspecified, with other forms of angina pectoris Category: Medical Code(s): I25.10 - Atherosclerotic heart disease of [place] coronary artery without angina pectoris (9) Atrial fibrillation Status: Acute Qualifiers: Atrial fibrillation type: paroxysmal Qualified Code(s): I48.0 - Paroxysmal atrial fibrillation Category: Medical Code(s): I48.91 - Unspecified atrial fibrillation - Assessment and plan all Dx Assessment and Plan for all problems:: 1. Patient is completed a course of dexametha
[2021-09-18 07:35] LABS: Macrocytosis 1+; Monocytes % 4 % (2-9); Neutrophils % 96 % (42-76); Platelet Estimate Normal; Total Cells Counted 100
--- NOTE | 2021-09-18 09:22 | XR_ITS ---
PROCEDURE: XR CHEST PORTABLE CLINICAL HISTORY: pnm COMPARISON: CR XR CHEST PORTABLE from 09/04/2021 CR XR CHEST PORTABLE from 09/05/2021 CR XR CHEST PORTABLE from 09/11/[address] ANGIO CHEST PE PROTOCOL from 09/12/2021 FINDINGS: The cardiomediastinal silhouette and pulmonary vascularity are within normal limits. Sternal wire sutures are noted. There is opaque tubing overlying the right hemithorax but I doubt that this is a chest tube. There has been interval clearing of diffuse interstitial basilar opacities seen on most recent chest film 09/11/2001 suggesting resolving acute congestive failure. However mild diffuse bilateral basilar interstitial changes remain suggesting chronic interstitial fibrosis. A persistent viral type pneumonia is a possibility. No acute bony abnormalities. IMPRESSION: Interval clearing of findings of what was likely acute digestive heart failure, mild chronic basilar interstitial changes remaining Dictated by: Dr. Kyrie Luna MD 09/20/2021 13:13 Dr. Kyrie Luna MD in [facility] 09/20/2021 13:13
--- NOTE | 2021-09-18 11:28 | HMH.PULMPN ---
Internal Medicine - PN: Subj *Date: 09/18/21 *Time: 11:28 Interval history: No acute respiratory vents over the weekend. Patient denies any new respiratory complaints. Exam - Constitutional Constitutional:: Present: no acute distress, comfortable - HENMT Exam HENMT: Present: atraumatic - Neck Exam Neck:: Present: normal visual inspection - Respiratory Exam Respiratory:: Present: able to speak in complete sentences, respiratory distress, crackles, rales - Cardiovascular Exam Cardiac:: Present: S1, S2 - GI Exam GI:: Present: soft - Skin Exam Skin: Present: warm, no rash - Neurological Exam Neurological: Present: alert, awake, normal cognition - Extremities Exam Extremities: Present: no cyanosis, no clubbing, edema Assessment and Plan (1) Acute respiratory failure due to COVID-19 Status: Acute Category: Medical Code(s): U07.1 - COVID-19; J96.00 - Acute respiratory failure, unspecified whether with hypoxia or hypercapnia (2) Acute kidney injury Status: Resolved Category: Medical Code(s): N17.9 - Acute kidney failure, unspecified (3) COPD (chronic obstructive pulmonary disease) Status: Acute Qualifiers: COPD type: unspecified COPD Qualified Code(s): J44.9 - Chronic obstructive pulmonary disease, unspecified Category: Medical Code(s): J44.9 - Chronic obstructive pulmonary disease, unspecified (4) COVID-19 with pulmonary comorbidity Status: Acute Category: Medical Code(s): U07.1 - COVID-19; J98.4 - Other disorders of lung (5) Obesity (BMI 30-39.9) Status: Acute Category: Medical Code(s): E66.9 - Obesity, unspecified (6) Thrombocytopenia associated with COVID-19 Status: Resolved Category: Medical Code(s): U07.1 - COVID-19; D69.59 - Other secondary thrombocytopenia (7) Hx of CABG Status: Chronic Category: Surgical Code(s): Z95.1 - Presence of aortocoronary bypass graft (8) CAD (coronary artery disease) Status: Chronic Qualifiers: Coronary Disease-Associated Artery/Lesion type: bypass graft [place] vs. transplanted heart: [place] heart Associated angina: with other forms of angina Qualified Code(s): I25.708 - Atherosclerosis of coronary artery bypass graft(s), unspecified, with other forms of angina pectoris Category: Medical Code(s): I25.10 - Atherosclerotic heart disease of [place] coronary artery without angina pectoris (9) Atrial fibrillation Status: Acute Qualifiers: Atrial fibrillation type: paroxysmal Qualified Code(s): I48.0 - Paroxysmal atrial fibrillation Category: Medical Code(s): I48.91 - Unspecified atrial fibrillation - Assessment and plan all Dx Assessment and Plan for all problems:: #Acute chronic hypoxic respiratory failure: #COVID-19 pneumonia: Mr. Estevez is 66-year-old male greater than [id number] smoking history, last smoked 16 years ago used to smoke 3 to 4 packs a day, history of CAD, COPD presented to the hospital with worsening respiratory failure not associated with any productive phlegm.Patient on admission found to be COVID-19 positive and pulmonary was called for further management. Patient had a prior history of recurrent UTIs with Enterococcus faecalis levofloxacin sensitive on staph.epi. Patient chest x-ray admission bilateral pulmonary infiltrates left greater than right. Patient also noted to have MONA on CKD along with evidence of volume overload bilateral lower extremity edema and elevated BNP at admission troponins were also elevated on admission D-dimer elevated at 0.80. No evidence of DVT on bilateral lower extremity Doppler. CTA performed, significant motion artifact noted with questionable right lower lobe pulmonary embolism. We will closely monitor. We will hold off on initiating anticoagulation at this point of time. Completed 7 days of levofloxacin. Completed 10-day course of remdesivir and dexamethasone. Interval update: Patient respiratory status continued to improve over the wee
--- NOTE | 2021-09-18 14:31 | PC.NURSE ---
Pt was on vapotherm from 12:00-14:30 with saturations above 90%. Placed back on BiPAP due to pt sleeping and saturations dropping.
--- NOTE | 2021-09-18 18:12 | PC.NURSE ---
PT HAS BEEN UP TO CHAIR T/O SHIFT. BIPAP REMAINS IN PLACE. FI02 TITRATED TO 60 % PER DR KAN. DOES DESAT WITH EXERTION. OTHERWISE VSS THIS SHIFT.
[2021-09-19] VITALS (11 sets, daily range): BP systolic 118–146; BP diastolic 57–78; PULSE 64–89; RESP 12–33; TEMP 36.1–36.7; O2SAT 89–98; BMI 41.5
--- NOTE | 2021-09-19 06:20 | PC.NURSE ---
Pt on vapotherm since last night at dinner. Pt is refusing BiPAP this morning.
--- NOTE | 2021-09-19 06:25 | PC.NURSE ---
Patient a&ox4 has rested well t/o the shift, no acute changes noted. Patient has remained on vapotherm 40L and sats remained above 89%. VSS, call lion in reach, will continue to monitor.
[2021-09-19 06:59] LABS: Basophils # 0.1 K/mm3 (0-0.2); Basophils % 0.5 % (0.1-2.0); Eosinophils % 0.3 % (0.1-12.0); Hematocrit 48.9 % (42.0-52.0); Lymphocytes # 0.5 K/mm3 (0.7-4.5); Lymphocytes % 3.7 % (10-50); Mean Corpuscular HGB Conc 32.6 g/dL (31.8-35.4); Mean Corpuscular Volume 98.1 fl (80-94); Mean Platelet Volume 10.2 fl (7.4-10.4); Monocytes # 0.7 K/mm3 (0.1-1.0); Monocytes % 5.3 % (1.7-9.3); Neutrophils # 11.1 K/mm3 (1.8-7.8); Neutrophils % 90.1 % (37.0-80.0); Platelet Count 295 K/mm3 (142-424); Red Blood Count 4.99 M/mm3 (4.60-6.20); Red Cell Distribution Width 14.2 % (11.5-17.5); White Blood Count 12.3 K/mm3 (4.8-10.8)
[2021-09-19 07:15] LABS: MANUAL DIFFERENTIAL MANUAL DIFFERENTIAL (MANUAL DIFF)
[2021-09-19 07:18] LABS: Chloride 87 mmol/L (98-107); Potassium 3.7 mmoL/L (3.5-5.1); Sodium 134 mmol/L (136-145)
[2021-09-19 07:21] LABS: Blood Urea Nitrogen 51 mg/dl (9-20); Creatinine Clearance Estimated 58 mL/min (50-200); Estimated Glomerular Filt Rate 67 ml/min (>60); GFR (African American) 81 ML/MIN (>60)
--- NOTE | 2021-09-19 07:21 | HMH.ACPN2 ---
Internal Medicine - PN: Subj *Date: 09/19/21 *Time: 07:21 Interval history: Patient was transitioned to HFNC at max settings and has maintained O2 sats above 89%. Patient is feeling well. He denies shortness of breath. Exam Vital signs and Labs for Last 24 Hours: Temp Pulse Resp BP Pulse Ox 97.0 F L 84 20 118/57 L 93 L 09/19/21 04:00 09/19/21 04:00 09/19/21 04:00 09/19/21 04:00 09/19/21 06:19 Laboratory Results - last 24 hr 09/18/21 06:10: Total Counted 100, Neutrophils % (Manual) 96 H, Monocytes % (Manual) 4, Platelet Estimate Normal, Macrocytosis 1+ 09/19/21 06:50: WBC 12.3 H, RBC 4.99, Hgb 16.0, Hct 48.9, MCV 98.1 H, MCH 32.0 H, MCHC 32.6, RDW 14.2, Plt Count 295, MPV 10.2, Neut % (Auto) 90.1 H, Lymph % (Auto) 3.7 L, [place] % (Auto) 5.3, Eos % (Auto) 0.3, Baso % (Auto) 0.5, Neut # (Auto) 11.1 H, Lymph # (Auto) 0.5 L, [place] # (Auto) 0.7, Eos # (Auto) 0.0, Baso # (Auto) 0.1 I & O for Last 24 hours: Intake & Output 09/16/21 09/17/21 09/18/21 09/19/21 11:59 11:59 11:59 11:59 Intake Total 420 / 420 480 / 480 360 / 360 840 / 840 Output Total 925 / 925 700 / 700 2140 / 2140 2100 / 2100 Balance -505 / -505 -220 / -220 -1780 / -1780 -1260 / -1260 Weight 265 lb 265 lb 264 lb 5 oz 264 lb 4.995 oz - Constitutional no acute distress - *Routine Respiratory Exam Present: rhonchi - *Routine Cardiovascular Exam Present: RRR Assessment and Plan (1) Acute respiratory failure due to COVID-19 Status: Acute Category: Medical Code(s): U07.1 - COVID-19; J96.00 - Acute respiratory failure, unspecified whether with hypoxia or hypercapnia (2) Acute kidney injury Status: Resolved Category: Medical Code(s): N17.9 - Acute kidney failure, unspecified (3) COPD (chronic obstructive pulmonary disease) Status: Acute Qualifiers: COPD type: unspecified COPD Qualified Code(s): J44.9 - Chronic obstructive pulmonary disease, unspecified Category: Medical Code(s): J44.9 - Chronic obstructive pulmonary disease, unspecified (4) COVID-19 with pulmonary comorbidity Status: Acute Category: Medical Code(s): U07.1 - COVID-19; J98.4 - Other disorders of lung (5) Obesity (BMI 30-39.9) Status: Acute Category: Medical Code(s): E66.9 - Obesity, unspecified (6) Thrombocytopenia associated with COVID-19 Status: Resolved Category: Medical Code(s): U07.1 - COVID-19; D69.59 - Other secondary thrombocytopenia (7) Hx of CABG Status: Chronic Category: Surgical Code(s): Z95.1 - Presence of aortocoronary bypass graft (8) CAD (coronary artery disease) Status: Chronic Qualifiers: Coronary Disease-Associated Artery/Lesion type: bypass graft [place] vs. transplanted heart: [place] heart Associated angina: with other forms of angina Qualified Code(s): I25.708 - Atherosclerosis of coronary artery bypass graft(s), unspecified, with other forms of angina pectoris Category: Medical Code(s): I25.10 - Atherosclerotic heart disease of [place] coronary artery without angina pectoris (9) Atrial fibrillation Status: Acute Qualifiers: Atrial fibrillation type: paroxysmal Qualified Code(s): I48.0 - Paroxysmal atrial fibrillation Category: Medical Code(s): I48.91 - Unspecified atrial fibrillation - Assessment and plan all Dx Assessment and Plan for all problems:: 1. Add incentive spirometry to patient's regimen
[2021-09-19 07:22] LABS: Anion Gap 12.7 mEq/L (5-15); Carbon Dioxide 38 mmol/L (22.0-30.0); Glucose 176 mg/dl (74-100)
[2021-09-19 07:53] LABS: Lymphocytes % 3 % (10-50); Macrocytosis 1+; Monocytes % 3 % (2-9); Neutrophils % 94 % (42-76); Platelet Estimate Normal; Total Cells Counted 100
--- NOTE | 2021-09-19 13:06 | HMH.PULMPN ---
Internal Medicine - PN: Subj *Date: 09/19/21 *Time: 13:06 Interval history: Patient denies any new respiratory complaints. Exam - Constitutional Constitutional:: Present: no acute distress, comfortable - HENMT Exam HENMT: Present: normocephalic - Eye Exam Eyes:: Present: normal appearance both eyes and related structures - Neck Exam Neck:: Present: normal visual inspection - Respiratory Exam Respiratory:: Present: able to speak in complete sentences, rales - Cardiovascular Exam Cardiac:: Present: S1, S2 - GI Exam GI:: Present: soft - Skin Exam Skin: Present: warm - Neurological Exam Neurological: Present: alert, awake, normal cognition - Extremities Exam Extremities: Present: no cyanosis, no clubbing, edema Assessment and Plan (1) Acute respiratory failure due to COVID-19 Status: Acute Category: Medical Code(s): U07.1 - COVID-19; J96.00 - Acute respiratory failure, unspecified whether with hypoxia or hypercapnia (2) Acute kidney injury Status: Resolved Category: Medical Code(s): N17.9 - Acute kidney failure, unspecified (3) COPD (chronic obstructive pulmonary disease) Status: Acute Qualifiers: COPD type: unspecified COPD Qualified Code(s): J44.9 - Chronic obstructive pulmonary disease, unspecified Category: Medical Code(s): J44.9 - Chronic obstructive pulmonary disease, unspecified (4) COVID-19 with pulmonary comorbidity Status: Acute Category: Medical Code(s): U07.1 - COVID-19; J98.4 - Other disorders of lung (5) Obesity (BMI 30-39.9) Status: Acute Category: Medical Code(s): E66.9 - Obesity, unspecified (6) Thrombocytopenia associated with COVID-19 Status: Resolved Category: Medical Code(s): U07.1 - COVID-19; D69.59 - Other secondary thrombocytopenia (7) Hx of CABG Status: Chronic Category: Surgical Code(s): Z95.1 - Presence of aortocoronary bypass graft (8) CAD (coronary artery disease) Status: Chronic Qualifiers: Coronary Disease-Associated Artery/Lesion type: bypass graft [place] vs. transplanted heart: [place] heart Associated angina: with other forms of angina Qualified Code(s): I25.708 - Atherosclerosis of coronary artery bypass graft(s), unspecified, with other forms of angina pectoris Category: Medical Code(s): I25.10 - Atherosclerotic heart disease of [place] coronary artery without angina pectoris (9) Atrial fibrillation Status: Acute Qualifiers: Atrial fibrillation type: paroxysmal Qualified Code(s): I48.0 - Paroxysmal atrial fibrillation Category: Medical Code(s): I48.91 - Unspecified atrial fibrillation - Assessment and plan all Dx Assessment and Plan for all problems:: #Acute chronic hypoxic respiratory failure: #COVID-19 pneumonia: Mr. Estevez is 66-year-old male greater than [id number] smoking history, last smoked 16 years ago used to smoke 3 to 4 packs a day, history of CAD, COPD presented to the hospital with worsening respiratory failure not associated with any productive phlegm.Patient on admission found to be COVID-19 positive and pulmonary was called for further management. Patient had a prior history of recurrent UTIs with Enterococcus faecalis levofloxacin sensitive on staph.epi. Patient chest x-ray admission bilateral pulmonary infiltrates left greater than right. Patient also noted to have MONA on CKD along with evidence of volume overload bilateral lower extremity edema and elevated BNP at admission troponins were also elevated on admission D-dimer elevated at 0.80. No evidence of DVT on bilateral lower extremity Doppler. CTA performed, significant motion artifact noted with questionable right lower lobe pulmonary embolism. We will closely monitor. We will hold off on initiating anticoagulation at this point of time. Completed 7 days of levofloxacin. Completed 10-day course of remdesivir and dexamethasone. Interval update: Patient respiratory status continued to improve since yesterda
[2021-09-20] VITALS (10 sets, daily range): BP systolic 107–162; BP diastolic 59–74; PULSE 69–88; RESP 20–22; TEMP 36.1–37; O2SAT 86–97; BMI 41.4
--- NOTE | 2021-09-20 07:15 | HMH.ACPN2 ---
Internal Medicine - PN: Subj *Date: 09/20/21 *Time: 07:15 Interval history: Patient was placed on BiPAP during the day yesterday due to hypoxia. He was transitioned back to HFNC overnight. He denies cough or shortness of breath this morning. He admits he did not sleep well and is tired Exam Vital signs and Labs for Last 24 Hours: Temp Pulse Resp BP Pulse Ox 98.6 F 76 20 107/59 L 94 L 09/20/21 04:00 09/20/21 04:00 09/20/21 04:00 09/20/21 04:00 09/20/21 04:00 Laboratory Results - last 24 hr 09/19/21 06:50: Total Counted 100, Neutrophils % (Manual) 94 H, Lymphocytes % (Manual) 3 L, Monocytes % (Manual) 3, Platelet Estimate Normal, Macrocytosis 1+ 09/19/21 06:50: Sodium 134 L, Potassium 3.7, Chloride 87 L, Carbon Dioxide 38 H, Anion Gap 12.7, BUN 51 H, Creatinine 1.10, Estimated Creat Clear 58, Estimated GFR 67, Est GFR ( Amer) 81, Glucose 176 H, Calcium 9.0 I & O for Last 24 hours: Intake & Output 09/17/21 09/18/21 09/19/21 09/20/21 11:59 11:59 11:59 11:59 Intake Total 480 / 480 360 / 360 1120 / 1120 360 / 360 Output Total 700 / 700 2140 / 2140 2100 / 2100 3800 / 3800 Balance -220 / -220 -1780 / -1780 -980 / -980 -3440 / -3440 Weight 265 lb 264 lb 5 oz 264 lb 4.995 oz 264 lb 4 oz Narrative: Patient looks sleepy. HFNC is in place. Breath sounds are distant. Heart has a regular rate and rhythm. Abdomen is obese. Assessment and Plan (1) Acute respiratory failure due to COVID-19 Status: Acute Category: Medical Code(s): U07.1 - COVID-19; J96.00 - Acute respiratory failure, unspecified whether with hypoxia or hypercapnia (2) Acute kidney injury Status: Resolved Category: Medical Code(s): N17.9 - Acute kidney failure, unspecified (3) COPD (chronic obstructive pulmonary disease) Status: Acute Qualifiers: COPD type: unspecified COPD Qualified Code(s): J44.9 - Chronic obstructive pulmonary disease, unspecified Category: Medical Code(s): J44.9 - Chronic obstructive pulmonary disease, unspecified (4) COVID-19 with pulmonary comorbidity Status: Acute Category: Medical Code(s): U07.1 - COVID-19; J98.4 - Other disorders of lung (5) Obesity (BMI 30-39.9) Status: Acute Category: Medical Code(s): E66.9 - Obesity, unspecified (6) Thrombocytopenia associated with COVID-19 Status: Resolved Category: Medical Code(s): U07.1 - COVID-19; D69.59 - Other secondary thrombocytopenia (7) Hx of CABG Status: Chronic Category: Surgical Code(s): Z95.1 - Presence of aortocoronary bypass graft (8) CAD (coronary artery disease) Status: Chronic Qualifiers: Coronary Disease-Associated Artery/Lesion type: bypass graft [place] vs. transplanted heart: [place] heart Associated angina: with other forms of angina Qualified Code(s): I25.708 - Atherosclerosis of coronary artery bypass graft(s), unspecified, with other forms of angina pectoris Category: Medical Code(s): I25.10 - Atherosclerotic heart disease of [place] coronary artery without angina pectoris (9) Atrial fibrillation Status: Acute Qualifiers: Atrial fibrillation type: paroxysmal Qualified Code(s): I48.0 - Paroxysmal atrial fibrillation Category: Medical Code(s): I48.91 - Unspecified atrial fibrillation - Assessment and plan all Dx Assessment and Plan for all problems:: 1. Continue attempts to wean HFNC 2. Incentive spirometry 3. Continue aerosols and steroids ordered by Dr. Rod
[2021-09-20 08:23] LABS: Basophils # 0.1 K/mm3 (0-0.2); Basophils % 0.6 % (0.1-2.0); Eosinophils % 0.2 % (0.1-12.0); Hematocrit 50.3 % (42.0-52.0); Hemoglobin 16.2 g/dL (14.1-18.0); Lymphocytes # 0.3 K/mm3 (0.7-4.5); Lymphocytes % 2.1 % (10-50); Mean Corpuscular HGB Conc 32.1 g/dL (31.8-35.4); Mean Corpuscular Hemoglobin 31.9 pg (27.0-31.2); Mean Corpuscular Volume 99.4 fl (80-94); Mean Platelet Volume 10.5 fl (7.4-10.4); Monocytes # 0.7 K/mm3 (0.1-1.0); Monocytes % 4.9 % (1.7-9.3); Neutrophils # 12.7 K/mm3 (1.8-7.8); Neutrophils % 92.2 % (37.0-80.0); Platelet Count 255 K/mm3 (142-424); Red Blood Count 5.07 M/mm3 (4.60-6.20); Red Cell Distribution Width 14.1 % (11.5-17.5); White Blood Count 13.8 K/mm3 (4.8-10.8)
[2021-09-20 08:29] LABS: MANUAL DIFFERENTIAL MANUAL DIFFERENTIAL (MANUAL DIFF)
[2021-09-20 08:36] LABS: Chloride 86 mmol/L (98-107); Sodium 134 mmol/L (136-145)
[2021-09-20 08:39] LABS: Blood Urea Nitrogen 52 mg/dl (9-20); Calcium 9.1 mg/dl (8.4-10.2); Carbon Dioxide 36 mmol/L (22.0-30.0); Creatinine Clearance Estimated 58 mL/min (50-200); Estimated Glomerular Filt Rate 67 ml/min (>60); GFR (African American) 81 ML/MIN (>60); Glucose 294 mg/dl (74-100)
[2021-09-20 08:45] LABS: Hypochromasia 2+; Lymphocytes % 2 % (10-50); Macrocytosis 1+; Neutrophils % 98 % (42-76); Platelet Estimate Normal; Total Cells Counted 100
--- NOTE | 2021-09-20 11:24 | HMH.PULMPN ---
Internal Medicine - PN: Subj *Date: 09/20/21 *Time: 11:24 Interval history: No acute respiratory events overnight. Exam - Constitutional Constitutional:: Present: no acute distress, comfortable - HENMT Exam HENMT: Present: normocephalic, atraumatic - Eye Exam Eyes:: Present: normal appearance both eyes and related structures - Neck Exam Neck:: Present: normal visual inspection - Respiratory Exam Respiratory:: Present: able to speak in complete sentences, respiratory distress, rales - Cardiovascular Exam Cardiac:: Present: S1, S2 - GI Exam GI:: Present: soft, no hepatosplenomegaly - Skin Exam Skin: Present: warm, no rash - Neurological Exam Neurological: Present: alert, awake, normal cognition - Extremities Exam Extremities: Present: no cyanosis, no clubbing, edema Assessment and Plan (1) Acute respiratory failure due to COVID-19 Status: Acute Category: Medical Code(s): U07.1 - COVID-19; J96.00 - Acute respiratory failure, unspecified whether with hypoxia or hypercapnia (2) Acute kidney injury Status: Resolved Category: Medical Code(s): N17.9 - Acute kidney failure, unspecified (3) COPD (chronic obstructive pulmonary disease) Status: Acute Qualifiers: COPD type: unspecified COPD Qualified Code(s): J44.9 - Chronic obstructive pulmonary disease, unspecified Category: Medical Code(s): J44.9 - Chronic obstructive pulmonary disease, unspecified (4) COVID-19 with pulmonary comorbidity Status: Acute Category: Medical Code(s): U07.1 - COVID-19; J98.4 - Other disorders of lung (5) Obesity (BMI 30-39.9) Status: Acute Category: Medical Code(s): E66.9 - Obesity, unspecified (6) Thrombocytopenia associated with COVID-19 Status: Resolved Category: Medical Code(s): U07.1 - COVID-19; D69.59 - Other secondary thrombocytopenia (7) Hx of CABG Status: Chronic Category: Surgical Code(s): Z95.1 - Presence of aortocoronary bypass graft (8) CAD (coronary artery disease) Status: Chronic Qualifiers: Coronary Disease-Associated Artery/Lesion type: bypass graft [place] vs. transplanted heart: [place] heart Associated angina: with other forms of angina Qualified Code(s): I25.708 - Atherosclerosis of coronary artery bypass graft(s), unspecified, with other forms of angina pectoris Category: Medical Code(s): I25.10 - Atherosclerotic heart disease of [place] coronary artery without angina pectoris (9) Atrial fibrillation Status: Acute Qualifiers: Atrial fibrillation type: paroxysmal Qualified Code(s): I48.0 - Paroxysmal atrial fibrillation Category: Medical Code(s): I48.91 - Unspecified atrial fibrillation - Assessment and plan all Dx Assessment and Plan for all problems:: #Acute chronic hypoxic respiratory failure: #COVID-19 pneumonia: Mr. Estevez is 66-year-old male greater than [id number] smoking history, last smoked 16 years ago used to smoke 3 to 4 packs a day, history of CAD, COPD presented to the hospital with worsening respiratory failure not associated with any productive phlegm.Patient on admission found to be COVID-19 positive and pulmonary was called for further management. Patient had a prior history of recurrent UTIs with Enterococcus faecalis levofloxacin sensitive on staph.epi. Patient chest x-ray admission bilateral pulmonary infiltrates left greater than right. Patient also noted to have MONA on CKD along with evidence of volume overload bilateral lower extremity edema and elevated BNP at admission troponins were also elevated on admission D-dimer elevated at 0.80. No evidence of DVT on bilateral lower extremity Doppler. CTA performed, significant motion artifact noted with questionable right lower lobe pulmonary embolism. We will closely monitor. We will hold off on initiating anticoagulation at this point of time. Completed 7 days of levofloxacin. Completed 10-day course of remdesivir and dexamethasone. Interval update: Divine
[2021-09-20 11:52] LABS: C-Reactive Protein 21.6 mg/L (0-4)
--- NOTE | 2021-09-20 17:33 | PC.NURSE ---
Pt alert and oriented and able to make needs known. Pt is on 40 L and 100 % vapotherm. 02 sat varies from 80-87% on vapotherm. Pt has non rebreather in addition, to vapotherm prn. This RN encouraged use of bipap this afternoon r/t desats (pt did stand uo to be wiped after small bm and desat to 78%.) Pt is refusing to wear bipap. RT also encouraged bipap and pt refused. He is eating at this time and is up in chair. Meds given per mar. CB in reach. Remains safe. Mx continues. [place] remains in place and is draining dark yellow urine.
[2021-09-21] VITALS (7 sets, daily range): BP systolic 118–156; BP diastolic 58–93; PULSE 56–88; RESP 20–26; TEMP 36.3–36.7; O2SAT 89–95; BMI 41.4
--- NOTE | 2021-09-21 04:01 | PC.NURSE ---
Patient is A&O x4. Patient has maintained oxygen saturation >90% on vapotherm at 40L-100% and non-rebreather. Patient has episodes of his oxygen dropping below 88% at times. No acute respiratory events have happened. Patient has remained wanting to sleep in the chair. Patient has had no complaints voiced to this RN. VSS, call light within reach, will continue to monitor.
[2021-09-21 06:36] LABS: Chloride 89 mmol/L (98-107); Potassium 4.6 mmoL/L (3.5-5.1); Sodium 132 mmol/L (136-145)
[2021-09-21 06:39] LABS: Blood Urea Nitrogen 49 mg/dl (9-20); Creatinine Clearance Estimated 64 mL/min (50-200); Estimated Glomerular Filt Rate 84 ml/min (>60); GFR (African American) 102 ML/MIN (>60)
[2021-09-21 06:40] LABS: Anion Gap 12.6 mEq/L (5-15); Calcium 8.6 mg/dl (8.4-10.2); Carbon Dioxide 35 mmol/L (22.0-30.0); Glucose 305 mg/dl (74-100)
--- NOTE | 2021-09-21 07:04 | HMH.ACPN2 ---
Internal Medicine - PN: Subj *Date: 09/21/21 *Time: 07:04 Interval history: No acute events. Patient continues to desat periodically. He is refused to use BiPAP and has now been maintained on high flow nasal cannula with the addition of nonrebreather. He denies shortness of breath or significant cough. Exam Vital signs and Labs for Last 24 Hours: Temp Pulse Resp BP Pulse Ox 98.1 F 59 L 20 118/68 95 09/21/21 04:00 09/21/21 04:00 09/21/21 04:00 09/21/21 04:00 09/21/21 04:00 Laboratory Results - last 24 hr 09/20/21 08:03: WBC 13.8 H, RBC 5.07, Hgb 16.2, Hct 50.3, MCV 99.4 H, MCH 31.9 H, MCHC 32.1, RDW 14.1, Plt Count 255, MPV 10.5 H, Neut % (Auto) 92.2 H, Lymph % (Auto) 2.1 L, [place] % (Auto) 4.9, Eos % (Auto) 0.2, Baso % (Auto) 0.6, Neut # (Auto) 12.7 H, Lymph # (Auto) 0.3 L, [place] # (Auto) 0.7, Eos # (Auto) 0.0, Baso # (Auto) 0.1, Total Counted 100, Neutrophils % (Manual) 98 H, Lymphocytes % (Manual) 2 L, Platelet Estimate Normal, Hypochromasia 2+, Macrocytosis 1+ 09/20/21 08:03: Sodium 134 L, Potassium 4.0, Chloride 86 L, Carbon Dioxide 36 H, Anion Gap 16.0 H, BUN 52 H, Creatinine 1.10, Estimated Creat Clear 58, Estimated GFR 67, Est GFR ( Amer) 81, Glucose 294 H, Calcium 9.1 09/20/21 08:03: C-Reactive Protein 21.6 H 09/21/21 06:12: Sodium 132 L, Potassium 4.6, Chloride 89 L, Carbon Dioxide 35 H, Anion Gap 12.6, BUN 49 H, Creatinine 0.90, Estimated Creat Clear 64, Estimated GFR 84, Est GFR ( Amer) 102 D, Glucose 305 H, Calcium 8.6 I & O for Last 24 hours: Intake & Output 10/25/21 10/26/21 10/27/21 10/28/21 11:59 11:59 11:59 11:59 Intake Total 360 / 360 1120 / 1120 1080 / 1080 600 / 600 Output Total 2140 / 2140 2100 / 2100 3800 / 3800 1750 / 1750 Balance -1780 / -1780 -980 / -980 -2720 / -2720 -1150 / -1150 Weight 264 lb 5 oz 264 lb 4.995 oz 264 lb 4 oz 264 lb - Constitutional no acute distress - *Routine Respiratory Exam Present: distant breath sounds - *Routine Cardiovascular Exam Present: RRR - *Routine Extremities Exam Present: edema (Trace) Assessment and Plan (1) Acute respiratory failure due to COVID-19 Status: Acute Category: Medical Code(s): U07.1 - COVID-19; J96.00 - Acute respiratory failure, unspecified whether with hypoxia or hypercapnia (2) Acute kidney injury Status: Resolved Category: Medical Code(s): N17.9 - Acute kidney failure, unspecified (3) COPD (chronic obstructive pulmonary disease) Status: Acute Qualifiers: COPD type: unspecified COPD Qualified Code(s): J44.9 - Chronic obstructive pulmonary disease, unspecified Category: Medical Code(s): J44.9 - Chronic obstructive pulmonary disease, unspecified (4) COVID-19 with pulmonary comorbidity Status: Acute Category: Medical Code(s): U07.1 - COVID-19; J98.4 - Other disorders of lung (5) Obesity (BMI 30-39.9) Status: Acute Category: Medical Code(s): E66.9 - Obesity, unspecified (6) Thrombocytopenia associated with COVID-19 Status: Resolved Category: Medical Code(s): U07.1 - COVID-19; D69.59 - Other secondary thrombocytopenia (7) Hx of CABG Status: Chronic Category: Surgical Code(s): Z95.1 - Presence of aortocoronary bypass graft (8) CAD (coronary artery disease) Status: Chronic Qualifiers: Coronary Disease-Associated Artery/Lesion type: bypass graft [place] vs. transplanted heart: [place] heart Associated angina: with other forms of angina Qualified Code(s): I25.708 - Atherosclerosis of coronary artery bypass graft(s), unspecified, with other forms of angina pectoris Category: Medical Code(s): I25.10 - Atherosclerotic heart disease of [place] coronary artery without angina pectoris (9) Atrial fibrillation Status: Acute Qualifiers: Atrial fibrillation type: paroxysmal Qualified Code(s): I48.0 - Paroxysmal atrial fibrillation Category: Medical Code(s): I48.91 - Unspecified atrial fibrillation (10) Steroid-induced hyperg
[2021-09-21 07:07] LABS: Basophils % 0.2 % (0.1-2.0); Eosinophils % 0.1 % (0.1-12.0); Hematocrit 44.1 % (42.0-52.0); Lymphocytes # 0.3 K/mm3 (0.7-4.5); Lymphocytes % 2.5 % (10-50); Mean Corpuscular HGB Conc 32.6 g/dL (31.8-35.4); Mean Corpuscular Hemoglobin 31.9 pg (27.0-31.2); Mean Corpuscular Volume 98.1 fl (80-94); Mean Platelet Volume 10.9 fl (7.4-10.4); Monocytes # 0.6 K/mm3 (0.1-1.0); Monocytes % 4.3 % (1.7-9.3); Neutrophils # 11.8 K/mm3 (1.8-7.8); Neutrophils % 92.9 % (37.0-80.0); Platelet Count 266 K/mm3 (142-424); Red Blood Count 4.49 M/mm3 (4.60-6.20); Red Cell Distribution Width 14.3 % (11.5-17.5); White Blood Count 12.7 K/mm3 (4.8-10.8)
[2021-09-21 07:08] LABS: Hemoglobin 14.3 g/dL (14.1-18.0)
[2021-09-21 07:10] LABS: MANUAL DIFFERENTIAL MANUAL DIFFERENTIAL (MANUAL DIFF)
[2021-09-21 07:58] LABS: Lymphocytes % 2 % (10-50); Monocytes % 4 % (2-9); Neutrophils % 94 % (42-76); Platelet Estimate Normal; RBC Morphology Normal; Total Cells Counted 100
--- NOTE | 2021-09-21 09:13 | XR_ITS ---
PROCEDURE: XR CHEST PORTABLE CLINICAL HISTORY: pnm, Covid19 positive COMPARISON: CR XR CHEST PORTABLE from 09/05/2021 CR XR CHEST PORTABLE from 09/11/[address] ANGIO CHEST PE PROTOCOL from 09/12/2021 CR XR CHEST PORTABLE from 09/18/2021 FINDINGS: The cardiomediastinal silhouette and pulmonary vascularity are within normal limits. Sternal wire sutures are noted. There are mild diffuse bilateral perihilar and lower lobe interstitial opacities but showing slight interval improvement from the most recent study 09/18/2021 There is no definite pleural fluid. IMPRESSION: Mild interval improvement in the bilateral perihilar and lower lobe ill-defined opacities consistent with Covid19 type pneumonia still slightly more prominent right lower lung field and left Dictated by: Dr. Kyrie Luna MD 09/22/2021 15:08 Dr. Kyrie Luna MD in [facility] 09/22/2021 15:08
[2021-09-21 11:17] LABS: POC Glucose,Bedside 487 (70-110)
--- NOTE | 2021-09-21 12:15 | HMH.PULMPN ---
Internal Medicine - PN: Subj *Date: 09/21/21 *Time: 12:15 Interval history: No acute respiratory vents overnight. Patient continues remain on high flow nasal cannula. Exam - Constitutional Constitutional:: Present: no acute distress, comfortable - HENMT Exam HENMT: Present: normocephalic, atraumatic - Eye Exam Eyes:: Present: normal appearance both eyes and related structures - Neck Exam Neck:: Present: normal visual inspection - Respiratory Exam Respiratory:: Present: able to speak in complete sentences, respiratory distress, rales - Cardiovascular Exam Cardiac:: Present: S1, S2 - GI Exam GI:: Present: soft - Skin Exam Skin: Present: warm - Neurological Exam Neurological: Present: alert, awake, normal cognition - Extremities Exam Extremities: Present: no cyanosis, no clubbing, edema Assessment and Plan (1) Acute respiratory failure due to COVID-19 Status: Acute Category: Medical Code(s): U07.1 - COVID-19; J96.00 - Acute respiratory failure, unspecified whether with hypoxia or hypercapnia (2) Acute kidney injury Status: Resolved Category: Medical Code(s): N17.9 - Acute kidney failure, unspecified (3) COPD (chronic obstructive pulmonary disease) Status: Acute Qualifiers: COPD type: unspecified COPD Qualified Code(s): J44.9 - Chronic obstructive pulmonary disease, unspecified Category: Medical Code(s): J44.9 - Chronic obstructive pulmonary disease, unspecified (4) COVID-19 with pulmonary comorbidity Status: Acute Category: Medical Code(s): U07.1 - COVID-19; J98.4 - Other disorders of lung (5) Obesity (BMI 30-39.9) Status: Acute Category: Medical Code(s): E66.9 - Obesity, unspecified (6) Thrombocytopenia associated with COVID-19 Status: Resolved Category: Medical Code(s): U07.1 - COVID-19; D69.59 - Other secondary thrombocytopenia (7) Hx of CABG Status: Chronic Category: Surgical Code(s): Z95.1 - Presence of aortocoronary bypass graft (8) CAD (coronary artery disease) Status: Chronic Qualifiers: Coronary Disease-Associated Artery/Lesion type: bypass graft [place] vs. transplanted heart: [place] heart Associated angina: with other forms of angina Qualified Code(s): I25.708 - Atherosclerosis of coronary artery bypass graft(s), unspecified, with other forms of angina pectoris Category: Medical Code(s): I25.10 - Atherosclerotic heart disease of [place] coronary artery without angina pectoris (9) Atrial fibrillation Status: Acute Qualifiers: Atrial fibrillation type: paroxysmal Qualified Code(s): I48.0 - Paroxysmal atrial fibrillation Category: Medical Code(s): I48.91 - Unspecified atrial fibrillation (10) Steroid-induced hyperglycemia Status: Acute Category: Medical Code(s): R73.9 - Hyperglycemia, unspecified; T38.0X5A - Adverse effect of glucocorticoids and synthetic analogues, initial encounter - Assessment and plan all Dx Assessment and Plan for all problems:: #Acute chronic hypoxic respiratory failure: #COVID-19 pneumonia: Mr. Estevez is 66-year-old male greater than [id number] smoking history, last smoked 16 years ago used to smoke 3 to 4 packs a day, history of CAD, COPD presented to the hospital with worsening respiratory failure not associated with any productive phlegm.Patient on admission found to be COVID-19 positive and pulmonary was called for further management. Patient had a prior history of recurrent UTIs with Enterococcus faecalis levofloxacin sensitive on staph.epi. Patient chest x-ray admission bilateral pulmonary infiltrates left greater than right. Patient also noted to have MONA on CKD along with evidence of volume overload bilateral lower extremity edema and elevated BNP at admission troponins were also elevated on admission D-dimer elevated at 0.80. No evidence of DVT on bilateral lower extremity Doppler. CTA performed, significant motion artifact noted with questionable right lower lobe pu
--- NOTE | 2021-09-21 15:27 | PC.NURSE ---
Addendum entered by Geovanni Muhammad RN 09/21/21 17:08: Lg dsg applied to buttocks, small area noted on L buttock, doesn't appear to be open. Pt unable to tolerate through assessment as he is not able to stand long r/t respiratory status. Pt has also refused to prone and / or get in bed. Original Note: Pt up to chair at this time with no c/o's. Pt cursed a bit this am, asking what his sugar wasa being checked for and a shot being given when he has covid. This RN educated pt that with steroid use, it can cause hyperglycemia. Pt understood. Pt remains on the vapotherm @ 40 L and 100 % and a non rebreather. CB in reach. Remains safe. Have updated x 2 of pt's status. Mx continues.
[2021-09-21 21:26] LABS: POC Glucose,Bedside 369 (70-110)
[2021-09-22] VITALS (9 sets, daily range): BP systolic 116–146; BP diastolic 50–83; PULSE 63–78; RESP 18–24; TEMP 36.4–36.6; O2SAT 90–96
--- NOTE | 2021-09-22 03:50 | PC.NURSE ---
Patient is A&Ox4. He has remained on vapotherm & a non-rebreather this shift. Patient lung sounds are diminished throughout. Patient FIO2 was increased to 75% due to repeated oxygen saturation dropping below 88%, will titrate back down as tolerated. Patient reports 2 BM on 09/21. Bowel sounds are active. [place] is anchored and draining clear, yellow urine at bedside. Patient refused BiPap this shift. Patient did get into the bed and has remained there this shift. He has turned himself with standby assistance. Patient does not tolerate ambulating very well respiratory arce, patient's oxygen saturation drops to the 70's. VSS, call light within reach, will continue to monitor.
[2021-09-22 06:02] LABS: POC Glucose,Bedside 198 (70-110)
[2021-09-22 06:09] LABS: Basophils % 0.1 % (0.1-2.0); Chloride 89 mmol/L (98-107); Eosinophils % 0.2 % (0.1-12.0); Hematocrit 45.2 % (42.0-52.0); Hemoglobin 14.7 g/dL (14.1-18.0); Lymphocytes # 0.3 K/mm3 (0.7-4.5); Mean Corpuscular HGB Conc 32.5 g/dL (31.8-35.4); Mean Corpuscular Hemoglobin 31.7 pg (27.0-31.2); Mean Corpuscular Volume 97.7 fl (80-94); Mean Platelet Volume 10.6 fl (7.4-10.4); Monocytes # 0.6 K/mm3 (0.1-1.0); Monocytes % 3.8 % (1.7-9.3); Neutrophils # 14.5 K/mm3 (1.8-7.8); Platelet Count 242 K/mm3 (142-424); Potassium 4.2 mmoL/L (3.5-5.1); Red Blood Count 4.63 M/mm3 (4.60-6.20); Red Cell Distribution Width 14.3 % (11.5-17.5); Sodium 133 mmol/L (136-145); White Blood Count 15.4 K/mm3 (4.8-10.8)
[2021-09-22 06:12] LABS: Anion Gap 12.2 mEq/L (5-15); Blood Urea Nitrogen 51 mg/dl (9-20); Carbon Dioxide 36 mmol/L (22.0-30.0); Creatinine Clearance Estimated 64 mL/min (50-200); Estimated Glomerular Filt Rate 74 ml/min (>60); GFR (African American) 90 ML/MIN (>60)
[2021-09-22 06:13] LABS: Calcium 8.5 mg/dl (8.4-10.2); Glucose 208 mg/dl (74-100); MANUAL DIFFERENTIAL MANUAL DIFFERENTIAL (MANUAL DIFF)
[2021-09-22 06:32] LABS: Lymphocytes % 2 % (10-50); Monocytes % 6 % (2-9); Neutrophils % 92 % (42-76); Platelet Estimate Normal; RBC Morphology Normal; Total Cells Counted 100
--- NOTE | 2021-09-22 07:10 | HMH.ACPN2 ---
Internal Medicine - PN: Subj *Date: 09/22/21 *Time: 07:10 Interval history: Patient claims to feel good. HFNC is at 30 L/min with FiO2 of 60%. HFNC plus nonrebreather is keeping patient in the high 80s and low 90s. Nursing staff reports patient did desaturate overnight which required temporary increase in FiO2 back to 75%. Patient does get short of breath with even light activity such as transferring from bed to chair. Patient was started on sliding scale insulin yesterday due to hyperglycemia caused by his steroids Exam Vital signs and Labs for Last 24 Hours: Temp Pulse Resp BP Pulse Ox 97.8 F 78 20 119/50 L 90 L 09/22/21 04:00 09/22/21 04:00 09/22/21 04:00 09/22/21 04:00 09/22/21 04:00 Laboratory Results - last 24 hr 09/21/21 06:12: Total Counted 100, Neutrophils % (Manual) 94 H, Lymphocytes % (Manual) 2 L, Monocytes % (Manual) 4, Platelet Estimate Normal, RBC Morphology Normal 09/21/21 11:01: POC Glucose 487 H* 09/21/21 20:56: POC Glucose 369 H* 09/22/21 05:35: WBC 15.4 H, RBC 4.63, Hgb 14.7, Hct 45.2, MCV 97.7 H, MCH 31.7 H, MCHC 32.5, RDW 14.3, Plt Count 242, MPV 10.6 H, Neut % (Auto) 94.0 H, Lymph % (Auto) 2.0 L, [place] % (Auto) 3.8, Eos % (Auto) 0.2, Baso % (Auto) 0.1, Neut # (Auto) 14.5 H, Lymph # (Auto) 0.3 L, [place] # (Auto) 0.6, Eos # (Auto) 0.0, Baso # (Auto) 0.0, Total Counted 100, Neutrophils % (Manual) 92 H, Lymphocytes % (Manual) 2 L, Monocytes % (Manual) 6, Platelet Estimate Normal, RBC Morphology Normal 09/22/21 05:35: Sodium 133 L, Potassium 4.2, Chloride 89 L, Carbon Dioxide 36 H, Anion Gap 12.2, BUN 51 H, Creatinine 1.00, Estimated Creat Clear 64, Estimated GFR 74, Est GFR ( Amer) 90, Glucose 208 H D, Calcium 8.5 09/22/21 05:35: POC Glucose 198 H I & O for Last 24 hours: Intake & Output 09/19/21 09/20/21 09/21/21 09/22/21 11:59 11:59 11:59 11:59 Intake Total 1120 / 1120 1080 / 1080 960 / 960 600 / 600 Output Total 2100 / 2100 3800 / 3800 1750 / 1750 2850 / 2850 Balance -980 / -980 -2720 / -2720 -790 / -790 -2250 / -2250 Weight 264 lb 4.995 oz 264 lb 4 oz 264 lb Narrative: When I entered the room patient was breathing heavily and had just finished moving from his bed to the chair. Breath sounds remain distant. Heart has a regular rate and rhythm. Patient has some trace edema on the posterior lower extremities. Assessment and Plan (1) Acute respiratory failure due to COVID-19 Status: Acute Category: Medical Code(s): U07.1 - COVID-19; J96.00 - Acute respiratory failure, unspecified whether with hypoxia or hypercapnia (2) Acute kidney injury Status: Resolved Category: Medical Code(s): N17.9 - Acute kidney failure, unspecified (3) COPD (chronic obstructive pulmonary disease) Status: Acute Qualifiers: COPD type: unspecified COPD Qualified Code(s): J44.9 - Chronic obstructive pulmonary disease, unspecified Category: Medical Code(s): J44.9 - Chronic obstructive pulmonary disease, unspecified (4) COVID-19 with pulmonary comorbidity Status: Acute Category: Medical Code(s): U07.1 - COVID-19; J98.4 - Other disorders of lung (5) Obesity (BMI 30-39.9) Status: Acute Category: Medical Code(s): E66.9 - Obesity, unspecified (6) Thrombocytopenia associated with COVID-19 Status: Resolved Category: Medical Code(s): U07.1 - COVID-19; D69.59 - Other secondary thrombocytopenia (7) Hx of CABG Status: Chronic Category: Surgical Code(s): Z95.1 - Presence of aortocoronary bypass graft (8) CAD (coronary artery disease) Status: Chronic Qualifiers: Coronary Disease-Associated Artery/Lesion type: bypass graft [place] vs. transplanted heart: [place] heart Associated angina: with other forms of angina Qualified Code(s): I25.708 - Atherosclerosis of coronary artery bypass graft(s), unspecified, with other forms of angina pectoris Category: Medical Code(s): I25.10 - Atherosclerotic heart disease of [place] coronary artery without angina
--- NOTE | 2021-09-22 09:21 | HMH.PULMPN ---
Internal Medicine - PN: Subj *Date: 09/22/21 *Time: 14:20 Interval history: No acute respiratory events overnight Exam - Constitutional Constitutional:: Present: no acute distress, comfortable - HENMT Exam HENMT: Present: normocephalic, atraumatic - Eye Exam Eyes:: Present: normal appearance both eyes and related structures - Neck Exam Neck:: Present: normal visual inspection - Respiratory Exam Respiratory:: Present: able to speak in complete sentences, respiratory distress, crackles, rales - Cardiovascular Exam Cardiac:: Present: S1, S2 - GI Exam GI:: Present: soft - Skin Exam Skin: Present: warm, no rash, dry - Neurological Exam Neurological: Present: alert, awake, normal cognition - Extremities Exam Extremities: Present: no cyanosis, no clubbing, edema Assessment and Plan (1) Acute respiratory failure due to COVID-19 Status: Acute Category: Medical Code(s): U07.1 - COVID-19; J96.00 - Acute respiratory failure, unspecified whether with hypoxia or hypercapnia (2) Acute kidney injury Status: Resolved Category: Medical Code(s): N17.9 - Acute kidney failure, unspecified (3) COPD (chronic obstructive pulmonary disease) Status: Acute Qualifiers: COPD type: unspecified COPD Qualified Code(s): J44.9 - Chronic obstructive pulmonary disease, unspecified Category: Medical Code(s): J44.9 - Chronic obstructive pulmonary disease, unspecified (4) COVID-19 with pulmonary comorbidity Status: Acute Category: Medical Code(s): U07.1 - COVID-19; J98.4 - Other disorders of lung (5) Obesity (BMI 30-39.9) Status: Acute Category: Medical Code(s): E66.9 - Obesity, unspecified (6) Thrombocytopenia associated with COVID-19 Status: Resolved Category: Medical Code(s): U07.1 - COVID-19; D69.59 - Other secondary thrombocytopenia (7) Hx of CABG Status: Chronic Category: Surgical Code(s): Z95.1 - Presence of aortocoronary bypass graft (8) CAD (coronary artery disease) Status: Chronic Qualifiers: Coronary Disease-Associated Artery/Lesion type: bypass graft [place] vs. transplanted heart: [place] heart Associated angina: with other forms of angina Qualified Code(s): I25.708 - Atherosclerosis of coronary artery bypass graft(s), unspecified, with other forms of angina pectoris Category: Medical Code(s): I25.10 - Atherosclerotic heart disease of [place] coronary artery without angina pectoris (9) Atrial fibrillation Status: Acute Qualifiers: Atrial fibrillation type: paroxysmal Qualified Code(s): I48.0 - Paroxysmal atrial fibrillation Category: Medical Code(s): I48.91 - Unspecified atrial fibrillation (10) Steroid-induced hyperglycemia Status: Acute Category: Medical Code(s): R73.9 - Hyperglycemia, unspecified; T38.0X5A - Adverse effect of glucocorticoids and synthetic analogues, initial encounter - Assessment and plan all Dx Assessment and Plan for all problems:: #Acute chronic hypoxic respiratory failure: #COVID-19 pneumonia: Mr. Estevez is 66-year-old male greater than [id number] smoking history, last smoked 16 years ago used to smoke 3 to 4 packs a day, history of CAD, COPD presented to the hospital with worsening respiratory failure not associated with any productive phlegm.Patient on admission found to be COVID-19 positive and pulmonary was called for further management. Patient had a prior history of recurrent UTIs with Enterococcus faecalis levofloxacin sensitive on staph.epi. Patient chest x-ray admission bilateral pulmonary infiltrates left greater than right. Patient also noted to have MONA on CKD along with evidence of volume overload bilateral lower extremity edema and elevated BNP at admission troponins were also elevated on admission D-dimer elevated at 0.80. No evidence of DVT on bilateral lower extremity Doppler. CTA performed, significant motion artifact noted with questionable right lower lobe pulmonary embolism. We will dangelo
[2021-09-22 11:25] LABS: POC Glucose,Bedside 204 (70-110)
[2021-09-22 11:28] LABS: POC Glucose,Bedside 352 (70-110)
--- NOTE | 2021-09-22 15:31 | PC.NURSE ---
NO ACUTE CHANGES NOTED DURING THIS SHIFT. PT REMAINS AOX4, ABLE TO MAKE NEEDS KNOWN TO STAFF, HE SPENT ALL OF THIS SHIFT UP TO THE CHAIR AND TOLERATED WELL. HE STILL REQUIRES VAPOTHERM FOR O2 SUPPORT WITH SETTING @ 30LPM/60% FIO2 WITH NON RE-BREATHER IN PLACE OVER TOP OF THE VAPOTHERM. O2 SAT AT TIME OF WRITING IN 93%. DURING MEALS THIS RN WITH ASSISTANCE FROM RESPIRATORY TITRATED FIO2 TO 70% R/T CONTINUED DESATURATIONS WITH NON-REBREATHER REMOVED. OTHERWISE OTHER VSS AND HE HAS REMAINED AFEBRILE. PT DID C/O NAUSEA BUT REPORTED NO VOMITING. HE WAS MEDICATED PER MAR WITH PRN ZOFRAN WITH GOOD EFFECTIVENESS AND EMESIS BAG WAS PLACED AT BEDSIDE. SOME BLOOD TINGED URINE WAS NOTICED IN TRIVEDI BAG AND MD WAS NOTIFIED VIA TELEPHONE. PT DID C/O PAIN TO HIS PENIS WHERE CATHETER WAS INSERTED. PT ABD WAS SOFT AND NON-TENDER, NO EVIDENCE OF BLADDER DISTENTION ON PALPATION. BOWEL SOUNDS ACTIVE X4.
[2021-09-22 19:56] LABS: POC Glucose,Bedside 209 (70-110)
[2021-09-22 20:54] LABS: POC Glucose,Bedside 208 (70-110)
[2021-09-23] VITALS (10 sets, daily range): BP systolic 91–145; BP diastolic 57–71; PULSE 56–77; RESP 20–22; TEMP 36.4–36.9; O2SAT 88–95; BMI 41.4
--- NOTE | 2021-09-23 04:18 | PC.NURSE ---
pt has rested in his recliner this shift. no acute changes. continues on vapotherm 30lpm 70%fio2 in addition to non rebreather. O2 has remained in the low 90s. pt refused his vit c and potassium earlier this shift despite encouragement. no c/o pain or discomfort voiced. resting in his recliner at this time. call light within reach.
[2021-09-23 05:56] LABS: POC Glucose,Bedside 170 (70-110)
[2021-09-23 06:33] LABS: Basophils # 0.2 K/mm3 (0-0.2); Basophils % 1.5 % (0.1-2.0); Eosinophils # 0.1 K/mm3 (0.0-0.4); Eosinophils % 0.5 % (0.1-12.0); Hematocrit 44.9 % (42.0-52.0); Hemoglobin 14.3 g/dL (14.1-18.0); Lymphocytes # 0.5 K/mm3 (0.7-4.5); Lymphocytes % 3.8 % (10-50); Mean Corpuscular HGB Conc 31.9 g/dL (31.8-35.4); Mean Corpuscular Hemoglobin 31.5 pg (27.0-31.2); Mean Corpuscular Volume 98.7 fl (80-94); Mean Platelet Volume 10.2 fl (7.4-10.4); Monocytes # 0.7 K/mm3 (0.1-1.0); Monocytes % 5.1 % (1.7-9.3); Neutrophils # 11.9 K/mm3 (1.8-7.8); Neutrophils % 89.2 % (37.0-80.0); Platelet Count 221 K/mm3 (142-424); Red Blood Count 4.55 M/mm3 (4.60-6.20); Red Cell Distribution Width 14.4 % (11.5-17.5); White Blood Count 13.3 K/mm3 (4.8-10.8)
[2021-09-23 06:36] LABS: MANUAL DIFFERENTIAL MANUAL DIFFERENTIAL (MANUAL DIFF)
[2021-09-23 06:43] LABS: Hypochromasia 1+; Lymphocytes % 9 % (10-50); Macrocytosis 1+; Monocytes % 1 % (2-9); Neutrophils % 83 % (42-76); Platelet Estimate Normal; Total Cells Counted 100
[2021-09-23 06:46] LABS: Chloride 86 mmol/L (98-107); Sodium 130 mmol/L (136-145)
[2021-09-23 06:47] LABS: Potassium 3.7 mmoL/L (3.5-5.1)
[2021-09-23 06:49] LABS: Blood Urea Nitrogen 60 mg/dl (9-20); Creatinine Clearance Estimated 58 mL/min (50-200); Estimated Glomerular Filt Rate 67 ml/min (>60); GFR (African American) 81 ML/MIN (>60)
[2021-09-23 06:50] LABS: Anion Gap 11.7 mEq/L (5-15); Calcium 8.5 mg/dl (8.4-10.2); Carbon Dioxide 36 mmol/L (22.0-30.0); Glucose 189 mg/dl (74-100)
--- NOTE | 2021-09-23 08:50 | HMH.ACPN2 ---
Internal Medicine - PN: Subj *Date: 09/23/21 *Time: 08:50 Interval history: Patient has no complaints. No acute events over the last 24 hours. Currently HFNC is set to 30 L/min at 70% FiO2 Exam Vital signs and Labs for Last 24 Hours: Temp Pulse Resp BP Pulse Ox 98.4 F 75 20 130/71 92 L 09/23/21 08:00 09/23/21 08:00 09/23/21 08:00 09/23/21 08:00 09/23/21 08:00 Laboratory Results - last 24 hr 09/21/21 16:03: POC Glucose 352 H* 09/22/21 11:10: POC Glucose 204 H 09/22/21 16:16: POC Glucose 209 H 09/22/21 20:45: POC Glucose 208 H 09/23/21 05:12: POC Glucose 170 H 09/23/21 06:13: WBC 13.3 H, RBC 4.55 L, Hgb 14.3, Hct 44.9, MCV 98.7 H, MCH 31.5 H, MCHC 31.9, RDW 14.4, Plt Count 221, MPV 10.2, Neut % (Auto) 89.2 H, Lymph % (Auto) 3.8 L, [place] % (Auto) 5.1, Eos % (Auto) 0.5, Baso % (Auto) 1.5, Neut # (Auto) 11.9 H, Lymph # (Auto) 0.5 L, [place] # (Auto) 0.7, Eos # (Auto) 0.1, Baso # (Auto) 0.2, Total Counted 100, Neutrophils % (Manual) 83 H, Band Neutrophils % 7.0, Lymphocytes % (Manual) 9 L, Monocytes % (Manual) 1 L, Platelet Estimate Normal, Hypochromasia 1+, Macrocytosis 1+ 09/23/21 06:13: Sodium 130 L, Potassium 3.7, Chloride 86 L, Carbon Dioxide 36 H, Anion Gap 11.7, BUN 60 H, Creatinine 1.10, Estimated Creat Clear 58, Estimated GFR 67, Est GFR ( Amer) 81, Glucose 189 H, Calcium 8.5 I & O for Last 24 hours: Intake & Output 09/20/21 09/21/21 09/22/21 09/23/21 11:59 11:59 11:59 11:59 Intake Total 1080 / 1080 960 / 960 840 / 840 240 / 240 Output Total 3800 / 3800 1750 / 1750 3800 / 3800 1500 / 1500 Balance -2720 / -2720 -790 / -790 -2960 / -2960 -1260 / -1260 Weight 264 lb 4 oz 264 lb 263 lb 15.986 oz Narrative: Patient looks well. Lungs are distant. Heart has a regular rate and rhythm. [place]on catheter has bloody urine. Assessment and Plan (1) Acute respiratory failure due to COVID-19 Status: Acute Category: Medical Code(s): U07.1 - COVID-19; J96.00 - Acute respiratory failure, unspecified whether with hypoxia or hypercapnia (2) Acute kidney injury Status: Resolved Category: Medical Code(s): N17.9 - Acute kidney failure, unspecified (3) COPD (chronic obstructive pulmonary disease) Status: Acute Qualifiers: COPD type: unspecified COPD Qualified Code(s): J44.9 - Chronic obstructive pulmonary disease, unspecified Category: Medical Code(s): J44.9 - Chronic obstructive pulmonary disease, unspecified (4) COVID-19 with pulmonary comorbidity Status: Acute Category: Medical Code(s): U07.1 - COVID-19; J98.4 - Other disorders of lung (5) Obesity (BMI 30-39.9) Status: Acute Category: Medical Code(s): E66.9 - Obesity, unspecified (6) Thrombocytopenia associated with COVID-19 Status: Resolved Category: Medical Code(s): U07.1 - COVID-19; D69.59 - Other secondary thrombocytopenia (7) Hx of CABG Status: Chronic Category: Surgical Code(s): Z95.1 - Presence of aortocoronary bypass graft (8) CAD (coronary artery disease) Status: Chronic Qualifiers: Coronary Disease-Associated Artery/Lesion type: bypass graft [place] vs. transplanted heart: [place] heart Associated angina: with other forms of angina Qualified Code(s): I25.708 - Atherosclerosis of coronary artery bypass graft(s), unspecified, with other forms of angina pectoris Category: Medical Code(s): I25.10 - Atherosclerotic heart disease of [place] coronary artery without angina pectoris (9) Atrial fibrillation Status: Acute Qualifiers: Atrial fibrillation type: paroxysmal Qualified Code(s): I48.0 - Paroxysmal atrial fibrillation Category: Medical Code(s): I48.91 - Unspecified atrial fibrillation (10) Steroid-induced hyperglycemia Status: Acute Category: Medical Code(s): R73.9 - Hyperglycemia, unspecified; T38.0X5A - Adverse effect of glucocorticoids and synthetic analogues, initial encounter - Assessment and plan all Dx Assessment and Plan for all problem
[2021-09-23 11:25] LABS: POC Glucose,Bedside 196 (70-110)
[2021-09-23 17:23] LABS: POC Glucose,Bedside 197 (70-110)
[2021-09-23 21:49] LABS: POC Glucose,Bedside 162 (70-110)
[2021-09-24] VITALS (7 sets, daily range): BP systolic 104–131; BP diastolic 56–70; PULSE 79–92; RESP 18–22; TEMP 36.4–36.9; O2SAT 90–96; BMI 41.1
[2021-09-24 06:00] LABS: POC Glucose,Bedside 141 (70-110)
--- NOTE | 2021-09-24 06:30 | PC.NURSE ---
This RN was notified of pt O2 sustaining 82-85%. RT titrated vapotherm up to 30 L, 100% tolerating well with sats above 88%. Pt continues to refuse PO Potassium and Vit. C. No complaints voiced to staff. Able to ambulate to bed from chair with 2x assist. Easton catheter in place draining dark red urine by gravity. Bed alarm in place for safety.
[2021-09-24 07:03] LABS: Basophils % 0.4 % (0.1-2.0); Eosinophils # 0.1 K/mm3 (0.0-0.4); Eosinophils % 0.9 % (0.1-12.0); Hematocrit 41.9 % (42.0-52.0); Hemoglobin 13.7 g/dL (14.1-18.0); Lymphocytes # 1.1 K/mm3 (0.7-4.5); Lymphocytes % 10.2 % (10-50); Mean Corpuscular HGB Conc 32.7 g/dL (31.8-35.4); Mean Corpuscular Hemoglobin 31.7 pg (27.0-31.2); Mean Corpuscular Volume 96.9 fl (80-94); Mean Platelet Volume 10.5 fl (7.4-10.4); Monocytes # 0.3 K/mm3 (0.1-1.0); Monocytes % 2.5 % (1.7-9.3); Neutrophils # 8.9 K/mm3 (1.8-7.8); Neutrophils % 86.1 % (37.0-80.0); Platelet Count 190 K/mm3 (142-424); Red Blood Count 4.32 M/mm3 (4.60-6.20); Red Cell Distribution Width 14.3 % (11.5-17.5); White Blood Count 10.3 K/mm3 (4.8-10.8)
[2021-09-24 07:04] LABS: MANUAL DIFFERENTIAL MANUAL DIFFERENTIAL (MANUAL DIFF)
[2021-09-24 07:30] LABS: Chloride 86 mmol/L (98-107); Potassium 3.5 mmoL/L (3.5-5.1); Sodium 131 mmol/L (136-145)
[2021-09-24 07:33] LABS: Anion Gap 10.5 mEq/L (5-15); Blood Urea Nitrogen 53 mg/dl (9-20); Calcium 8.5 mg/dl (8.4-10.2); Carbon Dioxide 38 mmol/L (22.0-30.0); Creatinine Clearance Estimated 64 mL/min (50-200); Estimated Glomerular Filt Rate 84 ml/min (>60); GFR (African American) 102 ML/MIN (>60); Glucose 145 mg/dl (74-100)
--- NOTE | 2021-09-24 08:38 | HMH.ACPN2 ---
Internal Medicine - PN: Subj *Date: 09/24/21 *Time: 08:38 Interval history: No acute events during the day. Yesterday evening patient's FiO2 was increased back to 100% when patient desatted to the high seventies and low eighties. He has been using incentive spirometry. Patient has remained stable since adjustment in HFWI Exam Vital signs and Labs for Last 24 Hours: Temp Pulse Resp BP Pulse Ox 97.6 F 79 18 104/59 L 92 L 09/24/21 03:47 09/24/21 03:47 09/24/21 03:47 09/24/21 03:47 09/24/21 03:47 Laboratory Results - last 24 hr 09/23/21 11:02: POC Glucose 196 H 09/23/21 16:44: POC Glucose 197 H 09/23/21 21:16: POC Glucose 162 H 09/24/21 05:51: POC Glucose 141 H 09/24/21 06:28: WBC 10.3, RBC 4.32 L, Hgb 13.7 L, Hct 41.9 L, MCV 96.9 H, MCH 31.7 H, MCHC 32.7, RDW 14.3, Plt Count 190, MPV 10.5 H, Neut % (Auto) 86.1 H, Lymph % (Auto) 10.2, [place] % (Auto) 2.5, Eos % (Auto) 0.9, Baso % (Auto) 0.4, Neut # (Auto) 8.9 H, Lymph # (Auto) 1.1, [place] # (Auto) 0.3, Eos # (Auto) 0.1, Baso # (Auto) 0.0 09/24/21 06:28: Sodium 131 L, Potassium 3.5, Chloride 86 L, Carbon Dioxide 38 H, Anion Gap 10.5, BUN 53 H, Creatinine 0.90, Estimated Creat Clear 64, Estimated GFR 84, Est GFR ( Amer) 102 D, Glucose 145 H, Calcium 8.5 I & O for Last 24 hours: Intake & Output 09/21/21 09/22/21 09/23/21 09/24/21 11:59 11:59 11:59 11:59 Intake Total 960 / 960 840 / 840 960 / 960 540 / 540 Output Total 1750 / 1750 3800 / 3800 2000 / 1999 1375 / 1375 Balance -790 / -790 -2960 / -2960 -1040 / -1040 -835 / -835 Weight 264 lb 263 lb 15.986 oz 262 lb 3 oz Narrative: Patient does not appear to be in any distress. Breath sounds are distant with some scattered rhonchi. Heart has a regular rate and rhythm. Abdomen is soft and nontender. Extremities have trace edema in the legs Assessment and Plan (1) Acute respiratory failure due to COVID-19 Status: Acute Category: Medical Code(s): U07.1 - COVID-19; J96.00 - Acute respiratory failure, unspecified whether with hypoxia or hypercapnia (2) Acute kidney injury Status: Resolved Category: Medical Code(s): N17.9 - Acute kidney failure, unspecified (3) COPD (chronic obstructive pulmonary disease) Status: Acute Qualifiers: COPD type: unspecified COPD Qualified Code(s): J44.9 - Chronic obstructive pulmonary disease, unspecified Category: Medical Code(s): J44.9 - Chronic obstructive pulmonary disease, unspecified (4) COVID-19 with pulmonary comorbidity Status: Acute Category: Medical Code(s): U07.1 - COVID-19; J98.4 - Other disorders of lung (5) Obesity (BMI 30-39.9) Status: Acute Category: Medical Code(s): E66.9 - Obesity, unspecified (6) Thrombocytopenia associated with COVID-19 Status: Resolved Category: Medical Code(s): U07.1 - COVID-19; D69.59 - Other secondary thrombocytopenia (7) Hx of CABG Status: Chronic Category: Surgical Code(s): Z95.1 - Presence of aortocoronary bypass graft (8) CAD (coronary artery disease) Status: Chronic Qualifiers: Coronary Disease-Associated Artery/Lesion type: bypass graft [place] vs. transplanted heart: [place] heart Associated angina: with other forms of angina Qualified Code(s): I25.708 - Atherosclerosis of coronary artery bypass graft(s), unspecified, with other forms of angina pectoris Category: Medical Code(s): I25.10 - Atherosclerotic heart disease of [place] coronary artery without angina pectoris (9) Atrial fibrillation Status: Acute Qualifiers: Atrial fibrillation type: paroxysmal Qualified Code(s): I48.0 - Paroxysmal atrial fibrillation Category: Medical Code(s): I48.91 - Unspecified atrial fibrillation (10) Steroid-induced hyperglycemia Status: Acute Category: Medical Code(s): R73.9 - Hyperglycemia, unspecified; T38.0X5A - Adverse effect of glucocorticoids and synthetic analogues, initial encounter - Assessment and plan all Dx Assessment and Plan f
[2021-09-24 09:09] LABS: Eosinophils % 2 % (0-3); Hypochromasia 1+; Lymphocytes % 8 % (10-50); Macrocytosis 1+; Monocytes % 1 % (2-9); Neutrophils % 88 % (42-76); Nucleated Red Blood Cells 1; Platelet Estimate Normal; Total Cells Counted 100
[2021-09-24 11:20] LABS: POC Glucose,Bedside 175 (70-110)
[2021-09-24 22:22] LABS: POC Glucose,Bedside 249 (70-110)
[2021-09-24 22:46] LABS: POC Glucose,Bedside 242 (70-110)
[2021-09-25] VITALS (9 sets, daily range): BP systolic 107–136; BP diastolic 60–91; PULSE 68–93; RESP 18–22; TEMP 36.2–36.7; O2SAT 87–95; BMI 41.1
[2021-09-25 05:58] LABS: Basophils # 0.1 K/mm3 (0-0.2); Basophils % 0.4 % (0.1-2.0); Eosinophils # 0.2 K/mm3 (0.0-0.4); Eosinophils % 1.5 % (0.1-12.0); Hematocrit 38.4 % (42.0-52.0); Hemoglobin 12.8 g/dL (14.1-18.0); Lymphocytes # 0.6 K/mm3 (0.7-4.5); Lymphocytes % 6.2 % (10-50); Mean Corpuscular HGB Conc 33.3 g/dL (31.8-35.4); Mean Corpuscular Hemoglobin 32.1 pg (27.0-31.2); Mean Corpuscular Volume 96.6 fl (80-94); Mean Platelet Volume 10.1 fl (7.4-10.4); Monocytes # 0.4 K/mm3 (0.1-1.0); Monocytes % 3.4 % (1.7-9.3); Neutrophils # 9.1 K/mm3 (1.8-7.8); Neutrophils % 88.6 % (37.0-80.0); Platelet Count 169 K/mm3 (142-424); Red Blood Count 3.98 M/mm3 (4.60-6.20); Red Cell Distribution Width 14.2 % (11.5-17.5); White Blood Count 10.3 K/mm3 (4.8-10.8)
[2021-09-25 06:01] LABS: MANUAL DIFFERENTIAL MANUAL DIFFERENTIAL (MANUAL DIFF)
[2021-09-25 06:27] LABS: POC Glucose,Bedside 133 (70-110)
[2021-09-25 06:55] LABS: Blood Urea Nitrogen 44 mg/dl (9-20); Calcium 8.4 mg/dl (8.4-10.2); Chloride 85 mmol/L (98-107); Creatinine Clearance Estimated 64 mL/min (50-200); Estimated Glomerular Filt Rate 96 ml/min (>60); GFR (African American) 116 ML/MIN (>60); Glucose 134 mg/dl (74-100); Potassium 3.1 mmoL/L (3.5-5.1); Sodium 131 mmol/L (136-145)
[2021-09-25 07:02] LABS: Anion Gap 10.1 mEq/L (5-15); Carbon Dioxide 39 mmol/L (22.0-30.0)
--- NOTE | 2021-09-25 07:05 | PC.NURSE ---
No acute changes. Pt tolerated vapotherm 30L, 70% with non rebreather with sat above 88%. Pt has stage 2 pressure ulcer on left gluteus. Dressing applied. Pt was encouraged to use IS while awake. Best 2500 ml. [place] catheter in place draining dark demetrius urine by gravity. Pt able to ambulate to chair from bed with 2x assist. Weakness and SOB noted with exertion.
--- NOTE | 2021-09-25 07:19 | HMH.ACPN2 ---
Internal Medicine - PN: Subj *Date: 09/25/21 *Time: 07:19 Interval history: Patient has remained on combination of high flow nasal cannula and nonrebreather throughout the weekend. FiO2 on nonrebreather has varied from a low of 60% to 100%. Exam Vital signs and Labs for Last 24 Hours: Temp Pulse Resp BP Pulse Ox 97.4 F L 73 20 136/69 93 L 09/25/21 03:56 09/25/21 03:56 09/25/21 03:56 09/25/21 03:56 09/25/21 03:56 Laboratory Results - last 24 hr 09/24/21 06:28: Total Counted 100, Neutrophils % (Manual) 88 H, Lymphocytes % (Manual) 8 L, Monocytes % (Manual) 1 L, Eosinophils % (Manual) 2, Blast Cells % 1.0, Nucleated RBCs 1, Platelet Estimate Normal, Hypochromasia 1+, Macrocytosis 1+ 09/24/21 06:28: Sodium 131 L, Potassium 3.5, Chloride 86 L, Carbon Dioxide 38 H, Anion Gap 10.5, BUN 53 H, Creatinine 0.90, Estimated Creat Clear 64, Estimated GFR 84, Est GFR ( Amer) 102 D, Glucose 145 H, Calcium 8.5 09/24/21 11:04: POC Glucose 175 H 09/24/21 17:03: POC Glucose 249 H 09/24/21 21:59: POC Glucose 242 H 09/25/21 05:40: WBC 10.3, RBC 3.98 L, Hgb 12.8 L, Hct 38.4 L, MCV 96.6 H, MCH 32.1 H, MCHC 33.3, RDW 14.2, Plt Count 169, MPV 10.1, Neut % (Auto) 88.6 H, Lymph % (Auto) 6.2 L, [place] % (Auto) 3.4, Eos % (Auto) 1.5, Baso % (Auto) 0.4, Neut # (Auto) 9.1 H, Lymph # (Auto) 0.6 L, [place] # (Auto) 0.4, Eos # (Auto) 0.2, Baso # (Auto) 0.1 09/25/21 05:40: Sodium 131 L, Potassium 3.1 L, Chloride 85 L, Carbon Dioxide 39 H, Anion Gap 10.1, BUN 44 H, Creatinine 0.80, Estimated Creat Clear 64, Estimated GFR 96, Est GFR ( Amer) 116, Glucose 134 H, Calcium 8.4 09/25/21 05:57: POC Glucose 133 H I & O for Last 24 hours: Intake & Output 09/22/21 09/23/21 09/24/21 09/25/21 11:59 11:59 11:59 11:59 Intake Total 840 / 840 960 / 960 780 / 780 1320 / 1320 Output Total 3800 / 3800 1999 1375 / 1375 2350 / 2350 Balance -2960 / -2960 -1040 / -1040 -595 / -595 -1030 / -1030 Weight 263 lb 15.986 oz 262 lb 3 oz 262 lb 2 oz - Constitutional no acute distress - *Routine Respiratory Exam Present: distant breath sounds - *Routine Cardiovascular Exam Present: RRR - *Routine Abdominal Exam Present: soft, normoactive bowel sounds. Absent: tenderness - *Routine Extremities Exam Absent: edema Assessment and Plan (1) Acute respiratory failure due to COVID-19 Status: Acute Category: Medical Code(s): U07.1 - COVID-19; J96.00 - Acute respiratory failure, unspecified whether with hypoxia or hypercapnia (2) Acute kidney injury Status: Resolved Category: Medical Code(s): N17.9 - Acute kidney failure, unspecified (3) COPD (chronic obstructive pulmonary disease) Status: Acute Qualifiers: COPD type: unspecified COPD Qualified Code(s): J44.9 - Chronic obstructive pulmonary disease, unspecified Category: Medical Code(s): J44.9 - Chronic obstructive pulmonary disease, unspecified (4) COVID-19 with pulmonary comorbidity Status: Acute Category: Medical Code(s): U07.1 - COVID-19; J98.4 - Other disorders of lung (5) Obesity (BMI 30-39.9) Status: Acute Category: Medical Code(s): E66.9 - Obesity, unspecified (6) Thrombocytopenia associated with COVID-19 Status: Resolved Category: Medical Code(s): U07.1 - COVID-19; D69.59 - Other secondary thrombocytopenia (7) Hx of CABG Status: Chronic Category: Surgical Code(s): Z95.1 - Presence of aortocoronary bypass graft (8) CAD (coronary artery disease) Status: Chronic Qualifiers: Coronary Disease-Associated Artery/Lesion type: bypass graft [place] vs. transplanted heart: [place] heart Associated angina: with other forms of angina Qualified Code(s): I25.708 - Atherosclerosis of coronary artery bypass graft(s), unspecified, with other forms of angina pectoris Category: Medical Code(s): I25.10 - Atherosclerotic heart disease of [place] coronary artery without angina pectoris (9) Atrial fibrillation Status: Acute Qualif
[2021-09-25 07:57] LABS: Eosinophils % 1 % (0-3); Lymphocytes % 7 % (10-50); Monocytes % 4 % (2-9); Neutrophils % 88 % (42-76); Platelet Estimate Normal; RBC Morphology Normal; Total Cells Counted 100
--- NOTE | 2021-09-25 09:52 | XR_ITS ---
PROCEDURE: XR CHEST PORTABLE CLINICAL HISTORY: PNMN COMPARISON: CR XR CHEST PORTABLE from 09/11/[address] ANGIO CHEST PE PROTOCOL from 09/12/2021 CR XR CHEST PORTABLE from 09/18/2021 CR XR CHEST PORTABLE from 09/21/2021 FINDINGS: There has been a prior median sternotomy. The heart size is normal. There remains mild diffuse bilateral airspace disease consistent with bilateral pneumonia which may have both an alveolar and interstitial component. No acute bony abnormalities. IMPRESSION: No change mild diffuse bilateral airspace disease suggesting bilateral Dictated by: Hao Scales MD 09/25/2021 14:08 Hao Scales MD in [place] 09/25/2021 14:08
--- NOTE | 2021-09-25 12:09 | HMH.PULMPN ---
Internal Medicine - PN: Subj *Date: 09/25/21 *Time: 12:09 Interval history: No acute respite events overnight. Patient denies any new complaints. Exam - Constitutional Constitutional:: Present: no acute distress, comfortable - HENMT Exam HENMT: Present: normocephalic, atraumatic - Eye Exam Eyes:: Present: normal appearance both eyes and related structures - Neck Exam Neck:: Present: normal visual inspection - Respiratory Exam Respiratory:: Present: able to speak in complete sentences, respiratory distress, rales - Cardiovascular Exam Cardiac:: Present: S1, S2 - GI Exam GI:: Present: soft - Skin Exam Skin: Present: warm, no rash - Neurological Exam Neurological: Present: alert, awake, normal cognition - Extremities Exam Extremities: Present: no cyanosis, no clubbing, edema Assessment and Plan (1) Acute respiratory failure due to COVID-19 Status: Acute Category: Medical Code(s): U07.1 - COVID-19; J96.00 - Acute respiratory failure, unspecified whether with hypoxia or hypercapnia (2) Acute kidney injury Status: Resolved Category: Medical Code(s): N17.9 - Acute kidney failure, unspecified (3) COPD (chronic obstructive pulmonary disease) Status: Acute Qualifiers: COPD type: unspecified COPD Qualified Code(s): J44.9 - Chronic obstructive pulmonary disease, unspecified Category: Medical Code(s): J44.9 - Chronic obstructive pulmonary disease, unspecified (4) COVID-19 with pulmonary comorbidity Status: Acute Category: Medical Code(s): U07.1 - COVID-19; J98.4 - Other disorders of lung (5) Obesity (BMI 30-39.9) Status: Acute Category: Medical Code(s): E66.9 - Obesity, unspecified (6) Thrombocytopenia associated with COVID-19 Status: Resolved Category: Medical Code(s): U07.1 - COVID-19; D69.59 - Other secondary thrombocytopenia (7) Hx of CABG Status: Chronic Category: Surgical Code(s): Z95.1 - Presence of aortocoronary bypass graft (8) CAD (coronary artery disease) Status: Chronic Qualifiers: Coronary Disease-Associated Artery/Lesion type: bypass graft [place] vs. transplanted heart: [place] heart Associated angina: with other forms of angina Qualified Code(s): I25.708 - Atherosclerosis of coronary artery bypass graft(s), unspecified, with other forms of angina pectoris Category: Medical Code(s): I25.10 - Atherosclerotic heart disease of [place] coronary artery without angina pectoris (9) Atrial fibrillation Status: Acute Qualifiers: Atrial fibrillation type: paroxysmal Qualified Code(s): I48.0 - Paroxysmal atrial fibrillation Category: Medical Code(s): I48.91 - Unspecified atrial fibrillation (10) Steroid-induced hyperglycemia Status: Acute Category: Medical Code(s): R73.9 - Hyperglycemia, unspecified; T38.0X5A - Adverse effect of glucocorticoids and synthetic analogues, initial encounter - Assessment and plan all Dx Assessment and Plan for all problems:: #Acute chronic hypoxic respiratory failure: #COVID-19 pneumonia: Mr. Estevez is 66-year-old male greater than [id number] smoking history, last smoked 16 years ago used to smoke 3 to 4 packs a day, history of CAD, COPD presented to the hospital with worsening respiratory failure not associated with any productive phlegm.Patient on admission found to be COVID-19 positive and pulmonary was called for further management. Patient had a prior history of recurrent UTIs with Enterococcus faecalis levofloxacin sensitive on staph.epi. Patient chest x-ray admission bilateral pulmonary infiltrates left greater than right. Patient also noted to have MONA on CKD along with evidence of volume overload bilateral lower extremity edema and elevated BNP at admission troponins were also elevated on admission D-dimer elevated at 0.80. No evidence of DVT on bilateral lower extremity Doppler. CTA performed, significant motion artifact noted with questionable right lower lobe pulmonary embo
[2021-09-25 13:30] LABS: C-Reactive Protein 147.1 mg/L (0-4); D-Dimer 2.32 ug/mL (0.0-0.5)
[2021-09-25 14:38] LABS: POC Glucose,Bedside 254 (70-110)
--- NOTE | 2021-09-25 16:26 | CA_ITS ---
APPROVED REPORT Bilateral Lower Extremity Venous Study for DVT. Senior Sharepoint Developer: Benjamin RVS Indications Hypoxia, COVID, elevated D-dimer Vein Imaging CFV (R): compressive, spontaneous, phasic, augmentation SFJ (R): compressive, spontaneous, phasic, augmentation FEM (R): compressive, spontaneous, phasic, augmentation POP (R): compressive, spontaneous, phasic, augmentation DFV (R): compressive, spontaneous, phasic, augmentation PTV (R): compressive, spontaneous, phasic, augmentation GSV (R): compressive, spontaneous, phasic, augmentation SSV (R): compressive, spontaneous, phasic, augmentation Peroneals (R):compressive, spontaneous, phasic, augmentation GAS (R): compressive, spontaneous, phasic, augmentation CFV (L): compressive, spontaneous, phasic, augmentation SFJ (L): compressive, spontaneous, phasic, augmentation FEM (L): compressive, spontaneous, phasic, augmentation POP (L): compressive, spontaneous, phasic, augmentation DFV (L): compressive, spontaneous, phasic, augmentation PTV (L): compressive, spontaneous, phasic, augmentation GSV (L): compressive, spontaneous, phasic, augmentation SSV (L): compressive, spontaneous, phasic, augmentation Peroneals (L):compressive, spontaneous, phasic, augmentation GAS (L): compressive, spontaneous, phasic, augmentation Findings Color flow duplex demonstrates slow flow in the right common femoral juction and Left profunda, with complete compression throughout exam. Doppler evidence demonstrates augmentation of flow with minimal effort. Negative for DVT at this time. Conclusion Color flow duplex demonstrates slow flow in the right common femoral juction and Left profunda, with complete compression throughout exam. Doppler evidence demonstrates augmentation of flow with minimal effort. Negative for DVT at this time. Electronically signed by : Hao Scales MD 09/26/2021 18:26:14
[2021-09-25 16:50] LABS: Lactate Dehydrogenase 578 U/L (313-618)
[2021-09-25 17:31] LABS: POC Glucose,Bedside 266 (70-110)
--- NOTE | 2021-09-25 19:51 | PC.NURSE ---
Have attempted to just use vapotherm w/o non rebreather this shift and pt will desat into 80's and 70's with talking and eating. Pt's vaptherm has been on 30 L and 65% most of shift. Vapotherm turned up at 1900 per RT to 30 L and 70%. CB in reach. VSS. have encouraged pt to continue with IS. Urine in [place] has had blood noted, in dark urine (demetrius color). meds per jan. Dsg remains intact to coccyx.
--- NOTE | 2021-09-25 19:56 | PC.NURSE ---
This RN did also notify Dr. Rod's office of elevated D Dimer and CRP.
[2021-09-25 22:19] LABS: POC Glucose,Bedside 298 (70-110)
[2021-09-26] VITALS (11 sets, daily range): BP systolic 104–140; BP diastolic 51–95; PULSE 71–94; RESP 19–26; TEMP 36.6–36.9; O2SAT 90–95; BMI 40.3
--- NOTE | 2021-09-26 03:36 | PC.NURSE ---
No acute changes this shift. Pt has rested well t/o shift. He has remained on Vapotherm 30/ and non-rebreather sats above 88%. No c/o pain or SOA. [place] at bedside draining dark urine with hematuria noted. VSS , CB in reach will continue to monitor.
[2021-09-26 05:34] LABS: POC Glucose,Bedside 141 (70-110)
[2021-09-26 07:07] LABS: Basophils # 0.1 K/mm3 (0-0.2); Basophils % 0.7 % (0.1-2.0); Eosinophils # 0.2 K/mm3 (0.0-0.4); Eosinophils % 1.6 % (0.1-12.0); Hematocrit 39.9 % (42.0-52.0); Hemoglobin 13.4 g/dL (14.1-18.0); Lymphocytes # 1.1 K/mm3 (0.7-4.5); Lymphocytes % 8.4 % (10-50); Mean Corpuscular HGB Conc 33.6 g/dL (31.8-35.4); Mean Corpuscular Hemoglobin 32.4 pg (27.0-31.2); Mean Corpuscular Volume 96.4 fl (80-94); Mean Platelet Volume 10.9 fl (7.4-10.4); Monocytes # 0.3 K/mm3 (0.1-1.0); Monocytes % 2.3 % (1.7-9.3); Neutrophils # 11.1 K/mm3 (1.8-7.8); Platelet Count 197 K/mm3 (142-424); Red Blood Count 4.14 M/mm3 (4.60-6.20); Red Cell Distribution Width 14.7 % (11.5-17.5); White Blood Count 12.8 K/mm3 (4.8-10.8)
[2021-09-26 07:16] LABS: Anion Gap 8.2 mEq/L (5-15); Blood Urea Nitrogen 40 mg/dl (9-20); Calcium 8.6 mg/dl (8.4-10.2); Carbon Dioxide 39 mmol/L (22.0-30.0); Chloride 88 mmol/L (98-107); Creatinine Clearance Estimated 64 mL/min (50-200); Estimated Glomerular Filt Rate 96 ml/min (>60); GFR (African American) 116 ML/MIN (>60); Glucose 152 mg/dl (74-100); Potassium 4.2 mmoL/L (3.5-5.1); Sodium 131 mmol/L (136-145)
--- NOTE | 2021-09-26 07:19 | HMH.ACPN2 ---
Internal Medicine - PN: Subj *Date: 09/26/21 *Time: 07:19 Interval history: Patient is had no acute events in the last 24 hours. He remains stable on combination of HFNC and nonrebreather. Currently HFNC is set to 70% FiO2 and 30 L/min and with this alone his O2 sats are 76% when I enter the room. Application of nonrebreather will bring patient's O2 sats to the mid 90s. Exam Vital signs and Labs for Last 24 Hours: Temp Pulse Resp BP Pulse Ox 97.9 F 81 19 116/58 L 95 09/26/21 04:00 09/26/21 06:07 09/26/21 04:00 09/26/21 04:00 09/26/21 04:00 Laboratory Results - last 24 hr 09/25/21 05:40: Total Counted 100, Neutrophils % (Manual) 88 H, Lymphocytes % (Manual) 7 L, Monocytes % (Manual) 4, Eosinophils % (Manual) 1, Platelet Estimate Normal, RBC Morphology Normal 09/25/21 12:52: POC Glucose 254 H 09/25/21 13:05: D-Dimer 2.32 H 09/25/21 13:05: C-Reactive Protein 147.1 H 09/25/21 13:05: Lactate Dehydrogenase 578 09/25/21 13:05: Procalcitonin 1.40 09/25/21 17:16: POC Glucose 266 H 09/25/21 20:41: POC Glucose 298 H 09/26/21 05:10: POC Glucose 141 H 09/26/21 06:50: Sodium 131 L, Potassium 4.2 D, Chloride 88 L, Carbon Dioxide 39 H, Anion Gap 8.2, BUN 40 H, Creatinine 0.80, Estimated Creat Clear 64, Estimated GFR 96, Est GFR ( Amer) 116, Glucose 152 H, Calcium 8.6 I & O for Last 24 hours: Intake & Output 09/23/21 09/24/21 09/25/21 09/26/21 11:59 11:59 11:59 11:59 Intake Total 960 / 960 780 / 780 1920 / 1920 600 / 600 Output Total 1999 / 1999 1375 / 1375 2350 / 2350 1000 / 1000 Balance -1040 / -1040 -595 / -595 -430 / -430 -400 / -400 Weight 263 lb 15.986 oz 262 lb 3 oz 262 lb 2 oz 257 lb Microbiology Reports for the Last 24 Hours: Microbiology 09/25/21 12:45 Sputum - Expectorated Sputum Gram Stain - Final - Constitutional no acute distress - *Routine HEENT Exam Head: Present: normocephalic Eye: Present: EOMI, PERRL ENT: Present: mucous membranes moist - *Routine Respiratory Exam Present: CTA bilaterally - *Routine Cardiovascular Exam Present: RRR Assessment and Plan (1) Acute respiratory failure due to COVID-19 Status: Acute Category: Medical Code(s): U07.1 - COVID-19; J96.00 - Acute respiratory failure, unspecified whether with hypoxia or hypercapnia (2) Acute kidney injury Status: Resolved Category: Medical Code(s): N17.9 - Acute kidney failure, unspecified (3) COPD (chronic obstructive pulmonary disease) Status: Acute Qualifiers: COPD type: unspecified COPD Qualified Code(s): J44.9 - Chronic obstructive pulmonary disease, unspecified Category: Medical Code(s): J44.9 - Chronic obstructive pulmonary disease, unspecified (4) COVID-19 with pulmonary comorbidity Status: Acute Category: Medical Code(s): U07.1 - COVID-19; J98.4 - Other disorders of lung (5) Obesity (BMI 30-39.9) Status: Acute Category: Medical Code(s): E66.9 - Obesity, unspecified (6) Thrombocytopenia associated with COVID-19 Status: Resolved Category: Medical Code(s): U07.1 - COVID-19; D69.59 - Other secondary thrombocytopenia (7) Hx of CABG Status: Chronic Category: Surgical Code(s): Z95.1 - Presence of aortocoronary bypass graft (8) CAD (coronary artery disease) Status: Chronic Qualifiers: Coronary Disease-Associated Artery/Lesion type: bypass graft [place] vs. transplanted heart: [place] heart Associated angina: with other forms of angina Qualified Code(s): I25.708 - Atherosclerosis of coronary artery bypass graft(s), unspecified, with other forms of angina pectoris Category: Medical Code(s): I25.10 - Atherosclerotic heart disease of [place] coronary artery without angina pectoris (9) Atrial fibrillation Status: Acute Qualifiers: Atrial fibrillation type: paroxysmal Qualified Code(s): I48.0 - Paroxysmal atrial fibrillation Category: Medical Code(s): I48.91 - Unspecified atrial fibrillation (10) Steroid-induc
[2021-09-26 07:20] LABS: MANUAL DIFFERENTIAL MANUAL DIFFERENTIAL (MANUAL DIFF)
[2021-09-26 08:09] LABS: Eosinophils % 1 % (0-3); Lymphocytes % 11 % (10-50); Monocytes % 1 % (2-9); Neutrophils % 87 % (42-76); Total Cells Counted 100
[2021-09-26 08:10] LABS: Platelet Estimate Normal; RBC Morphology Normal
--- NOTE | 2021-09-26 09:20 | HMH.PULMPN ---
Internal Medicine - PN: Subj *Date: 09/26/21 *Time: 11:26 Interval history: Patient denies any new respiratory complaints. Exam - Constitutional Constitutional:: Absent: no acute distress, comfortable - HENMT Exam HENMT: Present: normocephalic, atraumatic - Eye Exam Eyes:: Present: normal appearance both eyes and related structures - Neck Exam Neck:: Present: normal visual inspection - Respiratory Exam Respiratory:: Present: able to speak in complete sentences, respiratory distress, rales - Cardiovascular Exam Cardiac:: Present: S1, S2 - GI Exam GI:: Present: soft, no hepatosplenomegaly - Skin Exam Skin: Present: warm, no rash - Neurological Exam Neurological: Present: alert, awake, normal cognition - Extremities Exam Extremities: Present: no cyanosis, no clubbing, edema Assessment and Plan (1) Acute respiratory failure due to COVID-19 Status: Acute Category: Medical Code(s): U07.1 - COVID-19; J96.00 - Acute respiratory failure, unspecified whether with hypoxia or hypercapnia (2) Acute kidney injury Status: Resolved Category: Medical Code(s): N17.9 - Acute kidney failure, unspecified (3) COPD (chronic obstructive pulmonary disease) Status: Acute Qualifiers: COPD type: unspecified COPD Qualified Code(s): J44.9 - Chronic obstructive pulmonary disease, unspecified Category: Medical Code(s): J44.9 - Chronic obstructive pulmonary disease, unspecified (4) COVID-19 with pulmonary comorbidity Status: Acute Category: Medical Code(s): U07.1 - COVID-19; J98.4 - Other disorders of lung (5) Obesity (BMI 30-39.9) Status: Acute Category: Medical Code(s): E66.9 - Obesity, unspecified (6) Thrombocytopenia associated with COVID-19 Status: Resolved Category: Medical Code(s): U07.1 - COVID-19; D69.59 - Other secondary thrombocytopenia (7) Hx of CABG Status: Chronic Category: Surgical Code(s): Z95.1 - Presence of aortocoronary bypass graft (8) CAD (coronary artery disease) Status: Chronic Qualifiers: Coronary Disease-Associated Artery/Lesion type: bypass graft [place] vs. transplanted heart: [place] heart Associated angina: with other forms of angina Qualified Code(s): I25.708 - Atherosclerosis of coronary artery bypass graft(s), unspecified, with other forms of angina pectoris Category: Medical Code(s): I25.10 - Atherosclerotic heart disease of [place] coronary artery without angina pectoris (9) Atrial fibrillation Status: Acute Qualifiers: Atrial fibrillation type: paroxysmal Qualified Code(s): I48.0 - Paroxysmal atrial fibrillation Category: Medical Code(s): I48.91 - Unspecified atrial fibrillation (10) Steroid-induced hyperglycemia Status: Acute Category: Medical Code(s): R73.9 - Hyperglycemia, unspecified; T38.0X5A - Adverse effect of glucocorticoids and synthetic analogues, initial encounter - Assessment and plan all Dx Assessment and Plan for all problems:: #Acute chronic hypoxic respiratory failure: #COVID-19 pneumonia: Mr. Estevez is 66-year-old male greater than [id number] smoking history, last smoked 16 years ago used to smoke 3 to 4 packs a day, history of CAD, COPD presented to the hospital with worsening respiratory failure not associated with any productive phlegm.Patient on admission found to be COVID-19 positive and pulmonary was called for further management. Patient had a prior history of recurrent UTIs with Enterococcus faecalis levofloxacin sensitive on staph.epi. Patient chest x-ray admission bilateral pulmonary infiltrates left greater than right. Patient also noted to have MONA on CKD along with evidence of volume overload bilateral lower extremity edema and elevated BNP at admission troponins were also elevated on admission D-dimer elevated at 0.80. No evidence of DVT on bilateral lower extremity Doppler. CTA performed, significant motion artifact noted with questionable right lower lobe pulmonary emboli
--- NOTE | 2021-09-26 11:23 | CT_ITS ---
PROCEDURE: CT ANGIO CHEST PE PROTOCOL CLINCIAL INDICATION: Hypoxia COMPARISON: CT CT ANGIO CHEST PE PROTOCOL from 09/12/2021 TECHNIQUE: IV Contrast: 70ML Isovue 370 Axial images obtained with sagittal and coronal reformats. All CT scans at the facility use one or more dose reduction, viz: automated exposure control, ma/kV adjustment per patient size (including targeted exams where dose is matched to indication, i.e. head), or iterative reconstruction technique. FINDINGS: HEART AND MEDIASTINAL STRUCTURES: No evidence of aortic aneurysm or dissection. Mild mural thrombus is present in the aortic arch on the left. 40 percent stenosis involves the ostium of the left subclavian artery. No evidence of pulmonary embolus. Prior CABG LUNGS AND PLEURAL SPACES: There is diffuse cobblestone lung appearance involving both upper and lower lobes throughout with ground-glass attenuation as well as interlobular and intra lobular septal thickening similar to the previous exam with scattered areas of consolidation/atelectasis. The consolidation in the right lower lobe has shown some improvement compared to the previous study. Subpleural blebs are present in the upper lobes. No evidence of pneumothorax. No effusions apparent. BONY STRUCTURES: No acute bony abnormalities apparent. UPPER ABDOMEN: Gallbladder is distended with gallstones. Scarring is present involving the left kidney. ADDITIONAL FINDINGS: No other significant abnormalities. IMPRESSION: 1. No evidence of pulmonary embolus. 2. Diffuse cobblestone appearance of the lung which is nonspecific and could be seen with ARDS, pneumonia, acute interstitial pneumonia among other less common entities. 3. Cholelithiasis with distended gallbladder. Dictated by: Hao Scales MD 09/26/2021 14:56 Hao Scales MD in [facility] 09/26/2021 14:56
[2021-09-26 12:16] LABS: POC Glucose,Bedside 261 (70-110)
--- NOTE | 2021-09-26 18:33 | PC.NURSE ---
PT IS AOX4, ABLE TO MAKE NEEDS KNOWN TO STAFF, HE HAS BEEN UP TO CHAIR FOR MOST OF THIS SHIFT. CONTINUES TO REQUIRE VAPOTHERM 30/60 WITH NON-REBREATHER FOR O2 SUPPORT. IF MASK IS REMOVED PT WILL DESAT INTO LOW 80'S. PT STOOD MULTIPLE TIMES TODAY WITH ASSITX1 FROM THIS RN. TRIVEDI CATH REMAINS IN PLACE WITH DARK RED URINE NOTED IN TRIVEDI BAG. PT TOLERATING DIET WELL. HE DENIES N/V/D. NO ACUTE CHANGES
[2021-09-27] VITALS (12 sets, daily range): BP systolic 112–121; BP diastolic 59–71; PULSE 70–101; RESP 18–22; TEMP 36.3–36.8; O2SAT 79–100; BMI 39.6
[2021-09-27 00:57] LABS: POC Glucose,Bedside 271 (70-110)
[2021-09-27 00:57] LABS: POC Glucose,Bedside 454 (70-110)
--- NOTE | 2021-09-27 04:50 | PC.NURSE ---
pt rested well most of the night, pt continues on vapotherm with non rebreather, pts 02 sat continues to drop in low 80s when not using non rebreather, or with any activity. FSBS was 454 at 2100 and was covered with 20units regular insulin per physician telephone order.
[2021-09-27 05:55] LABS: POC Glucose,Bedside 282 (70-110)
--- NOTE | 2021-09-27 07:00 | CA_ITS ---
APPROVED REPORT EXAM: Comprehensive 2D, Doppler, and color-flow Echocardiogram Credit Risk Officer: Dorita Graham CRT Ht: 5 ft 5 in Wt: 253lbs BSA: 2.19 BP: 110/84 mmHg Indications: Covid +, limited echo b/s only. Poor images due to pt up in bed, SOB, and body habitus. Echo Enhancing Agent Indication: Rule out Shunt Agent(s) / Amount(s) Used: Agitated Saline 15 cc Comments: B/S appears negative Conclusion 1. Agitated saline contrast study fails to identify intracardiac shunt. Electronically signed by : John Mariscal MD 09/28/2021 14:19:17
[2021-09-27 07:06] LABS: Anion Gap 7.8 mEq/L (5-15); Blood Urea Nitrogen 34 mg/dl (9-20); Calcium 8.8 mg/dl (8.4-10.2); Carbon Dioxide 37 mmol/L (22.0-30.0); Chloride 88 mmol/L (98-107); Creatinine Clearance Estimated 115 mL/min (50-200); Estimated Glomerular Filt Rate 96 ml/min (>60); GFR (African American) 116 ML/MIN (>60); Glucose 274 mg/dl (74-100); Potassium 3.8 mmoL/L (3.5-5.1); Sodium 129 mmol/L (136-145)
--- NOTE | 2021-09-27 07:30 | HMH.ACPN2 ---
Internal Medicine - PN: Subj *Date: 09/27/21 *Time: 07:30 Interval history: No acute events in the last 24 hours. Patient is remained on a combination of HFNC and nonrebreather to maintain sats above 88%. Daughter is at bedside this morning. Patient was started on higher dose steroids yesterday due to elevated inflammatory markers raising suspicion for immune dysregulation. Patient's daughter is concerned about the appearance of patient's catheter Exam Vital signs and Labs for Last 24 Hours: Temp Pulse Resp BP Pulse Ox 98.1 F 101 H 18 121/69 79 L 09/27/21 07:25 09/27/21 07:25 09/27/21 07:25 09/27/21 07:25 09/27/21 07:25 Laboratory Results - last 24 hr 09/26/21 06:50: Total Counted 100, Neutrophils % (Manual) 87 H, Lymphocytes % (Manual) 11, Monocytes % (Manual) 1 L, Eosinophils % (Manual) 1, Platelet Estimate Normal, RBC Morphology Normal 09/26/21 11:57: POC Glucose 261 H 09/26/21 16:47: POC Glucose 271 H 09/26/21 21:39: POC Glucose 454 H* 09/27/21 05:22: POC Glucose 282 H 09/27/21 06:25: Sodium 129 L, Potassium 3.8, Chloride 88 L, Carbon Dioxide 37 H, Anion Gap 7.8, BUN 34 H, Creatinine 0.80, Estimated Creat Clear 115, Estimated GFR 96, Est GFR ( Amer) 116, Glucose 274 H D, Calcium 8.8 I & O for Last 24 hours: Intake & Output 09/24/21 09/25/21 09/26/21 09/27/21 11:59 11:59 11:59 11:59 Intake Total 780 / 780 1920 / 1920 840 / 840 1200 / 1200 Output Total 1375 / 1375 2350 / 2350 1000 / 1000 1625 / 1625 Balance -595 / -595 -430 / -430 -160 / -160 -425 / -425 Weight 262 lb 3 oz 262 lb 2 oz 257 lb 253 lb Microbiology Reports for the Last 24 Hours: Microbiology 09/25/21 12:45 Sputum - Expectorated Sputum Gram Stain - Final 09/25/21 12:45 Sputum - Expectorated Sputum Sputum Culture - Preliminary Narrative: Patient appears comfortable. Breath sounds are distant but clear. Heart has a regular rate and rhythm. Abdomen is obese. exam reveals lots of crusting and white thick discharge around the thomas with tenderness around the foreskin. Lower extremities have no edema Assessment and Plan (1) Acute respiratory failure due to COVID-19 Status: Acute Category: Medical Code(s): U07.1 - COVID-19; J96.00 - Acute respiratory failure, unspecified whether with hypoxia or hypercapnia (2) Acute kidney injury Status: Resolved Category: Medical Code(s): N17.9 - Acute kidney failure, unspecified (3) COPD (chronic obstructive pulmonary disease) Status: Acute Qualifiers: COPD type: unspecified COPD Qualified Code(s): J44.9 - Chronic obstructive pulmonary disease, unspecified Category: Medical Code(s): J44.9 - Chronic obstructive pulmonary disease, unspecified (4) COVID-19 with pulmonary comorbidity Status: Acute Category: Medical Code(s): U07.1 - COVID-19; J98.4 - Other disorders of lung (5) Obesity (BMI 30-39.9) Status: Acute Category: Medical Code(s): E66.9 - Obesity, unspecified (6) Thrombocytopenia associated with COVID-19 Status: Resolved Category: Medical Code(s): U07.1 - COVID-19; D69.59 - Other secondary thrombocytopenia (7) Hx of CABG Status: Chronic Category: Surgical Code(s): Z95.1 - Presence of aortocoronary bypass graft (8) CAD (coronary artery disease) Status: Chronic Qualifiers: Coronary Disease-Associated Artery/Lesion type: bypass graft [place] vs. transplanted heart: [place] heart Associated angina: with other forms of angina Qualified Code(s): I25.708 - Atherosclerosis of coronary artery bypass graft(s), unspecified, with other forms of angina pectoris Category: Medical Code(s): I25.10 - Atherosclerotic heart disease of [place] coronary artery without angina pectoris (9) Atrial fibrillation Status: Acute Qualifiers: Atrial fibrillation type: paroxysmal Qualified Code(s): I48.0 - Paroxysmal atrial fibrillation Category: Medical Code(s): I48.91 - Unspecified atrial fibrillation
[2021-09-27 07:33] LABS: Basophils % 0.3 % (0.1-2.0); Eosinophils % 0.2 % (0.1-12.0); Hematocrit 38.9 % (42.0-52.0); Hemoglobin 12.1 g/dL (14.1-18.0); Lymphocytes # 0.6 K/mm3 (0.7-4.5); Lymphocytes % 4.4 % (10-50); Mean Corpuscular HGB Conc 31.1 g/dL (31.8-35.4); Mean Corpuscular Hemoglobin 31.7 pg (27.0-31.2); Mean Corpuscular Volume 101.9 fl (80-94); Mean Platelet Volume 10.6 fl (7.4-10.4); Monocytes # 0.4 K/mm3 (0.1-1.0); Monocytes % 2.8 % (1.7-9.3); Neutrophils # 12.9 K/mm3 (1.8-7.8); Neutrophils % 92.4 % (37.0-80.0); Platelet Count 184 K/mm3 (142-424); Red Blood Count 3.82 M/mm3 (4.60-6.20); Red Cell Distribution Width 14.6 % (11.5-17.5); White Blood Count 13.9 K/mm3 (4.8-10.8)
[2021-09-27 07:34] LABS: MANUAL DIFFERENTIAL MANUAL DIFFERENTIAL (MANUAL DIFF)
[2021-09-27 08:25] LABS: Lymphocytes % 7 % (10-50); Macrocytosis 2+; Neutrophils % 93 % (42-76); Platelet Estimate Normal; Total Cells Counted 100
[2021-09-27 12:03] LABS: POC Glucose,Bedside 309 (70-110)
--- NOTE | 2021-09-27 13:26 | HMH.PULMPN ---
Internal Medicine - PN: Subj *Date: 09/27/21 *Time: 13:26 Interval history: No acute respiratory events overnight. Exam - Constitutional Constitutional:: Present: comfortable. Absent: no acute distress - HENMT Exam HENMT: Present: normocephalic, atraumatic - Eye Exam Eyes:: Present: normal appearance both eyes and related structures - Neck Exam Neck:: Present: normal visual inspection - Respiratory Exam Respiratory:: Present: able to speak in complete sentences, respiratory distress, rales - Cardiovascular Exam Cardiac:: Present: S1, S2 - GI Exam GI:: Present: soft - Skin Exam Skin: Present: warm, no rash - Neurological Exam Neurological: Present: alert, awake, normal cognition - Extremities Exam Extremities: Present: no cyanosis, no clubbing, no edema Assessment and Plan (1) Acute respiratory failure due to COVID-19 Status: Acute Category: Medical Code(s): U07.1 - COVID-19; J96.00 - Acute respiratory failure, unspecified whether with hypoxia or hypercapnia (2) Acute kidney injury Status: Resolved Category: Medical Code(s): N17.9 - Acute kidney failure, unspecified (3) COPD (chronic obstructive pulmonary disease) Status: Acute Qualifiers: COPD type: unspecified COPD Qualified Code(s): J44.9 - Chronic obstructive pulmonary disease, unspecified Category: Medical Code(s): J44.9 - Chronic obstructive pulmonary disease, unspecified (4) COVID-19 with pulmonary comorbidity Status: Acute Category: Medical Code(s): U07.1 - COVID-19; J98.4 - Other disorders of lung (5) Obesity (BMI 30-39.9) Status: Acute Category: Medical Code(s): E66.9 - Obesity, unspecified (6) Thrombocytopenia associated with COVID-19 Status: Resolved Category: Medical Code(s): U07.1 - COVID-19; D69.59 - Other secondary thrombocytopenia (7) Hx of CABG Status: Chronic Category: Surgical Code(s): Z95.1 - Presence of aortocoronary bypass graft (8) CAD (coronary artery disease) Status: Chronic Qualifiers: Coronary Disease-Associated Artery/Lesion type: bypass graft [place] vs. transplanted heart: [place] heart Associated angina: with other forms of angina Qualified Code(s): I25.708 - Atherosclerosis of coronary artery bypass graft(s), unspecified, with other forms of angina pectoris Category: Medical Code(s): I25.10 - Atherosclerotic heart disease of [place] coronary artery without angina pectoris (9) Atrial fibrillation Status: Acute Qualifiers: Atrial fibrillation type: paroxysmal Qualified Code(s): I48.0 - Paroxysmal atrial fibrillation Category: Medical Code(s): I48.91 - Unspecified atrial fibrillation (10) Steroid-induced hyperglycemia Status: Acute Category: Medical Code(s): R73.9 - Hyperglycemia, unspecified; T38.0X5A - Adverse effect of glucocorticoids and synthetic analogues, initial encounter (11) Balanitis Status: Acute Category: Medical Code(s): N48.1 - Balanitis - Assessment and plan all Dx Assessment and Plan for all problems:: #Acute chronic hypoxic respiratory failure: #COVID-19 pneumonia: Mr. Estevez is 66-year-old male greater than [id number] smoking history, last smoked 16 years ago used to smoke 3 to 4 packs a day, history of CAD, COPD presented to the hospital with worsening respiratory failure not associated with any productive phlegm.Patient on admission found to be COVID-19 positive and pulmonary was called for further management. Patient had a prior history of recurrent UTIs with Enterococcus faecalis levofloxacin sensitive on staph.epi. Patient chest x-ray admission bilateral pulmonary infiltrates left greater than right. Patient also noted to have MONA on CKD along with evidence of volume overload bilateral lower extremity edema and elevated BNP at admission troponins were also elevated on admission D-dimer elevated at 0.80. No evidence of DVT on bilateral lower extremity Doppler. CTA performed, significant motion
[2021-09-27 16:18] LABS: POC Glucose,Bedside 388 (70-110)
--- NOTE | 2021-09-27 17:04 | PC.NURSE ---
PT IS SITTING UP IN THE CHAIR. ALERT AND ORIENTED X4. PT WAS ABLE TO GET UP TO THE CHAIR WITH 2 ASSIST. O2 SATURATION HAS MAINTAINED 90% ON VAPOTHERM 30L 80% FIO2. PT HAS REQUIRED THE NON REBREATHER T/O MOST OF THE SHIFT. PT WILL DESAT TO THE 70'S WITH ANY KIND OF EXERTION. LUNG SOUNDS DIMINISHED. ABDOMEN SOFT/ROUND WITH HYPOACTIVE BOWEL SOUNDS. SCATTERED BRUISING NOTED TO ABDOMEN AND BUE. PT HAS BEEN ENCOURAGED TO TURN AND REPOSITION WHILE IN THE BED. MULTIPLE OPEN AREAS NOTED TO BUTTOCKS WITH DRESSING C/D/I. 1+ EDEMA NOTED TO BLE. WILL CONTINUE TO MONITOR.
[2021-09-27 22:11] LABS: POC Glucose,Bedside 421 (70-110)
[2021-09-28] VITALS (12 sets, daily range): BP systolic 112–147; BP diastolic 60–75; PULSE 67–93; RESP 20–24; TEMP 36.4–37; O2SAT 85–98; BMI 39.6
--- NOTE | 2021-09-28 04:48 | PC.NURSE ---
uneventful night as pt remained up in chair and refused to get back in the bed. pt continues on vapotherm at 30/80 with intermittent non rebreather mask. noted o2 sats in the upper 90's this evening. pt in good spirits, fsbs still elevated and treated with insulin. pt up to bedside comode with +bm.
--- NOTE | 2021-09-28 07:16 | HMH.ACPN2 ---
Internal Medicine - PN: Subj *Date: 09/28/21 *Time: 07:16 Interval history: Patient has no complaints this morning. No acute events over the last 24 hours. Currently patient is resting in the chair, eating breakfast, with high flow nasal cannula at 30 L/min with FiO2 of 80% and his O2 sat is 89% Exam Vital signs and Labs for Last 24 Hours: Temp Pulse Resp BP Pulse Ox 98.1 F 67 20 112/64 88 L 09/28/21 04:00 09/28/21 06:35 09/28/21 04:00 09/28/21 04:00 09/28/21 06:35 Laboratory Results - last 24 hr 09/27/21 06:25: WBC 13.9 H, RBC 3.82 L, Hgb 12.1 L, Hct 38.9 L, MCV 101.9 H, MCH 31.7 H, MCHC 31.1 L, RDW 14.6, Plt Count 184, MPV 10.6 H, Neut % (Auto) 92.4 H, Lymph % (Auto) 4.4 L, [place] % (Auto) 2.8, Eos % (Auto) 0.2, Baso % (Auto) 0.3, Neut # (Auto) 12.9 H, Lymph # (Auto) 0.6 L, [place] # (Auto) 0.4, Eos # (Auto) 0.0, Baso # (Auto) 0.0, Total Counted 100, Neutrophils % (Manual) 93 H, Lymphocytes % (Manual) 7 L, Platelet Estimate Normal, Macrocytosis 2+ 09/27/21 11:56: POC Glucose 309 H* 09/27/21 16:11: POC Glucose 388 H* 09/27/21 21:49: POC Glucose 421 H* I & O for Last 24 hours: Intake & Output 09/25/21 09/26/21 09/27/21 09/28/21 11:59 11:59 11:59 11:59 Intake Total 1920 / 1920 840 / 840 1200 / 1200 600 / 600 Output Total 2350 / 2350 1000 / 1000 1625 / 1625 800 / 800 Balance -430 / -430 -160 / -160 -425 / -425 -200 / -200 Weight 262 lb 2 oz 257 lb 253 lb 252 lb 15.687 oz - Constitutional no acute distress - *Routine Respiratory Exam Present: CTA bilaterally, distant breath sounds - *Routine Cardiovascular Exam Present: RRR Assessment and Plan (1) Acute respiratory failure due to COVID-19 Status: Acute Category: Medical Code(s): U07.1 - COVID-19; J96.00 - Acute respiratory failure, unspecified whether with hypoxia or hypercapnia (2) Acute kidney injury Status: Resolved Category: Medical Code(s): N17.9 - Acute kidney failure, unspecified (3) COPD (chronic obstructive pulmonary disease) Status: Acute Qualifiers: COPD type: unspecified COPD Qualified Code(s): J44.9 - Chronic obstructive pulmonary disease, unspecified Category: Medical Code(s): J44.9 - Chronic obstructive pulmonary disease, unspecified (4) COVID-19 with pulmonary comorbidity Status: Acute Category: Medical Code(s): U07.1 - COVID-19; J98.4 - Other disorders of lung (5) Obesity (BMI 30-39.9) Status: Chronic Category: Medical Code(s): E66.9 - Obesity, unspecified (6) Thrombocytopenia associated with COVID-19 Status: Resolved Category: Medical Code(s): U07.1 - COVID-19; D69.59 - Other secondary thrombocytopenia (7) Hx of CABG Status: Chronic Category: Surgical Code(s): Z95.1 - Presence of aortocoronary bypass graft (8) CAD (coronary artery disease) Status: Chronic Qualifiers: Coronary Disease-Associated Artery/Lesion type: bypass graft [place] vs. transplanted heart: [place] heart Associated angina: with other forms of angina Qualified Code(s): I25.708 - Atherosclerosis of coronary artery bypass graft(s), unspecified, with other forms of angina pectoris Category: Medical Code(s): I25.10 - Atherosclerotic heart disease of [place] coronary artery without angina pectoris (9) Atrial fibrillation Status: Acute Qualifiers: Atrial fibrillation type: paroxysmal Qualified Code(s): I48.0 - Paroxysmal atrial fibrillation Category: Medical Code(s): I48.91 - Unspecified atrial fibrillation (10) Steroid-induced hyperglycemia Status: Acute Category: Medical Code(s): R73.9 - Hyperglycemia, unspecified; T38.0X5A - Adverse effect of glucocorticoids and synthetic analogues, initial encounter (11) Balanitis Status: Acute Category: Medical Code(s): N48.1 - Balanitis - Assessment and plan all Dx Assessment and Plan for all problems:: 1. Continue high-dose steroids 2. Adjust insulin for better control of hyperglycemia. 3. Temporary diabet
[2021-09-28 08:05] LABS: Basophils # 0.1 K/mm3 (0-0.2); Basophils % 0.5 % (0.1-2.0); Eosinophils # 0.1 K/mm3 (0.0-0.4); Eosinophils % 0.2 % (0.1-12.0); Hematocrit 41.2 % (42.0-52.0); Lymphocytes # 0.6 K/mm3 (0.7-4.5); Mean Corpuscular HGB Conc 31.7 g/dL (31.8-35.4); Mean Corpuscular Hemoglobin 31.8 pg (27.0-31.2); Mean Corpuscular Volume 100.5 fl (80-94); Mean Platelet Volume 10.2 fl (7.4-10.4); Monocytes # 0.6 K/mm3 (0.1-1.0); Neutrophils # 19.1 K/mm3 (1.8-7.8); Neutrophils % 93.2 % (37.0-80.0); Platelet Count 193 K/mm3 (142-424); Red Cell Distribution Width 14.8 % (11.5-17.5); White Blood Count 20.5 K/mm3 (4.8-10.8)
[2021-09-28 08:12] LABS: Anion Gap 10.3 mEq/L (5-15); Blood Urea Nitrogen 39 mg/dl (9-20); Calcium 9.2 mg/dl (8.4-10.2); Carbon Dioxide 34 mmol/L (22.0-30.0); Chloride 89 mmol/L (98-107); Creatinine Clearance Estimated 115 mL/min (50-200); Estimated Glomerular Filt Rate 74 ml/min (>60); GFR (African American) 90 ML/MIN (>60); Glucose 356 mg/dl (74-100); Potassium 4.3 mmoL/L (3.5-5.1); Sodium 129 mmol/L (136-145)
[2021-09-28 08:33] LABS: MANUAL DIFFERENTIAL MANUAL DIFFERENTIAL (MANUAL DIFF)
[2021-09-28 09:05] LABS: Hypochromasia 2+; Lymphocytes % 2 % (10-50); Microcytosis 2+; Monocytes % 6 % (2-9); Neutrophils % 92 % (42-76); Platelet Estimate Normal; Total Cells Counted 100
[2021-09-28 09:19] LABS: Ferritin 976 ng/ml (17.9-464)
[2021-09-28 09:28] LABS: C-Reactive Protein 45.1 mg/L (0-4)
[2021-09-28 11:41] LABS: POC Glucose,Bedside 414 (70-110)
[2021-09-28 11:46] LABS: POC Glucose,Bedside 338 (70-110)
--- NOTE | 2021-09-28 15:17 | HMH.PULMPN ---
Internal Medicine - PN: Subj *Date: 09/28/21 *Time: 15:17 Interval history: Patient denies any new respiratory complaints. Exam - Constitutional Constitutional:: Absent: no acute distress, comfortable - HENMT Exam HENMT: Present: normocephalic, atraumatic - Eye Exam Eyes:: Present: normal appearance both eyes and related structures - Neck Exam Neck:: Present: normal visual inspection - Respiratory Exam Respiratory:: Present: able to speak in complete sentences, respiratory distress, crackles, rales - Cardiovascular Exam Cardiac:: Present: S1, S2 - GI Exam GI:: Present: soft - Skin Exam Skin: Present: warm, no rash - Neurological Exam Neurological: Present: alert, awake, normal cognition - Extremities Exam Extremities: Present: no cyanosis, no clubbing, edema - Psychiatric Exam Psychiatric: Present: normal affect Assessment and Plan (1) Acute respiratory failure due to COVID-19 Status: Acute Category: Medical Code(s): U07.1 - COVID-19; J96.00 - Acute respiratory failure, unspecified whether with hypoxia or hypercapnia (2) Acute kidney injury Status: Resolved Category: Medical Code(s): N17.9 - Acute kidney failure, unspecified (3) COPD (chronic obstructive pulmonary disease) Status: Acute Qualifiers: COPD type: unspecified COPD Qualified Code(s): J44.9 - Chronic obstructive pulmonary disease, unspecified Category: Medical Code(s): J44.9 - Chronic obstructive pulmonary disease, unspecified (4) COVID-19 with pulmonary comorbidity Status: Acute Category: Medical Code(s): U07.1 - COVID-19; J98.4 - Other disorders of lung (5) Obesity (BMI 30-39.9) Status: Chronic Category: Medical Code(s): E66.9 - Obesity, unspecified (6) Thrombocytopenia associated with COVID-19 Status: Resolved Category: Medical Code(s): U07.1 - COVID-19; D69.59 - Other secondary thrombocytopenia (7) Hx of CABG Status: Chronic Category: Surgical Code(s): Z95.1 - Presence of aortocoronary bypass graft (8) CAD (coronary artery disease) Status: Chronic Qualifiers: Coronary Disease-Associated Artery/Lesion type: bypass graft [place] vs. transplanted heart: [place] heart Associated angina: with other forms of angina Qualified Code(s): I25.708 - Atherosclerosis of coronary artery bypass graft(s), unspecified, with other forms of angina pectoris Category: Medical Code(s): I25.10 - Atherosclerotic heart disease of [place] coronary artery without angina pectoris (9) Atrial fibrillation Status: Acute Qualifiers: Atrial fibrillation type: paroxysmal Qualified Code(s): I48.0 - Paroxysmal atrial fibrillation Category: Medical Code(s): I48.91 - Unspecified atrial fibrillation (10) Steroid-induced hyperglycemia Status: Acute Category: Medical Code(s): R73.9 - Hyperglycemia, unspecified; T38.0X5A - Adverse effect of glucocorticoids and synthetic analogues, initial encounter (11) Balanitis Status: Acute Category: Medical Code(s): N48.1 - Balanitis - Assessment and plan all Dx Assessment and Plan for all problems:: #Acute chronic hypoxic respiratory failure: #COVID-19 pneumonia: Mr. Estevez is 66-year-old male greater than [id number] smoking history, last smoked 16 years ago used to smoke 3 to 4 packs a day, history of CAD, COPD presented to the hospital with worsening respiratory failure not associated with any productive phlegm.Patient on admission found to be COVID-19 positive and pulmonary was called for further management. Patient had a prior history of recurrent UTIs with Enterococcus faecalis levofloxacin sensitive on staph.epi. Patient chest x-ray admission bilateral pulmonary infiltrates left greater than right. Patient also noted to have MONA on CKD along with evidence of volume overload bilateral lower extremity edema and elevated BNP at admission troponins were also elevated on admission D-dimer elevated at 0.80. No evidence of DVT on june
--- NOTE | 2021-09-28 16:55 | PC.NURSE ---
Addendum entered by Fabiola Lora RN 09/28/21 17:56: NOTIFIED PHYSICIAN FISHERIES MANAGER ABOUT PT'S CRITICAL GLUCOSE. PHYSICIAN ORDERED TO HOLD THE 1730 SOLUMEDROL DOSE AND TO SWITCH PT TO HIGH INTENSITY SLIDING SCALE. Original Note: PT IS SITTING UP IN THE CHAIR. PT HAS BEEN UP IN THE CHAIR ALL SHIFT. PT STATES HE IS NOT COMFORTABLE IN THE BED AND WOULD RATHER STAY IN THE CHAIR. PT HAS BEEN ENCOURAGED TO REPOSITION FREQUENTLY TO PREVENT FROM FURTHER BREAKDOWN. OPEN AREAS NOTED TO THE BUTTOCKS WITH POLYMEM DRESSING C/D/I. SCATTERED BRUISING NOTED TO ABDOMEN/BUE. PT CONTINUES TO HAVE ELEVATED BLOOD SUGARS. 1630 FINGERSTICK WAS 575. LAB NOTIFIED OF STAT RANDOM GLUCOSE (RESULTS PENDING). LUNG SOUNDS DIMINISHED. ABDOMEN SOFT/NON TENDER WITH ACTIVE BOWEL SOUNDS. ATTEMPTED TO WEAN VAPOTHERM FROM 80% FIO2 TO 65% HOWEVER PT WAS UNABLE TO MAINTAIN O2 SATURATION >84%. VAPOTHERM IS AT 30 L 75% FIO2 MAINTAINING AN O2 SATURATION AT 90%. PT WILL DESAT TO THE 70'S WITH VERY MINIMAL EXERTION HOWEVER STATES HE DOES NOT FEEL SOA AND IS HOPING HE CAN GET HOME VERY SOON. WILL CONTINUE TO MONITOR.
[2021-09-28 17:11] LABS: Glucose,Random 606 mg/dL (74-100)
[2021-09-28 18:22] LABS: POC Glucose,Bedside 575 (70-110)
--- NOTE | 2021-09-28 22:24 | PC.NURSE ---
2 Pt 2100 blood sugar reading 528. Pt refusing to have lab draw blood for protocol glucose 2117 Charge and boilerhouse mechanic notified. 2126 honey grader and blender notified. orders to give his 20 u Humalog. NNO. 2137 Orders carried out.
[2021-09-29] VITALS (11 sets, daily range): BP systolic 122–159; BP diastolic 63–82; PULSE 67–90; RESP 16–24; TEMP 36.4–36.6; O2SAT 86–94
[2021-09-29 01:30] LABS: POC Glucose,Bedside 483 (70-110)
[2021-09-29 05:27] LABS: POC Glucose,Bedside 393 (70-110)
--- NOTE | 2021-09-29 06:11 | PC.NURSE ---
Pt has remained a+o x4 and pleasant t/o shift. Continues to receive O2 via vapotherm @ 30L,75%. Pt will desat to low 80s while talking but recovers quickly. Pt sats >88% while at rest. Pt has not had to use non rebreather t/o shift. Pt has been encouraged to use IS, Best 2500. Pt has refused to transfer to bed t/o night and has remained up in chair despite encouragement. Bed alarm in place for safety.
--- NOTE | 2021-09-29 07:11 | HMH.ACPN2 ---
Internal Medicine - PN: Subj *Date: 09/29/21 *Time: 07:11 Interval history: Patient has had no acute events over the last 24 hours. He has no complaints this morning. O2 sats are remaining in the high 80s to low 90s. Current FiO2 is 75% on HFNC at 30 L/min. Exam Vital signs and Labs for Last 24 Hours: Temp Pulse Resp BP Pulse Ox 97.8 F 67 20 140/78 91 L 09/29/21 04:00 09/29/21 06:00 09/29/21 04:00 09/29/21 04:00 09/29/21 06:00 Laboratory Results - last 24 hr 09/28/21 05:32: POC Glucose 338 H* 09/28/21 07:48: WBC 20.5 H* D, RBC 4.10 L, Hgb 13.0 L, Hct 41.2 L, MCV 100.5 H, MCH 31.8 H, MCHC 31.7 L, RDW 14.8, Plt Count 193, MPV 10.2, Neut % (Auto) 93.2 H, Lymph % (Auto) 3.0 L, [place] % (Auto) 3.0, Eos % (Auto) 0.2, Baso % (Auto) 0.5, Neut # (Auto) 19.1 H, Lymph # (Auto) 0.6 L, [place] # (Auto) 0.6, Eos # (Auto) 0.1, Baso # (Auto) 0.1, Total Counted 100, Neutrophils % (Manual) 92 H, Lymphocytes % (Manual) 2 L, Monocytes % (Manual) 6, Platelet Estimate Normal, Hypochromasia 2+, Microcytosis 2+ 09/28/21 07:48: Sodium 129 L, Potassium 4.3, Chloride 89 L, Carbon Dioxide 34 H, Anion Gap 10.3, BUN 39 H, Creatinine 1.00 D, Estimated Creat Clear 115, Estimated GFR 74, Est GFR ( Amer) 90 D, Glucose 356 H, Calcium 9.2 09/28/21 07:48: C-Reactive Protein 45.1 H D 09/28/21 07:48: Ferritin 976 H 09/28/21 10:52: POC Glucose 414 H* 09/28/21 16:28: POC Glucose 575 H* 09/28/21 16:45: Random Glucose 606 H* 09/28/21 23:09: POC Glucose 483 H* 09/29/21 05:19: POC Glucose 393 H* I & O for Last 24 hours: Intake & Output 09/26/21 09/27/21 09/28/21 09/29/21 11:59 11:59 11:59 11:59 Intake Total 840 / 840 1200 / 1200 840 / 840 360 / 360 Output Total 1000 / 1000 1625 / 1625 800 / 800 1650 / 1650 Balance -160 / -160 -425 / -425 40 / 40 -1290 / -1290 Weight 257 lb 253 lb 252 lb 15.687 oz Microbiology Reports for the Last 24 Hours: Microbiology 09/25/21 12:45 Sputum - Expectorated Sputum Gram Stain - Final 09/25/21 12:45 Sputum - Expectorated Sputum Sputum Culture - Final Normal Respiratory Mariella - Constitutional no acute distress - *Routine Respiratory Exam Present: CTA bilaterally - *Routine Cardiovascular Exam Present: RRR Assessment and Plan (1) Acute respiratory failure due to COVID-19 Status: Acute Category: Medical Code(s): U07.1 - COVID-19; J96.00 - Acute respiratory failure, unspecified whether with hypoxia or hypercapnia (2) Acute kidney injury Status: Resolved Category: Medical Code(s): N17.9 - Acute kidney failure, unspecified (3) COPD (chronic obstructive pulmonary disease) Status: Acute Qualifiers: COPD type: unspecified COPD Qualified Code(s): J44.9 - Chronic obstructive pulmonary disease, unspecified Category: Medical Code(s): J44.9 - Chronic obstructive pulmonary disease, unspecified (4) COVID-19 with pulmonary comorbidity Status: Acute Category: Medical Code(s): U07.1 - COVID-19; J98.4 - Other disorders of lung (5) Obesity (BMI 30-39.9) Status: Chronic Category: Medical Code(s): E66.9 - Obesity, unspecified (6) Thrombocytopenia associated with COVID-19 Status: Resolved Category: Medical Code(s): U07.1 - COVID-19; D69.59 - Other secondary thrombocytopenia (7) Hx of CABG Status: Chronic Category: Surgical Code(s): Z95.1 - Presence of aortocoronary bypass graft (8) CAD (coronary artery disease) Status: Chronic Qualifiers: Coronary Disease-Associated Artery/Lesion type: bypass graft [place] vs. transplanted heart: [place] heart Associated angina: with other forms of angina Qualified Code(s): I25.708 - Atherosclerosis of coronary artery bypass graft(s), unspecified, with other forms of angina pectoris Category: Medical Code(s): I25.10 - Atherosclerotic heart disease of [place] coronary artery without angina pectoris (9) Atrial fibrillation Status: Acute Qualifiers: Atrial
[2021-09-29 07:55] LABS: Basophils # 0.3 K/mm3 (0-0.2); Basophils % 1.3 % (0.1-2.0); Eosinophils # 0.1 K/mm3 (0.0-0.4); Eosinophils % 0.4 % (0.1-12.0); Hematocrit 39.3 % (42.0-52.0); Hemoglobin 12.7 g/dL (14.1-18.0); Lymphocytes # 0.5 K/mm3 (0.7-4.5); Lymphocytes % 2.1 % (10-50); Mean Corpuscular HGB Conc 32.2 g/dL (31.8-35.4); Mean Corpuscular Hemoglobin 31.8 pg (27.0-31.2); Mean Corpuscular Volume 98.6 fl (80-94); Mean Platelet Volume 10.5 fl (7.4-10.4); Monocytes # 0.6 K/mm3 (0.1-1.0); Monocytes % 2.5 % (1.7-9.3); Neutrophils # 22.5 K/mm3 (1.8-7.8); Neutrophils % 93.7 % (37.0-80.0); Platelet Count 176 K/mm3 (142-424); Red Blood Count 3.99 M/mm3 (4.60-6.20); Red Cell Distribution Width 15.5 % (11.5-17.5); White Blood Count 24.1 K/mm3 (4.8-10.8)
[2021-09-29 08:09] LABS: MANUAL DIFFERENTIAL MANUAL DIFFERENTIAL (MANUAL DIFF)
[2021-09-29 08:12] LABS: Blood Urea Nitrogen 40 mg/dl (9-20); Calcium 9.1 mg/dl (8.4-10.2); Carbon Dioxide 30 mmol/L (22.0-30.0); Chloride 91 mmol/L (98-107); Creatinine Clearance Estimated 115 mL/min (50-200); Estimated Glomerular Filt Rate 96 ml/min (>60); GFR (African American) 116 ML/MIN (>60); Glucose 319 mg/dl (74-100); Sodium 128 mmol/L (136-145)
--- NOTE | 2021-09-29 09:03 | HMH.ACPN2 ---
Internal Medicine - PN: Subj *Date: 09/29/21 *Time: 09:03 Exam Vital signs and Labs for Last 24 Hours: Temp Pulse Resp BP Pulse Ox 97.5 F L 90 24 159/78 H 89 L 09/29/21 07:16 09/29/21 07:16 09/29/21 07:16 09/29/21 07:16 09/29/21 07:16 Laboratory Results - last 24 hr 09/28/21 05:32: POC Glucose 338 H* 09/28/21 07:48: Total Counted 100, Neutrophils % (Manual) 92 H, Lymphocytes % (Manual) 2 L, Monocytes % (Manual) 6, Platelet Estimate Normal, Hypochromasia 2+, Microcytosis 2+ 09/28/21 07:48: C-Reactive Protein 45.1 H D 09/28/21 07:48: Ferritin 976 H 09/28/21 10:52: POC Glucose 414 H* 09/28/21 16:28: POC Glucose 575 H* 09/28/21 16:45: Random Glucose 606 H* 09/28/21 23:09: POC Glucose 483 H* 09/29/21 05:19: POC Glucose 393 H* 09/29/21 07:48: WBC 24.1 H*, RBC 3.99 L, Hgb 12.7 L, Hct 39.3 L, MCV 98.6 H, MCH 31.8 H, MCHC 32.2, RDW 15.5, Plt Count 176, MPV 10.5 H, Neut % (Auto) 93.7 H, Lymph % (Auto) 2.1 L, [place] % (Auto) 2.5, Eos % (Auto) 0.4, Baso % (Auto) 1.3, Neut # (Auto) 22.5 H, Lymph # (Auto) 0.5 L, [place] # (Auto) 0.6, Eos # (Auto) 0.1, Baso # (Auto) 0.3 H 09/29/21 07:48: Sodium 128 L, Potassium 5.0, Chloride 91 L, Carbon Dioxide 30, Anion Gap 12.0, BUN 40 H, Creatinine 0.80, Estimated Creat Clear 115, Estimated GFR 96, Est GFR ( Amer) 116 D, Glucose 319 H, Calcium 9.1 I & O for Last 24 hours: Intake & Output 09/26/21 09/27/21 09/28/21 09/29/21 23:59 23:59 23:59 23:59 Intake Total 960 / 960 1080 / 1080 600 / 600 240 / 240 Output Total 1625 / 1625 400 / 800 1150 / 2050 900 / 900 Balance -665 / -665 680 / 280 -550 / -1450 -660 / -660 Weight 116.573 kg 114.759 kg 114.75 kg Microbiology Reports for the Last 24 Hours: Microbiology 09/25/21 12:45 Sputum - Expectorated Sputum Gram Stain - Final 09/25/21 12:45 Sputum - Expectorated Sputum Sputum Culture - Final Normal Respiratory Mariella Assessment and Plan (1) Acute respiratory failure due to COVID-19 Status: Acute Category: Medical Code(s): U07.1 - COVID-19; J96.00 - Acute respiratory failure, unspecified whether with hypoxia or hypercapnia (2) Acute kidney injury Status: Resolved Category: Medical Code(s): N17.9 - Acute kidney failure, unspecified (3) COPD (chronic obstructive pulmonary disease) Status: Acute Qualifiers: COPD type: unspecified COPD Qualified Code(s): J44.9 - Chronic obstructive pulmonary disease, unspecified Category: Medical Code(s): J44.9 - Chronic obstructive pulmonary disease, unspecified (4) COVID-19 with pulmonary comorbidity Status: Acute Category: Medical Code(s): U07.1 - COVID-19; J98.4 - Other disorders of lung (5) Obesity (BMI 30-39.9) Status: Chronic Category: Medical Code(s): E66.9 - Obesity, unspecified (6) Thrombocytopenia associated with COVID-19 Status: Resolved Category: Medical Code(s): U07.1 - COVID-19; D69.59 - Other secondary thrombocytopenia (7) Hx of CABG Status: Chronic Category: Surgical Code(s): Z95.1 - Presence of aortocoronary bypass graft (8) CAD (coronary artery disease) Status: Chronic Qualifiers: Coronary Disease-Associated Artery/Lesion type: bypass graft [place] vs. transplanted heart: [place] heart Associated angina: with other forms of angina Qualified Code(s): I25.708 - Atherosclerosis of coronary artery bypass graft(s), unspecified, with other forms of angina pectoris Category: Medical Code(s): I25.10 - Atherosclerotic heart disease of [place] coronary artery without angina pectoris (9) Atrial fibrillation Status: Acute Qualifiers: Atrial fibrillation type: paroxysmal Qualified Code(s): I48.0 - Paroxysmal atrial fibrillation Category: Medical Code(s): I48.91 - Unspecified atrial fibrillation (10) Steroid-induced hyperglycemia Status: Acute Category: Medical Code(s): R73.9 - Hyperglycemia, unspecified; T38.0X5A - Adverse effect of glucocorticoids and synth
[2021-09-29 09:19] LABS: Lymphocytes % 4 % (10-50); Macrocytosis 1+; Monocytes % 1 % (2-9); Neutrophils % 95 % (42-76); Platelet Estimate Normal; Total Cells Counted 100
--- NOTE | 2021-09-29 11:39 | HMH.PULMPN ---
Internal Medicine - PN: Subj *Date: 09/29/21 *Time: 11:39 Interval history: No acute respiratory vents overnight. Patient denies any new respiratory complaints. Exam - Constitutional Constitutional:: Present: no acute distress, comfortable - HENMT Exam HENMT: Present: normocephalic, atraumatic - Eye Exam Eyes:: Present: normal appearance both eyes and related structures - Neck Exam Neck:: Present: normal visual inspection - Respiratory Exam Respiratory:: Present: able to speak in complete sentences, no respiratory distress, rales - Cardiovascular Exam Cardiac:: Present: S1, S2 - GI Exam GI:: Present: soft, no hepatosplenomegaly - Skin Exam Skin: Present: warm, no rash - Neurological Exam Neurological: Present: alert, awake, normal cognition - Extremities Exam Extremities: Present: no cyanosis, no clubbing, edema - Psychiatric Exam Psychiatric: Present: normal affect Assessment and Plan (1) Acute respiratory failure due to COVID-19 Status: Acute Category: Medical Code(s): U07.1 - COVID-19; J96.00 - Acute respiratory failure, unspecified whether with hypoxia or hypercapnia (2) Acute kidney injury Status: Resolved Category: Medical Code(s): N17.9 - Acute kidney failure, unspecified (3) COPD (chronic obstructive pulmonary disease) Status: Acute Qualifiers: COPD type: unspecified COPD Qualified Code(s): J44.9 - Chronic obstructive pulmonary disease, unspecified Category: Medical Code(s): J44.9 - Chronic obstructive pulmonary disease, unspecified (4) COVID-19 with pulmonary comorbidity Status: Acute Category: Medical Code(s): U07.1 - COVID-19; J98.4 - Other disorders of lung (5) Obesity (BMI 30-39.9) Status: Chronic Category: Medical Code(s): E66.9 - Obesity, unspecified (6) Thrombocytopenia associated with COVID-19 Status: Resolved Category: Medical Code(s): U07.1 - COVID-19; D69.59 - Other secondary thrombocytopenia (7) Hx of CABG Status: Chronic Category: Surgical Code(s): Z95.1 - Presence of aortocoronary bypass graft (8) CAD (coronary artery disease) Status: Chronic Qualifiers: Coronary Disease-Associated Artery/Lesion type: bypass graft [place] vs. transplanted heart: [place] heart Associated angina: with other forms of angina Qualified Code(s): I25.708 - Atherosclerosis of coronary artery bypass graft(s), unspecified, with other forms of angina pectoris Category: Medical Code(s): I25.10 - Atherosclerotic heart disease of [place] coronary artery without angina pectoris (9) Atrial fibrillation Status: Acute Qualifiers: Atrial fibrillation type: paroxysmal Qualified Code(s): I48.0 - Paroxysmal atrial fibrillation Category: Medical Code(s): I48.91 - Unspecified atrial fibrillation (10) Steroid-induced hyperglycemia Status: Acute Category: Medical Code(s): R73.9 - Hyperglycemia, unspecified; T38.0X5A - Adverse effect of glucocorticoids and synthetic analogues, initial encounter (11) Balanitis Status: Acute Category: Medical Code(s): N48.1 - Balanitis - Assessment and plan all Dx Assessment and Plan for all problems:: #Acute chronic hypoxic respiratory failure: #COVID-19 pneumonia: Mr. Estevez is 66-year-old male greater than 56-ronc-pfgs smoking history, last smoked 16 years ago used to smoke 3 to 4 packs a day, history of CAD, COPD presented to the hospital with worsening respiratory failure not associated with any productive phlegm.Patient on admission found to be COVID-19 positive and pulmonary was called for further management. Patient had a prior history of recurrent UTIs with Enterococcus faecalis levofloxacin sensitive on staph.epi. Patient chest x-ray admission bilateral pulmonary infiltrates left greater than right. Patient also noted to have MONA on CKD along with evidence of volume overload bilateral lower extremity edema and elevated BNP at admission troponins were also elevated on admiss
[2021-09-29 12:53] LABS: POC Glucose,Bedside 330 (70-110)
[2021-09-29 17:00] LABS: POC Glucose,Bedside 342 (70-110)
[2021-09-29 17:36] LABS: Fungitell(Beta D-Glucan) Serum 96 pg/mL (<80)
--- NOTE | 2021-09-29 19:06 | PC.NURSE ---
NO ACUTE CHANGES, A0X4, SPENT MOST OF DAY UP TO CHAIR. REQUIRES O2 VIA VAPOTHERM 30 LPM.
[2021-09-29 22:37] LABS: POC Glucose,Bedside 398 (70-110)
[2021-09-30] VITALS (14 sets, daily range): BP systolic 112–147; BP diastolic 62–84; PULSE 71–103; RESP 16–21; TEMP 36.4–36.7; O2SAT 90–95; BMI 39.4
[2021-09-30 05:53] LABS: POC Glucose,Bedside 269 (70-110)
[2021-09-30 07:34] LABS: Basophils # 0.1 K/mm3 (0-0.2); Basophils % 0.4 % (0.1-2.0); Eosinophils % 0.1 % (0.1-12.0); Hematocrit 39.7 % (42.0-52.0); Hemoglobin 12.8 g/dL (14.1-18.0); Lymphocytes # 0.7 K/mm3 (0.7-4.5); Lymphocytes % 2.8 % (10-50); Mean Corpuscular HGB Conc 32.2 g/dL (31.8-35.4); Mean Corpuscular Hemoglobin 32.3 pg (27.0-31.2); Mean Corpuscular Volume 100.2 fl (80-94); Mean Platelet Volume 10.4 fl (7.4-10.4); Monocytes # 0.9 K/mm3 (0.1-1.0); Monocytes % 3.4 % (1.7-9.3); Neutrophils # 24.3 K/mm3 (1.8-7.8); Neutrophils % 93.3 % (37.0-80.0); Platelet Count 175 K/mm3 (142-424); Red Blood Count 3.96 M/mm3 (4.60-6.20); Red Cell Distribution Width 16.1 % (11.5-17.5); White Blood Count 26.1 K/mm3 (4.8-10.8)
[2021-09-30 07:42] LABS: Anion Gap 11.7 mEq/L (5-15); Blood Urea Nitrogen 44 mg/dl (9-20); Calcium 9.2 mg/dl (8.4-10.2); Carbon Dioxide 31 mmol/L (22.0-30.0); Chloride 95 mmol/L (98-107); Creatinine Clearance Estimated 114 mL/min (50-200); Estimated Glomerular Filt Rate 74 ml/min (>60); GFR (African American) 90 ML/MIN (>60); Glucose 262 mg/dl (74-100); MANUAL DIFFERENTIAL MANUAL DIFFERENTIAL (MANUAL DIFF); Potassium 5.7 mmoL/L (3.5-5.1); Sodium 132 mmol/L (136-145)
--- NOTE | 2021-09-30 08:28 | HMH.ACPN2 ---
Internal Medicine - PN: Subj *Date: 09/30/21 *Time: 08:28 Interval history: Patient has no complaints. No acute events in the last 24 hours. He remains on high-dose steroids. Patient has been able to maintain O2 sats without the use of nonrebreather. HFNC remains at 30 L/min with FiO2 of 70% Exam Vital signs and Labs for Last 24 Hours: Temp Pulse Resp BP Pulse Ox 97.5 F L 85 20 134/74 90 L 09/30/21 07:39 09/30/21 07:39 09/30/21 07:39 09/30/21 07:39 09/30/21 07:41 Laboratory Results - last 24 hr 09/25/21 17:30: Beta-(1,3)-D-Glucan 96 H 09/29/21 07:48: Total Counted 100, Neutrophils % (Manual) 95 H, Lymphocytes % (Manual) 4 L, Monocytes % (Manual) 1 L, Platelet Estimate Normal, Macrocytosis 1+ 09/29/21 12:15: POC Glucose 330 H* 09/29/21 16:37: POC Glucose 342 H* 09/29/21 21:49: POC Glucose 398 H* 09/30/21 05:17: POC Glucose 269 H 09/30/21 06:41: WBC 26.1 H*, RBC 3.96 L, Hgb 12.8 L, Hct 39.7 L, MCV 100.2 H, MCH 32.3 H, MCHC 32.2, RDW 16.1, Plt Count 175, MPV 10.4, Neut % (Auto) 93.3 H, Lymph % (Auto) 2.8 L, [place] % (Auto) 3.4, Eos % (Auto) 0.1, Baso % (Auto) 0.4, Neut # (Auto) 24.3 H, Lymph # (Auto) 0.7, [place] # (Auto) 0.9, Eos # (Auto) 0.0, Baso # (Auto) 0.1 09/30/21 06:41: Sodium 132 L, Potassium 5.7 H, Chloride 95 L, Carbon Dioxide 31 H, Anion Gap 11.7, BUN 44 H, Creatinine 1.00 D, Estimated Creat Clear 114, Estimated GFR 74, Est GFR ( Amer) 90 D, Glucose 262 H, Calcium 9.2 I & O for Last 24 hours: Intake & Output 09/27/21 09/28/21 09/29/21 09/30/21 11:59 11:59 11:59 11:59 Intake Total 1200 / 1200 840 / 840 600 / 600 840 / 840 Output Total 1625 / 1625 800 / 800 2150 / 2150 800 / 800 Balance -425 / -425 40 / 40 -1550 / -1550 40 / 40 Weight 253 lb 252 lb 15.687 oz 251 lb 5.231 oz - Constitutional no acute distress - *Routine Respiratory Exam Present: CTA bilaterally - *Routine Cardiovascular Exam Present: RRR - *Routine Abdominal Exam Present: soft, normoactive bowel sounds. Absent: tenderness Assessment and Plan (1) Acute respiratory failure due to COVID-19 Status: Acute Category: Medical Code(s): U07.1 - COVID-19; J96.00 - Acute respiratory failure, unspecified whether with hypoxia or hypercapnia (2) Acute kidney injury Status: Resolved Category: Medical Code(s): N17.9 - Acute kidney failure, unspecified (3) COPD (chronic obstructive pulmonary disease) Status: Acute Qualifiers: COPD type: unspecified COPD Qualified Code(s): J44.9 - Chronic obstructive pulmonary disease, unspecified Category: Medical Code(s): J44.9 - Chronic obstructive pulmonary disease, unspecified (4) COVID-19 with pulmonary comorbidity Status: Acute Category: Medical Code(s): U07.1 - COVID-19; J98.4 - Other disorders of lung (5) Obesity (BMI 30-39.9) Status: Chronic Category: Medical Code(s): E66.9 - Obesity, unspecified (6) Thrombocytopenia associated with COVID-19 Status: Resolved Category: Medical Code(s): U07.1 - COVID-19; D69.59 - Other secondary thrombocytopenia (7) Hx of CABG Status: Chronic Category: Surgical Code(s): Z95.1 - Presence of aortocoronary bypass graft (8) CAD (coronary artery disease) Status: Chronic Qualifiers: Coronary Disease-Associated Artery/Lesion type: bypass graft [place] vs. transplanted heart: [place] heart Associated angina: with other forms of angina Qualified Code(s): I25.708 - Atherosclerosis of coronary artery bypass graft(s), unspecified, with other forms of angina pectoris Category: Medical Code(s): I25.10 - Atherosclerotic heart disease of [place] coronary artery without angina pectoris (9) Atrial fibrillation Status: Acute Qualifiers: Atrial fibrillation type: paroxysmal Qualified Code(s): I48.0 - Paroxysmal atrial fibrillation Category: Medical Code(s): I48.91 - Unspecified atrial fibrillation (10) Steroid-induced hyperglycemia Status: Acute Category: Medical Code(s
[2021-09-30 10:19] LABS: Eosinophils % 1 % (0-3); Lymphocytes % 4 % (10-50); Monocytes % 3 % (2-9); Neutrophils % 91 % (42-76); Nucleated Red Blood Cells 1; Total Cells Counted 100
[2021-09-30 10:20] LABS: Anisocytosis 1+; Macrocytosis 1+; Platelet Estimate Normal
[2021-09-30 17:28] LABS: POC Glucose,Bedside 381 (70-110)
[2021-09-30 17:28] LABS: POC Glucose,Bedside 435 (70-110)
[2021-09-30 23:34] LABS: POC Glucose,Bedside 427 (70-110)
[2021-10-01] VITALS (12 sets, daily range): BP systolic 101–115; BP diastolic 60–78; PULSE 68–81; RESP 18–21; TEMP 36.3–37.1; O2SAT 92–96; BMI 40.3; BMI 410305.2
[2021-10-01 06:40] LABS: POC Glucose,Bedside 241 (70-110)
[2021-10-01 07:12] LABS: Basophils # 0.1 K/mm3 (0-0.2); Basophils % 0.4 % (0.1-2.0); Eosinophils % 0.1 % (0.1-12.0); Hematocrit 37.1 % (42.0-52.0); Lymphocytes # 0.8 K/mm3 (0.7-4.5); Lymphocytes % 2.9 % (10-50); Mean Corpuscular HGB Conc 32.4 g/dL (31.8-35.4); Mean Corpuscular Hemoglobin 32.2 pg (27.0-31.2); Mean Corpuscular Volume 99.6 fl (80-94); Mean Platelet Volume 10.8 fl (7.4-10.4); Monocytes # 0.6 K/mm3 (0.1-1.0); Monocytes % 2.2 % (1.7-9.3); Neutrophils # 25.1 K/mm3 (1.8-7.8); Neutrophils % 94.4 % (37.0-80.0); Platelet Count 135 K/mm3 (142-424); Red Blood Count 3.73 M/mm3 (4.60-6.20); Red Cell Distribution Width 16.4 % (11.5-17.5); White Blood Count 26.6 K/mm3 (4.8-10.8)
[2021-10-01 07:13] LABS: MANUAL DIFFERENTIAL MANUAL DIFFERENTIAL (MANUAL DIFF)
[2021-10-01 07:21] LABS: Anisocytosis 1+; Lymphocytes % 3 % (10-50); Macrocytosis 1+; Neutrophils % 86 % (42-76); Platelet Estimate Slight Decrease; Total Cells Counted 100
[2021-10-01 07:44] LABS: Anion Gap 10.3 mEq/L (5-15); Blood Urea Nitrogen 55 mg/dl (9-20); Calcium 8.9 mg/dl (8.4-10.2); Carbon Dioxide 31 mmol/L (22.0-30.0); Chloride 92 mmol/L (98-107); Creatinine Clearance Estimated 58 mL/min (50-200); Estimated Glomerular Filt Rate 67 ml/min (>60); GFR (African American) 81 ML/MIN (>60); Glucose 234 mg/dl (74-100); Potassium 5.3 mmoL/L (3.5-5.1); Sodium 128 mmol/L (136-145)
--- NOTE | 2021-10-01 09:07 | HMH.ACPN2 ---
Internal Medicine - PN: Subj *Date: 10/01/21 *Time: 09:07 Interval history: No new complaints. Bladder irrigation started yesterday and [place] catheter changed due to gross blood and blood clots. Patient attempted to get out of his chair but was so weak a lift was required. Fungal tests returned abnomral and patient has been started on Micafungin Exam Vital signs and Labs for Last 24 Hours: Temp Pulse Resp BP Pulse Ox 97.4 F L 77 18 102/78 L 95 10/01/21 07:24 10/01/21 07:24 10/01/21 07:24 10/01/21 07:24 10/01/21 07:24 Laboratory Results - last 24 hr 09/30/21 06:41: Total Counted 100, Neutrophils % (Manual) 91 H, Band Neutrophils % 1.0, Lymphocytes % (Manual) 4 L, Monocytes % (Manual) 3, Eosinophils % (Manual) 1, Nucleated RBCs 1, Platelet Estimate Normal, Anisocytosis 1+, Macrocytosis 1+ 09/30/21 12:25: POC Glucose 381 H* 09/30/21 17:15: POC Glucose 435 H* 09/30/21 22:54: POC Glucose 427 H* 10/01/21 06:30: POC Glucose 241 H 10/01/21 06:50: WBC 26.6 H*, RBC 3.73 L, Hgb 12.0 L, Hct 37.1 L, MCV 99.6 H, MCH 32.2 H, MCHC 32.4, RDW 16.4, Plt Count 135 L, MPV 10.8 H, Neut % (Auto) 94.4 H, Lymph % (Auto) 2.9 L, [place] % (Auto) 2.2, Eos % (Auto) 0.1, Baso % (Auto) 0.4, Neut # (Auto) 25.1 H, Lymph # (Auto) 0.8, [place] # (Auto) 0.6, Eos # (Auto) 0.0, Baso # (Auto) 0.1, Total Counted 100, Neutrophils % (Manual) 86 H, Band Neutrophils % 11.0 H, Lymphocytes % (Manual) 3 L, Platelet Estimate Slight decrease, Anisocytosis 1+, Macrocytosis 1+ 10/01/21 06:50: Sodium 128 L, Potassium 5.3 H, Chloride 92 L, Carbon Dioxide 31 H, Anion Gap 10.3, BUN 55 H, Creatinine 1.10, Estimated Creat Clear 58, Estimated GFR 67, Est GFR ( Amer) 81, Glucose 234 H, Calcium 8.9 I & O for Last 24 hours: Intake & Output 09/28/21 09/29/21 09/30/21 10/01/21 11:59 11:59 11:59 10:59 Intake Total 840 / 840 600 / 600 840 / 840 1450 / 1450 Output Total 800 / 800 2150 / 2150 800 / 800 1800 / 1800 Balance 40 / 40 -1550 / -1550 40 / 40 -350 / -350 Weight 252 lb 15.687 oz 251 lb 5.231 oz 256 lb 12.8 oz - Constitutional no acute distress - *Routine Respiratory Exam Present: CTA bilaterally - *Routine Cardiovascular Exam Present: RRR - *Routine Abdominal Exam Present: soft, normoactive bowel sounds. Absent: tenderness - *Routine Extremities Exam Present: edema (trace) Assessment and Plan (1) Acute respiratory failure due to COVID-19 Status: Acute Category: Medical Code(s): U07.1 - COVID-19; J96.00 - Acute respiratory failure, unspecified whether with hypoxia or hypercapnia (2) Acute kidney injury Status: Resolved Category: Medical Code(s): N17.9 - Acute kidney failure, unspecified (3) COPD (chronic obstructive pulmonary disease) Status: Acute Qualifiers: COPD type: unspecified COPD Qualified Code(s): J44.9 - Chronic obstructive pulmonary disease, unspecified Category: Medical Code(s): J44.9 - Chronic obstructive pulmonary disease, unspecified (4) COVID-19 with pulmonary comorbidity Status: Acute Category: Medical Code(s): U07.1 - COVID-19; J98.4 - Other disorders of lung (5) Obesity (BMI 30-39.9) Status: Chronic Category: Medical Code(s): E66.9 - Obesity, unspecified (6) Thrombocytopenia associated with COVID-19 Status: Resolved Category: Medical Code(s): U07.1 - COVID-19; D69.59 - Other secondary thrombocytopenia (7) Hx of CABG Status: Chronic Category: Surgical Code(s): Z95.1 - Presence of aortocoronary bypass graft (8) CAD (coronary artery disease) Status: Chronic Qualifiers: Coronary Disease-Associated Artery/Lesion type: bypass graft [place] vs. transplanted heart: [place] heart Associated angina: with other forms of angina Qualified Code(s): I25.708 - Atherosclerosis of coronary artery bypass graft(s), unspecified, with other forms of angina pectoris Category: Medical Code(s): I25.10 - Atherosclerotic heart disease of [place] coronary artery without angina pec
--- NOTE | 2021-10-01 20:04 | PC.NURSE ---
No acute changes. Vapotherm on 30 L and 60 %. Pt in NAD. CB in reach. here all shift.
[2021-10-01 22:04] LABS: POC Glucose,Bedside 377 (70-110)
[2021-10-01 22:04] LABS: POC Glucose,Bedside 279 (70-110)
[2021-10-01 22:25] LABS: POC Glucose,Bedside 339 (70-110)
[2021-10-02] VITALS (13 sets, daily range): BP systolic 104–132; BP diastolic 58–70; PULSE 65–89; RESP 16–24; TEMP 36.3–36.9; O2SAT 81–94; BMI 41.4
[2021-10-02 06:40] LABS: POC Glucose,Bedside 215 (70-110)
[2021-10-02 06:41] LABS: Basophils # 0.1 K/mm3 (0-0.2); Basophils % 0.5 % (0.1-2.0); Eosinophils # 0.2 K/mm3 (0.0-0.4); Eosinophils % 0.8 % (0.1-12.0); Hematocrit 35.9 % (42.0-52.0); Hemoglobin 11.5 g/dL (14.1-18.0); Lymphocytes # 0.6 K/mm3 (0.7-4.5); Lymphocytes % 2.4 % (10-50); Mean Corpuscular Hemoglobin 32.1 pg (27.0-31.2); Mean Corpuscular Volume 100.2 fl (80-94); Mean Platelet Volume 10.6 fl (7.4-10.4); Monocytes # 0.6 K/mm3 (0.1-1.0); Monocytes % 2.4 % (1.7-9.3); Neutrophils # 22.5 K/mm3 (1.8-7.8); Platelet Count 119 K/mm3 (142-424); Red Blood Count 3.59 M/mm3 (4.60-6.20); Red Cell Distribution Width 16.7 % (11.5-17.5)
[2021-10-02 06:46] LABS: MANUAL DIFFERENTIAL MANUAL DIFFERENTIAL (MANUAL DIFF)
[2021-10-02 07:12] LABS: Anion Gap 8.2 mEq/L (5-15); Blood Urea Nitrogen 50 mg/dl (9-20); Calcium 8.6 mg/dl (8.4-10.2); Carbon Dioxide 32 mmol/L (22.0-30.0); Chloride 95 mmol/L (98-107); Creatinine Clearance Estimated 64 mL/min (50-200); Estimated Glomerular Filt Rate 74 ml/min (>60); GFR (African American) 90 ML/MIN (>60); Glucose 217 mg/dl (74-100); Potassium 5.2 mmoL/L (3.5-5.1); Sodium 130 mmol/L (136-145)
--- NOTE | 2021-10-02 07:14 | HMH.ACPN2 ---
Internal Medicine - PN: Subj *Date: 10/02/21 *Time: 07:14 Interval history: Patient has no complaints. He remains on high flow nasal cannula with FiO2 now weaned to 55% maintaining O2 sats above 88% and even into the mid 90s while patient is resting. He remains quite weak Exam Vital signs and Labs for Last 24 Hours: Temp Pulse Resp BP Pulse Ox 98.5 F 75 18 122/58 L 89 L 10/02/21 04:00 10/02/21 05:42 10/02/21 04:00 10/02/21 04:00 10/02/21 05:42 Laboratory Results - last 24 hr 10/01/21 06:50: Total Counted 100, Neutrophils % (Manual) 86 H, Band Neutrophils % 11.0 H, Lymphocytes % (Manual) 3 L, Platelet Estimate Slight decrease, Anisocytosis 1+, Macrocytosis 1+ 10/01/21 06:50: Sodium 128 L, Potassium 5.3 H, Chloride 92 L, Carbon Dioxide 31 H, Anion Gap 10.3, BUN 55 H, Creatinine 1.10, Estimated Creat Clear 58, Estimated GFR 67, Est GFR ( Amer) 81, Glucose 234 H, Calcium 8.9 10/01/21 11:49: POC Glucose 279 H 10/01/21 16:37: POC Glucose 377 H* 10/01/21 21:31: POC Glucose 339 H* 10/02/21 06:25: WBC 24.0 H*, RBC 3.59 L, Hgb 11.5 L, Hct 35.9 L, MCV 100.2 H, MCH 32.1 H, MCHC 32.0, RDW 16.7, Plt Count 119 L, MPV 10.6 H, Neut % (Auto) 94.0 H, Lymph % (Auto) 2.4 L, [place] % (Auto) 2.4, Eos % (Auto) 0.8, Baso % (Auto) 0.5, Neut # (Auto) 22.5 H, Lymph # (Auto) 0.6 L, [place] # (Auto) 0.6, Eos # (Auto) 0.2, Baso # (Auto) 0.1 10/02/21 06:25: Sodium 130 L, Potassium 5.2 H, Chloride 95 L, Carbon Dioxide 32 H, Anion Gap 8.2, BUN 50 H, Creatinine 1.00, Estimated Creat Clear 64, Estimated GFR 74, Est GFR ( Amer) 90, Glucose 217 H, Calcium 8.6 10/02/21 06:25: POC Glucose 215 H I & O for Last 24 hours: Intake & Output 09/29/21 09/30/21 10/01/21 10/02/21 12:59 12:59 11:59 11:59 Intake Total 1480 / 1480 Output Total 1250 / 1250 Balance 230 / 230 Weight 264 lb Narrative: Patient looks comfortable sitting in bed. Lungs remain distant but clear. Heart has a regular rate and rhythm. Abdomen is obese. Lower extremities have 1+ edema Assessment and Plan (1) Acute respiratory failure due to COVID-19 Status: Acute Category: Medical Code(s): U07.1 - COVID-19; J96.00 - Acute respiratory failure, unspecified whether with hypoxia or hypercapnia (2) Acute kidney injury Status: Resolved Category: Medical Code(s): N17.9 - Acute kidney failure, unspecified (3) COPD (chronic obstructive pulmonary disease) Status: Acute Qualifiers: COPD type: unspecified COPD Qualified Code(s): J44.9 - Chronic obstructive pulmonary disease, unspecified Category: Medical Code(s): J44.9 - Chronic obstructive pulmonary disease, unspecified (4) COVID-19 with pulmonary comorbidity Status: Acute Category: Medical Code(s): U07.1 - COVID-19; J98.4 - Other disorders of lung (5) Obesity (BMI 30-39.9) Status: Chronic Category: Medical Code(s): E66.9 - Obesity, unspecified (6) Thrombocytopenia associated with COVID-19 Status: Resolved Category: Medical Code(s): U07.1 - COVID-19; D69.59 - Other secondary thrombocytopenia (7) Hx of CABG Status: Chronic Category: Surgical Code(s): Z95.1 - Presence of aortocoronary bypass graft (8) CAD (coronary artery disease) Status: Chronic Qualifiers: Coronary Disease-Associated Artery/Lesion type: bypass graft [place] vs. transplanted heart: [place] heart Associated angina: with other forms of angina Qualified Code(s): I25.708 - Atherosclerosis of coronary artery bypass graft(s), unspecified, with other forms of angina pectoris Category: Medical Code(s): I25.10 - Atherosclerotic heart disease of [place] coronary artery without angina pectoris (9) Atrial fibrillation Status: Resolved Qualifiers: Atrial fibrillation type: paroxysmal Qualified Code(s): I48.0 - Paroxysmal atrial fibrillation Category: Medical Code(s): I48.91 - Unspecified atrial fibrillation (10) Steroid-induced hyperglycemia Status: Acute Category
[2021-10-02 07:37] LABS: Anisocytosis 1+; Lymphocytes % 8 % (10-50); Macrocytosis 2+; Neutrophils % 92 % (42-76); Nucleated Red Blood Cells 2; Platelet Estimate Normal; Total Cells Counted 100
--- NOTE | 2021-10-02 10:27 | HMH.OTEV ---
OT Inpatient Evaluation Rehab OT IP Evaluation Start: 10/01/21 09:05 Freq: ONCE Status: Complete Protocol: Document 10/02/21 10:21 [facility] (Rec: 10/02/21 10:26 [facility] [id number]) Rehab OT IP Assessment Subjective History Pt oriented x 3 on arrival. Pt agreeable to engage in therapy evaluation. Pt was admitted via Ed on 09/04/21 due to COVID and Acute repiratory failure. Pt has a past medical history of Arrhythmia, Cancer (bladder), Chronic Obstructive Pulmonary Disease (COPD), Coronary Artery Disease, Hyperlipidemia , Hypertension, Myocardial Infarction. Pt reports prior to being hospitalized he lived at home with his . Pt claims she was independent with all ADLs. He also explains he did do cooking and cleaning as well. Subjective I just need to get better. Pt required mod x 2 to complete bed mobility. Pt stood from eob with mod assist x 2. Pt then required max assist to go from sitting eob to supine. Pt has to roll from side to side in order to be changed with min assist. Objective Patient Orientation Person,Place,Birthday Upper Extremity Gross ROM Min Limitation <25% Shoulder ROM Limitations Muscle Weakness Elbow ROM Limitations Muscle Weakness Wrist Limitations of Range of Motion Muscle Weakness Bed Mobility bed mobility-scooting,bed mobility - supine/sit,bed mobility - rolling Assist Level Moderate x 2 (50% assist) Rehab OT IP prob,goals,plan Problems Date of Evaluation: 10/02/21 OT IP Problems Bed Mobility,Transfers,Gait, Balance,Self care,Safety Rehab Potential Rehab Potential Good Equipment Needs Assistive Devices Rolling / Wheeled Walker Plan OT intervention Plan Bed Mobility,Transfers,Gait, Balance,Self care,Safety, Therapeutic Exercise OT Plan Frequency BID Duration
--- NOTE | 2021-10-02 11:34 | HMH.PTEV ---
Physical Therapy Evaluation Rehab PT IP Evaluation Start: 10/01/21 09:05 Freq: ONCE Status: Active Protocol: Document 10/02/21 09:45 PHOYULISSA (Rec: 10/02/21 11:34 PHORNE [id number]) Subjective/History History History 66 yowm adm to [facility] with COVID- 19 and increased SOA. He has had prolonged hosital stay and is now tolerating [place] oxygen better, but remains very weak. Subjective Subjective Pt reports he feels very tired and weak at this time. Rehab PT IP Eval Objective Appearance Patient Behavior Appropriate Patient Orientation Person,Place,Time Difficulty following instructions none Speech Pattern Clear Ambulation Patient Able to Ambulate No Balance Ability to Arise Able, uses arms to help Sitting Balance Leans or slides in chair Standing Balance Unsteady Dynamic Sitting Balance Ability Fair Dynamic Standing Balance Ability Poor Transfers Bed Transfer Ability Maximum x 1 (75% assist) Sit to Stand Bed Transfer Ability Maximum x 1 (75% assist) ROM All Extremities PT ROM Status WFL MMT All Extremities PT MMT ABN Abnormal MMT Grade grossly 3/5 B UE and 2/5 B LE Rehab PT IP prob,goals,plan Problems Date of Evaluation: 10/02/21 PT IP Problems Bed Mobility,Transfers,Gait Rehab Potential Rehab Potential Good Plan PT Intervention Plan Bed Mobility,Transfers,Gait, Balance,Therapeutic Exercise PT Plan Frequency BID Duration LOS Discharge Goals Bed Transfer Ability Moderate x 2 (50% assist) Sit to Stand Chair Transfer Ability Moderate x 2 (50% assist) Ambulation Assistive Device Rolling Walker Ambulation Distance (feet) 3 Discharge Plan PT Discharge Plan Pt is most appropriate for rehab placement at this time due to significant weakness after prolonged immobility. G -code Required No Eval Complexity Eval Charge Codes 34699 - High Complexity PHYSICIAN CERTIFICATION: I certify the specified therapy services for Lj Estevez are required, authorized, and reviewed every 30 days.
--- NOTE | 2021-10-02 12:00 | PC.NURSE ---
Addendum entered by Fabiola Lora RN 10/02/21 18:33: VAPOTHERM WAS WEANED TO 50% FIO2 PER PULMONOLOGY. Original Note: PT IS RESTING IN BED. REPOSITIONED ON HIS RT SIDE AFTER OPEN AREAS TO THE COCCYX/BUTTOCKS WERE CLEANED AND NEW DRESSING WAS APPLIED. 2+ PITTING EDEMA NOTED TO BLE. PT WAS ABLE TO SIT UP ON THE SOB AND STAND(MODERATE ASSIST X2) WITH NURSE AND OCCUPATIONAL THERAPY THIS MORNING. PT STATES HE REALLY WANTS TO GO HOME AND IS BEING TOLD THAT HE IS GETTING CLOSER TO GOING HOME BUT HIM HIMSELF IS UNSURE IF HE IS REALLY GOING TO GET THERE. CONSULTED TODAY AND WANTED THE CBI CONTINUED AND HE STATED TO THE PT THAT HE WAS NOT STABLE ENOUGH TO GO TO THE OPERATING ROOM AND PT STATED I'M NOT GOING TO THE OPERATING ROOM AT ALL, I'M DONE WITH THAT. O2 SATURATION HAS MAINTAINED 87-90% ON VAPOTHERM 30L 65% FIO2. LUNG SOUND DIMINISHED. ABDOMEN SOFT/ROUND WITH ACTIVE BOWEL SOUNDS. SCATTERED BRUISING NOTED TO THE ABDOMEN AND BUE. EATING AND DRINKING WELL. WILL CONTINUE TO MONITOR.
--- NOTE | 2021-10-02 13:31 | SW/DCPLANNER ---
Addendum entered by Anali Tracey 10/12/21 07:22: PATIENT REMAINS IN THE ACUTE HOSPITAL AND STATED HE DOESN'T FEEL WELL TODAY.. NOT EATING OR DRINKING A LOT, AT BEDSIDE.. PATIENT APPEARS TO BE DISCOURAGED AND WISHES TO GET TO FEELIN BETTER.. DR DOUGLASS HAS ENCOURAGED HIM TO DRINK MORE, MOVE AROUND IN THE BED AND WORK WITH THERAPY... Addendum entered by Anali Tracey 10/11/21 10:47: PATIENT APPEARS TO BE FEELING SOMEWHAT BETTER THIS MORNING, ASKED DR DOUGLASS IF HE COULD SHOWER AND SHAVE.. WILL ATTEMPT TO SHAVE AND DR DOUGLASS WANTED HIM TO GO OUTSIDE AND SIT FOR SOME FRESH AIR FOR A BIT THIS AFTERNOON.. ENCOURAGED TO WORK WITH THERAPY TODAY... Addendum entered by Anali Tracey 10/10/21 09:16: PATIENT CONTINUES TO REMAIN IN THE ACUTE HOSPITAL AND NOT MEDICALLY READY FOR ANY DISPOSITION.. AT BEDSIDE, DR DOUGLASS RECOMMENDED IF HE WOULD LIKE TO GO OUTSIDE FOR A SHORT AMOUNT OF TIME TO GET SOME FRESH AIR STAFF COULD PROVIDE THIS FOR HIM. HE APPEARS TO BE GETTING FRUSTRATED WITH HAVING TO STAY IN THE HOSPITAL AND THERE IS NO DISPOSITION IN PLACE AT THIS TIME.. WILL CONTINUE TO MONITOR... Original Note: I spoke with this patient regarding discharge plans once medically stable for discharge. PT/OT evaluted patient and has recommended placement at time of discharge. During my visit patient is adamant to return home and is not interested in placement. I will continue to follow up with this patient until medically stable for discharge. Discharge date is unknown at this time.
--- NOTE | 2021-10-02 15:47 | HMH.CONS ---
*Admission Date: 09/04/21 *Reason for consult:: Gross hematuria *History of present illness: Patient is a 66-year-old white male well-known to me with a history of bladder cancer. He has been in the hospital for a month with Covid but on Saturday began having some gross hematuria and his [place] catheter was removed and a three-way catheter was replaced. By report a large amount of clot was irrigated from the bladder and continuous bladder irrigation was started. Patient stated he was having a whole lot of burning discomfort prior to irrigation the clots that resolved with irrigation. His urine today is running at a slow rate and the urine is slightly blood-tinged. His kidney function is within normal limits. Blood cultures are pending from September 30 but urine culture was not sent. He is currently on Lovenox. [facility] History Medical History: Reports:: Arrhythmia, Cancer (bladder), Chronic Obstructive Pulmonary Disease (COPD), Coronary Artery Disease, Hyperlipidemia, Hypertension, Myocardial Infarction Denies:: Diabetes Mellitus Type 1, Diabetes Mellitus Type 2, Internal Pacemaker, MRSA, Seizures *Have you ever received a pneumonia vaccine?: No *Have you received a flu vaccine this season?: No Other Medical History: Denies: Blood Transfusion Reaction Other Surgeries: Yes: No Previous Surgery, CABG, Cancer Surgery, Cardiac Catheterization, Cardiac Surgery, Colonoscopy, Hernia Repair, Open Heart Surgery, Other (VERTEBRAE SURGERY IN NECK). No: Pacemaker Amputation: No Fractures: No - *Social History Smoking Status: Former smoker Tobacco Type: cigarettes # Packs/Day (cigarettes): 1 #Yrs smoked (if former smoker): 50 Alcohol Intake: never Alcohol Intake Frequency:: other Substance Use Type: denies use *Occupational Status:: retired Housing: house Household Members: spouse *Travel in the last 8 weeks: None Family Hx:: Cancer Review of Systems - Review of Systems Review of systems:: pertinent systems reviewed and negative unless documented below - *Neurologic Denies abnormal hearing, Denies seizure-like activity Meds Home Medications Medication Instructions Recorded Confirmed Type hydrochlorothiazide 25 mg tablet 25 mg PO DAILY 90 Days tab 07/03/18 09/04/21 History metoprolol tartrate 25 mg tablet 25 mg PO BID 90 Days tab 07/03/18 09/04/21 History tamsulosin 0.4 mg capsule 0.4 mg PO DAILY 30 Days #30 07/03/18 09/04/21 History Umeclidinium Brm/Vilanterol Tr 1 puff IH DAILY 01/19/19 09/04/21 History [Anoro Ellipta 62.5-25 Mcg INH] cetirizine 10 mg tablet 5 mg PO DAILY PRN 11/30/19 09/04/21 History Albuterol Sulfate [Albuterol 8.5 gm IH Q4HP PRN 12/13/20 09/04/21 History Sulfate Hfa] Potassium Chloride [Klor-Con 10mEq 10 meq PO DAILY 12/13/20 09/04/21 History tab] Meloxicam 15 mg PO DAILY 09/04/21 09/04/21 History Oxybutynin Chloride [Oxybutynin 10 mg PO DAILY 09/04/21 09/04/21 History Chloride ER] Allergies Allergy/AdvReac Type Severity Reaction Status Date / Time penicillin G [PENICILLIN G] Allergy Intermediate Verified 12/19/20 08:39 shellfish derived Allergy Mild Nausea Verified 12/19/20 08:39 hydromorphone [From Dilaudid] Allergy Vomiting Verified 12/19/20 08:39 Exam Vital signs and Labs for Last 24 Hours: Temp Pulse Resp BP Pulse Ox 97.7 F 84 16 128/58 L 81 L 10/02/21 14:48 10/02/21 14:48 10/02/21 14:48 10/02/21 14:48 10/02/21 14:48 Laboratory Results - last 24 hr 10/01/21 11:49: POC Glucose 279 H 10/01/21 16:37: POC Glucose 377 H* 10/01/21 21:31: POC Glucose 339 H* 10/02/21 06:25: WBC 24.0 H*, RBC 3.59 L, Hgb 11.5 L, Hct 35.9 L, MCV 100.2 H, MCH 32.1 H, MCHC 32.0, RDW 16.7, Plt Count 119 L, MPV 10.6 H, Neut % (Auto) 94.0 H, Lymph % (Auto) 2.4 L, [place] % (Auto) 2.4, Eos % (Auto) 0.8, Baso % (Auto) 0.5, Neut # (Auto) 22.5 H, Lymph # (Auto) 0.6 L, [place] # (Auto) 0.6, Eos # (Auto) 0.2, Baso # (Auto) 0.1, Total Counted 100, Neutrophils % (Manual) 92 H, Lymphocytes % (Manual) 8 L, Nucleated RBCs
--- NOTE | 2021-10-02 17:00 | HMH.PULMPN ---
Internal Medicine - PN: Subj *Date: 10/02/21 *Time: 17:00 Interval history: Patient respiratory status remained relatively stable over the weekend. Exam - Constitutional Constitutional:: Present: no acute distress, comfortable - HENMT Exam HENMT: Present: normocephalic, atraumatic - Eye Exam Eyes:: Present: normal appearance both eyes and related structures - Neck Exam Neck:: Present: normal visual inspection - Respiratory Exam Respiratory:: Present: able to speak in complete sentences, respiratory distress, rales - Cardiovascular Exam Cardiac:: Present: S1, S2 - GI Exam GI:: Present: soft, no hepatosplenomegaly - Skin Exam Skin: Present: warm, no rash - Neurological Exam Neurological: Present: alert, awake, normal cognition - Extremities Exam Extremities: Present: no cyanosis, no clubbing, edema Assessment and Plan (1) Acute respiratory failure due to COVID-19 Status: Acute Category: Medical Code(s): U07.1 - COVID-19; J96.00 - Acute respiratory failure, unspecified whether with hypoxia or hypercapnia (2) Acute kidney injury Status: Resolved Category: Medical Code(s): N17.9 - Acute kidney failure, unspecified (3) COPD (chronic obstructive pulmonary disease) Status: Acute Qualifiers: COPD type: unspecified COPD Qualified Code(s): J44.9 - Chronic obstructive pulmonary disease, unspecified Category: Medical Code(s): J44.9 - Chronic obstructive pulmonary disease, unspecified (4) COVID-19 with pulmonary comorbidity Status: Acute Category: Medical Code(s): U07.1 - COVID-19; J98.4 - Other disorders of lung (5) Obesity (BMI 30-39.9) Status: Chronic Category: Medical Code(s): E66.9 - Obesity, unspecified (6) Thrombocytopenia associated with COVID-19 Status: Resolved Category: Medical Code(s): U07.1 - COVID-19; D69.59 - Other secondary thrombocytopenia (7) Hx of CABG Status: Chronic Category: Surgical Code(s): Z95.1 - Presence of aortocoronary bypass graft (8) CAD (coronary artery disease) Status: Chronic Qualifiers: Coronary Disease-Associated Artery/Lesion type: bypass graft [place] vs. transplanted heart: [place] heart Associated angina: with other forms of angina Qualified Code(s): I25.708 - Atherosclerosis of coronary artery bypass graft(s), unspecified, with other forms of angina pectoris Category: Medical Code(s): I25.10 - Atherosclerotic heart disease of [place] coronary artery without angina pectoris (9) Atrial fibrillation Status: Resolved Qualifiers: Atrial fibrillation type: paroxysmal Qualified Code(s): I48.0 - Paroxysmal atrial fibrillation Category: Medical Code(s): I48.91 - Unspecified atrial fibrillation (10) Steroid-induced hyperglycemia Status: Acute Category: Medical Code(s): R73.9 - Hyperglycemia, unspecified; T38.0X5A - Adverse effect of glucocorticoids and synthetic analogues, initial encounter (11) Balanitis Status: Acute Category: Medical Code(s): N48.1 - Balanitis (12) Hematuria Status: Acute Qualifiers: Hematuria type: gross Qualified Code(s): R31.0 - Gross hematuria Category: Medical Code(s): R31.9 - Hematuria, unspecified - Assessment and plan all Dx Assessment and Plan for all problems:: #Acute chronic hypoxic respiratory failure: #COVID-19 pneumonia: Mr. Estevez is 66-year-old male greater than [id number] smoking history, last smoked 16 years ago used to smoke 3 to 4 packs a day, history of CAD, COPD presented to the hospital with worsening respiratory failure not associated with any productive phlegm.Patient on admission found to be COVID-19 positive and pulmonary was called for further management. Patient had a prior history of recurrent UTIs with Enterococcus faecalis levofloxacin sensitive on staph.epi. Patient chest x-ray admission bilateral pulmonary infiltrates left greater than right. Patient also noted to have MONA on CKD along with evidence of v
[2021-10-02 21:36] LABS: POC Glucose,Bedside 360 (70-110)
[2021-10-03] VITALS (13 sets, daily range): BP systolic 106–134; BP diastolic 45–70; PULSE 72–89; RESP 20–24; TEMP 36.4–36.7; O2SAT 85–99; BMI 42.8
[2021-10-03 05:48] LABS: POC Glucose,Bedside 209 (70-110)
--- NOTE | 2021-10-03 06:08 | PC.NURSE ---
No acute changes at this time. Pt tolerating Vapotherm 30 L, 50% O2 with sats in upper 80s/low 90s. Pt has been encouraged to use IS. Indwelling catheter in place with continuous irrigation draining red/orange urine. No complaints voiced to staff.
[2021-10-03 06:56] LABS: Basophils # 0.3 K/mm3 (0-0.2); Basophils % 1.4 % (0.1-2.0); Eosinophils # 0.1 K/mm3 (0.0-0.4); Eosinophils % 0.6 % (0.1-12.0); Hematocrit 35.2 % (42.0-52.0); Hemoglobin 11.4 g/dL (14.1-18.0); Lymphocytes # 0.2 K/mm3 (0.7-4.5); Mean Corpuscular HGB Conc 32.4 g/dL (31.8-35.4); Mean Corpuscular Hemoglobin 32.5 pg (27.0-31.2); Mean Corpuscular Volume 100.4 fl (80-94); Mean Platelet Volume 11.3 fl (7.4-10.4); Monocytes # 0.5 K/mm3 (0.1-1.0); Monocytes % 2.4 % (1.7-9.3); Neutrophils # 17.7 K/mm3 (1.8-7.8); Neutrophils % 94.6 % (37.0-80.0); Platelet Count 94 K/mm3 (142-424); Red Blood Count 3.51 M/mm3 (4.60-6.20); Red Cell Distribution Width 17.5 % (11.5-17.5); White Blood Count 18.7 K/mm3 (4.8-10.8)
[2021-10-03 07:03] LABS: MANUAL DIFFERENTIAL MANUAL DIFFERENTIAL (MANUAL DIFF)
[2021-10-03 07:06] LABS: Anion Gap 6.4 mEq/L (5-15); Blood Urea Nitrogen 48 mg/dl (9-20); Calcium 8.6 mg/dl (8.4-10.2); Carbon Dioxide 32 mmol/L (22.0-30.0); Chloride 98 mmol/L (98-107); Creatinine Clearance Estimated 64 mL/min (50-200); Estimated Glomerular Filt Rate 96 ml/min (>60); GFR (African American) 116 ML/MIN (>60); Glucose 167 mg/dl (74-100); Potassium 5.4 mmoL/L (3.5-5.1); Sodium 131 mmol/L (136-145)
--- NOTE | 2021-10-03 07:15 | HMH.ACPN2 ---
Internal Medicine - PN: Subj *Date: 10/03/21 *Time: 07:15 Interval history: No acute events in the last 24 hours.. He had PT eval yesterday and was quite weak. He is resistant to the idea of a care home facility at this time. FiO2 has been weaned to 50%. O2 sat is in the high 80s to low 90s except when eating which currently his O2 sat is 83%. He denies shortness of breath. He did have some nausea overnight. Hematuria is improving Exam Vital signs and Labs for Last 24 Hours: Temp Pulse Resp BP Pulse Ox 97.8 F 87 20 134/65 88 L 10/03/21 04:00 10/03/21 05:40 10/03/21 04:00 10/03/21 04:00 10/03/21 05:40 Laboratory Results - last 24 hr 10/02/21 06:25: Total Counted 100, Neutrophils % (Manual) 92 H, Lymphocytes % (Manual) 8 L, Nucleated RBCs 2, Platelet Estimate Normal, Anisocytosis 1+, Macrocytosis 2+ 10/02/21 20:25: POC Glucose 360 H* 10/03/21 05:12: POC Glucose 209 H 10/03/21 06:31: WBC 18.7 H, RBC 3.51 L, Hgb 11.4 L, Hct 35.2 L, MCV 100.4 H, MCH 32.5 H, MCHC 32.4, RDW 17.5, Plt Count 94 L, MPV 11.3 H, Neut % (Auto) 94.6 H, Lymph % (Auto) 1.0 L, [place] % (Auto) 2.4, Eos % (Auto) 0.6, Baso % (Auto) 1.4, Neut # (Auto) 17.7 H, Lymph # (Auto) 0.2 L, [place] # (Auto) 0.5, Eos # (Auto) 0.1, Baso # (Auto) 0.3 H 10/03/21 06:31: Sodium 131 L, Potassium 5.4 H, Chloride 98, Carbon Dioxide 32 H, Anion Gap 6.4, BUN 48 H, Creatinine 0.80, Estimated Creat Clear 64, Estimated GFR 96, Est GFR ( Amer) 116 D, Glucose 167 H, Calcium 8.6 I & O for Last 24 hours: Intake & Output 09/30/21 10/01/21 10/02/21 10/03/21 12:59 11:59 11:59 11:59 Intake Total 2510 / 2510 840 / 840 Output Total 1250 / 1250 3200 / 3200 Balance 1260 / 1260 -2360 / -2360 Weight 264 lb 273 lb 3.2 oz Microbiology Reports for the Last 24 Hours: Microbiology 09/30/21 19:30 Blood Blood Culture - Preliminary NO GROWTH AFTER 48 HOURS 09/30/21 19:30 Blood Blood Culture - Preliminary NO GROWTH AFTER 48 HOURS - Constitutional no acute distress - *Routine Respiratory Exam Present: CTA bilaterally - *Routine Cardiovascular Exam Present: RRR - *Routine Abdominal Exam Present: soft, normoactive bowel sounds. Absent: tenderness - *Routine Extremities Exam Present: edema Assessment and Plan (1) Acute respiratory failure due to COVID-19 Status: Acute Category: Medical Code(s): U07.1 - COVID-19; J96.00 - Acute respiratory failure, unspecified whether with hypoxia or hypercapnia (2) Acute kidney injury Status: Resolved Category: Medical Code(s): N17.9 - Acute kidney failure, unspecified (3) COPD (chronic obstructive pulmonary disease) Status: Acute Qualifiers: COPD type: unspecified COPD Qualified Code(s): J44.9 - Chronic obstructive pulmonary disease, unspecified Category: Medical Code(s): J44.9 - Chronic obstructive pulmonary disease, unspecified (4) COVID-19 with pulmonary comorbidity Status: Acute Category: Medical Code(s): U07.1 - COVID-19; J98.4 - Other disorders of lung (5) Obesity (BMI 30-39.9) Status: Chronic Category: Medical Code(s): E66.9 - Obesity, unspecified (6) Thrombocytopenia associated with COVID-19 Status: Resolved Category: Medical Code(s): U07.1 - COVID-19; D69.59 - Other secondary thrombocytopenia (7) Hx of CABG Status: Chronic Category: Surgical Code(s): Z95.1 - Presence of aortocoronary bypass graft (8) CAD (coronary artery disease) Status: Chronic Qualifiers: Coronary Disease-Associated Artery/Lesion type: bypass graft [place] vs. transplanted heart: [place] heart Associated angina: with other forms of angina Qualified Code(s): I25.708 - Atherosclerosis of coronary artery bypass graft(s), unspecified, with other forms of angina pectoris Category: Medical Code(s): I25.10 - Atherosclerotic heart disease of [place] coronary artery without angina pectoris (9) A
[2021-10-03 08:30] LABS: Anisocytosis 2+; Lymphocytes % 2 % (10-50); Macrocytosis 2+; Monocytes % 1 % (2-9); Neutrophils % 97 % (42-76); Nucleated Red Blood Cells 2; Platelet Estimate Normal; Total Cells Counted 100
--- NOTE | 2021-10-03 09:51 | PC.NURSE ---
Patient's oxygen was low this morning upon assessment. Lasix administered I/S at bedside. Patient reassessed SPO2 at 99%.
[2021-10-03 12:09] LABS: POC Glucose,Bedside 326 (70-110)
[2021-10-03 12:39] LABS: POC Glucose,Bedside 334 (70-110)
--- NOTE | 2021-10-03 16:18 | HMH.CONFU ---
Internal Medicine - PN: Subj *Date: 10/03/21 *Time: 16:18 Interval history: Patient sitting up in chair in good spirits. His urine is likely been colored on minimal CBI. Exam Vital signs and Labs for Last 24 Hours: Temp Pulse Resp BP Pulse Ox 97.5 F L 78 24 118/70 87 L 10/03/21 08:00 10/03/21 13:10 10/03/21 08:00 10/03/21 08:00 10/03/21 13:10 Laboratory Results - last 24 hr 10/02/21 15:59: POC Glucose 334 H* 10/02/21 20:25: POC Glucose 360 H* 10/03/21 05:12: POC Glucose 209 H 10/03/21 06:31: WBC 18.7 H, RBC 3.51 L, Hgb 11.4 L, Hct 35.2 L, MCV 100.4 H, MCH 32.5 H, MCHC 32.4, RDW 17.5, Plt Count 94 L, MPV 11.3 H, Neut % (Auto) 94.6 H, Lymph % (Auto) 1.0 L, [place] % (Auto) 2.4, Eos % (Auto) 0.6, Baso % (Auto) 1.4, Neut # (Auto) 17.7 H, Lymph # (Auto) 0.2 L, [place] # (Auto) 0.5, Eos # (Auto) 0.1, Baso # (Auto) 0.3 H, Total Counted 100, Neutrophils % (Manual) 97 H, Lymphocytes % (Manual) 2 L, Monocytes % (Manual) 1 L, Nucleated RBCs 2, Platelet Estimate Normal, Anisocytosis 2+, Macrocytosis 2+ 10/03/21 06:31: Sodium 131 L, Potassium 5.4 H, Chloride 98, Carbon Dioxide 32 H, Anion Gap 6.4, BUN 48 H, Creatinine 0.80, Estimated Creat Clear 64, Estimated GFR 96, Est GFR ( Amer) 116 D, Glucose 167 H, Calcium 8.6 10/03/21 12:01: POC Glucose 326 H* I & O for Last 24 hours: Intake & Output 10/01/21 10/01/21 10/02/21 10/03/21 00:59 23:59 23:59 23:59 Intake Total 1870 / 1870 480 / 480 Output Total 2750 / 4450 1700 / 1700 Balance -880 / -2580 -1220 / -1220 Weight 119.748 kg 123.921 kg Microbiology Reports for the Last 24 Hours: Microbiology 09/30/21 19:30 Blood Blood Culture - Preliminary NO GROWTH AFTER 48 HOURS 09/30/21 19:30 Blood Blood Culture - Preliminary NO GROWTH AFTER 48 HOURS - Constitutional no acute distress - *Routine HEENT Exam Head: Present: normocephalic Eye: Present: EOMI, PERRL ENT: Present: mucous membranes moist - *Routine Neck Exam Present: supple. Absent: lymphadenopathy - *Routine Respiratory Exam Absent: accessory muscle use - *Routine Cardiovascular Exam Absent: JVD - *Routine Abdominal Exam Present: soft. Absent: tenderness - *Routine Extremities Exam Present: edema - *Routine Skin Exam Present: warm. Absent: rash - *Routine Neurological Exam Present: alert, oriented X3 Assessment and Plan (1) Acute respiratory failure due to COVID-19 Status: Acute Category: Medical Code(s): U07.1 - COVID-19; J96.00 - Acute respiratory failure, unspecified whether with hypoxia or hypercapnia (2) Acute kidney injury Status: Resolved Category: Medical Code(s): N17.9 - Acute kidney failure, unspecified (3) COPD (chronic obstructive pulmonary disease) Status: Acute Qualifiers: COPD type: unspecified COPD Qualified Code(s): J44.9 - Chronic obstructive pulmonary disease, unspecified Category: Medical Code(s): J44.9 - Chronic obstructive pulmonary disease, unspecified (4) COVID-19 with pulmonary comorbidity Status: Acute Category: Medical Code(s): U07.1 - COVID-19; J98.4 - Other disorders of lung (5) Obesity (BMI 30-39.9) Status: Chronic Category: Medical Code(s): E66.9 - Obesity, unspecified (6) Thrombocytopenia associated with COVID-19 Status: Resolved Category: Medical Code(s): U07.1 - COVID-19; D69.59 - Other secondary thrombocytopenia (7) Hx of CABG Status: Chronic Category: Surgical Code(s): Z95.1 - Presence of aortocoronary bypass graft (8) CAD (coronary artery disease) Status: Chronic Qualifiers: Coronary Disease-Associated Artery/Lesion type: bypass graft [place] vs. transplanted heart: [place] heart Associated angina: with other forms of angina Qualified Code(s): I25.708 - Atherosclerosis of coronary artery bypass graft(s), unspecified, with other forms of angina pectoris Category: Medical Code(s): I25.10 - Athe
[2021-10-03 18:08] LABS: POC Glucose,Bedside 356 (70-110)
--- NOTE | 2021-10-03 18:08 | PC.NURSE ---
Patient ambulated to the chair via lift by PT today.Patient continues to complain of nausea, PRN zofran given. Will continue to monitor
[2021-10-03 21:34] LABS: POC Glucose,Bedside 361 (70-110)
[2021-10-04] VITALS (11 sets, daily range): BP systolic 106–153; BP diastolic 57–79; PULSE 67–103; RESP 20–22; TEMP 36.4–36.9; O2SAT 82–92; BMI 41.6
--- NOTE | 2021-10-04 05:35 | PC.NURSE ---
No acute changes at this time. Vapotherm 30 L, 50 % tolerating well with sats low 90s. Will desat to upper 70s with exertion but recovers quickly. Pt moved to bed using lift at beginning of shift. Large stage 2 pressure ulcer measuring 10cm x 6cm noted to left buttocks. Bright red with some purple discoloration noted. 2 Small stage 2 ulcers on right buttocks. Cleaned and new dressings applied 2x t/o night. Pt has been q2 turned. No complaints voiced to staff.
[2021-10-04 06:20] LABS: POC Glucose,Bedside 143 (70-110)
[2021-10-04 07:11] LABS: Basophils % 0.2 % (0.1-2.0); Eosinophils # 0.2 K/mm3 (0.0-0.4); Eosinophils % 1.2 % (0.1-12.0); Hematocrit 34.1 % (42.0-52.0); Hemoglobin 11.1 g/dL (14.1-18.0); Lymphocytes # 0.4 K/mm3 (0.7-4.5); Lymphocytes % 2.4 % (10-50); Mean Corpuscular HGB Conc 32.5 g/dL (31.8-35.4); Mean Corpuscular Hemoglobin 32.4 pg (27.0-31.2); Mean Corpuscular Volume 99.5 fl (80-94); Mean Platelet Volume 9.9 fl (7.4-10.4); Monocytes # 0.5 K/mm3 (0.1-1.0); Monocytes % 3.1 % (1.7-9.3); Neutrophils # 16.1 K/mm3 (1.8-7.8); Neutrophils % 93.1 % (37.0-80.0); Platelet Count 78 K/mm3 (142-424); Red Blood Count 3.43 M/mm3 (4.60-6.20); Red Cell Distribution Width 17.4 % (11.5-17.5); White Blood Count 17.3 K/mm3 (4.8-10.8)
[2021-10-04 07:13] LABS: MANUAL DIFFERENTIAL MANUAL DIFFERENTIAL (MANUAL DIFF)
--- NOTE | 2021-10-04 07:15 | XR_ITS ---
PROCEDURE: XR CHEST PORTABLE CLINICAL HISTORY: dyspnea COMPARISON: CR XR CHEST PORTABLE from 09/18/2021 CR XR CHEST PORTABLE from 09/21/2021 CR XR CHEST PORTABLE from 09/25/[address] ANGIO CHEST PE PROTOCOL from 09/26/2021 FINDINGS: Prior CABG. Normal heart size. There remains diffuse bilateral alveolar and interstitial opacification consistent with bilateral pneumonia not significantly changed. No acute bony abnormalities. IMPRESSION: No change diffuse bilateral pneumonia Dictated by: Hao Scales MD 10/04/2021 15:47 Hao Scales MD in [facility] 10/04/2021 15:47
--- NOTE | 2021-10-04 07:16 | HMH.ACPN2 ---
Internal Medicine - PN: Subj *Date: 10/04/21 *Time: 07:16 Interval history: No acute events over the last 24 hours. Patient voices some frustration as he is not doing as well with his incentive spirometer. Patient demonstrates the ability to pull only 1000 mL on the incentive spirometer. Exam Vital signs and Labs for Last 24 Hours: Temp Pulse Resp BP Pulse Ox 97.8 F 72 20 106/58 L 86 L 10/04/21 04:00 10/04/21 05:48 10/04/21 04:00 10/04/21 04:00 10/04/21 05:48 Laboratory Results - last 24 hr 10/02/21 15:59: POC Glucose 334 H* 10/03/21 06:31: Total Counted 100, Neutrophils % (Manual) 97 H, Lymphocytes % (Manual) 2 L, Monocytes % (Manual) 1 L, Nucleated RBCs 2, Platelet Estimate Normal, Anisocytosis 2+, Macrocytosis 2+ 10/03/21 12:01: POC Glucose 326 H* 10/03/21 17:11: POC Glucose 356 H* 10/03/21 21:13: POC Glucose 361 H* 10/04/21 06:13: POC Glucose 143 H 10/04/21 06:56: WBC 17.3 H, RBC 3.43 L, Hgb 11.1 L, Hct 34.1 L, MCV 99.5 H, MCH 32.4 H, MCHC 32.5, RDW 17.4, Plt Count 78 L, MPV 9.9, Neut % (Auto) 93.1 H, Lymph % (Auto) 2.4 L, [place] % (Auto) 3.1, Eos % (Auto) 1.2, Baso % (Auto) 0.2, Neut # (Auto) 16.1 H, Lymph # (Auto) 0.4 L, [place] # (Auto) 0.5, Eos # (Auto) 0.2, Baso # (Auto) 0.0 I & O for Last 24 hours: Intake & Output 10/01/21 10/02/21 10/03/21 10/04/21 11:59 11:59 11:59 11:59 Intake Total 2510 / 2510 1180 / 1180 600 / 600 Output Total 1250 / 1250 4200 / 5300 2950 / 2950 Balance 1260 / 1260 -3020 / -4120 -2350 / -2350 Weight 264 lb 273 lb 3.2 oz 265 lb 7 oz Narrative: Vitals noted for 14 pound weight gain. Oropharynx is moist. Neck is supple. Lungs are distant but clear. Heart has a regular rate and rhythm. Patient has 1+ lower extremity edema. Assessment and Plan (1) Acute respiratory failure due to COVID-19 Status: Acute Category: Medical Code(s): U07.1 - COVID-19; J96.00 - Acute respiratory failure, unspecified whether with hypoxia or hypercapnia (2) Acute kidney injury Status: Resolved Category: Medical Code(s): N17.9 - Acute kidney failure, unspecified (3) COPD (chronic obstructive pulmonary disease) Status: Acute Qualifiers: COPD type: unspecified COPD Qualified Code(s): J44.9 - Chronic obstructive pulmonary disease, unspecified Category: Medical Code(s): J44.9 - Chronic obstructive pulmonary disease, unspecified (4) COVID-19 with pulmonary comorbidity Status: Acute Category: Medical Code(s): U07.1 - COVID-19; J98.4 - Other disorders of lung (5) Obesity (BMI 30-39.9) Status: Chronic Category: Medical Code(s): E66.9 - Obesity, unspecified (6) Thrombocytopenia associated with COVID-19 Status: Resolved Category: Medical Code(s): U07.1 - COVID-19; D69.59 - Other secondary thrombocytopenia (7) Hx of CABG Status: Chronic Category: Surgical Code(s): Z95.1 - Presence of aortocoronary bypass graft (8) CAD (coronary artery disease) Status: Chronic Qualifiers: Coronary Disease-Associated Artery/Lesion type: bypass graft [place] vs. transplanted heart: [place] heart Associated angina: with other forms of angina Qualified Code(s): I25.708 - Atherosclerosis of coronary artery bypass graft(s), unspecified, with other forms of angina pectoris Category: Medical Code(s): I25.10 - Atherosclerotic heart disease of [place] coronary artery without angina pectoris (9) Atrial fibrillation Status: Resolved Qualifiers: Atrial fibrillation type: paroxysmal Qualified Code(s): I48.0 - Paroxysmal atrial fibrillation Category: Medical Code(s): I48.91 - Unspecified atrial fibrillation (10) Steroid-induced hyperglycemia Status: Acute Category: Medical Code(s): R73.9 - Hyperglycemia, unspecified; T38.0X5A - Adverse effect of glucocorticoids and synthetic analogues, initial encounter (11) Balanitis Status: Acute Category: Medical Code(s): N48.1 - Balanitis (12) Hematuria Status: Acute Qualifiers:
[2021-10-04 07:24] LABS: Anion Gap 9.1 mEq/L (5-15); Blood Urea Nitrogen 54 mg/dl (9-20); Calcium 8.6 mg/dl (8.4-10.2); Carbon Dioxide 31 mmol/L (22.0-30.0); Chloride 95 mmol/L (98-107); Creatinine Clearance Estimated 64 mL/min (50-200); Estimated Glomerular Filt Rate 74 ml/min (>60); GFR (African American) 90 ML/MIN (>60); Glucose 141 mg/dl (74-100); Potassium 5.1 mmoL/L (3.5-5.1); Sodium 130 mmol/L (136-145)
[2021-10-04 08:14] LABS: Lymphocytes % 5 % (10-50); Monocytes % 3 % (2-9); Neutrophils % 92 % (42-76); Nucleated Red Blood Cells 1; Total Cells Counted 100
[2021-10-04 08:16] LABS: Platelet Estimate Moderate Decrease; RBC Morphology Normal
--- NOTE | 2021-10-04 10:12 | PC.NURSE ---
Patient SPO2 at 82%; administered IV lasix, SPO2 now at 86%. Spoke with RT- Provider states SPO2 85% or greater acceptable. will continue to monitor
[2021-10-04 12:14] LABS: POC Glucose,Bedside 293 (70-110)
[2021-10-04 18:25] LABS: POC Glucose,Bedside 415 (70-110)
[2021-10-05] VITALS (8 sets, daily range): BP systolic 81–139; BP diastolic 50–77; PULSE 67–84; RESP 21–28; TEMP 36.2–36.6; O2SAT 84–95; BMI 41.5
--- NOTE | 2021-10-05 04:46 | PC.NURSE ---
PT HAS BEEN UP TO CHAIR PART OF SHIFT, THEN WAS PLACED IN BED VIA BIRDIE LIFT. hAS REMAINED ON VAPOTHERM 30l 50%. hAS DESAT SOME THIS SHIFT, BUT RECOVERED WELL. PT HAS BEEN EMOTIONAL THIS SHIFT. HAS BEEN THANKING ALL STAFF FOR THEIR WORK AND CRYING AT TIMES. PT HAS STATED HE IS GONNA MAKE IT. VSS. MEDICATION ADMINISTERED PER JAN. NO OTHER CONCERNS. WILL CONTINUE TO MONITOR.
[2021-10-05 06:29] LABS: POC Glucose,Bedside 159 (70-110)
[2021-10-05 06:56] LABS: Basophils % 0.1 % (0.1-2.0); Eosinophils % 0.2 % (0.1-12.0); Hematocrit 33.5 % (42.0-52.0); Hemoglobin 11.2 g/dL (14.1-18.0); Lymphocytes # 0.4 K/mm3 (0.7-4.5); Lymphocytes % 2.4 % (10-50); Mean Corpuscular HGB Conc 33.4 g/dL (31.8-35.4); Mean Corpuscular Volume 98.9 fl (80-94); Mean Platelet Volume 11.1 fl (7.4-10.4); Monocytes # 0.5 K/mm3 (0.1-1.0); Monocytes % 3.3 % (1.7-9.3); Neutrophils # 14.1 K/mm3 (1.8-7.8); Platelet Count 78 K/mm3 (142-424); Red Blood Count 3.39 M/mm3 (4.60-6.20)
[2021-10-05 07:01] LABS: MANUAL DIFFERENTIAL MANUAL DIFFERENTIAL (MANUAL DIFF)
[2021-10-05 07:09] LABS: Anion Gap 7.9 mEq/L (5-15); Blood Urea Nitrogen 57 mg/dl (9-20); Calcium 8.2 mg/dl (8.4-10.2); Carbon Dioxide 35 mmol/L (22.0-30.0); Chloride 91 mmol/L (98-107); Creatinine Clearance Estimated 58 mL/min (50-200); Estimated Glomerular Filt Rate 67 ml/min (>60); GFR (African American) 81 ML/MIN (>60); Glucose 147 mg/dl (74-100); Potassium 3.9 mmoL/L (3.5-5.1); Sodium 130 mmol/L (136-145)
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
[2021-10-05 07:52] LABS: Anisocytosis 1+; Hypochromasia 1+; Macrocytosis 1+; Monocytes % 1 % (2-9); Neutrophils % 99 % (42-76); Nucleated Red Blood Cells 1; Platelet Estimate Normal; Total Cells Counted 100
--- NOTE | 2021-10-05 10:49 | HMH.CONFU ---
Internal Medicine - PN: Subj *Date: 10/05/21 *Time: 10:49 Interval history: Patient with some nausea this morning. His breathing status is stable. His urine is tea colored off of CBI this morning. He does have a little blood coming from around the catheter and he is on blood thinners. Exam Vital signs and Labs for Last 24 Hours: Temp Pulse Resp BP Pulse Ox 97.6 F 83 28 H 119/72 94 L 10/05/21 08:00 10/05/21 08:00 10/05/21 08:00 10/05/21 08:00 10/05/21 08:00 Laboratory Results - last 24 hr 10/04/21 12:06: POC Glucose 293 H 10/04/21 18:18: POC Glucose 415 H* 10/05/21 05:51: POC Glucose 159 H 10/05/21 06:25: WBC 15.0 H, RBC 3.39 L, Hgb 11.2 L, Hct 33.5 L, MCV 98.9 H, MCH 33.0 H, MCHC 33.4, RDW 18.0 H, Plt Count 78 L, MPV 11.1 H, Neut % (Auto) 94.0 H, Lymph % (Auto) 2.4 L, [place] % (Auto) 3.3, Eos % (Auto) 0.2, Baso % (Auto) 0.1, Neut # (Auto) 14.1 H, Lymph # (Auto) 0.4 L, [place] # (Auto) 0.5, Eos # (Auto) 0.0, Baso # (Auto) 0.0, Total Counted 100, Neutrophils % (Manual) 99 H, Monocytes % (Manual) 1 L, Nucleated RBCs 1, Platelet Estimate Normal, Hypochromasia 1+, Anisocytosis 1+, Macrocytosis 1+ 10/05/21 06:25: Sodium 130 L, Potassium 3.9 D, Chloride 91 L, Carbon Dioxide 35 H, Anion Gap 7.9, BUN 57 H, Creatinine 1.10, Estimated Creat Clear 58, Estimated GFR 67, Est GFR ( Amer) 81, Glucose 147 H, Calcium 8.2 L I & O for Last 24 hours: Intake & Output 10/02/21 10/03/21 10/04/21 10/05/21 23:59 23:59 23:59 23:59 Intake Total 1870 / 1870 820 / 940 1320 / 1320 120 / 120 Output Total 2750 / 4450 5650 / 5650 42017 / 21299 1300 / 1300 Balance -880 / -2580 -4830 / -4710 -9480 / -78236 -1180 / -1180 Weight 119.748 kg 123.921 kg 120.4 kg 120.202 kg Microbiology Reports for the Last 24 Hours: Microbiology 09/04/21 06:37 Blood Blood Culture - Final Staphylococcus epidermidis - Constitutional no acute distress - *Routine HEENT Exam Head: Present: normocephalic Eye: Present: EOMI, PERRL ENT: Present: mucous membranes moist - *Routine Neck Exam Present: supple. Absent: lymphadenopathy - *Routine Respiratory Exam Absent: accessory muscle use - *Routine Cardiovascular Exam Absent: JVD - *Routine Abdominal Exam Present: soft. Absent: tenderness - *Routine Extremities Exam Present: edema - *Routine Skin Exam Present: warm. Absent: rash - *Routine Neurological Exam Present: alert, oriented X3 Assessment and Plan (1) Acute respiratory failure due to COVID-19 Status: Acute Category: Medical Code(s): U07.1 - COVID-19; J96.00 - Acute respiratory failure, unspecified whether with hypoxia or hypercapnia (2) Acute kidney injury Status: Resolved Category: Medical Code(s): N17.9 - Acute kidney failure, unspecified (3) COPD (chronic obstructive pulmonary disease) Status: Acute Qualifiers: COPD type: unspecified COPD Qualified Code(s): J44.9 - Chronic obstructive pulmonary disease, unspecified Category: Medical Code(s): J44.9 - Chronic obstructive pulmonary disease, unspecified (4) COVID-19 with pulmonary comorbidity Status: Acute Category: Medical Code(s): U07.1 - COVID-19; J98.4 - Other disorders of lung (5) Obesity (BMI 30-39.9) Status: Chronic Category: Medical Code(s): E66.9 - Obesity, unspecified (6) Thrombocytopenia associated with COVID-19 Status: Resolved Category: Medical Code(s): U07.1 - COVID-19; D69.59 - Other secondary thrombocytopenia (7) Hx of CABG Status: Chronic Category: Surgical Code(s): Z95.1 - Presence of aortocoronary bypass graft (8) CAD (coronary artery disease) Status: Chronic Qualifiers: Coronary Disease-Associated Artery/Lesion type: bypass graft [place] vs. transplanted heart: [place] heart Associated angina: with other forms of angina Qualified Code(s): I25.708 - Atherosclerosis of coronary artery bypass graft(s), unspecified, with other forms of angina pectori
[2021-10-05 12:21] LABS: POC Glucose,Bedside 222 (70-110)
[2021-10-05 12:22] LABS: Microscopic,Cath URINE MICROSCOPIC (MICROSCOPIC)
[2021-10-05 13:22] LABS: Appearance,Urine/Cath TURBID (Clear); Bilirubin,Cath Negative (Negative); Blood, Urine/Cath 3+ (Negative); Color,Urine/Cath AMBER (Yellow); Glucose,Urine/Cath (UA) Negative (Negative); Ketones,Urine/Cath Negative (Negative); Leukocyte Esterase,Cath 2+ (Negative); Nitrate,Cath Negative (Negative); PH,Urine/Cath 8.5 (5.0-8.5); Protein,Urine/Cath 2+ (Negative)
[2021-10-05 13:33] LABS: Bacteria,Urine/Cath 3+ /lpf; RBC,Urine/Cath TNTC # /hpf (0-3); WBC,Urine/Cath TNTC #/hpf (0-3)
[2021-10-05 16:55] LABS: POC Glucose,Bedside 204 (70-110)
--- NOTE | 2021-10-05 16:55 | PC.NURSE ---
pt c/o n/v this shift; treated with prn promethazine with good effectiveness. he has not c/o pain this shift. remains on vapotherm for o2 support with o2 sats in mid 's
[2021-10-05 20:34] LABS: POC Glucose,Bedside 244 (70-110)
[2021-10-06] VITALS (13 sets, daily range): BP systolic 104–139; BP diastolic 52–70; PULSE 58–81; RESP 18–24; TEMP 36.4–36.7; O2SAT 89–100; BMI 39.9
--- NOTE | 2021-10-06 03:20 | PC.NURSE ---
A&OX4. TOLERATING VAPOTHERM WELL. O2 IN LOW 90S. PT HAS REMAINED IN BED THIS SHIFT, BEING TURNED Q2 HOURS. DRESSING ON BOTTOM CDI. PT HAS SLEPT MAJORITY OF SHIFT. HAS HAD NO C/O THUS FAR. F/C PRESENT DRAINING BLOODY URINE. VSS WILL CONTINUE TO MONITOR.
[2021-10-06 06:39] LABS: Basophils # 0.1 K/mm3 (0-0.2); Basophils % 0.5 % (0.1-2.0); Eosinophils # 0.1 K/mm3 (0.0-0.4); Eosinophils % 0.4 % (0.1-12.0); Hematocrit 34.9 % (42.0-52.0); Hemoglobin 11.4 g/dL (14.1-18.0); Lymphocytes # 0.4 K/mm3 (0.7-4.5); Lymphocytes % 2.5 % (10-50); Mean Corpuscular HGB Conc 32.7 g/dL (31.8-35.4); Mean Corpuscular Hemoglobin 32.9 pg (27.0-31.2); Mean Corpuscular Volume 100.9 fl (80-94); Mean Platelet Volume 10.7 fl (7.4-10.4); Monocytes # 0.4 K/mm3 (0.1-1.0); Monocytes % 3.1 % (1.7-9.3); Neutrophils # 12.8 K/mm3 (1.8-7.8); Neutrophils % 93.5 % (37.0-80.0); Platelet Count 89 K/mm3 (142-424); Red Blood Count 3.46 M/mm3 (4.60-6.20); Red Cell Distribution Width 18.3 % (11.5-17.5); White Blood Count 13.7 K/mm3 (4.8-10.8)
[2021-10-06 06:59] LABS: Anion Gap 8.8 mEq/L (5-15); Blood Urea Nitrogen 68 mg/dl (9-20); Calcium 8.4 mg/dl (8.4-10.2); Carbon Dioxide 39 mmol/L (22.0-30.0); Chloride 90 mmol/L (98-107); Creatinine Clearance Estimated 105 mL/min (50-200); Estimated Glomerular Filt Rate 67 ml/min (>60); GFR (African American) 81 ML/MIN (>60); Glucose 117 mg/dl (74-100); Potassium 3.8 mmoL/L (3.5-5.1); Sodium 134 mmol/L (136-145)
[2021-10-06 07:12] LABS: MANUAL DIFFERENTIAL MANUAL DIFFERENTIAL (MANUAL DIFF)
--- NOTE | 2021-10-06 07:35 | HMH.ACPN2 ---
Internal Medicine - PN: Subj *Date: 10/06/21 *Time: 07:35 Interval history: No acute events over the last 24 hours. Patient continues to have intermittent nausea. The burning discomfort in his genital and prostate region has resolved. Urinalysis was abnormal yesterday and patient has been started on intravenous Levaquin while urine culture is pending. Patient currently is on nasal cannula at 15 L a minute with O2 sats at 93 to 94% Exam Vital signs and Labs for Last 24 Hours: Temp Pulse Resp BP Pulse Ox 97.6 F 62 24 131/52 L 95 10/06/21 04:00 10/06/21 04:00 10/06/21 04:00 10/06/21 04:00 10/06/21 06:19 Laboratory Results - last 24 hr 10/05/21 06:25: Total Counted 100, Neutrophils % (Manual) 99 H, Monocytes % (Manual) 1 L, Nucleated RBCs 1, Platelet Estimate Normal, Hypochromasia 1+, Anisocytosis 1+, Macrocytosis 1+ 10/05/21 12:06: POC Glucose 222 H 10/05/21 12:14: Urine Color [place], Urine Appearance Turbid, Urine pH 8.5, Ur Specific [place] 1.010, Urine Protein 2+, Urine Glucose (UA) Negative, Urine Ketones Negative, Urine Blood 3+, Urine Nitrate Negative, Urine Bilirubin Negative, Urine Urobilinogen 1.0, Ur Leukocyte Esterase 2+ A, Urine RBC Tntc, Urine WBC Tntc A, Ur Squamous Epith Cells 3-5, Urine Bacteria 3+ A 10/05/21 16:44: POC Glucose 204 H 10/05/21 20:04: POC Glucose 244 H 10/06/21 06:23: WBC 13.7 H, RBC 3.46 L, Hgb 11.4 L, Hct 34.9 L, MCV 100.9 H, MCH 32.9 H, MCHC 32.7, RDW 18.3 H, Plt Count 89 L, MPV 10.7 H, Neut % (Auto) 93.5 H, Lymph % (Auto) 2.5 L, [place] % (Auto) 3.1, Eos % (Auto) 0.4, Baso % (Auto) 0.5, Neut # (Auto) 12.8 H, Lymph # (Auto) 0.4 L, [place] # (Auto) 0.4, Eos # (Auto) 0.1, Baso # (Auto) 0.1 10/06/21 06:23: Sodium 134 L, Potassium 3.8, Chloride 90 L, Carbon Dioxide 39 H, Anion Gap 8.8, BUN 68 H, Creatinine 1.10, Estimated Creat Clear 105, Estimated GFR 67, Est GFR ( Amer) 81, Glucose 117 H D, Calcium 8.4 I & O for Last 24 hours: Intake & Output 10/03/21 10/04/21 10/05/21 10/06/21 11:59 11:59 11:59 11:59 Intake Total 1180 / 1180 1080 / 1080 840 / 840 480 / 480 Output Total 4200 / 5300 9150 / 9150 5900 / 5900 4300 / 4300 Balance -3020 / -4120 -8070 / -8070 -5060 / -5060 -3820 / -3820 Weight 273 lb 3.2 oz 265 lb 7 oz 265 lb 254 lb 6.4 oz Microbiology Reports for the Last 24 Hours: Microbiology 09/30/21 19:30 Blood Blood Culture - Final NO GROWTH AFTER 5 DAYS 09/30/21 19:30 Blood Blood Culture - Final NO GROWTH AFTER 5 DAYS Narrative: Patient is in no distress. He is a little emotional when talking. Lungs have improved aeration today. Heart has a regular rate and rhythm. Skin is warm with multiple ecchymotic lesions from various injectables received during hospitalization. Lower extremities are warm to the touch with trace edema. [place] catheter has reddish urine with increased blood over the last 24 hours Assessment and Plan (1) Acute respiratory failure due to COVID-19 Status: Acute Category: Medical Code(s): U07.1 - COVID-19; J96.00 - Acute respiratory failure, unspecified whether with hypoxia or hypercapnia (2) Acute kidney injury Status: Resolved Category: Medical Code(s): N17.9 - Acute kidney failure, unspecified (3) COPD (chronic obstructive pulmonary disease) Status: Acute Qualifiers: COPD type: unspecified COPD Qualified Code(s): J44.9 - Chronic obstructive pulmonary disease, unspecified Category: Medical Code(s): J44.9 - Chronic obstructive pulmonary disease, unspecified (4) COVID-19 with pulmonary comorbidity Status: Acute Category: Medical Code(s): U07.1 - COVID-19; J98.4 - Other disorders of lung (5) Obesity (BMI 30-39.9) Status: Chronic Category: Medical Code(s): E66.9 - Obesity, unspecified (6) Thrombocytopenia associated with COVID-19 Status: Resolved Category: Medical Code(s): U07.1 - COVID-19; D69.59 - Other secondary thrombocytopenia
[2021-10-06 09:37] LABS: Eosinophils % 1 % (0-3); Lymphocytes % 4 % (10-50); Monocytes % 3 % (2-9); Neutrophils % 90 % (42-76); Total Cells Counted 100
[2021-10-06 09:38] LABS: Platelet Estimate Marked Decrease
[2021-10-06 09:39] LABS: Macrocytosis 1+
--- NOTE | 2021-10-06 11:28 | HMH.PULMPN ---
Internal Medicine - PN: Subj *Date: 10/06/21 *Time: 11:28 Interval history: No acute respiratory events over the last 72 hours. Patient admits continued improvement. Exam - Constitutional Constitutional:: Present: no acute distress, comfortable - HENMT Exam HENMT: Present: normocephalic, atraumatic - Eye Exam Eyes:: Present: normal appearance both eyes and related structures - Neck Exam Neck:: Present: normal visual inspection - Respiratory Exam Respiratory:: Present: able to speak in complete sentences, no respiratory distress, rales - Cardiovascular Exam Cardiac:: Present: S1, S2 - GI Exam GI:: Present: soft - Skin Exam Skin: Present: warm, no rash - Neurological Exam Neurological: Present: alert, awake, normal cognition - Extremities Exam Extremities: Present: no cyanosis, no clubbing, edema - Psychiatric Exam Psychiatric: Present: normal affect Assessment and Plan (1) Acute respiratory failure due to COVID-19 Status: Acute Category: Medical Code(s): U07.1 - COVID-19; J96.00 - Acute respiratory failure, unspecified whether with hypoxia or hypercapnia (2) Acute kidney injury Status: Resolved Category: Medical Code(s): N17.9 - Acute kidney failure, unspecified (3) COPD (chronic obstructive pulmonary disease) Status: Acute Qualifiers: COPD type: unspecified COPD Qualified Code(s): J44.9 - Chronic obstructive pulmonary disease, unspecified Category: Medical Code(s): J44.9 - Chronic obstructive pulmonary disease, unspecified (4) COVID-19 with pulmonary comorbidity Status: Acute Category: Medical Code(s): U07.1 - COVID-19; J98.4 - Other disorders of lung (5) Obesity (BMI 30-39.9) Status: Chronic Category: Medical Code(s): E66.9 - Obesity, unspecified (6) Thrombocytopenia associated with COVID-19 Status: Resolved Category: Medical Code(s): U07.1 - COVID-19; D69.59 - Other secondary thrombocytopenia (7) Hx of CABG Status: Chronic Category: Surgical Code(s): Z95.1 - Presence of aortocoronary bypass graft (8) CAD (coronary artery disease) Status: Chronic Qualifiers: Coronary Disease-Associated Artery/Lesion type: bypass graft [place] vs. transplanted heart: [place] heart Associated angina: with other forms of angina Qualified Code(s): I25.708 - Atherosclerosis of coronary artery bypass graft(s), unspecified, with other forms of angina pectoris Category: Medical Code(s): I25.10 - Atherosclerotic heart disease of [place] coronary artery without angina pectoris (9) Atrial fibrillation Status: Resolved Qualifiers: Atrial fibrillation type: paroxysmal Qualified Code(s): I48.0 - Paroxysmal atrial fibrillation Category: Medical Code(s): I48.91 - Unspecified atrial fibrillation (10) Steroid-induced hyperglycemia Status: Acute Category: Medical Code(s): R73.9 - Hyperglycemia, unspecified; T38.0X5A - Adverse effect of glucocorticoids and synthetic analogues, initial encounter (11) Balanitis Status: Acute Category: Medical Code(s): N48.1 - Balanitis (12) Hematuria Status: Acute Qualifiers: Hematuria type: gross Qualified Code(s): R31.0 - Gross hematuria Category: Medical Code(s): R31.9 - Hematuria, unspecified (13) Sacral decubitus ulcer, stage II Status: Acute Category: Medical Code(s): L89.152 - Pressure ulcer of sacral region, stage 2 (14) Acquired thrombocytopenia Status: Acute Category: Medical Code(s): D69.6 - Thrombocytopenia, unspecified (15) UTI (urinary tract infection) Status: Acute Qualifiers: Urinary tract infection type: site unspecified Category: Medical Code(s): N39.0 - Urinary tract infection, site not specified - Assessment and plan all Dx Assessment and Plan for all problems:: #Acute chronic hypoxic respiratory failure: #COVID-19 pneumonia: Mr. Estevez is 66-year-old male greater than [id number] smoking history, last smoked 16 year
--- NOTE | 2021-10-06 15:58 | HMH.CONFU ---
Internal Medicine - PN: Subj *Date: 10/06/21 *Time: 15:58 Interval history: Patient with darker colored urine today off of CBI. Some debris is noted in the catheter. His IV fluids are off and he is taking good p.o. per nursing staff. Exam Vital signs and Labs for Last 24 Hours: Temp Pulse Resp BP Pulse Ox 97.6 F 74 18 139/60 92 L 10/06/21 14:50 10/06/21 14:50 10/06/21 14:50 10/06/21 14:50 10/06/21 14:50 Laboratory Results - last 24 hr 10/05/21 16:44: POC Glucose 204 H 10/05/21 20:04: POC Glucose 244 H 10/06/21 06:23: WBC 13.7 H, RBC 3.46 L, Hgb 11.4 L, Hct 34.9 L, MCV 100.9 H, MCH 32.9 H, MCHC 32.7, RDW 18.3 H, Plt Count 89 L, MPV 10.7 H, Neut % (Auto) 93.5 H, Lymph % (Auto) 2.5 L, [place] % (Auto) 3.1, Eos % (Auto) 0.4, Baso % (Auto) 0.5, Neut # (Auto) 12.8 H, Lymph # (Auto) 0.4 L, [place] # (Auto) 0.4, Eos # (Auto) 0.1, Baso # (Auto) 0.1, Total Counted 100, Neutrophils % (Manual) 90 H, Band Neutrophils % 2.0, Lymphocytes % (Manual) 4 L, Monocytes % (Manual) 3, Eosinophils % (Manual) 1, Platelet Estimate Marked decrease, Macrocytosis 1+ 10/06/21 06:23: Sodium 134 L, Potassium 3.8, Chloride 90 L, Carbon Dioxide 39 H, Anion Gap 8.8, BUN 68 H, Creatinine 1.10, Estimated Creat Clear 105, Estimated GFR 67, Est GFR ( Amer) 81, Glucose 117 H D, Calcium 8.4 I & O for Last 24 hours: Intake & Output 10/03/21 10/04/21 10/05/21 10/06/21 23:59 23:59 23:59 23:59 Intake Total 820 / 940 1320 / 1320 600 / 600 600 / 600 Output Total 5650 / 5650 35001 / 86660 3800 / 3800 1800 / 1800 Balance -4830 / -4710 -9480 / -47224 -3200 / -3200 -1200 / -1200 Weight 123.921 kg 120.4 kg 120.202 kg 115.394 kg Microbiology Reports for the Last 24 Hours: Microbiology 10/05/21 12:14 Urine,Catheterized Urine Culture - Preliminary 09/30/21 19:30 Blood Blood Culture - Final NO GROWTH AFTER 5 DAYS 09/30/21 19:30 Blood Blood Culture - Final NO GROWTH AFTER 5 DAYS - Constitutional no acute distress - *Routine HEENT Exam Head: Present: normocephalic Eye: Present: EOMI, PERRL ENT: Present: mucous membranes moist - *Routine Neck Exam Present: supple. Absent: lymphadenopathy - *Routine Respiratory Exam Absent: accessory muscle use - *Routine Cardiovascular Exam Absent: JVD - *Routine Abdominal Exam Present: soft. Absent: tenderness - *Routine Extremities Exam Present: edema - *Routine Skin Exam Present: warm. Absent: rash - *Routine Neurological Exam Present: alert, oriented X3 Assessment and Plan (1) Acute respiratory failure due to COVID-19 Status: Acute Category: Medical Code(s): U07.1 - COVID-19; J96.00 - Acute respiratory failure, unspecified whether with hypoxia or hypercapnia (2) Acute kidney injury Status: Resolved Category: Medical Code(s): N17.9 - Acute kidney failure, unspecified (3) COPD (chronic obstructive pulmonary disease) Status: Acute Qualifiers: COPD type: unspecified COPD Qualified Code(s): J44.9 - Chronic obstructive pulmonary disease, unspecified Category: Medical Code(s): J44.9 - Chronic obstructive pulmonary disease, unspecified (4) COVID-19 with pulmonary comorbidity Status: Acute Category: Medical Code(s): U07.1 - COVID-19; J98.4 - Other disorders of lung (5) Obesity (BMI 30-39.9) Status: Chronic Category: Medical Code(s): E66.9 - Obesity, unspecified (6) Thrombocytopenia associated with COVID-19 Status: Resolved Category: Medical Code(s): U07.1 - COVID-19; D69.59 - Other secondary thrombocytopenia (7) Hx of CABG Status: Chronic Category: Surgical Code(s): Z95.1 - Presence of aortocoronary bypass graft (8) CAD (coronary artery disease) Status: Chronic Qualifiers: Coronary Disease-Associated Artery/Lesion type: bypass graft [place] vs. transplanted heart: [place] heart Associated angina: with other forms of angina Qualified Code(s): I25.708
--- NOTE | 2021-10-06 17:10 | PC.NURSE ---
PT IS RESTING IN BED POSITIONED ON HIS LT SIDE. PT HAS BEEN VERY TIRED THIS SHIFT AND STATES HE DID NOT GET VERY MUCH REST LAST NIGHT. URINE HAS BEEN DARK/BLOODY UNTIL ATTEMPTED TO IRRIGATE (PT DID HAVE DISCOMFORT WITH IRRIGATION) DECIDED TO REPLACE CATHETER WITH ANOTHER 22 F 3-WAY TO RESUME CBI. CBI STARTED BACK AT 1500. URINE IS NOW LIGHT PINK IN COLOR. PT HAS NOT COMPLAINED OF PRESSURE OR BURNING SINCE CBI WAS RESUMED. LUNG SOUNDS DIMINISHED. ABDOMEN SOFT/NON TENDER WITH ACTIVE BOWEL SOUNDS. SCATTERED BRUISING NOTED. MULTIPLE OPEN AREAS NOTED THE BUTTOCKS. PT WAS ABLE TO TOLERATE STANDING AT THE SOB WITH PHYSICAL THERAPY THIS SHIFT. O2 SATURATION HAS MAINTAINED 90-93% ON 6 L NC. PT WILL DESAT TO THE 80'S WITH VERY MINIMAL EXERTION. NO IV ACCESS (PCP AWARE) WILL CONTINUE TO MONITOR.
[2021-10-06 20:19] LABS: POC Glucose,Bedside 243 (70-110)
[2021-10-06 20:19] LABS: POC Glucose,Bedside 115 (70-110)
[2021-10-07] VITALS (9 sets, daily range): BP systolic 103–132; BP diastolic 54–70; PULSE 69–87; RESP 20–26; TEMP 36.6–36.9; O2SAT 86–96; BMI 39.6
[2021-10-07 05:29] LABS: POC Glucose,Bedside 133 (70-110)
--- NOTE | 2021-10-07 05:32 | PC.NURSE ---
pt reports he has rested on and off this shift. continues on 6L NC w/ O2 >90%. [place] cath in place w/ CBI. urine light pink in color w/ good output noted. dressing on bottom c/d/i. resting in bed at this time. call light within reach.
[2021-10-07 07:35] LABS: Basophils % 0.2 % (0.1-2.0); Eosinophils % 0.1 % (0.1-12.0); Hematocrit 35.5 % (42.0-52.0); Hemoglobin 11.7 g/dL (14.1-18.0); Lymphocytes # 0.4 K/mm3 (0.7-4.5); Lymphocytes % 3.6 % (10-50); Mean Corpuscular Hemoglobin 33.2 pg (27.0-31.2); Mean Corpuscular Volume 100.6 fl (80-94); Mean Platelet Volume 9.8 fl (7.4-10.4); Monocytes # 0.4 K/mm3 (0.1-1.0); Neutrophils # 9.8 K/mm3 (1.8-7.8); Neutrophils % 92.2 % (37.0-80.0); Platelet Count 88 K/mm3 (142-424); Red Blood Count 3.53 M/mm3 (4.60-6.20); Red Cell Distribution Width 18.7 % (11.5-17.5); White Blood Count 10.6 K/mm3 (4.8-10.8)
[2021-10-07 07:41] LABS: MANUAL DIFFERENTIAL MANUAL DIFFERENTIAL (MANUAL DIFF)
[2021-10-07 08:28] LABS: Anion Gap 6.6 mEq/L (5-15); Blood Urea Nitrogen 56 mg/dl (9-20); Calcium 8.5 mg/dl (8.4-10.2); Carbon Dioxide 39 mmol/L (22.0-30.0); Chloride 91 mmol/L (98-107); Creatinine Clearance Estimated 115 mL/min (50-200); Estimated Glomerular Filt Rate 74 ml/min (>60); GFR (African American) 90 ML/MIN (>60); Glucose 112 mg/dl (74-100); Potassium 3.6 mmoL/L (3.5-5.1); Sodium 133 mmol/L (136-145)
--- NOTE | 2021-10-07 08:35 | HMH.ACPN2 ---
Internal Medicine - PN: Subj *Date: 10/07/21 *Time: 08:35 Interval history: Patient is remained stable. No acute events. Urine is clear. He denies shortness of breath. Patient remains weak but feels like he is getting stronger. Exam Vital signs and Labs for Last 24 Hours: Temp Pulse Resp BP Pulse Ox 98.4 F 69 20 128/67 96 10/07/21 07:29 10/07/21 07:29 10/07/21 07:29 10/07/21 07:29 10/07/21 07:29 Laboratory Results - last 24 hr 10/06/21 05:29: POC Glucose 115 H 10/06/21 06:23: Total Counted 100, Neutrophils % (Manual) 90 H, Band Neutrophils % 2.0, Lymphocytes % (Manual) 4 L, Monocytes % (Manual) 3, Eosinophils % (Manual) 1, Platelet Estimate Marked decrease, Macrocytosis 1+ 10/06/21 20:12: POC Glucose 243 H 10/07/21 05:14: POC Glucose 133 H 10/07/21 06:38: WBC 10.6, RBC 3.53 L, Hgb 11.7 L, Hct 35.5 L, MCV 100.6 H, MCH 33.2 H, MCHC 33.0, RDW 18.7 H, Plt Count 88 L, MPV 9.8, Neut % (Auto) 92.2 H, Lymph % (Auto) 3.6 L, [place] % (Auto) 4.0, Eos % (Auto) 0.1, Baso % (Auto) 0.2, Neut # (Auto) 9.8 H, Lymph # (Auto) 0.4 L, [place] # (Auto) 0.4, Eos # (Auto) 0.0, Baso # (Auto) 0.0 I & O for Last 24 hours: Intake & Output 10/04/21 10/05/21 10/06/21 10/07/21 11:59 11:59 11:59 11:59 Intake Total 1080 / 1080 840 / 840 840 / 840 1080 / 1080 Output Total 9150 / 9150 5900 / 5900 4300 / 4300 3600 / 3600 Balance -8070 / -8070 -5060 / -5060 -3460 / -3460 -2520 / -2520 Weight 265 lb 7 oz 265 lb 254 lb 6.4 oz 252 lb 9.6 oz Microbiology Reports for the Last 24 Hours: Microbiology 10/05/21 12:14 Urine,Catheterized Urine Culture - Preliminary - Constitutional no acute distress - *Routine Respiratory Exam Present: CTA bilaterally - *Routine Cardiovascular Exam Present: RRR - *Routine Extremities Exam Present: edema Assessment and Plan (1) Acute respiratory failure due to COVID-19 Status: Acute Category: Medical Code(s): U07.1 - COVID-19; J96.00 - Acute respiratory failure, unspecified whether with hypoxia or hypercapnia (2) Acute kidney injury Status: Resolved Category: Medical Code(s): N17.9 - Acute kidney failure, unspecified (3) COPD (chronic obstructive pulmonary disease) Status: Acute Qualifiers: COPD type: unspecified COPD Qualified Code(s): J44.9 - Chronic obstructive pulmonary disease, unspecified Category: Medical Code(s): J44.9 - Chronic obstructive pulmonary disease, unspecified (4) COVID-19 with pulmonary comorbidity Status: Acute Category: Medical Code(s): U07.1 - COVID-19; J98.4 - Other disorders of lung (5) Obesity (BMI 30-39.9) Status: Chronic Category: Medical Code(s): E66.9 - Obesity, unspecified (6) Thrombocytopenia associated with COVID-19 Status: Resolved Category: Medical Code(s): U07.1 - COVID-19; D69.59 - Other secondary thrombocytopenia (7) Hx of CABG Status: Chronic Category: Surgical Code(s): Z95.1 - Presence of aortocoronary bypass graft (8) CAD (coronary artery disease) Status: Chronic Qualifiers: Coronary Disease-Associated Artery/Lesion type: bypass graft [place] vs. transplanted heart: [place] heart Associated angina: with other forms of angina Qualified Code(s): I25.708 - Atherosclerosis of coronary artery bypass graft(s), unspecified, with other forms of angina pectoris Category: Medical Code(s): I25.10 - Atherosclerotic heart disease of [place] coronary artery without angina pectoris (9) Atrial fibrillation Status: Resolved Qualifiers: Atrial fibrillation type: paroxysmal Qualified Code(s): I48.0 - Paroxysmal atrial fibrillation Category: Medical Code(s): I48.91 - Unspecified atrial fibrillation (10) Steroid-induced hyperglycemia Status: Acute Category: Medical Code(s): R73.9 - Hyperglycemia, unspecified; T38.0X5A - Adverse effect of glucocorticoids and synthetic analogues, initial encounter (11) Balanitis Status: Acute Category: Medical Code(s): N48.1 -
[2021-10-07 11:20] LABS: Lymphocytes % 4 % (10-50); Macrocytosis 1+; Monocytes % 5 % (2-9); Neutrophils % 91 % (42-76); Nucleated Red Blood Cells 1; Platelet Estimate Slight Decrease; Total Cells Counted 100
[2021-10-07 17:14] LABS: POC Glucose,Bedside 150 (70-110)
[2021-10-07 17:14] LABS: POC Glucose,Bedside 188 (70-110)
--- NOTE | 2021-10-07 17:45 | PC.NURSE ---
PT IS RESTING IN BED WITH FAMILY AT BEDSIDE. ALERT AND ORIENTED X4. O2 SATURATION HAS MAINTAINED 91-94% ON 6 L NC. PT HAS NOT BEEN EATING WELL TODAY BUT HAS BEEN DRINKING GLUCERNA. CBI WAS STOPPED AT 1200. NO COMPLAINTS OF BURNING OR DISCOMFORT. NOTIFIED PCP TO RECOMMEND WOUND CONSULT FOR WORSENING SKIN BREAKDOWN. PT HAS MULTIPLE OPEN AREAS NOTED TO THE BUTTOCKS/COCCYX. PT HAS BEEN REPOSITIONED FROM SIDE TO SIDE WITH ASSISTANCE FROM NURSING STAFF AND HAS BEEN ENCOURAGED TO TRY NOT TO SIT STRAIGHT UP IN THE BED DUE TO IT PUTTING PRESSURE ON THE BUTTOCKS. LUNG SOUNDS DIMINISHED. ABDOMEN SOFT/NON TENDER WITH ACTIVE BOWEL SOUNDS. SCATTERED BRUISING NOTED TO THE ABDOMEN/BUE. SWELLING NOTED TO BLE. WILL CONTINUE TO MONITOR.
[2021-10-08] VITALS (15 sets, daily range): BP systolic 92–141; BP diastolic 56–71; PULSE 60–85; RESP 19–26; TEMP 36.5–36.7; O2SAT 85–94; BMI 39.5
--- NOTE | 2021-10-08 05:47 | PC.WOUNDNOTE ---
Large open pressure wound on right buttocks and coccyx. Small stage 2 pressure wound to left buttocks.
--- NOTE | 2021-10-08 05:55 | PC.NURSE ---
Pt tolerating 6 L HFNC with sats 88-91% at rest. Will desat to low 80s with exertion. [address] draining dark red urine with some sediment and small blood clots present by gravity. (Dr. Dillard aware). Large open wound on right buttocks and coccyx. Small open wound on left buttocks. SEE WOUND NOTE. Pt has refused to turn t/o shift despite encouragement. Dressings have been applied. Pt has appeared tearful and depressed and has not slept much t/o shift.
[2021-10-08 08:03] LABS: Basophils % 0.2 % (0.1-2.0); Eosinophils # 0.1 K/mm3 (0.0-0.4); Eosinophils % 0.4 % (0.1-12.0); Hematocrit 36.3 % (42.0-52.0); Hemoglobin 11.8 g/dL (14.1-18.0); Lymphocytes # 0.4 K/mm3 (0.7-4.5); Lymphocytes % 3.3 % (10-50); Mean Corpuscular HGB Conc 32.6 g/dL (31.8-35.4); Mean Corpuscular Hemoglobin 33.2 pg (27.0-31.2); Mean Corpuscular Volume 101.6 fl (80-94); Mean Platelet Volume 10.3 fl (7.4-10.4); Monocytes # 0.4 K/mm3 (0.1-1.0); Monocytes % 3.4 % (1.7-9.3); Neutrophils % 92.8 % (37.0-80.0); Platelet Count 94 K/mm3 (142-424); Red Blood Count 3.57 M/mm3 (4.60-6.20); Red Cell Distribution Width 18.7 % (11.5-17.5)
[2021-10-08 08:04] LABS: MANUAL DIFFERENTIAL MANUAL DIFFERENTIAL (MANUAL DIFF)
[2021-10-08 08:13] LABS: Anion Gap 5.4 mEq/L (5-15); Blood Urea Nitrogen 48 mg/dl (9-20); Calcium 9.5 mg/dl (8.4-10.2); Carbon Dioxide 38 mmol/L (22.0-30.0); Chloride 91 mmol/L (98-107); Creatinine Clearance Estimated 114 mL/min (50-200); Estimated Glomerular Filt Rate 84 ml/min (>60); GFR (African American) 102 ML/MIN (>60); Glucose 102 mg/dl (74-100); Potassium 3.4 mmoL/L (3.5-5.1); Sodium 131 mmol/L (136-145)
[2021-10-08 08:19] LABS: C-Reactive Protein 7.3 mg/L (0-4); Lymphocytes % 5 % (10-50); Monocytes % 4 % (2-9); Neutrophils % 91 % (42-76); Total Cells Counted 100
[2021-10-08 08:21] LABS: Macrocytosis 1+; Platelet Estimate Slight Decrease
--- NOTE | 2021-10-08 08:37 | HMH.ACPN2 ---
Internal Medicine - PN: Subj *Date: 10/08/21 *Time: 08:37 Interval history: Patient had hypoglycemia this morning. Patient had recurrence of tea colored urine once CBI was discontinued yesterday afternoon. Patient is remained in bed on his side trying to offload the sacrum due to his decubitus ulcers Exam Vital signs and Labs for Last 24 Hours: Temp Pulse Resp BP Pulse Ox 97.7 F 85 20 128/63 85 L 10/08/21 07:39 10/08/21 07:39 10/08/21 07:39 10/08/21 07:39 10/08/21 07:39 Laboratory Results - last 24 hr 10/07/21 06:38: Total Counted 100, Neutrophils % (Manual) 91 H, Lymphocytes % (Manual) 4 L, Monocytes % (Manual) 5, Nucleated RBCs 1, Platelet Estimate Slight decrease, Macrocytosis 1+ 10/07/21 06:38: Sodium 133 L, Potassium 3.6, Chloride 91 L, Carbon Dioxide 39 H, Anion Gap 6.6, BUN 56 H, Creatinine 1.00, Estimated Creat Clear 115, Estimated GFR 74, Est GFR ( Amer) 90, Glucose 112 H, Calcium 8.5 10/07/21 11:36: POC Glucose 188 H 10/07/21 17:02: POC Glucose 150 H 10/08/21 07:38: WBC 13.0 H, RBC 3.57 L, Hgb 11.8 L, Hct 36.3 L, MCV 101.6 H, MCH 33.2 H, MCHC 32.6, RDW 18.7 H, Plt Count 94 L, MPV 10.3, Neut % (Auto) 92.8 H, Lymph % (Auto) 3.3 L, [place] % (Auto) 3.4, Eos % (Auto) 0.4, Baso % (Auto) 0.2, Neut # (Auto) 12.0 H, Lymph # (Auto) 0.4 L, [place] # (Auto) 0.4, Eos # (Auto) 0.1, Baso # (Auto) 0.0, Total Counted 100, Neutrophils % (Manual) 91 H, Lymphocytes % (Manual) 5 L, Monocytes % (Manual) 4, Platelet Estimate Slight decrease, Macrocytosis 1+ 10/08/21 07:38: Sodium 131 L, Potassium 3.4 L, Chloride 91 L, Carbon Dioxide 38 H, Anion Gap 5.4, BUN 48 H, Creatinine 0.90, Estimated Creat Clear 114, Estimated GFR 84, Est GFR ( Amer) 102, Glucose 102 H, Calcium 9.5, C-Reactive Protein 7.3 H I & O for Last 24 hours: Intake & Output 10/05/21 10/06/21 10/07/21 10/08/21 11:59 11:59 11:59 11:59 Intake Total 840 / 840 840 / 840 1080 / 1080 480 / 480 Output Total 5900 / 5900 4300 / 4300 3600 / 3600 500 / 500 Balance -5060 / -5060 -3460 / -3460 -2520 / -2520 -20 / -20 Weight 265 lb 254 lb 6.4 oz 252 lb 9.6 oz 252 lb 1.6 oz Microbiology Reports for the Last 24 Hours: Microbiology 10/05/21 12:14 Urine,Catheterized Urine Culture - Preliminary Gram Positive Cocci - Constitutional no acute distress - *Routine Respiratory Exam Present: CTA bilaterally - *Routine Cardiovascular Exam Present: RRR - *Routine Abdominal Exam Present: soft, normoactive bowel sounds. Absent: tenderness - *Routine Extremities Exam Present: edema. Absent: cyanosis, clubbing Assessment and Plan (1) Acute respiratory failure due to COVID-19 Status: Acute Category: Medical Code(s): U07.1 - COVID-19; J96.00 - Acute respiratory failure, unspecified whether with hypoxia or hypercapnia (2) Acute kidney injury Status: Resolved Category: Medical Code(s): N17.9 - Acute kidney failure, unspecified (3) COPD (chronic obstructive pulmonary disease) Status: Acute Qualifiers: COPD type: unspecified COPD Qualified Code(s): J44.9 - Chronic obstructive pulmonary disease, unspecified Category: Medical Code(s): J44.9 - Chronic obstructive pulmonary disease, unspecified (4) COVID-19 with pulmonary comorbidity Status: Acute Category: Medical Code(s): U07.1 - COVID-19; J98.4 - Other disorders of lung (5) Obesity (BMI 30-39.9) Status: Chronic Category: Medical Code(s): E66.9 - Obesity, unspecified (6) Thrombocytopenia associated with COVID-19 Status: Resolved Category: Medical Code(s): U07.1 - COVID-19; D69.59 - Other secondary thrombocytopenia (7) Hx of CABG Status: Chronic Category: Surgical Code(s): Z95.1 - Presence of aortocoronary bypass graft (8) CAD (coronary artery disease) Status: Chronic Qualifiers: Coronary Disease-Associated Artery/Lesion type: bypass graft [place] vs. transplanted heart: [place] heart Associated angina: with othe
--- NOTE | 2021-10-08 09:31 | PC.NURSE ---
Notified PT o/c abound eval for this patient. He stated he would see him tomorrow morning.
[2021-10-08 12:01] LABS: POC Glucose,Bedside 143 (70-110)
--- NOTE | 2021-10-08 12:46 | PC.NURSE ---
PT IS RESTING IN BED ON HIS LT SIDE AT THIS TIME. PT TOLERATED SITTING UP IN THE CHAIR FOR 1 HOUR THIS SHIFT AND REQUESTED TO GO BACK TO BED B/C HE STATED THE CHAIR WAS VERY UNCOMFORTABLE. PT REFUSED BATH THIS SHIFT. OPEN SORES TO THE COCCYX/BUTTOCK WERE CLEANED AND REDRESSED. CATHETER CARE PROVIDED. CBI RESTARTED. PT HAS NOT HAD MUCH OF AN APPETITE BUT HAS BEEN DRINKING GLUCERNA AND POWERADE ZERO FREQUENTLY. LUNG SOUNDS DIMINISHED. ABDOMEN SOFT/NON TENDER WITH HYPOACTIVE BOWEL SOUNDS. BRUISING NOTED TO ABDOMEN/BUE. O2 SATURATION HAS MAINTAINED 88-94% ON 6 L NC. WILL CONTINUE TO MONITOR.
[2021-10-08 16:01] LABS: POC Glucose,Bedside 157 (70-110)
[2021-10-08 22:24] LABS: POC Glucose,Bedside 154 (70-110)
[2021-10-09] VITALS (10 sets, daily range): BP systolic 82–146; BP diastolic 48–82; PULSE 62–100; RESP 22–24; TEMP 36.4–36.9; O2SAT 81–96; BMI 39.5
--- NOTE | 2021-10-09 06:03 | PC.NURSE ---
No acute changes. Pt c/o pain from urinary catheter at beginning of shift. Pt was repositioned and catheter was flushed and large blood clot was drained out. Pt stated relief. Pt has refused to be turned t/o night despite encouragement. No other complaints voiced to staff.
[2021-10-09 07:07] LABS: Basophils # 0.1 K/mm3 (0-0.2); Basophils % 0.8 % (0.1-2.0); Eosinophils % 0.4 % (0.1-12.0); Hematocrit 32.2 % (42.0-52.0); Hemoglobin 10.8 g/dL (14.1-18.0); Lymphocytes # 0.3 K/mm3 (0.7-4.5); Mean Corpuscular HGB Conc 33.6 g/dL (31.8-35.4); Mean Corpuscular Hemoglobin 33.7 pg (27.0-31.2); Mean Corpuscular Volume 100.4 fl (80-94); Mean Platelet Volume 9.7 fl (7.4-10.4); Monocytes # 0.4 K/mm3 (0.1-1.0); Monocytes % 4.1 % (1.7-9.3); Neutrophils # 8.9 K/mm3 (1.8-7.8); Neutrophils % 91.7 % (37.0-80.0); Platelet Count 89 K/mm3 (142-424); Red Blood Count 3.21 M/mm3 (4.60-6.20); Red Cell Distribution Width 18.7 % (11.5-17.5); White Blood Count 9.7 K/mm3 (4.8-10.8)
[2021-10-09 07:17] LABS: MANUAL DIFFERENTIAL MANUAL DIFFERENTIAL (MANUAL DIFF)
--- NOTE | 2021-10-09 07:17 | HMH.ACPN2 ---
Internal Medicine - PN: Subj *Date: 10/09/21 *Time: 07:17 Interval history: Patient is in better spirits this morning. He required flushing of a blood clot from his [place] catheter yesterday and CBI was restarted. O2 sats remained in the high 80s to low 90s on 6 L although while eating, as he is at the time of interview, O2 sats will drop to 85% on 6 L. Patient was out of bed briefly yesterday but due to pain coming from his buttocks wound returned to bed to lay on his sides. Exam Vital signs and Labs for Last 24 Hours: Temp Pulse Resp BP Pulse Ox 97.8 F 82 24 119/52 L 89 L 10/09/21 04:00 10/09/21 05:51 10/09/21 04:00 10/09/21 04:00 10/09/21 05:51 Laboratory Results - last 24 hr 10/08/21 07:38: WBC 13.0 H, RBC 3.57 L, Hgb 11.8 L, Hct 36.3 L, MCV 101.6 H, MCH 33.2 H, MCHC 32.6, RDW 18.7 H, Plt Count 94 L, MPV 10.3, Neut % (Auto) 92.8 H, Lymph % (Auto) 3.3 L, [place] % (Auto) 3.4, Eos % (Auto) 0.4, Baso % (Auto) 0.2, Neut # (Auto) 12.0 H, Lymph # (Auto) 0.4 L, [place] # (Auto) 0.4, Eos # (Auto) 0.1, Baso # (Auto) 0.0, Total Counted 100, Neutrophils % (Manual) 91 H, Lymphocytes % (Manual) 5 L, Monocytes % (Manual) 4, Platelet Estimate Slight decrease, Macrocytosis 1+ 10/08/21 07:38: Sodium 131 L, Potassium 3.4 L, Chloride 91 L, Carbon Dioxide 38 H, Anion Gap 5.4, BUN 48 H, Creatinine 0.90, Estimated Creat Clear 114, Estimated GFR 84, Est GFR ( Amer) 102, Glucose 102 H, Calcium 9.5, C-Reactive Protein 7.3 H 10/08/21 11:52: POC Glucose 143 H 10/08/21 15:52: POC Glucose 157 H 10/08/21 21:29: POC Glucose 154 H 10/09/21 06:38: WBC 9.7 D, RBC 3.21 L, Hgb 10.8 L, Hct 32.2 L, MCV 100.4 H, MCH 33.7 H, MCHC 33.6, RDW 18.7 H, Plt Count 89 L, MPV 9.7, Neut % (Auto) 91.7 H, Lymph % (Auto) 3.0 L, [place] % (Auto) 4.1, Eos % (Auto) 0.4, Baso % (Auto) 0.8, Neut # (Auto) 8.9 H, Lymph # (Auto) 0.3 L, [place] # (Auto) 0.4, Eos # (Auto) 0.0, Baso # (Auto) 0.1 I & O for Last 24 hours: Intake & Output 10/06/21 10/07/21 10/08/21 10/09/21 11:59 11:59 11:59 11:59 Intake Total 840 / 840 1080 / 1080 600 / 600 240 / 240 Output Total 4300 / 4300 3600 / 3600 500 / 500 2500 / 2500 Balance -3460 / -3460 -2520 / -2520 100 / 100 -2260 / -2260 Weight 254 lb 6.4 oz 252 lb 9.6 oz 252 lb 1.6 oz 251 lb 12.286 oz Microbiology Reports for the Last 24 Hours: Microbiology 10/05/21 12:14 Urine,Catheterized Urine Culture - Preliminary Gram Positive Cocci Narrative: Patient is in better spirits this morning. Lungs remain clear. Heart has regular rate and rhythm. Abdomen is obese. Left lower extremity has 1+ edema right with trace edema. [place] catheter is in place and draining reddish urine. Assessment and Plan (1) Acute respiratory failure due to COVID-19 Status: Acute Category: Medical Code(s): U07.1 - COVID-19; J96.00 - Acute respiratory failure, unspecified whether with hypoxia or hypercapnia (2) Acute kidney injury Status: Resolved Category: Medical Code(s): N17.9 - Acute kidney failure, unspecified (3) COPD (chronic obstructive pulmonary disease) Status: Acute Qualifiers: COPD type: unspecified COPD Qualified Code(s): J44.9 - Chronic obstructive pulmonary disease, unspecified Category: Medical Code(s): J44.9 - Chronic obstructive pulmonary disease, unspecified (4) COVID-19 with pulmonary comorbidity Status: Acute Category: Medical Code(s): U07.1 - COVID-19; J98.4 - Other disorders of lung (5) Obesity (BMI 30-39.9) Status: Chronic Category: Medical Code(s): E66.9 - Obesity, unspecified (6) Thrombocytopenia associated with COVID-19 Status: Resolved Category: Medical Code(s): U07.1 - COVID-19; D69.59 - Other secondary thrombocytopenia (7) Hx of CABG Status: Chronic Category: Surgical Code(s): Z95.1 - Presence of aortocoronary bypass graft (8) CAD (coronary artery disease) Status: Chronic Qualifiers: Coronary Disease-Associated Artery/Lesion
[2021-10-09 07:27] LABS: Anion Gap 3.8 mEq/L (5-15); Blood Urea Nitrogen 45 mg/dl (9-20); Carbon Dioxide 38 mmol/L (22.0-30.0); Chloride 92 mmol/L (98-107); Creatinine Clearance Estimated 114 mL/min (50-200); Estimated Glomerular Filt Rate 74 ml/min (>60); GFR (African American) 90 ML/MIN (>60); Glucose 95 mg/dl (74-100); Potassium 3.8 mmoL/L (3.5-5.1); Sodium 130 mmol/L (136-145)
[2021-10-09 08:02] LABS: Anisocytosis 1+; Lymphocytes % 2 % (10-50); Macrocytosis 1+; Monocytes % 6 % (2-9); Neutrophils % 92 % (42-76); Nucleated Red Blood Cells 2; Platelet Estimate Normal; Total Cells Counted 100
--- NOTE | 2021-10-09 11:42 | HMH.PTEV ---
Physical Therapy Evaluation Rehab PT IP Evaluation Start: 10/01/21 09:05 Freq: ONCE Status: Active Protocol: Document 10/02/21 09:45 PHOYULISSA (Rec: 10/02/21 11:34 PHORNE [id number]) Subjective/History History History 66 yowm adm to [facility] with COVID- 19 and increased SOA. He has had prolonged hosital stay and is now tolerating NC oxygen better, but remains very weak. Subjective Subjective Pt reports he feels very tired and weak at this time. Rehab PT IP Eval Objective Appearance Patient Behavior Appropriate Patient Orientation Person,Place,Time Difficulty following instructions none Speech Pattern Clear Ambulation Patient Able to Ambulate No Balance Ability to Arise Able, uses arms to help Sitting Balance Leans or slides in chair Standing Balance Unsteady Dynamic Sitting Balance Ability Fair Dynamic Standing Balance Ability Poor Transfers Bed Transfer Ability Maximum x 1 (75% assist) Sit to Stand Bed Transfer Ability Maximum x 1 (75% assist) ROM All Extremities PT ROM Status WFL MMT All Extremities PT MMT ABN Abnormal MMT Grade grossly 3/5 B UE and 2/5 B LE Rehab PT IP prob,goals,plan Problems Date of Evaluation: 10/02/21 PT IP Problems Bed Mobility,Transfers,Gait Rehab Potential Rehab Potential Good Plan PT Intervention Plan Bed Mobility,Transfers,Gait, Balance,Therapeutic Exercise PT Plan Frequency BID Duration LOS Discharge Goals Bed Transfer Ability Moderate x 2 (50% assist) Sit to Stand Chair Transfer Ability Moderate x 2 (50% assist) Ambulation Assistive Device Rolling Walker Ambulation Distance (feet) 3 Discharge Plan PT Discharge Plan Pt is most appropriate for rehab placement at this time due to significant weakness after prolonged immobility. G -code Required No Eval Complexity Eval Charge Codes 81320 - High Complexity PHYSICIAN CERTIFICATION: I certify the specified therapy services for Lj Estevez are required, authorized, and reviewed every 30 days.
--- NOTE | 2021-10-09 13:10 | HMH.PULMPN ---
Internal Medicine - PN: Subj *Date: 10/09/21 *Time: 13:10 Interval history: No acute respiratory event over the weekend. Patient admits continued improvement in symptoms. Exam - Constitutional Constitutional:: Present: no acute distress, comfortable - HENMT Exam HENMT: Present: normocephalic, atraumatic - Eye Exam Eyes:: Present: normal appearance both eyes and related structures - Neck Exam Neck:: Present: normal visual inspection - Respiratory Exam Respiratory:: Present: able to speak in complete sentences, respiratory distress, rales. Absent: accessory muscle use - Cardiovascular Exam Cardiac:: Present: S1, S2 - GI Exam GI:: Present: soft, no tenderness - Skin Exam Skin: Present: warm, no rash - Neurological Exam Neurological: Present: alert, awake, normal cognition - Extremities Exam Extremities: Present: no cyanosis, no clubbing, edema Assessment and Plan (1) Acute respiratory failure due to COVID-19 Status: Acute Category: Medical Code(s): U07.1 - COVID-19; J96.00 - Acute respiratory failure, unspecified whether with hypoxia or hypercapnia (2) Acute kidney injury Status: Resolved Category: Medical Code(s): N17.9 - Acute kidney failure, unspecified (3) COPD (chronic obstructive pulmonary disease) Status: Acute Qualifiers: COPD type: unspecified COPD Qualified Code(s): J44.9 - Chronic obstructive pulmonary disease, unspecified Category: Medical Code(s): J44.9 - Chronic obstructive pulmonary disease, unspecified (4) COVID-19 with pulmonary comorbidity Status: Acute Category: Medical Code(s): U07.1 - COVID-19; J98.4 - Other disorders of lung (5) Obesity (BMI 30-39.9) Status: Chronic Category: Medical Code(s): E66.9 - Obesity, unspecified (6) Thrombocytopenia associated with COVID-19 Status: Resolved Category: Medical Code(s): U07.1 - COVID-19; D69.59 - Other secondary thrombocytopenia (7) Hx of CABG Status: Chronic Category: Surgical Code(s): Z95.1 - Presence of aortocoronary bypass graft (8) CAD (coronary artery disease) Status: Chronic Qualifiers: Coronary Disease-Associated Artery/Lesion type: bypass graft [place] vs. transplanted heart: [place] heart Associated angina: with other forms of angina Qualified Code(s): I25.708 - Atherosclerosis of coronary artery bypass graft(s), unspecified, with other forms of angina pectoris Category: Medical Code(s): I25.10 - Atherosclerotic heart disease of [place] coronary artery without angina pectoris (9) Atrial fibrillation Status: Resolved Qualifiers: Atrial fibrillation type: paroxysmal Qualified Code(s): I48.0 - Paroxysmal atrial fibrillation Category: Medical Code(s): I48.91 - Unspecified atrial fibrillation (10) Steroid-induced hyperglycemia Status: Acute Category: Medical Code(s): R73.9 - Hyperglycemia, unspecified; T38.0X5A - Adverse effect of glucocorticoids and synthetic analogues, initial encounter (11) Balanitis Status: Acute Category: Medical Code(s): N48.1 - Balanitis (12) Hematuria Status: Acute Qualifiers: Hematuria type: gross Qualified Code(s): R31.0 - Gross hematuria Category: Medical Code(s): R31.9 - Hematuria, unspecified (13) Sacral decubitus ulcer, stage II Status: Acute Category: Medical Code(s): L89.152 - Pressure ulcer of sacral region, stage 2 (14) Acquired thrombocytopenia Status: Acute Category: Medical Code(s): D69.6 - Thrombocytopenia, unspecified (15) UTI (urinary tract infection) Status: Acute Qualifiers: Urinary tract infection type: site unspecified Category: Medical Code(s): N39.0 - Urinary tract infection, site not specified - Assessment and plan all Dx Assessment and Plan for all problems:: #Acute chronic hypoxic respiratory failure: #COVID-19 pneumonia: Mr. Estevez is 66-year-old male greater than [id number] smoking history, last smoked 16 years ago used
--- NOTE | 2021-10-09 18:15 | PC.NURSE ---
Patient is non tele. Patient was on 6L NC, increased to 8L NC. Wound care evaluated patient's bottom, dressing reapplied; see wound care notes. Patient has had several bowel bowel movements and wound redressed. [place]on catheter removed, patient tolerated well. Patient is a Q2 turn, patient not to lay supine or put pressure on bottom. Bed in lowest position and phone and call light in reach. Will continue to monitor.
[2021-10-09 20:10] LABS: POC Glucose,Bedside 222 (70-110)
[2021-10-10] VITALS (9 sets, daily range): BP systolic 88–127; BP diastolic 53–84; PULSE 79–93; RESP 18–26; TEMP 36.1–36.6; O2SAT 86–93; BMI 39.4
--- NOTE | 2021-10-10 03:09 | PC.NURSE ---
Pt alert and oriented x 4. Pt has had no c/o pain or SOA t/o shift. O2 was turned down to 6L NC and pt has tolerated well. Dressing change to bottom multiple times this shift. Nothing further.
[2021-10-10 07:05] LABS: Alanine Aminotransferase 384 U/L (12-78); Albumin Level 2.9 g/dl (3.5-5.0); Albumin/Globulin Ratio 1.1 (1.1-1.8); Alkaline Phosphatase 146 U/L (38-126); Anion Gap 11.2 mEq/L (5-15); Aspartate Amino Transferase 134 U/L (17-59); Bilirubin,Total 3.2 mg/dl (0.2-1.3); Blood Urea Nitrogen 57 mg/dl (9-20); Calcium 8.5 mg/dl (8.4-10.2); Carbon Dioxide 33 mmol/L (22.0-30.0); Chloride 90 mmol/L (98-107); Creatinine Clearance Estimated 76 mL/min (50-200); Estimated Glomerular Filt Rate 47 ml/min (>60); GFR (African American) 56 ML/MIN (>60); Globulin 2.6 g/dL (1.3-3.2); Glucose 193 mg/dl (74-100); Potassium 4.2 mmoL/L (3.5-5.1); Sodium 130 mmol/L (136-145); Total Protein,Serum 5.5 g/dl (6.3-8.2)
--- NOTE | 2021-10-10 07:22 | HMH.ACPN2 ---
Internal Medicine - PN: Subj *Date: 10/10/21 *Time: 07:22 Interval history: No acute events overnight. O2 sats remained primarily above 88% on 6 L. Occasional desaturations will occur to the low 80s requiring transient increases in flow rate. Movement will generally trigger some desaturations. Urine culture has grown staph simulations sensitive to gent, vancomycin, clindamycin. Patient was seen by wound care yesterday and dressing changes have begun. PT deferred treatment due to patient's hypoxia at the time. Patient has additional complaints of bladder spasm. [place] catheter was removed yesterday and he has been able to urinate with great effort. Urine remains bloody Exam Vital signs and Labs for Last 24 Hours: Temp Pulse Resp BP Pulse Ox 97.7 F 86 22 127/64 87 L 10/10/21 04:00 10/10/21 06:01 10/10/21 04:00 10/10/21 04:00 10/10/21 06:01 Laboratory Results - last 24 hr 10/09/21 06:38: Total Counted 100, Neutrophils % (Manual) 92 H, Lymphocytes % (Manual) 2 L, Monocytes % (Manual) 6, Nucleated RBCs 2, Platelet Estimate Normal, Anisocytosis 1+, Macrocytosis 1+ 10/09/21 06:38: Sodium 130 L, Potassium 3.8, Chloride 92 L, Carbon Dioxide 38 H, Anion Gap 3.8 L, BUN 45 H, Creatinine 1.00, Estimated Creat Clear 114, Estimated GFR 74, Est GFR ( Amer) 90, Glucose 95, Calcium 9.0 10/09/21 20:00: POC Glucose 222 H 10/10/21 06:11: Sodium 130 L, Potassium 4.2, Chloride 90 L, Carbon Dioxide 33 H, Anion Gap 11.2, BUN 57 H D, Creatinine 1.50 H D, Estimated Creat Clear 76, Estimated GFR 47 L, Est GFR ( Amer) 56 L D, Glucose 193 H D, Calcium 8.5, Total Bilirubin 3.2 H, AST 134 H, ALT 384 H*, Alkaline Phosphatase 146 H, Total Protein 5.5 L, Albumin 2.9 L, Globulin 2.6, Albumin/Globulin Ratio 1.1 I & O for Last 24 hours: Intake & Output 10/07/21 10/08/21 10/09/21 10/10/21 11:59 11:59 11:59 11:59 Intake Total 1080 / 1080 600 / 600 480 / 480 120 / 120 Output Total 3600 / 3600 500 / 500 3700 / 3700 Balance -2520 / -2520 100 / 100 -3220 / -3220 120 / 120 Weight 252 lb 9.6 oz 252 lb 1.6 oz 251 lb 12.286 oz 251 lb 5.231 oz Microbiology Reports for the Last 24 Hours: Microbiology 10/05/21 12:14 Urine,Catheterized Urine Culture - Final Staphylococcus simulans Narrative: Patient is anxious and a little upset this morning. Lungs are clear. Heart has a regular rate and rhythm. Abdomen is soft. Lower extremities have improvement in edema Assessment and Plan (1) Acute respiratory failure due to COVID-19 Status: Acute Category: Medical Code(s): U07.1 - COVID-19; J96.00 - Acute respiratory failure, unspecified whether with hypoxia or hypercapnia (2) Acute kidney injury Status: Acute Category: Medical Code(s): N17.9 - Acute kidney failure, unspecified (3) Transaminitis Status: Acute Category: Medical Code(s): R74.01 - Elevation of levels of liver transaminase levels (4) Staph infection Status: Acute Category: Medical Code(s): B95.8 - Unspecified staphylococcus as the cause of diseases classified elsewhere (5) Hematuria Status: Acute Qualifiers: Hematuria type: gross Qualified Code(s): R31.0 - Gross hematuria Category: Medical Code(s): R31.9 - Hematuria, unspecified (6) COPD (chronic obstructive pulmonary disease) Status: Acute Qualifiers: COPD type: unspecified COPD Qualified Code(s): J44.9 - Chronic obstructive pulmonary disease, unspecified Category: Medical Code(s): J44.9 - Chronic obstructive pulmonary disease, unspecified (7) COVID-19 with pulmonary comorbidity Status: Acute Category: Medical Code(s): U07.1 - COVID-19; J98.4 - Other disorders of lung (8) Obesity (BMI 30-39.9) Status: Chronic Category: Medical Code(s): E66.9 - Obesity, unspecified (9) Thrombocytopenia associated with COVID-19 Status: Resolved Category: Medical Code(s): U07.1 - COVID-19; D69.59 - Other secondary thrombocy
--- NOTE | 2021-10-10 07:31 | US_ITS ---
PROCEDURE INFORMATION: Exam: US Abdomen Complete Exam date and time: 10/10/2021 7:31 AM Age: 66 years old Clinical indication: Abnormal findings; Abnormal lab test; Elevated liver enzymes; Additional info: Elevated liver functions TECHNIQUE: Imaging protocol: Real-time ultrasound of the abdomen with image documentation. COMPARISON: ABDPELW CT abdomen pelvis w con 01/19/2019 9:26 PM FINDINGS: Liver: Fatty liver. No mass. Gallbladder: Normal. No gallstones visualized. There is no gallbladder wall thickening. Common bile duct: Normal. No stones. No dilation. Pancreas: Visualized pancreas is unremarkable. Right kidney: Normal. No mass or stones. No hydronephrosis. Left kidney: 1.8 cm mid renal cyst. No stones. No hydronephrosis. Spleen: Normal. No splenomegaly. Aorta: Visualized portions are unremarkable. Inferior vena cava: Visualized portions are unremarkable. IMPRESSION: 1. Left renal cyst. 2. Fatty liver.
--- NOTE | 2021-10-10 08:29 | HMH.PHACONS ---
- Pharmacy Consult Date: 10/10/21 Time: 08:29 Referring provider: DR. DOUGLASS Reason for Consult:: GENTAMICIN DOSING Allergies and ADEs:: Allergies Allergy/AdvReac Type Severity Reaction Status Date / Time penicillin G [PENICILLIN G] Allergy Intermediate Verified 12/19/20 08:39 shellfish derived Allergy Mild Nausea Verified 12/19/20 08:39 hydromorphone [From Dilaudid] Allergy Vomiting Verified 12/19/20 08:39 Home Medications:: Home Medications Medication Instructions Recorded Confirmed Type hydrochlorothiazide 25 mg tablet 25 mg PO DAILY 90 Days tab 07/03/18 09/04/21 History metoprolol tartrate 25 mg tablet 25 mg PO BID 90 Days tab 07/03/18 09/04/21 History tamsulosin 0.4 mg capsule 0.4 mg PO DAILY 30 Days #30 07/03/18 09/04/21 History Umeclidinium Brm/Vilanterol Tr 1 puff IH DAILY 01/19/19 09/04/21 History [Anoro Ellipta 62.5-25 Mcg INH] cetirizine 10 mg tablet 5 mg PO DAILY PRN 11/30/19 09/04/21 History Albuterol Sulfate [Albuterol 1 puff IH Q4HP PRN 12/13/20 10/04/21 History Sulfate Hfa] Potassium Chloride [Klor-Con 10mEq 10 meq PO DAILY 12/13/20 09/04/21 History tab] Meloxicam 15 mg PO DAILY 09/04/21 09/04/21 History Oxybutynin Chloride [Oxybutynin 10 mg PO DAILY 09/04/21 09/04/21 History Chloride ER] Height: 1.7 m Weight: 114 kg Laboratory Results:: Laboratory Results - last 24 hr 10/09/21 20:00: POC Glucose 222 H 10/10/21 06:11: Sodium 130 L, Potassium 4.2, Chloride 90 L, Carbon Dioxide 33 H, Anion Gap 11.2, BUN 57 H D, Creatinine 1.50 H D, Estimated Creat Clear 76, Estimated GFR 47 L, Est GFR ( Amer) 56 L D, Glucose 193 H D, Calcium 8.5, Total Bilirubin 3.2 H, AST 134 H, ALT 384 H*, Alkaline Phosphatase 146 H, Total Protein 5.5 L, Albumin 2.9 L, Globulin 2.6, Albumin/Globulin Ratio 1.1 Medical History: Reports:: Arrhythmia, Cancer (bladder), Chronic Obstructive Pulmonary Disease (COPD), Coronary Artery Disease, Hyperlipidemia, Hypertension, Myocardial Infarction Denies:: Diabetes Mellitus Type 1, Diabetes Mellitus Type 2, Internal Pacemaker, MRSA, Seizures Assessment and Plan (1) Acute respiratory failure due to COVID-19 Status: Acute Category: Medical Code(s): U07.1 - COVID-19; J96.00 - Acute respiratory failure, unspecified whether with hypoxia or hypercapnia (2) Acute kidney injury Status: Acute Category: Medical Code(s): N17.9 - Acute kidney failure, unspecified (3) Transaminitis Status: Acute Category: Medical Code(s): R74.01 - Elevation of levels of liver transaminase levels (4) Staph infection Status: Acute Category: Medical Code(s): B95.8 - Unspecified staphylococcus as the cause of diseases classified elsewhere (5) Hematuria Status: Acute Qualifiers: Hematuria type: gross Qualified Code(s): R31.0 - Gross hematuria Category: Medical Code(s): R31.9 - Hematuria, unspecified (6) COPD (chronic obstructive pulmonary disease) Status: Acute Qualifiers: COPD type: unspecified COPD Qualified Code(s): J44.9 - Chronic obstructive pulmonary disease, unspecified Category: Medical Code(s): J44.9 - Chronic obstructive pulmonary disease, unspecified (7) COVID-19 with pulmonary comorbidity Status: Acute Category: Medical Code(s): U07.1 - COVID-19; J98.4 - Other disorders of lung (8) Obesity (BMI 30-39.9) Status: Chronic Category: Medical Code(s): E66.9 - Obesity, unspecified (9) Thrombocytopenia associated with COVID-19 Status: Resolved Category: Medical Code(s): U07.1 - COVID-19; D69.59 - Other secondary thrombocytopenia (10) Hx of CABG Status: Chronic Category: Surgical Code(s): Z95.1 - Presence of aortocoronary bypass graft (11) CAD (coronary artery disease) Status: Chronic Qualifiers: Coronary Disease-Associated Artery/Lesion type: bypass graft [place] vs. transplanted heart: [place] heart Associated angina: with other forms of angina Qualified Code(s): I25.708 - Atheroscle
--- NOTE | 2021-10-10 11:12 | HMH.PULMPN ---
Internal Medicine - PN: Subj *Date: 10/10/21 *Time: 11:12 Interval history: No acute respiratory vents overnight. Exam - Constitutional Constitutional:: Present: no acute distress, comfortable - HENMT Exam HENMT: Present: normocephalic - Eye Exam Eyes:: Present: normal appearance both eyes and related structures - Respiratory Exam Respiratory:: Present: able to speak in complete sentences, no respiratory distress, rales - Cardiovascular Exam Cardiac:: Present: S1, S2 - GI Exam GI:: Present: soft. Absent: no tenderness - Skin Exam Skin: Present: warm - Neurological Exam Neurological: Present: alert, awake, normal cognition - Extremities Exam Extremities: Present: no cyanosis, no clubbing, edema Assessment and Plan (1) Acute respiratory failure due to COVID-19 Status: Acute Category: Medical Code(s): U07.1 - COVID-19; J96.00 - Acute respiratory failure, unspecified whether with hypoxia or hypercapnia (2) Acute kidney injury Status: Acute Category: Medical Code(s): N17.9 - Acute kidney failure, unspecified (3) Transaminitis Status: Acute Category: Medical Code(s): R74.01 - Elevation of levels of liver transaminase levels (4) Staph infection Status: Acute Category: Medical Code(s): B95.8 - Unspecified staphylococcus as the cause of diseases classified elsewhere (5) Hematuria Status: Acute Qualifiers: Hematuria type: gross Qualified Code(s): R31.0 - Gross hematuria Category: Medical Code(s): R31.9 - Hematuria, unspecified (6) COPD (chronic obstructive pulmonary disease) Status: Acute Qualifiers: COPD type: unspecified COPD Qualified Code(s): J44.9 - Chronic obstructive pulmonary disease, unspecified Category: Medical Code(s): J44.9 - Chronic obstructive pulmonary disease, unspecified (7) COVID-19 with pulmonary comorbidity Status: Acute Category: Medical Code(s): U07.1 - COVID-19; J98.4 - Other disorders of lung (8) Obesity (BMI 30-39.9) Status: Chronic Category: Medical Code(s): E66.9 - Obesity, unspecified (9) Thrombocytopenia associated with COVID-19 Status: Resolved Category: Medical Code(s): U07.1 - COVID-19; D69.59 - Other secondary thrombocytopenia (10) Hx of CABG Status: Chronic Category: Surgical Code(s): Z95.1 - Presence of aortocoronary bypass graft (11) CAD (coronary artery disease) Status: Chronic Qualifiers: Coronary Disease-Associated Artery/Lesion type: bypass graft [place] vs. transplanted heart: [place] heart Associated angina: with other forms of angina Qualified Code(s): I25.708 - Atherosclerosis of coronary artery bypass graft(s), unspecified, with other forms of angina pectoris Category: Medical Code(s): I25.10 - Atherosclerotic heart disease of [place] coronary artery without angina pectoris (12) Atrial fibrillation Status: Resolved Qualifiers: Atrial fibrillation type: paroxysmal Qualified Code(s): I48.0 - Paroxysmal atrial fibrillation Category: Medical Code(s): I48.91 - Unspecified atrial fibrillation (13) Steroid-induced hyperglycemia Status: Acute Category: Medical Code(s): R73.9 - Hyperglycemia, unspecified; T38.0X5A - Adverse effect of glucocorticoids and synthetic analogues, initial encounter (14) Balanitis Status: Acute Category: Medical Code(s): N48.1 - Balanitis (15) Sacral decubitus ulcer, stage II Status: Acute Category: Medical Code(s): L89.152 - Pressure ulcer of sacral region, stage 2 (16) Acquired thrombocytopenia Status: Acute Category: Medical Code(s): D69.6 - Thrombocytopenia, unspecified (17) UTI (urinary tract infection) Status: Acute Qualifiers: Urinary tract infection type: site unspecified Category: Medical Code(s): N39.0 - Urinary tract infection, site not specified - Assessment and plan all Dx Assessment and Plan for all problems:: #Acute chronic hypoxic respiratory failure: #C
[2021-10-10 15:54] LABS: Gentamicin,Random < 0.6 ug/ml
--- NOTE | 2021-10-10 16:07 | PC.NURSE ---
Patient is non tele and on 6L NC. Patient is assist times 2. Alert and oriented times 4. Patient's demeanour is listless, withdrawn, and depressive. Patient is a Q2 turn. Unstageable wound on buttox cleansed and redressed. Patient refused to worl with PT today. US completed at bedside. Plan of care is to do five days of antibiotics. Bed in lowest position and phone and call light in reach. Will continue to monitor.
--- NOTE | 2021-10-10 16:40 | HMH.CONFU ---
Internal Medicine - PN: Subj *Date: 10/10/21 *Time: 16:40 Interval history: Patient's [place] cath removed yesterday. He has been able to void but is going in the bed. He reports some blood in the urine yesterday with small clots. He reports lesser urine output today. His white count has improved to 9000. His creatinine bumped up to 1.5 and may be a result of dehydration as he is not taking good p.o. in the no longer has IV fluids going. Exam Vital signs and Labs for Last 24 Hours: Temp Pulse Resp BP Pulse Ox 97.8 F 87 18 100/76 L 90 L 10/10/21 12:00 10/10/21 12:00 10/10/21 12:00 10/10/21 12:00 10/10/21 12:00 Laboratory Results - last 24 hr 10/09/21 20:00: POC Glucose 222 H 10/10/21 06:11: Sodium 130 L, Potassium 4.2, Chloride 90 L, Carbon Dioxide 33 H, Anion Gap 11.2, BUN 57 H D, Creatinine 1.50 H D, Estimated Creat Clear 76, Estimated GFR 47 L, Est GFR ( Amer) 56 L D, Glucose 193 H D, Calcium 8.5, Total Bilirubin 3.2 H, AST 134 H, ALT 384 H*, Alkaline Phosphatase 146 H, Total Protein 5.5 L, Albumin 2.9 L, Globulin 2.6, Albumin/Globulin Ratio 1.1 10/10/21 14:25: Random Gentamicin < 0.6 I & O for Last 24 hours: Intake & Output 10/07/21 10/08/21 10/09/21 10/10/21 23:59 23:59 23:59 23:59 Intake Total 1200 / 1200 360 / 360 360 / 360 Output Total 3200 / 3200 1400 / 1400 2800 / 2800 Balance -1999 / -2000 -1040 / -1040 -2440 / -2440 Weight 114.577 kg 114.351 kg 114.2 kg 114 kg - Constitutional no acute distress - *Routine HEENT Exam Head: Present: normocephalic Eye: Present: EOMI, PERRL ENT: Present: mucous membranes moist - *Routine Neck Exam Present: supple. Absent: lymphadenopathy - *Routine Respiratory Exam Present: CTA bilaterally. Absent: accessory muscle use - *Routine Cardiovascular Exam Absent: JVD - *Routine Abdominal Exam Present: soft. Absent: tenderness - *Routine Extremities Exam Present: edema. Absent: cyanosis, clubbing - *Routine Skin Exam Present: warm. Absent: rash - *Routine Neurological Exam Present: alert, oriented X3 Assessment and Plan (1) Acute respiratory failure due to COVID-19 Status: Acute Category: Medical Code(s): U07.1 - COVID-19; J96.00 - Acute respiratory failure, unspecified whether with hypoxia or hypercapnia (2) Acute kidney injury Status: Acute Category: Medical Code(s): N17.9 - Acute kidney failure, unspecified (3) Transaminitis Status: Acute Category: Medical Code(s): R74.01 - Elevation of levels of liver transaminase levels (4) Staph infection Status: Acute Category: Medical Code(s): B95.8 - Unspecified staphylococcus as the cause of diseases classified elsewhere (5) Hematuria Status: Acute Qualifiers: Hematuria type: gross Qualified Code(s): R31.0 - Gross hematuria Category: Medical Code(s): R31.9 - Hematuria, unspecified Patient with history of bladder cancer and recent hematuria. Numerous causes of hematuria possible including urinary tract infection for which she is being treated, [place] irritation and anticoagulation versus chronic cystitis or recurrent bladder tumor. His catheter is currently out and he is incontinent but is having a lot of trouble with getting out of bed. Abdominal ultrasound today is pending. (6) COPD (chronic obstructive pulmonary disease) Status: Acute Qualifiers: COPD type: unspecified COPD Qualified Code(s): J44.9 - Chronic obstructive pulmonary disease, unspecified Category: Medical Code(s): J44.9 - Chronic obstructive pulmonary disease, unspecified (7) COVID-19 with pulmonary comorbidity Status: Acute Category: Medical Code(s): U07.1 - COVID-19; J98.4 - Other disorders of lung (8) Obesity (BMI 30-39.9) Status: Chronic Category: Medical Code(s): E66.9 - Obesity, unspecified (9) Thrombocytopenia associated with COVID-19 Status: Resolved Category: Medical Code(s): U07.1 - COVID-19; D69.59 - Other secondary thr
[2021-10-11] VITALS (12 sets, daily range): BP systolic 90–113; BP diastolic 46–77; PULSE 69–88; RESP 17–22; TEMP 36.2–36.7; O2SAT 89–99; BMI 40.8
--- NOTE | 2021-10-11 03:10 | PC.NURSE ---
Patient stated I feel better tonight then I did today . Patient has been able to help turn his self using his arms and legs.
[2021-10-11 03:56] LABS: Gentamicin,Random 13.7 ug/ml
--- NOTE | 2021-10-11 07:25 | HMH.ACPN2 ---
Internal Medicine - PN: Subj *Date: 10/11/21 *Time: 07:25 Interval history: No acute events or changes over the last 24 hours. Patient claims he feels better this morning. He denies shortness of breath. He has been hesitant to drink due to the difficulty he has urinating. He has been able to urinate. Presence of blood is unknown. Patient declined physical therapy yesterday. Patient would like to get out of bed today to either shave or shower. Patient received a liter of fluids yesterday along with a dose of IV gentamicin. Ultrasound of the abdomen showed fatty liver. Patient also reports not having had a quality bowel movement in several days Exam Vital signs and Labs for Last 24 Hours: Temp Pulse Resp BP Pulse Ox 97.4 F L 88 22 98/65 L 90 L 10/11/21 04:00 10/11/21 06:13 10/11/21 04:00 10/11/21 04:00 10/11/21 06:13 Laboratory Results - last 24 hr 10/10/21 14:25: Random Gentamicin < 0.6 10/11/21 02:38: Random Gentamicin 13.7 I & O for Last 24 hours: Intake & Output 10/08/21 10/09/21 10/10/21 10/11/21 11:59 11:59 11:59 11:59 Intake Total 600 / 600 480 / 480 120 / 120 Output Total 500 / 500 3700 / 3700 Balance 100 / 100 -3220 / -3220 120 / 120 Weight 252 lb 1.6 oz 251 lb 12.286 oz 251 lb 5.231 oz 260 lb 9.382 oz - Constitutional no acute distress - *Routine Respiratory Exam Present: CTA bilaterally - *Routine Cardiovascular Exam Present: RRR - *Routine Abdominal Exam Present: soft, normoactive bowel sounds. Absent: tenderness - *Routine Extremities Exam Absent: cyanosis, clubbing, edema - *Routine Skin Exam Comments: See wound care notes Assessment and Plan (1) Acute respiratory failure due to COVID-19 Status: Acute Category: Medical Code(s): U07.1 - COVID-19; J96.00 - Acute respiratory failure, unspecified whether with hypoxia or hypercapnia (2) Acute kidney injury Status: Acute Category: Medical Code(s): N17.9 - Acute kidney failure, unspecified (3) Transaminitis Status: Acute Category: Medical Code(s): R74.01 - Elevation of levels of liver transaminase levels (4) Staph infection Status: Acute Category: Medical Code(s): B95.8 - Unspecified staphylococcus as the cause of diseases classified elsewhere (5) Hematuria Status: Acute Qualifiers: Hematuria type: gross Qualified Code(s): R31.0 - Gross hematuria Category: Medical Code(s): R31.9 - Hematuria, unspecified (6) COPD (chronic obstructive pulmonary disease) Status: Acute Qualifiers: COPD type: unspecified COPD Qualified Code(s): J44.9 - Chronic obstructive pulmonary disease, unspecified Category: Medical Code(s): J44.9 - Chronic obstructive pulmonary disease, unspecified (7) COVID-19 with pulmonary comorbidity Status: Acute Category: Medical Code(s): U07.1 - COVID-19; J98.4 - Other disorders of lung (8) Obesity (BMI 30-39.9) Status: Chronic Category: Medical Code(s): E66.9 - Obesity, unspecified (9) Thrombocytopenia associated with COVID-19 Status: Resolved Category: Medical Code(s): U07.1 - COVID-19; D69.59 - Other secondary thrombocytopenia (10) Hx of CABG Status: Chronic Category: Surgical Code(s): Z95.1 - Presence of aortocoronary bypass graft (11) CAD (coronary artery disease) Status: Chronic Qualifiers: Coronary Disease-Associated Artery/Lesion type: bypass graft [place] vs. transplanted heart: [place] heart Associated angina: with other forms of angina Qualified Code(s): I25.708 - Atherosclerosis of coronary artery bypass graft(s), unspecified, with other forms of angina pectoris Category: Medical Code(s): I25.10 - Atherosclerotic heart disease of [place] coronary artery without angina pectoris (12) Atrial fibrillation Status: Resolved Qualifiers: Atrial fibrillation type: paroxysmal Qualified Code(s): I48.0 - Paroxysmal atrial fibrillation Category: Medical Code(s): I48.91 -
[2021-10-11 08:55] LABS: Basophils # 0.1 K/mm3 (0-0.2); Basophils % 0.9 % (0.1-2.0); Eosinophils % 0.2 % (0.1-12.0); Hematocrit 35.4 % (42.0-52.0); Hemoglobin 11.7 g/dL (14.1-18.0); Lymphocytes # 0.3 K/mm3 (0.7-4.5); Lymphocytes % 1.9 % (10-50); Mean Corpuscular Hemoglobin 33.4 pg (27.0-31.2); Mean Corpuscular Volume 101.3 fl (80-94); Mean Platelet Volume 9.9 fl (7.4-10.4); Monocytes # 0.3 K/mm3 (0.1-1.0); Monocytes % 2.5 % (1.7-9.3); Neutrophils # 12.5 K/mm3 (1.8-7.8); Neutrophils % 94.5 % (37.0-80.0); Platelet Count 126 K/mm3 (142-424); Red Blood Count 3.49 M/mm3 (4.60-6.20); Red Cell Distribution Width 19.4 % (11.5-17.5); White Blood Count 13.2 K/mm3 (4.8-10.8)
[2021-10-11 08:56] LABS: MANUAL DIFFERENTIAL MANUAL DIFFERENTIAL (MANUAL DIFF)
[2021-10-11 09:48] LABS: Alanine Aminotransferase 323 U/L (12-78); Albumin Level 2.8 g/dl (3.5-5.0); Albumin/Globulin Ratio 1.1 (1.1-1.8); Alkaline Phosphatase 133 U/L (38-126); Anion Gap 17.6 mEq/L (5-15); Aspartate Amino Transferase 104 U/L (17-59); Bilirubin,Total 2.7 mg/dl (0.2-1.3); Calcium 8.5 mg/dl (8.4-10.2); Carbon Dioxide 25 mmol/L (22.0-30.0); Chloride 91 mmol/L (98-107); Creatinine Clearance Estimated 20 mL/min (50-200); Estimated Glomerular Filt Rate 19 ml/min (>60); GFR (African American) 23 ML/MIN (>60); Globulin 2.5 g/dL (1.3-3.2); Glucose 181 mg/dl (74-100); Potassium 4.6 mmoL/L (3.5-5.1); Sodium 129 mmol/L (136-145); Total Protein,Serum 5.3 g/dl (6.3-8.2)
[2021-10-11 09:52] LABS: Blood Urea Nitrogen 97 mg/dl (9-20)
[2021-10-11 10:43] LABS: Lymphocytes % 3 % (10-50); Monocytes % 2 % (2-9); Neutrophils % 91 % (42-76); Total Cells Counted 100
[2021-10-11 10:44] LABS: Anisocytosis 1+; Macrocytosis 1+; Platelet Estimate Slight Decrease
--- NOTE | 2021-10-11 11:50 | PC.NURSE ---
Notified Dr. Prado of elevated critical BUN of 97 and he ordered NS @ 100 ml/hr.
--- NOTE | 2021-10-11 12:38 | HMH.PULMPN ---
Internal Medicine - PN: Subj *Date: 10/11/21 *Time: 12:38 Interval history: No acute respiratory events overnight. Patient denies any new respiratory complaints. Exam - Constitutional Constitutional:: Present: no acute distress, comfortable - HENMT Exam HENMT: Present: normocephalic, atraumatic - Eye Exam Eyes:: Present: normal appearance both eyes and related structures - Neck Exam Neck:: Present: normal visual inspection - Respiratory Exam Respiratory:: Present: able to speak in complete sentences, respiratory distress, rales - Cardiovascular Exam Cardiac:: Present: S1, S2 - GI Exam GI:: Present: soft - Skin Exam Skin: Present: warm, no rash - Neurological Exam Neurological: Present: alert, awake, normal cognition - Extremities Exam Extremities: Present: no cyanosis, no clubbing, edema Assessment and Plan (1) Acute respiratory failure due to COVID-19 Status: Acute Category: Medical Code(s): U07.1 - COVID-19; J96.00 - Acute respiratory failure, unspecified whether with hypoxia or hypercapnia (2) Acute kidney injury Status: Acute Category: Medical Code(s): N17.9 - Acute kidney failure, unspecified (3) Transaminitis Status: Acute Category: Medical Code(s): R74.01 - Elevation of levels of liver transaminase levels (4) Staph infection Status: Acute Category: Medical Code(s): B95.8 - Unspecified staphylococcus as the cause of diseases classified elsewhere (5) Hematuria Status: Acute Qualifiers: Hematuria type: gross Qualified Code(s): R31.0 - Gross hematuria Category: Medical Code(s): R31.9 - Hematuria, unspecified (6) COPD (chronic obstructive pulmonary disease) Status: Acute Qualifiers: COPD type: unspecified COPD Qualified Code(s): J44.9 - Chronic obstructive pulmonary disease, unspecified Category: Medical Code(s): J44.9 - Chronic obstructive pulmonary disease, unspecified (7) COVID-19 with pulmonary comorbidity Status: Acute Category: Medical Code(s): U07.1 - COVID-19; J98.4 - Other disorders of lung (8) Obesity (BMI 30-39.9) Status: Chronic Category: Medical Code(s): E66.9 - Obesity, unspecified (9) Thrombocytopenia associated with COVID-19 Status: Resolved Category: Medical Code(s): U07.1 - COVID-19; D69.59 - Other secondary thrombocytopenia (10) Hx of CABG Status: Chronic Category: Surgical Code(s): Z95.1 - Presence of aortocoronary bypass graft (11) CAD (coronary artery disease) Status: Chronic Qualifiers: Coronary Disease-Associated Artery/Lesion type: bypass graft [place] vs. transplanted heart: [place] heart Associated angina: with other forms of angina Qualified Code(s): I25.708 - Atherosclerosis of coronary artery bypass graft(s), unspecified, with other forms of angina pectoris Category: Medical Code(s): I25.10 - Atherosclerotic heart disease of [place] coronary artery without angina pectoris (12) Atrial fibrillation Status: Resolved Qualifiers: Atrial fibrillation type: paroxysmal Qualified Code(s): I48.0 - Paroxysmal atrial fibrillation Category: Medical Code(s): I48.91 - Unspecified atrial fibrillation (13) Steroid-induced hyperglycemia Status: Acute Category: Medical Code(s): R73.9 - Hyperglycemia, unspecified; T38.0X5A - Adverse effect of glucocorticoids and synthetic analogues, initial encounter (14) Balanitis Status: Acute Category: Medical Code(s): N48.1 - Balanitis (15) Sacral decubitus ulcer, stage II Status: Acute Category: Medical Code(s): L89.152 - Pressure ulcer of sacral region, stage 2 (16) Acquired thrombocytopenia Status: Acute Category: Medical Code(s): D69.6 - Thrombocytopenia, unspecified (17) UTI (urinary tract infection) Status: Acute Qualifiers: Urinary tract infection type: site unspecified Category: Medical Code(s): N39.0 - Urinary tract infection, site not specified - Assessment and p
--- NOTE | 2021-10-11 18:37 | PC.NURSE ---
Dr. Prado also aware of hematuria and blood noted in stool as well this shift. NNO. have changed dsg to sacrum x 2 this shift. CB in reach. currently at bedside.
--- NOTE | 2021-10-11 20:12 | PC.NURSE ---
Addendum entered by Geovanni Muhammad RN 10/11/21 20:13: Pt has no c/os currently. Original Note: Pt desatting to 70's at rest, applied non re-breather to pt and sats 98%. Vandana made RT aware of this as well as Nancy Reyes RN, who is taking over care of pt this shift.
[2021-10-11 23:18] LABS: Gentamicin,Random 9.8 ug/ml
[2021-10-12] VITALS (12 sets, daily range): BP systolic 80–99; BP diastolic 37–81; PULSE 61–91; RESP 18–22; TEMP 35.8–36.8; O2SAT 88–98; BMI 41.7
[2021-10-12 01:34] LABS: POC Glucose,Bedside 223 (70-110)
[2021-10-12 01:34] LABS: POC Glucose,Bedside 194 (70-110)
[2021-10-12 01:34] LABS: POC Glucose,Bedside 198 (70-110)
[2021-10-12 01:34] LABS: POC Glucose,Bedside 176 (70-110)
[2021-10-12 01:34] LABS: POC Glucose,Bedside 202 (70-110)
[2021-10-12 01:34] LABS: POC Glucose,Bedside 204 (70-110)
--- NOTE | 2021-10-12 05:30 | PC.NURSE ---
Pt remains on 6L NC with the use of the non-rebreather mask as needed. O2 has been 90-91% t/o shift. Pt voiced no c/o of pain thus far in shift. Pt was turned q2h. Pt had 1 bloody BM this shift. Dressing to bottom was changed x1.
[2021-10-12 06:25] LABS: POC Glucose,Bedside 143 (70-110)
--- NOTE | 2021-10-12 07:19 | HMH.ACPN2 ---
Internal Medicine - PN: Subj *Date: 10/12/21 *Time: 07:30 Interval history: No new complaints. No acute events. Patient feels weak. He performed bed exercises yesterday with physical therapy. He apparently required brief use of nonrebreather overnight but currently sats are 91% on 6 L/min. Patient is passing blood in his urine and stool Exam Vital signs and Labs for Last 24 Hours: Temp Pulse Resp BP Pulse Ox 97.4 F L 84 22 90/64 L 95 10/12/21 04:00 10/12/21 04:00 10/12/21 04:00 10/12/21 04:00 10/12/21 05:45 Laboratory Results - last 24 hr 10/10/21 05:26: POC Glucose 198 H 10/10/21 20:28: POC Glucose 204 H 10/11/21 05:28: POC Glucose 176 H 10/11/21 08:30: WBC 13.2 H D, RBC 3.49 L, Hgb 11.7 L, Hct 35.4 L, MCV 101.3 H, MCH 33.4 H, MCHC 33.0, RDW 19.4 H, Plt Count 126 L D, MPV 9.9, Neut % (Auto) 94.5 H, Lymph % (Auto) 1.9 L, [place] % (Auto) 2.5, Eos % (Auto) 0.2, Baso % (Auto) 0.9, Neut # (Auto) 12.5 H, Lymph # (Auto) 0.3 L, [place] # (Auto) 0.3, Eos # (Auto) 0.0, Baso # (Auto) 0.1, Total Counted 100, Neutrophils % (Manual) 91 H, Band Neutrophils % 3.0, Lymphocytes % (Manual) 3 L, Monocytes % (Manual) 2, Basophils % (Manual) 1.0, Platelet Estimate Slight decrease, Anisocytosis 1+, Macrocytosis 1+ 10/11/21 08:30: Sodium 129 L, Potassium 4.6, Chloride 91 L, Carbon Dioxide 25, Anion Gap 17.6 H, BUN 97 H D, Creatinine 3.20 H D, Estimated Creat Clear 20, Estimated GFR 19 L*, Est GFR ( Amer) 23 L D, Glucose 181 H, Calcium 8.5, Total Bilirubin 2.7 H, AST 104 H, ALT 323 H*, Alkaline Phosphatase 133 H, Total Protein 5.3 L, Albumin 2.8 L, Globulin 2.5, Albumin/Globulin Ratio 1.1 10/11/21 08:30: C-Reactive Protein 66.0 H 10/11/21 10:16: POC Glucose 202 H 10/11/21 17:43: POC Glucose 194 H 10/11/21 20:38: POC Glucose 223 H 10/11/21 20:55: Random Gentamicin 9.8 10/12/21 06:17: POC Glucose 143 H I & O for Last 24 hours: Intake & Output 10/09/21 10/10/21 10/11/21 10/12/21 11:59 11:59 11:59 11:59 Intake Total 480 / 480 120 / 120 360 / 360 360 / 360 Output Total 3700 / 3700 Balance -3220 / -3220 120 / 120 360 / 360 360 / 360 Weight 251 lb 12.286 oz 251 lb 5.231 oz 260 lb 9.382 oz 265 lb 10.512 oz Narrative: Patient appears pale. Lungs are clear. Heart has a regular rate and rhythm. Abdomen is soft and nontender. Patient has 1+ edema primarily in the left leg this morning. Assessment and Plan (1) Acute kidney injury Status: Acute Category: Medical Code(s): N17.9 - Acute kidney failure, unspecified (2) Acute respiratory failure due to COVID-19 Status: Acute Category: Medical Code(s): U07.1 - COVID-19; J96.00 - Acute respiratory failure, unspecified whether with hypoxia or hypercapnia (3) Transaminitis Status: Acute Category: Medical Code(s): R74.01 - Elevation of levels of liver transaminase levels (4) Hematuria Status: Acute Qualifiers: Hematuria type: gross Qualified Code(s): R31.0 - Gross hematuria Category: Medical Code(s): R31.9 - Hematuria, unspecified (5) COPD (chronic obstructive pulmonary disease) Status: Acute Qualifiers: COPD type: unspecified COPD Qualified Code(s): J44.9 - Chronic obstructive pulmonary disease, unspecified Category: Medical Code(s): J44.9 - Chronic obstructive pulmonary disease, unspecified (6) COVID-19 with pulmonary comorbidity Status: Acute Category: Medical Code(s): U07.1 - COVID-19; J98.4 - Other disorders of lung (7) Obesity (BMI 30-39.9) Status: Chronic Category: Medical Code(s): E66.9 - Obesity, unspecified (8) Thrombocytopenia associated with COVID-19 Status: Resolved Category: Medical Code(s): U07.1 - COVID-19; D69.59 - Other secondary thrombocytopenia (9) Hx of CABG Status: Chronic Category: Surgical Code(s): Z95.1 - Presence of aortocoronary bypass graft (10) CAD (coronary artery disease) Status: Chronic Qualifiers: Coronary Disease-Associated Artery/Lesion type: bypass
[2021-10-12 08:04] LABS: Basophils # 0.1 K/mm3 (0-0.2); Basophils % 0.7 % (0.1-2.0); Hematocrit 37.2 % (42.0-52.0); Hemoglobin 11.8 g/dL (14.1-18.0); Lymphocytes # 0.3 K/mm3 (0.7-4.5); Lymphocytes % 2.6 % (10-50); Mean Corpuscular HGB Conc 31.7 g/dL (31.8-35.4); Mean Corpuscular Hemoglobin 33.5 pg (27.0-31.2); Mean Corpuscular Volume 105.8 fl (80-94); Mean Platelet Volume 10.4 fl (7.4-10.4); Monocytes # 0.3 K/mm3 (0.1-1.0); Monocytes % 2.5 % (1.7-9.3); Neutrophils # 12.2 K/mm3 (1.8-7.8); Neutrophils % 94.1 % (37.0-80.0); Platelet Count 144 K/mm3 (142-424); Red Blood Count 3.51 M/mm3 (4.60-6.20); Red Cell Distribution Width 19.8 % (11.5-17.5)
[2021-10-12 08:16] LABS: MANUAL DIFFERENTIAL MANUAL DIFFERENTIAL (MANUAL DIFF)
[2021-10-12 08:26] LABS: Alanine Aminotransferase 316 U/L (12-78); Albumin/Globulin Ratio 1.1 (1.1-1.8); Alkaline Phosphatase 151 U/L (38-126); Anion Gap 20.3 mEq/L (5-15); Aspartate Amino Transferase 100 U/L (17-59); Calcium 8.4 mg/dl (8.4-10.2); Carbon Dioxide 24 mmol/L (22.0-30.0); Chloride 90 mmol/L (98-107); Globulin 2.7 g/dL (1.3-3.2); Glucose 150 mg/dl (74-100); Potassium 5.3 mmoL/L (3.5-5.1); Sodium 129 mmol/L (136-145); Total Protein,Serum 5.7 g/dl (6.3-8.2)
[2021-10-12 08:32] LABS: Creatinine Clearance Estimated 15 mL/min (50-200); Estimated Glomerular Filt Rate 14 ml/min (>60); GFR (African American) 17 ML/MIN (>60)
[2021-10-12 08:45] LABS: Blood Urea Nitrogen 116 mg/dl (9-20)
--- NOTE | 2021-10-12 09:21 | HMH.PULMPN ---
Internal Medicine - PN: Subj *Date: 10/12/21 *Time: 11:09 Interval history: No acute respiratory events overnight. Exam - Constitutional Constitutional:: Absent: no acute distress, comfortable - HENMT Exam HENMT: Present: normocephalic, atraumatic - Eye Exam Eyes:: Present: normal appearance both eyes and related structures - Neck Exam Neck:: Present: normal visual inspection - Respiratory Exam Respiratory:: Present: respiratory distress, rales - Cardiovascular Exam Cardiac:: Present: S1, S2 - GI Exam GI:: Present: soft. Absent: no tenderness - Skin Exam Skin: Present: warm, no rash - Neurological Exam Neurological: Present: alert, awake, normal cognition - Extremities Exam Extremities: Present: no cyanosis, no clubbing, edema Assessment and Plan (1) Acute kidney injury Status: Acute Category: Medical Code(s): N17.9 - Acute kidney failure, unspecified (2) Acute respiratory failure due to COVID-19 Status: Acute Category: Medical Code(s): U07.1 - COVID-19; J96.00 - Acute respiratory failure, unspecified whether with hypoxia or hypercapnia (3) Transaminitis Status: Acute Category: Medical Code(s): R74.01 - Elevation of levels of liver transaminase levels (4) Hematuria Status: Acute Qualifiers: Hematuria type: gross Qualified Code(s): R31.0 - Gross hematuria Category: Medical Code(s): R31.9 - Hematuria, unspecified (5) COPD (chronic obstructive pulmonary disease) Status: Acute Qualifiers: COPD type: unspecified COPD Qualified Code(s): J44.9 - Chronic obstructive pulmonary disease, unspecified Category: Medical Code(s): J44.9 - Chronic obstructive pulmonary disease, unspecified (6) COVID-19 with pulmonary comorbidity Status: Acute Category: Medical Code(s): U07.1 - COVID-19; J98.4 - Other disorders of lung (7) Obesity (BMI 30-39.9) Status: Chronic Category: Medical Code(s): E66.9 - Obesity, unspecified (8) Thrombocytopenia associated with COVID-19 Status: Resolved Category: Medical Code(s): U07.1 - COVID-19; D69.59 - Other secondary thrombocytopenia (9) Hx of CABG Status: Chronic Category: Surgical Code(s): Z95.1 - Presence of aortocoronary bypass graft (10) CAD (coronary artery disease) Status: Chronic Qualifiers: Coronary Disease-Associated Artery/Lesion type: bypass graft [place] vs. transplanted heart: [place] heart Associated angina: with other forms of angina Qualified Code(s): I25.708 - Atherosclerosis of coronary artery bypass graft(s), unspecified, with other forms of angina pectoris Category: Medical Code(s): I25.10 - Atherosclerotic heart disease of [place] coronary artery without angina pectoris (11) Atrial fibrillation Status: Resolved Qualifiers: Atrial fibrillation type: paroxysmal Qualified Code(s): I48.0 - Paroxysmal atrial fibrillation Category: Medical Code(s): I48.91 - Unspecified atrial fibrillation (12) Steroid-induced hyperglycemia Status: Acute Category: Medical Code(s): R73.9 - Hyperglycemia, unspecified; T38.0X5A - Adverse effect of glucocorticoids and synthetic analogues, initial encounter (13) Balanitis Status: Acute Category: Medical Code(s): N48.1 - Balanitis (14) Sacral decubitus ulcer, stage II Status: Acute Category: Medical Code(s): L89.152 - Pressure ulcer of sacral region, stage 2 (15) Acquired thrombocytopenia Status: Acute Category: Medical Code(s): D69.6 - Thrombocytopenia, unspecified (16) UTI (urinary tract infection) Status: Acute Qualifiers: Urinary tract infection type: site unspecified Category: Medical Code(s): N39.0 - Urinary tract infection, site not specified (17) Staph infection Status: Acute Category: Medical Code(s): B95.8 - Unspecified staphylococcus as the cause of diseases classified elsewhere - Assessment and plan all Dx Assessment and Plan for all problems:: #Acute ch
[2021-10-12 09:22] LABS: Lymphocytes % 2 % (10-50); Monocytes % 3 % (2-9); Neutrophils % 94 % (42-76); Total Cells Counted 100
[2021-10-12 09:23] LABS: Anisocytosis 1+; Macrocytosis 2+; Nucleated Red Blood Cells 1; Platelet Estimate Normal
--- NOTE | 2021-10-12 14:20 | PC.NURSE ---
Dr. Dillard seen patient. D/t pt's increased renal function, minimal urine output and hematuria, orders received for placement of 3-way cath w/ CBI at low rate.
--- NOTE | 2021-10-12 15:47 | HMH.CONFU ---
Internal Medicine - PN: Subj *Date: 10/12/21 *Time: 15:47 Interval history: Patient's [place] cath removed 3 days ago. He has been incontinent since that time and is difficult to measure his urine output. He describes the urine as being pink-tinged. He has a history of some urinary urgency and is back on the oxybutynin. Kidney function has been elevating over the past few days as well with a creatinine of 4.2 today. Abdominal ultrasound 2 days ago showed no evidence of hydronephrosis. His white count is trending back up and his liver functions are elevated as well. He is finishing up a course of itraconazole. Exam Vital signs and Labs for Last 24 Hours: Temp Pulse Resp BP Pulse Ox 97.9 F 80 20 85/45 L 93 L 10/12/21 15:29 10/12/21 15:29 10/12/21 15:29 10/12/21 15:29 10/12/21 15:29 Laboratory Results - last 24 hr 10/10/21 05:26: POC Glucose 198 H 10/10/21 20:28: POC Glucose 204 H 10/11/21 05:28: POC Glucose 176 H 10/11/21 10:16: POC Glucose 202 H 10/11/21 17:43: POC Glucose 194 H 10/11/21 20:38: POC Glucose 223 H 10/11/21 20:55: Random Gentamicin 9.8 10/12/21 06:17: POC Glucose 143 H 10/12/21 07:07: WBC 13.0 H, RBC 3.51 L, Hgb 11.8 L, Hct 37.2 L, MCV 105.8 H, MCH 33.5 H, MCHC 31.7 L, RDW 19.8 H, Plt Count 144, MPV 10.4, Neut % (Auto) 94.1 H, Lymph % (Auto) 2.6 L, [place] % (Auto) 2.5, Eos % (Auto) 0.0 L, Baso % (Auto) 0.7, Neut # (Auto) 12.2 H, Lymph # (Auto) 0.3 L, [place] # (Auto) 0.3, Eos # (Auto) 0.0, Baso # (Auto) 0.1, Total Counted 100, Neutrophils % (Manual) 94 H, Band Neutrophils % 1.0, Lymphocytes % (Manual) 2 L, Monocytes % (Manual) 3, Nucleated RBCs 1, Platelet Estimate Normal, Anisocytosis 1+, Macrocytosis 2+ 10/12/21 07:07: Sodium 129 L, Potassium 5.3 H, Chloride 90 L, Carbon Dioxide 24, Anion Gap 20.3 H, BUN 116 H*, Creatinine 4.20 H D, Estimated Creat Clear 15, Estimated GFR 14 L*, Est GFR ( Amer) 17 L* D, Glucose 150 H, Calcium 8.4, Total Bilirubin 3.0 H, AST 100 H, ALT 316 H*, Alkaline Phosphatase 151 H, Total Protein 5.7 L, Albumin 3.0 L, Globulin 2.7, Albumin/Globulin Ratio 1.1 I & O for Last 24 hours: Intake & Output 10/09/21 10/10/21 10/11/21 10/12/21 23:59 23:59 23:59 23:59 Intake Total 360 / 360 720 / 720 360 / 360 Output Total 2800 / 2800 Balance -2440 / -2440 720 / 720 360 / 360 Weight 114.2 kg 114 kg 118.2 kg 120.5 kg - Constitutional no acute distress - *Routine HEENT Exam Head: Present: normocephalic Eye: Present: EOMI, PERRL ENT: Present: mucous membranes moist - *Routine Neck Exam Present: supple. Absent: lymphadenopathy - *Routine Respiratory Exam Absent: accessory muscle use - *Routine Cardiovascular Exam Absent: JVD - *Routine Abdominal Exam Present: soft. Absent: tenderness - *Routine Extremities Exam Present: cyanosis, edema. Absent: clubbing - *Routine Skin Exam Present: warm. Absent: rash - *Routine Neurological Exam Present: alert, oriented X3 Assessment and Plan (1) Acute kidney injury Status: Acute Category: Medical Code(s): N17.9 - Acute kidney failure, unspecified Patient's creatinine up to 4.2 this morning. He is incontinent and is difficult to measure his urine output in the [place] catheter recommended to assess urine output. Will place a three-way catheter initially to help clear up the urine and hopefully will not have to run it for long so that we can monitor urine output. Hematuria. Patient with history of bladder cancer also on blood thinners and [place] catheter and recent staph UTI. (2) Acute respiratory failure due to COVID-19 Status: Acute Category: Medical Code(s): U07.1 - COVID-19; J96.00 - Acute respiratory failure, unspecified whether with hypoxia or hypercapnia (3) Transaminitis Status: Acute Category: Medical Code(s): R74.01 - Elevation of levels of liver transaminase levels (4) Hematuria Status: Acute Qualifiers: Hematuria type: gross Qualified Code(s): R31.0 - Gross hematuria
--- NOTE | 2021-10-12 16:56 | PC.NURSE ---
Large clotes noted in tubing and ashton bag, ashton irrigated w/ sterile saline. Large clots evacuated from ashton @ this time, flow returning to drk pink color. Pt reports relief in abdomen since ashton was placed. He remains on 6 L O2 per nasal cannula, no s/s of resp distress. Pt turned Q2H, dressing changed to sacrum twice this shift. Area was cleaned and pat dry, it is draining serosang. Appetite remains poor. Staff have been encouraging fluids throughout shift. No complaints voiced. He is currently resting on right side, @ bedside.
[2021-10-12 17:58] LABS: POC Glucose,Bedside 197 (70-110)
[2021-10-12 20:25] LABS: POC Glucose,Bedside 173 (70-110)
[2021-10-12 21:45] LABS: POC Glucose,Bedside 221 (70-110)
[2021-10-12 23:50] LABS: POC Glucose,Bedside 205 (70-110)
--- NOTE | 2021-10-12 23:57 | HMH.DEATH ---
Pronouncement Note - Date and Time of Date of : 10/12/21 Time of : 23:35 - Additional Data Confirmation of : no pulse, no respirations, no heart sounds, pupils fixed and dilated Family: contacted Attending/PCP notified?: Yes Attending physician: Christiano Prado MD Was code activated?: No Autopsy requested?: No trade mark examiner notified?: No Organ bank notified?: Yes Advance directives: Yes
--- NOTE | 2021-10-13 00:39 | PC.NURSE ---
Spoke with Benjamin Smith from [employer]. Pt is ruled out for donation. Case # [id number]
--- NOTE | 2021-10-13 02:40 | PC.NURSE ---
Pt's O2 saturation started to drop to 79%-80% at 23:20. This RN entered room pt was found alert and oriented, called RT to come assess O2. RT entered room and pt was found unresponsive. 23:25 transmitter supervisor Jeannie was called 23:25 Blood glucose read 205, no B/P could be obtained. Placed lab courier on patient pulse read 34 with PEA rhythm. transmitter supervisor obtained a Doppler to locate a pulse, no pulse was found. 23:30 Dr. Bhandari was paged and returned call to be updated on patient's status. No new orders received. pronounced time of 23:30 Spouse was called at 23:34 to be updated on pt's status and was in route to hospital. Elissa Reyes, Jeannie Shah, Ximena Phillip, Yesica Pleitez, Cathy Aquino RT, Mariaelena Romero, Jenise Rendon were present in room.
--- NOTE | 2021-10-13 03:34 | PC.NURSE ---
Juan Home left with patient at 03:32.
--- NOTE | 2021-10-27 07:21 | [facility].DCSUM ---
General - General Admission date:: 09/04/21 Discharge date: 10/13/21 HPI HPI: 66-year-old male presented to the emergency department with at least 2 weeks of illness and known Covid exposure. Patient has had some mild cough at home but progressively felt worse over the last 2 days. Work-up in the emergency department revealed bilateral pneumonia and positive SARS-CoV-2 testing. Patient had significant respiratory failure. Patient initially presented on nonrebreather but was transitioned to maximum settings high flow nasal cannula which kept his O2 sats in the high 80s and low 90s. Since admission patient has had pulmonology consultation with transition to BiPAP. Patient denies any chest heaviness or tightness. He has a history of coronary artery disease and elevated troponins on admission. Hospital Course Hospital Course: Patient was admitted for COVID-19 pneumonia with acute respiratory failure requiring high flow oxygen supplementation. On admission the patient was started on Dexamethasone, Remdesivir, baricitinib, nutritional supplements, DVT prophylaxis with Lovenox. During hospitalization he completed a full course of Remdesivir as well as a 2-week course of baricitinib. Patient was transitioned from high flow nasal cannula to BiPAP to maintain O2 sats in the high 80s to low 90s. Patient was very clear from the beginning that he wished to be a DO NOT RESUSCITATE. Patient remained on BiPAP for almost the first 2 weeks of admission before he was able to be transitioned to high flow nasal cannula with overlaid nonrebreather. Combination of high flow nasal cannula and nonrebreather allow the patient to stay off BiPAP and maintained O2 sats in the low to mid 90s. Attempts were made to wean the patient from high flow nasal cannula but attempt stalled once patient reached an FiO2 of 70%. Dr. Rod of the pulmonology service has been following the patient since admission. There was concern raised about immune dysregulation due to rising CRP levels with inability to wean oxygen.. By this time patient had been placed on low-dose Solu-Medrol. This was increased to high-dose Solu-Medrol 120 mg every 6 hours. The high-dose Solu-Medrol improved patient's respiratory status and once patient began to be weaned further from his oxygen was transitioned to twice daily. Patient remained on steroids the remainder of admission until he . He had been transitioned to oral prednisone by that time. During hospitalization sputum culture was negative for bacterial infection but did have fungal infection. This was felt to likely be contaminant. Patient's beta D glucan test however was slightly elevated. Patient was started on micafungin approximately around September and was continued on an antifungal until discharge. Patient received IV micafungin and was transition to oral itraconazole. Oral itraconazole did cause rise in liver function tests. During hospitalization patient had a brief run of atrial fibrillation. His beta-venu was increased. Patient was continued on Lovenox. Echocardiogram showed normal LV systolic function. Patient has a history of bladder cancer along with recurring hematuria. This became a recurring issue during hospitalization. Patient initially developed difficulty urinating as he has to stand and due to his severe hypoxia he was bedbound or chair bound. [place] catheter was inserted to provide relief as well as to monitor urine output. Patient would develop bloody urine. Continuous bladder irrigation was used on multiple occasions during hospitalization which would transiently improve patient's hematuria. Urology was consulted and catheter was changed on at least 2 occasions. Patient also developed some balanitis which was initially treated with oral fluconazole until patient's antifungals were changed due to suspicion of fungal pneumonia. Due to the patient's prolonged hospitalization he became profoundly
== END 2021-10-13 03:32 | disposition expired | DRG 177 ==
LOC: ER 07:28 → ICU 15:02 → 2ND 09-15 14:06
PROVIDERS: Internal Medicine Pulmonary Disease; Urology; Admitting Provider Family Medicine; Emergency Provider Emergency Medicine; PCP Family Medicine; Visit Provider Family Medicine
DX: U07.1 COVID-19 (principal); J96.21 Acute and chronic respiratory failure with hypoxia; J12.82 Pneumonia due to coronavirus disease 2019; N17.9 Acute kidney failure, unspecified; J44.0 Chronic obstructive pulmonary disease with (acute) lower respiratory infection; Z68.41 Body mass index [BMI] 40.0-44.9, adult; N39.0 Urinary tract infection, site not specified; I25.10 Atherosclerotic heart disease of native coronary artery without angina pectoris; I10 Essential (primary) hypertension; D69.59 Other secondary thrombocytopenia; I48.0 Paroxysmal atrial fibrillation; N18.9 Chronic kidney disease, unspecified; T38.0X5A Adverse effect of glucocorticoids and synthetic analogues, initial encounter; R73.9 Hyperglycemia, unspecified; N48.1 Balanitis; R31.0 Gross hematuria; L89.152 Pressure ulcer of sacral region, stage 2; Z85.51 Personal history of malignant neoplasm of bladder; I25.2 Old myocardial infarction; E78.5 Hyperlipidemia, unspecified; E87.70 Fluid overload, unspecified; E87.6 Hypokalemia; E66.9 Obesity, unspecified; B95.8 Unspecified staphylococcus as the cause of diseases classified elsewhere; Z87.891 Personal history of nicotine dependence; R74.01 Elevation of levels of liver transaminase levels
CPT/HCPCS: 36415; 71045; 71275; 76700; 80048; 80053; 80076; 80170; 81001; 82728; 82803; 82947; 82962; 83605; 83615; 83735; 83880; 84145; 84484; 85007; 85025; 85049; 85378; 85651; 86140; 87040; 87070; 87077; 87086; 87088; 87186; 87205; 87449; 93005; 93306; 93308; 93970; 94640; 94660; 94761; 96365; 96375; 97110; 97163; 97166; 97530; 99285; C9803; J1956; J2405; Q9967; U0003; U0005